=== PATIENT | female | born 1940 | race Caucasian/White ===

== ENCOUNTER → 2016-05-23 | Outpatient (CLI) | payer MEDICARE ==
[~2016-05-23] MED LIST: ACLI400A IH; ADV1DS INH; ALBU8.5H2 IH; ASCO100076 PO; ASP81CT PO; ASP81TEC PO; ASPI-892 PO; ASPI-983 PO; ATOR40TA PO; ATOR40TA70 PO; ATOR80TA; ATOR80TA PO; AZIT250T5 PO; BTH25T1 PO; BUDE10.2 IH; BUDE6HFA IH; CALCIUM +D PO; CATHETER FLUSH 10 ML SYR IV PRN; CEFD300C3 PO; CEPH250C PO; CEPH500T PO; CHOL10003 PO; CLON0.5T3; CLOP75TA PO; DIAZ-345 PO; DIAZ5TAB3 PO; DIPH25TA82 PO; DULO60CA6 PO; EZET10TA23 PO; FAMO20TA5 PO; FAMO40TA72 PO; FENO160T PO; FENO160T12 PO; FLUC100T6 PO; FLUT1DIS26 IH; FURO20TA PO; FURO20TA4 PO; GBPN300C PO; HYDR-3857 PO; HYDR1TAB PO; IBUP-30 PO; Ibuprofen; LEVA1.2511 IH; LEVA1.2527 IH; LEVA1.2527 NEB; LEVO150T PO; LEVO200T6 PO; LEVO500T69 PO; LEVO75TA57 PO; LOVA20TA2 PO; LOVA40TA2 PO; LSNP20T; LSRT50T; LSRT50T PO; LVT.1T PO; MAGN250T7 PO; MAGN400C PO; MCLZ25TRX; MELO15TA14 PO; METH4TAB PO; METO25TA2 PO; METO50TA7; METO50TA7 PO; MULT-856 PO; NITR100C3 PO; OMEG1CAP40; OMEG1CAP51 PO; OMEP40CA36 PO; OMG1KC PO; OXYC-12 PO; PARO20TA57 PO; PILO5TAB PO; PNT40TEC PO; POTA10TA6 PO; POTA20TA15 PO; PRD20T PO; PRD50T PO; PRX20T PO; REGADENOSON 0.4 MG/5 ML SYR (LEXISCAN) IV ONE; ROSU10TA PO; SCR1T1 PO; TIOT18CA INH; TIOT18CA2 IH; tramadol
[2016-05-23 12:55] VITALS: BP 141/93
--- NOTE | 2016-05-31 08:45 | STRESS TEST ---
PROCEDURE PHYSICIAN: BRYCE LYLE DATE OF PROCEDURE: 05/23/2016 LEXISCAN MYOVIEW STRESS TEST REPORT REFERRING PHYSICIAN: Dr. Foley BASELINE HEART RATE: 101 BASELINE BLOOD PRESSURE: 140/90 BASELINE EKG: Sinus rhythm with no ischemic changes. SUMMARY: The patient was injected with 10.38 mCi of technetium 99 Myoview and the resting images were obtained. Then the patient received 0.4 mg of Lexiscan followed by 29.3 mCi of technetium 99 Myoview. Throughout the test, there were no EKG changes. The resting and stress images were reviewed and compared in the short axis, horizontal long axis, and vertical long axis views Review of the images showed mild decreased uptake at the inferior septum, with subtle reversibility. No significant ischemia was noted. SSS 5, SDS 1, TID value 1.04. On the gated images, the left ventricle appeared to be normal in size with normal contractility. Calculated ejection fraction 69%. CONCLUSION: 1. The patient tolerated Lexiscan well. 2. Mild decreased uptake at the inferior septum, with mild reversibility. No significant ischemia or infarction on SPECT images. 3. Normal left ventricular size with normal contractility. Calculated ejection fraction 69%. Job ID: [id number] Dictated Date: 05/31/2016 08:05:56 Wave Solder Offbearer Date: 05/31/2016 08:42:40 / emelina
== END ==
LOC: CARD 11:24
PROVIDERS: ATTEND Physician Assistant
DX: I25.10 Atherosclerotic heart disease of native coronary artery without angina pectoris (principal); I65.23 Occlusion and stenosis of bilateral carotid arteries; I10 Essential (primary) hypertension; E78.2 Mixed hyperlipidemia
CPT/HCPCS: 78452; 93017

== ENCOUNTER 2017-01-24 14:39 | Inpatient (IN) | payer MEDICARE ==
[~2017-01-24] VITALS: Ht 157.5 cm; Wt 44.6 kg
[~2017-01-24 14:39] MED LIST changes: +AMLO5TAB2 PO; +BETH25TA PO; +CALC-140 PO; -CATHETER FLUSH 10 ML SYR IV PRN; +DULO60CA58 PO; +METO-333 PO; +MULT1TAB69 PO; +NITR-65 PO; -REGADENOSON 0.4 MG/5 ML SYR (LEXISCAN) IV ONE; +ROPI0.5T2 PO; +VITAMIN D PO
[2017-01-24 15:00] VITALS: BP 87/53
[2017-01-24] MEDS ORDERED: PATIENT MAY USE OWN MEDS, ALL PO SCH (15:15)
[2017-01-24] MEDS ORDERED: BETH25TA PO (15:37)
[2017-01-24] MEDS ORDERED: METO-333 PO (15:37)
[2017-01-24] MEDS ORDERED: AMLO5TAB2 PO (15:37)
[2017-01-24] MEDS ORDERED: DULO60CA58 PO (15:37)
[2017-01-24] MEDS ORDERED: CHOL10003 PO (15:45)
--- NOTE | 2017-01-24 15:51 | Physical Therapy Progress Note ---
Therapy Progress Note Patient just admitted to hospital 30 minutes ago. PT will assess in HARLEEN Shea PT Jan 24, 2017 15:51
[2017-01-24] MEDS ORDERED: ROSU10TA PO (15:55)
[2017-01-24] MEDS ORDERED: LEVO112T55 PO (15:55)
[2017-01-24] MEDS ORDERED: FENO160T12 PO (15:55)
[2017-01-24] MEDS ORDERED: RT-ALBUTEROL/IPRATROPIUM 3 ML (DUONEB) VIAL INH PRN (17:15)
[2017-01-24] MEDS: NS IV 1000 ML 1,000 ML IV SCH (17:38)
[2017-01-24 18:25] LABS: BASOPHILS % (AUTO) 0 % (0-10); EOSINOPHILS % (AUTO) 0 % (0-10); LYMPHOCYTES # (AUTO) 0.8 X 10^3 (1.0-4.0); LYMPHOCYTES % (AUTO) 5 % (12-44); MEAN CORPUSCULAR HEMOGLOBIN 30 PG (25-34); MEAN CORPUSCULAR HGB CONC 34 G/DL (32-36); MEAN CORPUSCULAR VOLUME 87 FL (80-99); MEAN PLATELET VOLUME 9.7 FL (7.4-10.4); MONOCYTES # (AUTO) 0.6 X 10^3 (0.0-1.0); MONOCYTES % (AUTO) 4 % (0-12); NEUTROPHILS # (AUTO) 14.8 X 10^3 (1.8-7.8); NEUTROPHILS % (AUTO) 91 % (42-75); PLATELET COUNT 239 10^3/uL (130-400); RED BLOOD COUNT 4.24 10^6/uL (4.35-5.85); RED CELL DISTRIBUTION WIDTH 13.6 % (10.0-14.5); WHITE BLOOD COUNT 16.3 10^3/uL (4.3-11.0)
--- NOTE | 2017-01-24 18:25 | Diagnostic Imaging Report ---
INDICATION: Cough and shortness of breath. EXAMINATION: Two-view chest, 01/24/2017. COMPARISON: 01/16/13. FINDINGS: The heart is stable. The pulmonary vasculature is mildly congested. The lungs are hyperinflated. There is bibasilar atelectasis versus scar which is stable. No pneumothorax or new infiltrates. Small bilateral pleural effusions are noted. Density in the right suprahilar region is noted. It has been present on several recent examinations but is new or increased in size since 2016. CT imaging may be warranted. IMPRESSION: 1. Chronic change as described with a possible developing nodule in the right suprahilar region. CT imaging recommended. 2. Small bilateral pleural effusions. Dictated by: Dictated on workstation # [id number]
[2017-01-24 18:42] LABS: BAND NEUTROPHILS 0 %; BASOPHILS % (MANUAL) 0 %; EOSINOPHILS % (MANUAL) 0 %; LYMPHOCYTES % (MANUAL) 7 %; NEUTROPHILS % (MANUAL) 91 %
[2017-01-24 18:43] LABS: ALANINE AMINOTRANSFERASE 16 U/L (0-55); ALBUMIN 3.5 GM/DL (3.2-4.5); ANION GAP 17 MMOL/L (5-14); ASPARTATE AMINO TRANSFERASE 28 U/L (5-34); BILIRUBIN,TOTAL 0.7 MG/DL (0.1-1.0); BLOOD UREA NITROGEN 19 MG/DL (7-18); BUN/CREATININE RATIO 32; CALCIUM 8.3 MG/DL (8.5-10.1); CARBON DIOXIDE 21 MMOL/L (21-32); CHLORIDE 89 MMOL/L (98-107); GFR ESTIMATED > 60; GLUCOSE 67 MG/DL (70-105); MAGNESIUM 1.7 MG/DL (1.8-2.4); POTASSIUM 3.5 MMOL/L (3.6-5.0); SODIUM 127 MMOL/L (135-145); TOTAL PROTEIN 6.1 GM/DL (6.4-8.2)
[2017-01-24 18:45] LABS: ERYTHROCYTE SEDIMENTATION RATE 12 MM/HR (0-30)
[2017-01-24 19:03] LABS: THYROID STIMULATING HORMONE 19.32 UIU/ML (0.35-4.94)
[2017-01-24] MEDS ORDERED: cefTRIAXone INJECTION 1,000 MG in NS (IVPB) 50 ML IV NR (19:45)
[2017-01-24] MEDS: RT-ALBUTEROL/IPRATROPIUM 3 ML (DUONEB) VIAL INH SCH (20:47)
[2017-01-24 21:42] VITALS: BP 105/56
[2017-01-24] MEDS ORDERED: THIAMINE 100 MG/ML 2 ML (VITAMIN B-1) VIAL IV ONE (22:15)
[2017-01-24] MEDS ORDERED: KCL 8 MEQ (MICRO K) TABLET PO ONE (22:15)
[2017-01-24] MEDS ORDERED: ALPRAZolam 0.25 MG (XANAX) TAB PO PRN (22:15)
[2017-01-24] MEDS ORDERED: ACETAMINOPHEN 500 MG TAB (TYLENOL) PO PRN (22:15)
[2017-01-24] MEDS ORDERED: MAGNESIUM 1 GM/100 ML IVPB 100 ML IV ONE (22:15)
--- NOTE | 2017-01-24 22:19 | History & Physicial ---
History of Present Illness History of Present Illness Reason for visit/HPI This is a 76 year old female who was just released from the hospital last week with COPD exacerbation and UTI. The patient had been up ambulating with PT prior to discharge and was feeling well prior to discharge. However, she states that since she has been home she has been becoming weaker. In fact, she had a syncopal episode in my office and was found to be hypotensive with a blood pressure of 80/40. It was decided to directly admit her for IVF and further evaluation. She has a history of alcohol abuse and admitted to drinking one beer in the morning but according to her daughter, she is a heavy drinker and her sister found evidence of numerous empty alcohol bottles in the patient's home. Date of Admission Jan 24, 2017 at 14:50 Date Seen by Provider: Jan 24, 2017 Time Seen by Provider: 13:30 I consulted on this patient on 01/24/17 22:13 Attending Physician Neli Foley DO Admitting Physician Neli Foley DO Consult Allergies and Home Medications Allergies Coded Allergies: benazepril (Verified Allergy, Unknown, 01/21/07) codeine (Verified Adverse Reaction, Unknown, NAUSEA/VOMITING, 01/20/07) Home Medications Amlodipine Besylate 5 Mg Tablet, 5 MG PO DAILY, (Reported) Aspirin 81 Mg Tablet.dr, 81 MG PO DAILY, (Reported) Bethanechol Chloride 25 Mg Tablet, 25 MG PO ACHS, (Reported) Budesonide/Formoterol Fumarate 10.2 Gm Hfa.aer.ad, 2 PUFF IH BID, (Reported) LAST FILLED #1 INHALER 12-13-16 Calcium Carbonate/Vitamin D3 1 Each Tablet, 1 TAB PO DAILY, (Reported) Cholecalciferol (Vitamin D3) 1,000 Unit Tablet, 1,000 UNIT PO DAILY, (Reported) Duloxetine HCl 60 Mg Capsule.dr, 60 MG PO HS, (Reported) Fenofibrate 160 Mg Tablet, 160 MG PO DAILY, (Reported) LAST FILLED #90 07-27-16 Levothyroxine Sodium 112 Mcg Tablet, 112 MCG PO DAILY, (Reported) LAST FILLED #60 08-30-16 Metoprolol Tartrate 25 Mg Tablet, 25 MG PO BID, (Reported) Multivitamin 1 Each Tablet, 1 TAB PO DAILY, (Reported) Pilocarpine HCl 5 Mg Tablet, 7.5 MG PO TID, (Reported) TAKES 1 & 1/2 (5MG) TABLET / LAST FILLED 10/26/16 #135 Ropinirole HCl 0.5 Mg Tablet, 0.5 MG PO BID, (Reported) LAST FILLED 12/07/16 #60 Rosuvastatin Calcium 10 Mg Tablet, 10 MG PO HS, (Reported) LAST FILLED #30 08-30-16 Past Yrortoh-Ubldho-Jiapan Hx Patient Social History Alcohol Use: Occasionally Uses Alcohol Beverage of Choice: Beer Recreational Drug Use: No Smoking Status: Former Smoker Former Smoker, Quit: Jan 25, 1984 Type Used: Cigarettes 2nd Hand Smoke Exposure: No Physical Abuse Screen: No Sexual Abuse: No Recent Foreign Travel: No Contact w/other who traveled: No Recent Hopitalizations: Yes Recent Infectious Disease Expo: No Immunizations Up To Date Tetanus Booster (TDap): Unknown Pediatric: No Date of Pneumonia Vaccine: Dec 01, 2015 Date of Influenza Vaccine: Jan 17, 2017 Seasonal Allergies Seasonal Allergies: No Surgeries Yes Breast Respiratory Yes Currently Using CPAP: No Currently Using BIPAP: No Cardiovascular Yes Coronary Artery Disease, High Cholesterol, Hypertension Neurological No Reproductive System Hx Reproductive Disorders: No Genitourinary No Gastrointestinal Yes Gastrointestinal Bleed Musculoskeletal Yes Arthritis Endocrine History of Endocrine Disorders: No Endocrine Disorders: Hypothyroidsim HEENT History of HEENT Disorders: Yes HEENT Disorders: Cataract Loss of Vision: Denies Hearing Impairment: Denies Cancer No Breast, Thyroid Psychosocial History of Psychiatric Problem: No Behavioral Health Disorders: Anxiety Integumentary History of Skin or Integumenta: No Skin/Integumentary Disorders: Recent Skin Changes Blood Transfusions History of Blood Disorders: No Adverse Reaction to a Blood Tr: No Family Medical History Significant Family History: No Pertinent Family Hx Family Hx: Cancer 03 FATHER, Onset:60 years & older (CANCER OF THE BLADDER) 09 SISTER, Onset:30's - 40 (CANCER OF THE BREAST) Cataract 03 FATHER, Onset:60 years & older 03 MOTHER, Onset:60 years & older Chest pain 03 MOTHER, Onset:60 years & older Dementia 03 FATHER, Onset:60 years & older Family history: Arthritis 03 MOTHER, Onset:60 years & older Family history: Breast disease 09 SISTER, Onset:30's - 40 Family history: Cardiovascular disease 03 MOTHER, Onset:60 years & older Family history: Glaucoma 03 MOTHER, Onset:60 years & older Family history: Hypertension 03 FATHER, Onset:50's - 60 03 MOTHER, Onset:60 years & older Family history: Osteoporosis 03 MOTHER, Onset:60 years & older Hearing loss 03 FATHER, Onset:60 years & older Heart disease 03 MOTHER, Onset:60 years & older Hypercholesterolemia 03 MOTHER, Onset:60 years & older Infertile CHILDREN, Onset:30's - 40 (PATIENT STATES THAT DAUGHTER WAS INFERTILE) Kidney disease 03 FATHER, Onset:60 years & older Myocardial infarction 03 MOTHER, Onset:60 years & older Parkinson's disease 03 FATHER, Onset:60 years & older 09 BROTHER, Onset:60 years & older Stroke 03 FATHER, Onset:60 years & older No Family History of: Abdominal aortic aneurysm Denis's disease Alcoholism Aphasia Cancer of colon Congenital heart disease Congestive heart failure Cystic fibrosis Dysphagia Family history: Allergy Family history: Alzheimer's disease Family history: Asthma Family history: Coronary thrombosis Family history: Diabetes mellitus Family history: Gastrointestinal disease Family history: Thyroid disorder Headache Hereditary disease History of - anemia History of - disorder History of - respiratory disease History of drug abuse Human immunodeficiency virus (HIV) seropositivity Malignant neoplasm of lung Prostate cancer Psychotic disorder Seizure disorder Tuberculosis Visual impairment Constitutional: dizziness, weakness EENTM: No see HPI, No no symptoms reported, No ear discharge, No hearing loss, No ear pain, No blurred vision, No double vision, No eye pain, No tearing, No vision loss, No dental problems, No hoarseness, No mouth pain, No mouth swelling , No epistaxis, No nose congestion, No nose pain, No throat pain, No throat swelling, No other Respiratory: cough, short of breath Cardiovascular: No no symptoms reported, No see HPI, No chest pain, No edema, No Hx of Intervention, No palpitations, No syncope, No vascular heart diseas, No other Gastrointestinal: No RUQ, No LUQ, No RLQ, No LLQ, No no symptoms reported, No see HPI, No abdominal pain, No constipation, No diarrhea, No dysphagia, No hematemesis, No heartburn, No jaundice, No loss of appetite, No melena, No nausea, No vomiting, No other Genitourinary: frequency, incontinence : No Musculoskeletal: muscle weakness Skin: other (bruising of arms) Psychiatric/Neurological: Anxiety, Tremors, Weakness Physical Exam Vital Signs Vital Sign - Last 12Hours 01/24/17 01/24/17 15:00 17:00 Temp 96.2 Pulse 81 Resp 20 B/P (MAP) 87/53 Pulse Ox 92 O2 Delivery Nasal Cannula O2 Flow Rate 2.00 FiO2 2 Capillary Refill : General Appearance: Moderate Distress (in wheelchair) HEENT: Pharynx Normal, Pale Conjunctivae (L), Pale Conjunctivae (R) Neck: Supple Respiratory: Lungs Clear, Decreased Breath Sounds Cardiovascular: Systolic Murmur, Gallop/S4, Tachycardia Gastrointestinal: Normal Bowel Sounds, Non Tender, Soft Rectal: Deferred Back: No CVA Tenderness Extremity: Non Tender, No Calf Tenderness, No Pedal Edema Neurologic/Psychiatric: Alert, Motor Weakness Skin: Ecchymosis (forearms) Comments Laboratory Tests 01/24/17 18:16: White Blood Count 16.3H, Red Blood Count 4.24L, Hemoglobin 12.6, Hematocrit 37, Mean Corpuscular Volume 87, Mean Corpuscular Hemoglobin 30, Mean Corpuscular Hemoglobin Concent 34, Red Cell Distribution Width 13.6, Platelet Count 239, Mean Platelet Volume 9.7, Neutrophils (%) (Auto) 91H, Lymphocytes (%) (Auto) 5L , Monocytes (%) (Auto) 4, Eosinophils (%) (Auto) 0, Basophils (%) (Auto) 0, Neutrophils # (Auto) 14.8H, Lymphocytes # (Auto) 0.8L, Monocytes # (Auto) 0.6, Eosinophils # (Auto) 0.0, Basophils # (Auto) 0.0, Neutrophils % (Manual) 91, Lymphocytes % (Manual) 7, Monocytes % (Manual) 2, Eosinophils % (Manual) 0, Basophils % (Manual) 0, Band Neutrophils 0, Blood Morphology Comment NORMAL, Erythrocyte Sedimentation Rate 12, Sodium Level 127L, Potassium Level 3.5L, Chloride Level 89L, Carbon Dioxide Level 21, Anion Gap 17H, Blood Urea Nitrogen 19H, Creatinine 0.60, Estimat Glomerular Filtration Rate > 60, BUN/Creatinine Ratio 32, Glucose Level 67L, Lactic Acid Level 1.31, Calcium Level 8.3L, Magnesium Level 1.7L, Total Bilirubin 0.7, Aspartate Amino Transf (AST/SGOT) 28 , Alanine Aminotransferase (ALT/SGPT) 16, Alkaline Phosphatase 64, Troponin I < 0.30, Total Protein 6.1L, Albumin 3.5, Thyroid Stimulating Hormone (TSH) 19.32H Assessment/Plan Assessment and Plan 1. Syncopal Episode--admit for telemetry, cardiac enzymes, electrolytes, consult cardiology 2. Acute Hypotension--admit and hydrate and monitor BP, check H and H 3. Alcohol Abuse--cover with Thiamin and Banana Bag, xanax prn anxiety or withdrawal symptoms 4. Weaknes--start PT/OT and will look at possible rehab 5. Recent UTI--check UA 6. Recent COPD exacerbation--stable, start nebulizers and oxygen 7. Parkinson's--resume requip Problems: Clinical Quality Measures DVT/VTE Risk/Contraindication: Risk Factor Score Per Nursin RFS Level Per Nursing on Admit: 4+=Very High NELI FOLEY DO Jan 24, 2017 22:19
[2017-01-24] MEDS ORDERED: NS IV 1000 ML 0 ML ONE (23:10)
[2017-01-24] MEDS ORDERED: FOLIC ACID 1 MG/0.2 ML SYR (ED) ONE (23:11)
[2017-01-24] MEDS ORDERED: MAGNESIUM SULFATE 1 GM/2 ML VIAL ONE (23:11)
[2017-01-24] MEDS: THIAMINE INJECTION 100 MG, FOLIC ACID INJECTION 1 MG, VITAMIN MULTI INJECTION 10 ML, MA... IV SCH ×5 (23:32)
[2017-01-25 00:09] VITALS: BP 115/58
[2017-01-25] MEDS: RT-ALBUTEROL/IPRATROPIUM 3 ML (DUONEB) VIAL INH SCH ×4 (02:13→21:28)
[2017-01-25 04:00] VITALS: BP 121/64
[2017-01-25] MEDS: NS IV 1000 ML 1,000 ML IV SCH ×4 (05:07→20:27)
[2017-01-25 06:16] LABS: BASOPHILS % (AUTO) 0 % (0-10); EOSINOPHILS # (AUTO) 0.1 10^3/uL (0.0-0.3); EOSINOPHILS % (AUTO) 1 % (0-10); LYMPHOCYTES # (AUTO) 0.9 X 10^3 (1.0-4.0); LYMPHOCYTES % (AUTO) 7 % (12-44); MEAN CORPUSCULAR HEMOGLOBIN 30 PG (25-34); MEAN CORPUSCULAR HGB CONC 35 G/DL (32-36); MEAN CORPUSCULAR VOLUME 88 FL (80-99); MONOCYTES # (AUTO) 1.3 X 10^3 (0.0-1.0); MONOCYTES % (AUTO) 10 % (0-12); NEUTROPHILS # (AUTO) 10.4 X 10^3 (1.8-7.8); NEUTROPHILS % (AUTO) 82 % (42-75); PLATELET COUNT 210 10^3/uL (130-400); RED CELL DISTRIBUTION WIDTH 13.9 % (10.0-14.5); WHITE BLOOD COUNT 12.7 10^3/uL (4.3-11.0)
[2017-01-25] MEDS: THIAMINE 100 MG (VITAMIN B-1) TAB PO SCH (06:16)
[2017-01-25 06:52] LABS: ANION GAP 9 MMOL/L (5-14); BLOOD UREA NITROGEN 13 MG/DL (7-18); BUN/CREATININE RATIO 23; CALCIUM 7.4 MG/DL (8.5-10.1); CARBON DIOXIDE 23 MMOL/L (21-32); CHLORIDE 99 MMOL/L (98-107); CREATININE SERUM 0.57 MG/DL (0.60-1.30); GFR ESTIMATED > 60; GLUCOSE 97 MG/DL (70-105); POTASSIUM 3.5 MMOL/L (3.6-5.0); SODIUM 131 MMOL/L (135-145)
[2017-01-25 08:00] VITALS: BP 133/61
[2017-01-25] MEDS: THIAMINE INJECTION 100 MG, FOLIC ACID INJECTION 1 MG, VITAMIN MULTI INJECTION 10 ML, MA... IV SCH ×5 (09:35)
--- NOTE | 2017-01-25 10:03 | Physical Therapy Evaluation ---
PT Evaluation-General Medical Diagnosis Admission Date Jan 24, 2017 at 14:50 Medical Diagnosis: Hypotension/syncope Onset Date: Jan 24, 2017 Therapy Diagnosis Therapy Diagnosis: weakness/unsteadiness Height/Weight Height (Feet): 5 Height (Inches): 2.00 Weight (Pounds): 96 Weight (Ounces): 4.8 Precautions Precautions/Isolations: Fall Prevention, Standard Precautions Weight Bear Status Right Lower Extremity: Right Full Weight Bearing Left Lower Extremity: Left Full Weight Bearing Referral Reason for Referral: Evaluation/Treatment, Gait Medical History Pertinent Medical History: Alcoholism, Arthritis, CAD, COPD, GERD, HTN, Hypothroidism, Parkinson's, Smoking Reviewed History: Yes Social History Home: Single Level Current Living Status: Alone Entry Into Home: Level Entry Prior/Core FIM Prior Level of Function Functional [place] Measure 0=Not Assessed/NA 4=Minimal Assistance 1=Total Assistance 5=Supervision or Setup 2=Maximal Assistance 6=Modified [place] 3=Moderate Assistance 7=Complete [place] Bed Mobility: 7 Transfers (B,C,W/C) (FIM): 7 Gait: 6 Locomotion: 6 Patient lived in the home by herself with frequent visitors prior to admission. Patient uses FWW at home. PT Evaluation-Current Subjective Patient states she is not doing too well today. She states she passed out at the doctor's office and does not remember how. She states she feels weak and was trying to do her exercises at home and walk around. Pain Numeric Pain Scale: 0-No Pain Location: No Pain Reported Pt/Family Goals Patient wishes to be able to return home independently. Objective Patient Orientation: Normal For Age Problem Solving: Fair Attachments: Oxygen, IV ROM/Strength ROM Upper Extremities WNL ROM Lower Extremities WNL Strength Upper Extremities WNL Strength Lower Extremities R LE: 4/5 hip flexion, knee flexion/extension, plantar/dorsiflexion L LE 3+/5 hip flexion, knee flexion/extension, plantar/dorsiflexion Integumentary/Posture Integumentary refer to nursing notes Bowel Incontinence: No Bladder Incontinence: No Posture WNL Neuromuscular (Tone, Coordination, Reflexes) noted bilateral UE tremors Sensory Vision: Wears Glasses Hearing: Functional Hand Dominance: Right Sensation Right Upper Extremit: Intact Sensation Left Upper Extremity: Intact Sensation Right Lower Extremit: Intact Sensation Left Lower Extremity: Intact Transfers Functional [place] Measure 0=Not Assessed/NA 4=Minimal Assistance 1=Total Assistance 5=Supervision or Setup 2=Maximal Assistance 6=Modified [place] 3=Moderate Assistance 7=Complete [place] Transfers (B, C, W/C) (FIM): 4 Scootin Rollin Supine to/from Sit: 4 Sit to/from Stand: 5 Patient performed all transfers with SBA other than supine to stand requires minimum assistance to help rise from the bed. Gait Mode of Locomotion: Walk Anticipated Mode of Locomotion: Walk Gait (FIM): 4 Distance (FIM): 3=150 ft Distance: 150' Gait Level of Assist: 4 Gait Persons Needed: 1 Gait Assistive Device: FWW Comments/Gait Description Patient walked with CGA from PT. Distance was limited by patient weakness and unsteadiness. Balance Sitting Static: Normal Sitting Dynamic: Fair Standing Static: Normal Standing Dynamic: Fair Assessment/Needs Patient has weakness and is unsteady with movement. She may need future assistance with safe ambulation. PT will progress gait distance as patient becomes stronger. Rehab Potential: Fair PT [facility] Goals Packaging Clerk Goals PT Packaging Clerk Goals Time Frame: Feb 01, 2017 Transfers (B,C,W/C) (FIM): 6 Gait (FIM): 6 Gait distance (FIM): 3=150 ft Distance: >300' Gait Level of Assist: 6 Gait Assistive Device: FWW PT Plan Problem List Problem List: Activity Tolerance, Functional Strength, Safety, Balance, Gait, Bed Mobility Treatment/Plan Treatment Plan: Continue Plan of Care Treatment Plan: Bed Mobility, Education, Functional Activity Stefanie, Functional Strength, Gait, Safety, Therapeutic Exercise Treatment Duration: Feb 01, 2017 Frequency: 6 times per week Estimated Hrs Per Day: .25 hour per day Patient and/or Family Agrees t: Yes Safety Risks/Education Patient Education: Safety Issues Teaching Recipient: Patient Teaching Methods: Discussion Response to Teaching: Verbalize Understanding Discharge Recommendations Therapy D/C Recommendations: Home w/ Family Support, Halfway Placement, [facility] (TCU/NH) Time/GCodes Time In: 906 Time Out: 926 Total Billed Treatment Time: 20 Total Billed Treatment 1 visit EVMod 20 min G Codes Necessary: Yes PT/OT Therapy GCodes Therapy Functional Limitation: Physical Therapy Test(s)/Tool used to determine: Level of Assistance Scale Functional Limitation-Current Charge Code: MOBCUR Modifier: CK Functional Limitation-Goal Charge Code: MOBGOAL Modifier: CI LAWRENCE,HARLEEN PT Jan 25, 2017 10:03
--- NOTE | 2017-01-25 11:10 | Progress Note (SOAP) ---
Subjective Date Seen by Provider: Jan 25, 2017 Time Seen by Provider: 11:03 Subjective/Events-last exam Fwup hypotension with syncope, dehydration, hyponatreamia, hypokalemia, hypomagnesemia, alcohol abuse, weakness/worsening debility, COPD, recent UTI. Feeling much better after IVFs. CT scan shows possible developing nodule in right lung. Objective Exam Vital Signs Date Time Temp Pulse Resp B/P (MAP) Pulse Ox O2 Delivery O2 Flow Rate FiO2 01/25/17 09:00 Nasal Cannula 2.00 01/25/17 08:38 95 Nasal Cannula 2.00 01/25/17 08:08 58 01/25/17 08:00 69 01/25/17 08:00 98.9 85 18 133/61 100 Nasal Cannula 2.00 01/25/17 04:00 97.8 81 18 121/64 97 Nasal Cannula 2.00 01/25/17 02:14 95 Nasal Cannula 2.00 01/25/17 01:00 78 01/25/17 00:09 96.4 83 17 115/58 98 Nasal Cannula 2.00 01/24/17 21:42 105/56 01/24/17 21:00 Nasal Cannula 2.00 01/24/17 20:48 98 Nasal Cannula 2.00 01/24/17 20:20 97.7 84 17 99 Nasal Cannula 2.00 01/24/17 19:09 80 01/24/17 18:40 78 01/24/17 17:00 77 99 2 01/24/17 17:00 99 Nasal Cannula 2.00 01/24/17 15:30 92 Nasal Cannula 2.00 01/24/17 15:00 96.2 81 20 87/53 92 Nasal Cannula 2.00 Capillary Refill : General Appearance: No Apparent Distress Neck: Supple Respiratory: Lungs Clear, Decreased Breath Sounds Cardiovascular: Regular Rate, Rhythm, Systolic Murmur Gastrointestinal: normal bowel sounds, non tender, soft Neurologic/Psychiatric: Alert, Oriented x3 Results Lab Laboratory Tests 01/24/17 18:16: White Blood Count 16.3H, Red Blood Count 4.24L, Hemoglobin 12.6, Hematocrit 37, Mean Corpuscular Volume 87, Mean Corpuscular Hemoglobin 30, Mean Corpuscular Hemoglobin Concent 34, Red Cell Distribution Width 13.6, Platelet Count 239, Mean Platelet Volume 9.7, Neutrophils (%) (Auto) 91H, Lymphocytes (%) (Auto) 5L , Monocytes (%) (Auto) 4, Eosinophils (%) (Auto) 0, Basophils (%) (Auto) 0, Neutrophils # (Auto) 14.8H, Lymphocytes # (Auto) 0.8L, Monocytes # (Auto) 0.6, Eosinophils # (Auto) 0.0, Basophils # (Auto) 0.0, Neutrophils % (Manual) 91, Lymphocytes % (Manual) 7, Monocytes % (Manual) 2, Eosinophils % (Manual) 0, Basophils % (Manual) 0, Band Neutrophils 0, Blood Morphology Comment NORMAL, Erythrocyte Sedimentation Rate 12, Sodium Level 127L, Potassium Level 3.5L, Chloride Level 89L, Carbon Dioxide Level 21, Anion Gap 17H, Blood Urea Nitrogen 19H, Creatinine 0.60, Estimat Glomerular Filtration Rate > 60, BUN/Creatinine Ratio 32, Glucose Level 67L, Lactic Acid Level 1.31, Calcium Level 8.3L, Magnesium Level 1.7L, Total Bilirubin 0.7, Aspartate Amino Transf (AST/SGOT) 28 , Alanine Aminotransferase (ALT/SGPT) 16, Alkaline Phosphatase 64, Troponin I < 0.30, Total Protein 6.1L, Albumin 3.5, Thyroid Stimulating Hormone (TSH) 19.32H 01/24/17 22:40: Troponin I < 0.30 01/25/17 05:55: White Blood Count 12.7H, Red Blood Count 3.70L, Hemoglobin 11.2L, Hematocrit 33L , Mean Corpuscular Volume 88, Mean Corpuscular Hemoglobin 30, Mean Corpuscular Hemoglobin Concent 35, Red Cell Distribution Width 13.9, Platelet Count 210, Mean Platelet Volume 10.0, Neutrophils (%) (Auto) 82H, Lymphocytes (%) (Auto) 7L , Monocytes (%) (Auto) 10, Eosinophils (%) (Auto) 1, Basophils (%) (Auto) 0, Neutrophils # (Auto) 10.4H, Lymphocytes # (Auto) 0.9L, Monocytes # (Auto) 1.3H, Eosinophils # (Auto) 0.1, Basophils # (Auto) 0.0, Sodium Level 131L, Potassium Level 3.5L, Chloride Level 99, Carbon Dioxide Level 23, Anion Gap 9, Blood Urea Nitrogen 13, Creatinine 0.57L, Estimat Glomerular Filtration Rate > 60, BUN/ Creatinine Ratio 23, Glucose Level 97, Calcium Level 7.4L Assessment/Plan Assessment/Plan Assess & Plan/Chief Complaint 1. Acute Hypotension/Dehydration with Syncopal episode--BP improved after hydration so will decrease IVF rate and monitor, BP meds on hold 2. Alcohol Abuse--on thiamin and given banana bag 3. Weakness/Worsening Debility--PT/OT and Rehab evaluation 4 COPD--SVNs, oxygen 5. GERD--start protonix 6. Hyponatremia--improving with hydration 7. Hypokalemia--replace potassium 8. Hypomagnesemia--start mag oxide 9. Right lung nodule--going for CT chest today Clinical Quality Measures DVT/VTE Risk/Contraindication: Risk Factor Score Per Nursin RFS Level Per Nursing on Admit: 4+=Very High LEW LEIVA DO Jan 25, 2017 11:10
[2017-01-25 12:08] VITALS: BP 121/57
[2017-01-25] MEDS ORDERED: KCL 8 MEQ (MICRO K) TABLET PO NR (12:30)
[2017-01-25] MEDS ORDERED: MAGNESIUM OXIDE (MAG-OX)400 MG TAB PO NR (12:30)
[2017-01-25] MEDS: cefTRIAXone INJECTION 1,000 MG in NS (IVPB) 50 ML IV SCH (12:52)
[2017-01-25] MEDS: BETHANECHOL 25 MG (URECHOLINE) TAB PO SCH ×3 (12:53→20:29)
[2017-01-25] MEDS ORDERED: PATIENT MAY USE OWN MED,SINGLE MED PO SCH (13:00)
--- NOTE | 2017-01-25 15:45 | Occupational Therapy Eval ---
OT Evaluation-General/PLF Medical Diagnosis Admission Date Jan 24, 2017 at 14:50 Medical Diagnosis: Hypotension/syncope Onset Date: Jan 24, 2017 Therapy Diagnosis Therapy Diagnosis: decreased self care skills Height/Weight Height (Feet): 5 Height (Inches): 2.00 Weight (Pounds): 96 Weight (Ounces): 4.8 Precautions Precautions/Isolations: Fall Prevention, Standard Precautions Safety Interventions: None Medical History Pertinent Medical History: Alcoholism, Arthritis, CAD, COPD, GERD, HTN, Hypothroidism, Parkinson's, Smoking Additional Medical History high cholesterol, anxiety Reviewed History: Yes Social History Home: Single Level Current Living Status: Alone Entry Into Home: Level Entry ADL-Prior Level of Function ADL PLOF Comments Pt reports being independent with basic self care and mobility. Uses 4WW for mobility. Uses 2L O2Pt states her sister assists with cleaning. Does not drive DME/Equipment: Bath Chair, Grab Bars, Tub/Shower Drive Self: No OT Current Status Subjective Pt in bed, agrees to treatment. Pt has no c/o pain. Mental Status/Objective Patient Orientation: Person, Place Attachments: IV, Oxygen Current Glasses/Contacts: Yes Hearing Aids: No Hand Dominance: Right Upper Extremity ROM WFL Upper Extremity Coordination Fair Upper Extremity Sensation Intact per pt report Upper Extremity Strength Grossly 4/5 ADL-Treatment ADL-Current Pt supine to sit with minimal assistance. Pt participated in UE assessment while seated EOB. Pt doffed socks with SBA, but required minimal assistance for balance while donning sock. Sit to stand with minimal assistance. Pt sidestepped to HOB with supervision using FWW for balance. Sit to supine with SBA. Pt in bed with needs met and visitor present after session. Functional [place] Measure 0=Not Assessed/NA 4=Minimal Assistance 1=Total Assistance 5=Supervision or Setup 2=Maximal Assistance 6=Modified [place] 3=Moderate Assistance 7=Complete IndependenceIRFPAI Quality Coding Scale 6 Independent with activity with or without an assistive device 5 Patient requires set up or clean up by helper. Patient completes activity by themselves 4 Supervision or touching assist (CGA). [place] provide cues , steadying assist 3 The helper provides less than half the effort to complete the activity 2 The helper provides more than half the effort to complete the activity 1 Dependent. The helper does all the effort to complete an activity 7 Patient refused to complete or attempt activity 9 The patient did not perform the activity before the current illness or injury 88 Not attempted due to Medical conditions or safety concerns Lower Body Dressing (FIM): 4 Education OT Patient Education: Rehab process Teaching Recipient: Patient Teaching Methods: Discussion Response to Teaching: Verbalize Understanding OT Short Term Goals Short Term Goals 1=Demonstrate adherence to instructed precautions during ADL tasks. 2=Patient will verbalize/demonstrate understanding of assistive devices/ modifications for ADL. 3=Patient will improve strength/tolerance for activity to enable patient to perform ADL's. OT Bicycle Ii Assembler Goals Bicycle Ii Assembler Goals Time Frame: Feb 08, 2017 Eating (FIM): 6 Grooming(FIM): 6 Upper Body Dressing(FIM): 6 Lower Body Dressing(FIM): 5 Toileting(FIM): 6 Toilet/Commode Transfer(FIM): 6 Additional Goals: 1-Demonstrate ADL Tasks, 2-Verbalize Understanding, 3- ImproveStrength/Stefanie 1=Demonstrate adherence to instructed precautions during ADL tasks. 2=Patient will verbalize/demonstrate understanding of assistive devices/ modifications for ADL. 3=Patient will improve strength/tolerance for activity to enable patient to perform ADL's. OT Education/Plan Problem List/Assessment Assessment: Decreased Activ Tolerance, Decreased UE Strength, Dependent Transfers, Impaired Coordination, Impaired Self-Care Skills Pt to benefit from skilled OT intervention for ADL training, transfers, strengthening, and home safety education to maximize level of function and allow safe discharge. Discharge Recommendations Plan/Recommendations: Continue POC Treatment Plan/Plan of Care Treatment,Training & Education: Yes Patient would benefit from OT for education, treatment and training to promote independence in ADL's, mobility, safety and/or upper extremity function for ADL' s. Plan of Care: ADL Retraining, Functional Mobility, UE Funct Exercise/Act Treatment Duration: Feb 08, 2017 Frequency: 5 times per week Estimated Hrs Per Day: .25 hour per day Rehab Potential: Fair Time/GCodes Start Time: 15:20 Stop Time: 15:35 Total Time Billed (hr/min): 15 Billed Treatment Time 1 visit, EVM(15minutes) PT/OT Therapy GCodes Therapy Functional Limitation: Occupational Therapy Test(s)/Tool used to determine: FIM, Level of Assistance Scale Functional Limitation-Current Charge Code: SELFCUR Modifier: CK Functional Limitation-Goal Charge Code: MOBGOAL Modifier: JORJE SANZ OT Jan 25, 2017 15:45
[2017-01-25] MEDS: PILOCARPINE 5 MG TAB PO SCH ×2 (16:18→20:27)
[2017-01-25] MEDS: MAGNESIUM OXIDE (MAG-OX)400 MG TAB PO SCH (17:12)
[2017-01-25 17:17] VITALS: BP 109/52
--- NOTE | 2017-01-25 17:24 | Diagnostic Imaging Report ---
INDICATION: Cough and shortness of breath. CT of the chest obtained without IV contrast. Comparison made with 05/06/13. FINDINGS: There is atherosclerotic calcification of the aorta without evidence of aneurysm. There are no enlarged mediastinal or hilar nodes. There are coronary artery calcifications. There is some pleural thickening on both sides but no definite pleural fluid collection. There is some pericardial thickening as well. There are no enlarged axillary nodes. There are sclerotic bony changes at the T1-T2 level which may be degenerative in nature. Lung parenchymal windows demonstrated extensive emphysematous changes throughout both lungs. There is some linear scarring in the right upper lobe posteriorly. There is some linear scarring in the left posterior perihilar region. There is some parenchymal scarring and/or atelectasis in the lower lung landers on both sides. There does not appear to be an acute consolidation. IMPRESSION: Marked emphysematous changes throughout both lungs. Parenchymal scarring in the right upper lobe posteriorly as well as the left posterior perihilar region. There is more extensive parenchymal scarring and/or chronic atelectasis in the lower lobes on both sides posteriorly, with adjacent pleural thickening. There is no overt adenopathy. There is extensive atherosclerotic change of the aorta without evidence of aneurysm. There are coronary artery calcifications. Dictated by: Dictated on workstation # [id number]
[2017-01-25 19:28] LABS: BILIRUBIN,URINE NEGATIVE (NEGATIVE); KETONES,URINE 1+ (NEGATIVE); LEUKOCYTE ESTERASE ,URINE 2+ (NEGATIVE); NITRITE,URINE NEGATIVE (NEGATIVE); PH,URINE 6 (5-9); PROTEIN,URINE NEGATIVE (NEGATIVE); UROBILINOGEN,URINE NORMAL (NORMAL)
[2017-01-25 19:38] LABS: YEAST,URINE FEW /HPF
[2017-01-25 20:00] VITALS: BP 137/70
[2017-01-25] MEDS: FENOFIBRATE 134 MG (LOFIBRA) CAPSULE PO SCH (20:28)
[2017-01-25] MEDS: rOPINIRole 1 MG (REQUIP) TABLET PO SCH (20:28)
[2017-01-25] MEDS: DULoxetine 30 MG (CYMBALTA) CAP PO SCH (20:29)
[2017-01-25] MEDS: ROSUVASTATIN 5 MG (CRESTOR) TABLET PO SCH (20:29)
[2017-01-25] MEDS ORDERED: NON-FORMULARY MEDICATION 1 EA EA (Ropinirole HCl 0.5 MG) PO SCH (21:00)
[2017-01-25] MEDS ORDERED: RT-SYMBICORT 160/4.5 MCG INHALER PER PUFF IH SCH (21:00)
[2017-01-25] MEDS ORDERED: ROSUVASTATIN CALCIUM 10 MG PO SCH (21:00)
[2017-01-25] MEDS ORDERED: NON-FORMULARY MEDICATION 1 EA EA (Duloxetine HCl 60 MG) PO SCH (21:00)
[2017-01-25] MEDS: RT-ADVAIR HFA 115/21 MCG PER PUFF IH SCH (21:25)
[2017-01-26 00:22] VITALS: BP 127/61
[2017-01-26] MEDS: RT-ALBUTEROL/IPRATROPIUM 3 ML (DUONEB) VIAL INH SCH ×4 (03:16→19:02)
[2017-01-26 04:40] VITALS: BP 123/70
[2017-01-26] MEDS: BETHANECHOL 25 MG (URECHOLINE) TAB PO SCH ×4 (06:27→20:38)
[2017-01-26] MEDS: KCL 8 MEQ (MICRO K) TABLET PO SCH (06:27)
[2017-01-26] MEDS: LEVOTHYROXINE 112 MCG (LEVOTHROID) TAB PO SCH (06:27)
[2017-01-26] MEDS: THIAMINE 100 MG (VITAMIN B-1) TAB PO SCH (06:27)
[2017-01-26] MEDS: RT-ADVAIR HFA 115/21 MCG PER PUFF IH SCH ×3 (06:47→19:05)
[2017-01-26 06:54] LABS: BASOPHILS % (AUTO) 0 % (0-10); EOSINOPHILS # (AUTO) 0.3 10^3/uL (0.0-0.3); EOSINOPHILS % (AUTO) 3 % (0-10); LYMPHOCYTES % (AUTO) 10 % (12-44); MEAN CORPUSCULAR HEMOGLOBIN 30 PG (25-34); MEAN CORPUSCULAR HGB CONC 33 G/DL (32-36); MEAN CORPUSCULAR VOLUME 90 FL (80-99); MEAN PLATELET VOLUME 10.1 FL (7.4-10.4); MONOCYTES % (AUTO) 10 % (0-12); NEUTROPHILS # (AUTO) 7.7 X 10^3 (1.8-7.8); NEUTROPHILS % (AUTO) 77 % (42-75); PLATELET COUNT 188 10^3/uL (130-400); RED BLOOD COUNT 3.38 10^6/uL (4.35-5.85); RED CELL DISTRIBUTION WIDTH 14.2 % (10.0-14.5); WHITE BLOOD COUNT 10.1 10^3/uL (4.3-11.0)
[2017-01-26 07:10] LABS: ANION GAP 8 MMOL/L (5-14); BLOOD UREA NITROGEN 4 MG/DL (7-18); BUN/CREATININE RATIO 8; CALCIUM 7.5 MG/DL (8.5-10.1); CARBON DIOXIDE 26 MMOL/L (21-32); CHLORIDE 99 MMOL/L (98-107); CREATININE SERUM 0.48 MG/DL (0.60-1.30); GFR ESTIMATED > 60; GLUCOSE 109 MG/DL (70-105); MAGNESIUM 1.5 MG/DL (1.8-2.4); POTASSIUM 3.3 MMOL/L (3.6-5.0); SODIUM 133 MMOL/L (135-145)
[2017-01-26 08:00] VITALS: BP 98/59
[2017-01-26] MEDS: MAGNESIUM OXIDE (MAG-OX)400 MG TAB PO SCH ×2 (08:17→18:51)
[2017-01-26] MEDS: cefTRIAXone INJECTION 1,000 MG in NS (IVPB) 50 ML IV SCH (08:18)
[2017-01-26] MEDS ORDERED: NON-FORMULARY MEDICATION 1 EA EA (Fenofibrate 160 MG) PO SCH (09:00)
[2017-01-26] MEDS: ASPIRIN E.C. 81 MG (ECOTRIN) TAB PO SCH (09:35)
[2017-01-26] MEDS: PILOCARPINE 5 MG TAB PO SCH ×4 (09:35→20:37)
[2017-01-26] MEDS: rOPINIRole 1 MG (REQUIP) TABLET PO SCH ×2 (09:35→20:37)
[2017-01-26] MEDS: THIAMINE INJECTION 100 MG, FOLIC ACID INJECTION 1 MG, VITAMIN MULTI INJECTION 10 ML, MA... IV SCH ×5 (09:38)
--- NOTE | 2017-01-26 10:38 | Physical Therapy Daily Note ---
PT Daily Note-Current Subjective Pt reports dyspnea on arrival, and notes that she is having issues with reflux. Appearance pt is alert and oriented Mental Status Patient Orientation: Person, Place, Situation Transfers Functional [place] Measure 0=Not Assessed/NA 4=Minimal Assistance 1=Total Assistance 5=Supervision or Setup 2=Maximal Assistance 6=Modified [place] 3=Moderate Assistance 7=Complete IndependenceIRFPAI Quality Coding Scale 6 Independent with activity with or without an assistive device 5 Patient requires set up or clean up by helper. Patient completes activity by themselves 4 Supervision or touching assist (CGA). [place] provide cues , steadying assist 3 The helper provides less than half the effort to complete the activity 2 The helper provides more than half the effort to complete the activity 1 Dependent. The helper does all the effort to complete an activity 7 Patient refused to complete or attempt activity 9 The patient did not perform the activity before the current illness or injury 88 Not attempted due to Medical conditions or safety concerns Transfers (B, C, W/C) (FIM): 4 Supine to/from Sit: 4 Sit to/from Stand: 4 Bed to/from Chair: 4 Weight Bearing Right Lower Extremity: Right Full Weight Bearing Left Lower Extremity: Left Full Weight Bearing Gait Training Gait (FIM): 1 Distance (FIM): 1=up to 49 ft Distance: 40ft Gait Level of Assist: 1 Gait Persons Needed: 1 Gait Assistive Device: FWW Gait limited due to isolation initially, but once up, pt rapidly fatigued. Exercises Seated Therapy Exercises: LE Protocol Seated Reps: 15 Assessment Pt fatigues quickly, but was motivated to participate in order to return home. PT Custodial Goals Custodial Goals PT Ear Nose Throat Physician Goals Time Frame: Feb 01, 2017 Transfers (B,C,W/C) (FIM): 6 Gait (FIM): 6 Gait distance (FIM): 3=150 ft Distance: >300' Gait Level of Assist: 6 Gait Assistive Device: FWW PT Plan Treatment/Plan Treatment Plan: Continue Plan of Care Treatment Plan: Bed Mobility, Education, Functional Activity Stefanie, Functional Strength, Gait, Safety, Therapeutic Exercise Treatment Duration: Feb 01, 2017 Frequency: 6 times per week Estimated Hrs Per Day: .25 hour per day Patient and/or Family Agrees t: Yes Time/GCodes Time In: 1015 Time Out: 1025 Total Billed Treatment Time: 10 Total Billed Treatment 1, gt 10 PT/OT Therapy GCodes Therapy Functional Limitation: Occupational Therapy Test(s)/Tool used to determine: FIM, Level of Assistance Scale Functional Limitation-Current Charge Code: SELFCUR Modifier: CK Functional Limitation-Goal Charge Code: JERRY Modifier: EVI JORDAN PT Jan 26, 2017 10:37
[2017-01-26 12:00] VITALS: BP 146/66
--- NOTE | 2017-01-26 13:32 | Progress Note-Hospitalist ---
Standard Progress Note Progress Notes/Assess & Plan Date Seen 01/26/17 Time Seen by Provider: 13:29 Assess & Plan/Chief Complaint The patient is a 76-year-old white female patient of Dr. Hoffman for whom I am covering. She returned to the doctor's office and was admitted with complaints of generalized weakness, syncope, and generalized failure to thrive. In the office her blood pressure was noted to be 80/40 and she was admitted directly. There is apparently a history of heavy alcohol intake. Physical exam: The patient is very thin and exhibits a rattling cough. She appears older than stated age. Lungs show coarse breath sounds which move when the patient coughs. CV is regular. Extremities show no pedal edema. Impression: Syncope/hypotension. 2.COPD with acute bronchitis. 3.history suggesting alcohol abuse. Plan: Continue IV fluids and physical therapy. Labs Laboratory Tests 01/24/17 18:16 01/25/17 05:55 01/26/17 04:20 TYSHAWN CROWELL MD Jan 26, 2017 13:32
[2017-01-26 16:49] VITALS: BP 120/59
[2017-01-26] MEDS: NS IV 1000 ML 1,000 ML IV SCH (17:48)
[2017-01-26 20:27] VITALS: BP 113/61
[2017-01-26] MEDS: FENOFIBRATE 134 MG (LOFIBRA) CAPSULE PO SCH (20:37)
[2017-01-26] MEDS: ROSUVASTATIN 5 MG (CRESTOR) TABLET PO SCH (20:38)
[2017-01-26] MEDS: DULoxetine 30 MG (CYMBALTA) CAP PO SCH (20:42)
[2017-01-27] VITALS (7 sets, daily range): BP systolic 114–177; BP diastolic 63–81
[2017-01-27] MEDS: RT-ALBUTEROL/IPRATROPIUM 3 ML (DUONEB) VIAL INH SCH ×4 (02:50→21:34)
[2017-01-27] MEDS: BETHANECHOL 25 MG (URECHOLINE) TAB PO SCH ×4 (05:34→20:03)
[2017-01-27] MEDS: THIAMINE 100 MG (VITAMIN B-1) TAB PO SCH (05:34)
[2017-01-27] MEDS: KCL 8 MEQ (MICRO K) TABLET PO SCH (05:34)
[2017-01-27] MEDS: LEVOTHYROXINE 112 MCG (LEVOTHROID) TAB PO SCH (05:36)
[2017-01-27] MEDS: RT-ADVAIR HFA 115/21 MCG PER PUFF IH SCH (06:27)
[2017-01-27] MEDS: rOPINIRole 1 MG (REQUIP) TABLET PO SCH ×2 (08:43→20:03)
[2017-01-27] MEDS: ASPIRIN E.C. 81 MG (ECOTRIN) TAB PO SCH (08:43)
[2017-01-27] MEDS: MAGNESIUM OXIDE (MAG-OX)400 MG TAB PO SCH ×2 (08:43→18:04)
[2017-01-27] MEDS: cefTRIAXone INJECTION 1,000 MG in NS (IVPB) 50 ML IV SCH (08:44)
[2017-01-27] MEDS: PILOCARPINE 5 MG TAB PO SCH ×3 (08:45→20:02)
[2017-01-27] MEDS: NS IV 1000 ML 1,000 ML IV SCH ×2 (08:54→22:36)
[2017-01-27] MEDS ORDERED: ONDANSETRON 4 MG/2 ML (SDV) Z0FRAN IVP PRN (13:00)
--- NOTE | 2017-01-27 14:53 | Progress Note-Hospitalist ---
Standard Progress Note Progress Notes/Assess & Plan Date Seen 01/27/17 Time Seen by Provider: 14:50 Assess & Plan/Chief Complaint The patient reports that she is feeling a fair bit better today. She continues to cough and produce thin colored sputum. She states she feels less breathless. Her white count has declined from admission at 16,300-12 700 yesterday and 10,100 today. She was able to eat today. Physical exam: She appears brighter. Lungs show distant breath sounds and scattered rhonchi. CV is regular. Abdomen is soft and scaphoid. Ankles show no edema. Impression: Probable pneumonia. 2.COPD. 3.chronic alcoholism. Plan: Continue antibiotics Labs Laboratory Tests 01/26/17 04:20 TYSHAWN CROWELL MD Jan 27, 2017 14:53
[2017-01-27] MEDS: ROSUVASTATIN 5 MG (CRESTOR) TABLET PO SCH (20:02)
[2017-01-27] MEDS: DULoxetine 30 MG (CYMBALTA) CAP PO SCH (20:03)
[2017-01-27] MEDS: FENOFIBRATE 134 MG (LOFIBRA) CAPSULE PO SCH (20:03)
[2017-01-27] MEDS: ADVAIR HFA 115/21 MCG INHALER 8 GM IH SCH (21:34)
[2017-01-28] VITALS: BP 128/66
[2017-01-28] MEDS: RT-ALBUTEROL/IPRATROPIUM 3 ML (DUONEB) VIAL INH SCH ×4 (03:07→22:36)
[2017-01-28] MEDS: THIAMINE 100 MG (VITAMIN B-1) TAB PO SCH (06:01)
[2017-01-28] MEDS: LEVOTHYROXINE 112 MCG (LEVOTHROID) TAB PO SCH (06:01)
[2017-01-28] MEDS: KCL 8 MEQ (MICRO K) TABLET PO SCH (06:01)
[2017-01-28] MEDS: BETHANECHOL 25 MG (URECHOLINE) TAB PO SCH ×4 (06:02→22:01)
[2017-01-28 08:00] VITALS: BP 138/72
[2017-01-28] MEDS: MAGNESIUM OXIDE (MAG-OX)400 MG TAB PO SCH ×2 (08:29→16:52)
[2017-01-28] MEDS: rOPINIRole 1 MG (REQUIP) TABLET PO SCH ×2 (08:29→22:00)
[2017-01-28] MEDS: ASPIRIN E.C. 81 MG (ECOTRIN) TAB PO SCH (08:29)
[2017-01-28] MEDS: PILOCARPINE 5 MG TAB PO SCH ×3 (08:29→21:59)
[2017-01-28] MEDS: cefTRIAXone INJECTION 1,000 MG in NS (IVPB) 50 ML IV SCH (08:30)
[2017-01-28] MEDS: ADVAIR HFA 115/21 MCG INHALER 8 GM IH SCH ×2 (08:47→22:36)
--- NOTE | 2017-01-28 11:04 | Physical Therapy Daily Note ---
PT Daily Note-Current Subjective Patient is awake in bed upon PT entering. She states she is tired. Pain Numeric Pain Scale: 0-No Pain Location: No Pain Reported Appearance Patient appears healthy. Mental Status Patient Orientation: Normal For Age Attachments: Oxygen, IV 2.0 L of O2 Transfers Functional [place] Measure 0=Not Assessed/NA 4=Minimal Assistance 1=Total Assistance 5=Supervision or Setup 2=Maximal Assistance 6=Modified [place] 3=Moderate Assistance 7=Complete IndependenceIRFPAI Quality Coding Scale 6 Independent with activity with or without an assistive device 5 Patient requires set up or clean up by helper. Patient completes activity by themselves 4 Supervision or touching assist (CGA). [place] provide cues , steadying assist 3 The helper provides less than half the effort to complete the activity 2 The helper provides more than half the effort to complete the activity 1 Dependent. The helper does all the effort to complete an activity 7 Patient refused to complete or attempt activity 9 The patient did not perform the activity before the current illness or injury 88 Not attempted due to Medical conditions or safety concerns Transfers (B, C, W/C) (FIM): 5 Scootin Rollin Supine to/from Sit: 5 Sit to/from Stand: 5 Patient requires SBA for all transfers observed due to safety concerns. Weight Bearing Right Lower Extremity: Right Full Weight Bearing Left Lower Extremity: Left Full Weight Bearing Gait Training Gait (FIM): 5 Distance (FIM): 3=150 ft Distance: 150' Gait Level of Assist: 5 Gait Persons Needed: 1 Gait Assistive Device: FWW PT is SBA to the patient during ambulation. Exercises Supine Ex: Short Arc Quads (bilateral), Straight leg raise (bilateral) Supine Reps: 25 Assessment Current Status: Good Progress Patient has good tolerance for therapeutic interventions and shows continual progress in ambulation and activity tolerance. PT will continue to progress exercise as tolerated. PT Log Yard Derrick Operator Goals Log Yard Derrick Operator Goals PT Half-Way Goals Time Frame: Feb 01, 2017 Transfers (B,C,W/C) (FIM): 6 Gait (FIM): 6 Gait distance (FIM): 3=150 ft Distance: >300' Gait Level of Assist: 6 Gait Assistive Device: FWW PT Plan Problem List Problem List: Activity Tolerance, Functional Strength, Safety, Balance, Gait Treatment/Plan Treatment Plan: Continue Plan of Care Treatment Plan: Bed Mobility, Education, Functional Activity Stefanie, Functional Strength, Gait, Safety, Therapeutic Exercise Treatment Duration: Feb 01, 2017 Frequency: 6 times per week Estimated Hrs Per Day: .25 hour per day Patient and/or Family Agrees t: Yes Time/GCodes Time In: 1035 Time Out: 1050 Total Billed Treatment Time: 15 Total Billed Treatment 1 visit FA 15 min PT/OT Therapy GCodes Therapy Functional Limitation: Occupational Therapy Test(s)/Tool used to determine: FIM, Level of Assistance Scale Functional Limitation-Current Charge Code: SELFCUR Modifier: CK Functional Limitation-Goal Charge Code: MOBGOAL Modifier: HARLEEN MARINELLI PT Jan 28, 2017 11:04
[2017-01-28] MEDS: NS IV 1000 ML 1,000 ML IV SCH (11:09)
--- NOTE | 2017-01-28 11:46 | Occupational Ther Daily Note ---
OT Current Status-Daily Note Subjective Pt stated that she may be going to rehab today or tomorrow. When PATRICIA asked, pt may be going to ARU tomorrow morning. Pt agreed to therapy. No c/o pain. Mental Status/Objective Patient Orientation: Person, Place, Time, Situation Functional [place] Measure 0=Not Assessed/NA 4=Minimal Assistance 1=Total Assistance 5=Supervision or Setup 2=Maximal Assistance 6=Modified [place] 3=Moderate Assistance 7=Complete [place] ADL-Treatment Pt able to don/doff socks by self. Then pt was able to complete sit to stand with SBA. Ambulated from recliner to bed with assist to manipulate tubing only , SBA to ambulate with FWW to bed. Pt then was able to complete own bed mobility. After therapy, pt lying in bed with call light/phone in reach. All needs met in room. OT Short Term Goals Short Term Goals 1=Demonstrate adherence to instructed precautions during ADL tasks. 2=Patient will verbalize/demonstrate understanding of assistive devices/ modifications for ADL. 3=Patient will improve strength/tolerance for activity to enable patient to perform ADL's. OT Embedded Engineer Goals [place] Goals Time Frame: Feb 08, 2017 Eating (FIM): 6 Grooming(FIM): 6 Upper Body Dressing(FIM): 6 Lower Body Dressing(FIM): 5 Toileting(FIM): 6 Toilet/Commode Transfer(FIM): 6 Additional Goals: 1-Demonstrate ADL Tasks, 2-Verbalize Understanding, 3- ImproveStrength/Stefanie 1=Demonstrate adherence to instructed precautions during ADL tasks. 2=Patient will verbalize/demonstrate understanding of assistive devices/ modifications for ADL. 3=Patient will improve strength/tolerance for activity to enable patient to perform ADL's. OT Education/Plan Problem List/Assessment Pt to benefit from skilled OT intervention for ADL training, transfers, strengthening, and home safety education to maximize level of function and allow safe discharge. Discharge Recommendations Plan/Recommendations: Continue POC Treatment Plan/Plan of Care Patient would benefit from OT for education, treatment and training to promote independence in ADL's, mobility, safety and/or upper extremity function for ADL' s. Plan of Care: ADL Retraining, Functional Mobility, UE Funct Exercise/Act Treatment Duration: Feb 08, 2017 Frequency: 5 times per week Estimated Hrs Per Day: .25 hour per day Rehab Potential: Fair Time/GCodes Start Time: 10:15 Stop Time: 10:30 Total Time Billed (hr/min): 15 Billed Treatment Time 1 visit-FA 1 (15 min) PT/OT Therapy GCodes Therapy Functional Limitation: Occupational Therapy Test(s)/Tool used to determine: FIM, Level of Assistance Scale Functional Limitation-Current Charge Code: SELFCUR Modifier: CK Functional Limitation-Goal Charge Code: MOBGOAL Modifier: CORAL SOLORIO Jan 28, 2017 11:46
--- NOTE | 2017-01-28 12:58 | Progress Note (SOAP) ---
Subjective Date Seen by Provider: Jan 28, 2017 Time Seen by Provider: 12:54 Subjective/Events-last exam Fwup Pneumonia, COPD exacerbation, hypotension with syncope, hyponatremia, hypomagnesemia, hypokalemia, weakness, alcohol abuse. Still complains of cough. Plan is for transfer to rehab in AM. Objective Exam Vital Signs Date Time Temp Pulse Resp B/P (MAP) Pulse Ox O2 Delivery O2 Flow Rate FiO2 01/28/17 09:30 Nasal Cannula 2.00 01/28/17 08:47 96 Nasal Cannula 2.00 01/28/17 08:00 97.8 78 18 138/72 100 Nasal Cannula 2.00 01/28/17 03:07 98 Nasal Cannula 2.00 01/28/17 00:00 97.4 94 18 128/66 97 Nasal Cannula 2.00 01/27/17 21:35 98 Nasal Cannula 2.00 01/27/17 20:59 98.6 92 20 121/73 99 Nasal Cannula 2.00 01/27/17 20:10 Nasal Cannula 2.00 01/27/17 17:11 97.8 98 20 138/67 98 Nasal Cannula 2.00 01/27/17 15:10 98 Nasal Cannula 2.00 01/27/17 14:15 Nasal Cannula 2.00 I & O 01/29/17 06:59 Intake Total 950 ml Balance 950 ml Capillary Refill : General Appearance: No Apparent Distress Neck: Supple Respiratory: Lungs Clear, Decreased Breath Sounds Cardiovascular: Regular Rate, Rhythm, Systolic Murmur Gastrointestinal: normal bowel sounds, non tender, soft Extremity: Non Tender, No Calf Tenderness, No Pedal Edema Neurologic/Psychiatric: Alert, Oriented x3 Results Lab Microbiology 01/24/17 Blood Culture - Preliminary, Resulted No growth Assessment/Plan Assessment/Plan Assess & Plan/Chief Complaint 1. Acute Hypotension/Dehydration with Syncopal episode--BP improved after hydration so will heplock IV 2. Alcohol Abuse--Chronic 3. Weakness/Worsening Debility--PT/OT and Rehab admit in AM 4 COPD--SVNs, oxygen 5. GERD--continue protonix 6. Hyponatremia--improving with hydration, repeat Na in AM 7. Hypokalemia--replace potassium and repeat K in AM 8. Hypomagnesemia--start mag oxide and give IV magnesium and repeat Mg in AM 9. Pneumonia--continue rocephin Clinical Quality Measures DVT/VTE Risk/Contraindication: Risk Factor Score Per Nursin RFS Level Per Nursing on Admit: 4+=Very High LEW LEIVA DO Jan 28, 2017 12:57
[2017-01-28] MEDS ORDERED: MAGN400T6 PO (13:04)
[2017-01-28] MEDS ORDERED: ALPR0.254 PO (13:04)
[2017-01-28] MEDS ORDERED: IPRA3AMP INH ×2 (13:04)
[2017-01-28] MEDS ORDERED: THIA100T7 PO (13:04)
[2017-01-28] MEDS ORDERED: CFTR1PB IV (13:04)
[2017-01-28 16:00] VITALS: BP 124/70
[2017-01-28] MEDS: FENOFIBRATE 134 MG (LOFIBRA) CAPSULE PO SCH (22:00)
[2017-01-28] MEDS: ROSUVASTATIN 5 MG (CRESTOR) TABLET PO SCH (22:01)
[2017-01-28] MEDS: DULoxetine 30 MG (CYMBALTA) CAP PO SCH (22:02)
[2017-01-29 00:13] VITALS: BP 129/94
[2017-01-29] MEDS: THIAMINE 100 MG (VITAMIN B-1) TAB PO SCH (06:32)
[2017-01-29] MEDS: KCL 8 MEQ (MICRO K) TABLET PO SCH (06:32)
[2017-01-29] MEDS: BETHANECHOL 25 MG (URECHOLINE) TAB PO SCH ×4 (06:32→21:19)
[2017-01-29] MEDS: LEVOTHYROXINE 112 MCG (LEVOTHROID) TAB PO SCH (06:32)
[2017-01-29 06:43] LABS: BASOPHILS % (AUTO) 0 % (0-10); EOSINOPHILS # (AUTO) 0.5 10^3/uL (0.0-0.3); EOSINOPHILS % (AUTO) 6 % (0-10); LYMPHOCYTES % (AUTO) 12 % (12-44); MEAN CORPUSCULAR HEMOGLOBIN 30 PG (25-34); MEAN CORPUSCULAR HGB CONC 34 G/DL (32-36); MEAN CORPUSCULAR VOLUME 89 FL (80-99); MEAN PLATELET VOLUME 9.7 FL (7.4-10.4); MONOCYTES % (AUTO) 12 % (0-12); NEUTROPHILS # (AUTO) 5.9 X 10^3 (1.8-7.8); NEUTROPHILS % (AUTO) 70 % (42-75); PLATELET COUNT 212 10^3/uL (130-400); RED BLOOD COUNT 3.57 10^6/uL (4.35-5.85); RED CELL DISTRIBUTION WIDTH 13.9 % (10.0-14.5); WHITE BLOOD COUNT 8.4 10^3/uL (4.3-11.0)
[2017-01-29 07:00] LABS: ANION GAP 9 MMOL/L (5-14); BLOOD UREA NITROGEN 6 MG/DL (7-18); BUN/CREATININE RATIO 12; CARBON DIOXIDE 27 MMOL/L (21-32); CHLORIDE 91 MMOL/L (98-107); CREATININE SERUM 0.49 MG/DL (0.60-1.30); GFR ESTIMATED > 60; GLUCOSE 84 MG/DL (70-105); SODIUM 127 MMOL/L (135-145)
[2017-01-29] MEDS: RT-ALBUTEROL/IPRATROPIUM 3 ML (DUONEB) VIAL INH SCH ×3 (07:44→18:32)
[2017-01-29] MEDS: ADVAIR HFA 115/21 MCG INHALER 8 GM IH SCH ×2 (07:45→18:32)
[2017-01-29 08:00] VITALS: BP 138/66
[2017-01-29] MEDS: ASPIRIN E.C. 81 MG (ECOTRIN) TAB PO SCH (08:20)
[2017-01-29] MEDS: rOPINIRole 1 MG (REQUIP) TABLET PO SCH ×2 (08:20→21:19)
[2017-01-29] MEDS: MAGNESIUM OXIDE (MAG-OX)400 MG TAB PO SCH ×2 (08:20→16:25)
[2017-01-29] MEDS: cefTRIAXone INJECTION 1,000 MG in NS (IVPB) 50 ML IV SCH ×2 (08:20→08:54)
[2017-01-29] MEDS: PILOCARPINE 5 MG TAB PO SCH ×3 (08:21→21:16)
--- NOTE | 2017-01-29 10:30 | Physical Therapy Daily Note ---
PT Daily Note-Current Subjective Patient urgently needs to toilet upon PT entering the room. Patient states she is doing well agrees to PT after toileting. Pain Numeric Pain Scale: 0-No Pain Location: No Pain Reported Appearance Patient appears healthy. Mental Status Patient Orientation: Normal For Age Attachments: Oxygen 2.0 L of O2 Transfers Functional [place] Measure 0=Not Assessed/NA 4=Minimal Assistance 1=Total Assistance 5=Supervision or Setup 2=Maximal Assistance 6=Modified [place] 3=Moderate Assistance 7=Complete IndependenceIRFPAI Quality Coding Scale 6 Independent with activity with or without an assistive device 5 Patient requires set up or clean up by helper. Patient completes activity by themselves 4 Supervision or touching assist (CGA). [place] provide cues , steadying assist 3 The helper provides less than half the effort to complete the activity 2 The helper provides more than half the effort to complete the activity 1 Dependent. The helper does all the effort to complete an activity 7 Patient refused to complete or attempt activity 9 The patient did not perform the activity before the current illness or injury 88 Not attempted due to Medical conditions or safety concerns Transfers (B, C, W/C) (FIM): 4 Scootin Rollin Supine to/from Sit: 5 Sit to/from Stand: 4 Patient required min assist from PT with rising to stand as well as scooting. Patient len from supine to sit with SBA from PT for safety. Weight Bearing Right Lower Extremity: Right Full Weight Bearing Left Lower Extremity: Left Full Weight Bearing Gait Training Gait (FIM): 4 Distance: 300' Gait Level of Assist: 4 Gait Persons Needed: 1 Gait Assistive Device: FWW Patient required SBA to CGA from PT as patient experiences tremors when becoming tired. Patient ambulatoin stopped due to patient stating she is SOB. Exercises Supine Ex: Straight leg raise (bilateral) Supine Reps: 15 Seated Therapy Exercises: Long arc quads (bilateral), Hip flexion (bilateral) Seated Reps: 30 Assessment Current Status: Good Progress Patient has good tolerance for PT and is agreeable to PT interventions. PT will progress ambulation as patient shows greater tolerance. PT Psychotherapist Counselor Goals Psychotherapist Counselor Goals PT Correction Goals Time Frame: Feb 01, 2017 Transfers (B,C,W/C) (FIM): 6 Gait (FIM): 6 Gait distance (FIM): 3=150 ft Distance: >300' Gait Level of Assist: 6 Gait Assistive Device: FWW PT Plan Problem List Problem List: Activity Tolerance, Functional Strength, Safety, Balance, Gait Treatment/Plan Treatment Plan: Continue Plan of Care Treatment Plan: Bed Mobility, Education, Functional Activity Stefanie, Functional Strength, Gait, Safety, Therapeutic Exercise Treatment Duration: Feb 01, 2017 Frequency: 6 times per week Estimated Hrs Per Day: .25 hour per day Patient and/or Family Agrees t: Yes Time/GCodes Time In: 937 Time Out: 1001 Total Billed Treatment Time: 24 Total Billed Treatment 1 visit EX 10 min GT 14 min PT/OT Therapy GCodes Therapy Functional Limitation: Occupational Therapy Test(s)/Tool used to determine: FIM, Level of Assistance Scale Functional Limitation-Current Charge Code: SELFCUR Modifier: CK Functional Limitation-Goal Charge Code: MOBGOAL Modifier: HARLEEN MARINELLI PT Jan 29, 2017 10:30
--- NOTE | 2017-01-29 11:53 | Occupational Ther Daily Note ---
OT Current Status-Daily Note Subjective Pt in bed, agrees to treatment. Mental Status/Objective Functional [place] Measure 0=Not Assessed/NA 4=Minimal Assistance 1=Total Assistance 5=Supervision or Setup 2=Maximal Assistance 6=Modified [place] 3=Moderate Assistance 7=Complete [place] Attachments: Oxygen ADL-Treatment Pt states she has already completed bathing this morning with assist from nursing. Supine to sit with supervision. Pt combed hair with set up while seated EOB. Pt demonstrated ability to doff/don socks with SBA. Pt does not have LOB while seated EOB. Sit to stand with CGA. Pt practiced transfers to chair and BSC with CGA using FWW. Cues for safety and assist to manage O2 tubing. Pt returned to bed, sit to supine with supervision. Pt resting in bed with needs met after session. Toilet/Commode Transfer (FIM): 4 OT Short Term Goals Short Term Goals 1=Demonstrate adherence to instructed precautions during ADL tasks. 2=Patient will verbalize/demonstrate understanding of assistive devices/ modifications for ADL. 3=Patient will improve strength/tolerance for activity to enable patient to perform ADL's. OT Steel Die Printer Goals Steel Die Printer Goals Time Frame: Feb 08, 2017 Eating (FIM): 6 Grooming(FIM): 6 Upper Body Dressing(FIM): 6 Lower Body Dressing(FIM): 5 Toileting(FIM): 6 Toilet/Commode Transfer(FIM): 6 Additional Goals: 1-Demonstrate ADL Tasks, 2-Verbalize Understanding, 3- ImproveStrength/Stefanie 1=Demonstrate adherence to instructed precautions during ADL tasks. 2=Patient will verbalize/demonstrate understanding of assistive devices/ modifications for ADL. 3=Patient will improve strength/tolerance for activity to enable patient to perform ADL's. OT Education/Plan Problem List/Assessment Pt to benefit from skilled OT intervention for ADL training, transfers, strengthening, and home safety education to maximize level of function and allow safe discharge. Discharge Recommendations Plan/Recommendations: Continue POC Treatment Plan/Plan of Care Patient would benefit from OT for education, treatment and training to promote independence in ADL's, mobility, safety and/or upper extremity function for ADL' s. Plan of Care: ADL Retraining, Functional Mobility, UE Funct Exercise/Act Treatment Duration: Feb 08, 2017 Frequency: 5 times per week Estimated Hrs Per Day: .25 hour per day Rehab Potential: Fair Time/GCodes Start Time: 10:15 Stop Time: 10:30 Total Time Billed (hr/min): 15 Billed Treatment Time 1 visit, ADL(15minutes) PT/OT Therapy GCodes Therapy Functional Limitation: Occupational Therapy Test(s)/Tool used to determine: FIM, Level of Assistance Scale Functional Limitation-Current Charge Code: SELFCUR Modifier: CK Functional Limitation-Goal Charge Code: MOBGOAL Modifier: JORJE SANZ OT Jan 29, 2017 11:53
--- NOTE | 2017-01-29 12:45 | Progress Note (SOAP) ---
Subjective Date Seen by Provider: Jan 29, 2017 Time Seen by Provider: 12:42 Subjective/Events-last exam Fwup Pneumonia, COPD exacerbation, hypotension with syncope, hyponatremia, hypomagnesemia, hypokalemia, weakness, alcohol abuse. Human denied rehab so will have to look at NH placement as patient is too weak and unsafe to go home even with home health. Objective Exam Vital Signs Date Time Temp Pulse Resp B/P (MAP) Pulse Ox O2 Delivery O2 Flow Rate FiO2 01/29/17 09:23 Nasal Cannula 2.00 01/29/17 08:00 96.9 83 18 138/66 99 Nasal Cannula 2.00 01/29/17 07:46 Nasal Cannula 2.00 01/29/17 00:13 97.8 99 18 129/94 98 Nasal Cannula 2.00 01/28/17 22:37 96 Nasal Cannula 2.00 01/28/17 20:30 Nasal Cannula 2.00 01/28/17 16:00 97.8 95 18 124/70 100 Nasal Cannula 2.00 01/28/17 15:09 99 Nasal Cannula 2.00 Capillary Refill : General Appearance: No Apparent Distress Neck: Supple Respiratory: Lungs Clear Cardiovascular: Regular Rate, Rhythm, Systolic Murmur Gastrointestinal: normal bowel sounds, non tender, soft Extremity: Non Tender, No Calf Tenderness, No Pedal Edema Neurologic/Psychiatric: Alert, Oriented x3, Motor Weakness, Other (tremors) Results Lab Laboratory Tests 01/29/17 06:22: Sodium Level 127L, Potassium Level 4.0, Chloride Level 91L, Carbon Dioxide Level 27, Anion Gap 9, Blood Urea Nitrogen 6L, Creatinine 0.49L, Estimat Glomerular Filtration Rate > 60, BUN/Creatinine Ratio 12, Glucose Level 84, Calcium Level 8.0L 01/29/17 06:31: White Blood Count 8.4, Red Blood Count 3.57L, Hemoglobin 10.6L, Hematocrit 32L, Mean Corpuscular Volume 89, Mean Corpuscular Hemoglobin 30, Mean Corpuscular Hemoglobin Concent 34, Red Cell Distribution Width 13.9, Platelet Count 212, Mean Platelet Volume 9.7, Neutrophils (%) (Auto) 70, Lymphocytes (%) (Auto) 12, Monocytes (%) (Auto) 12, Eosinophils (%) (Auto) 6, Basophils (%) (Auto) 0, Neutrophils # (Auto) 5.9, Lymphocytes # (Auto) 1.0, Monocytes # (Auto) 1.0, Eosinophils # (Auto) 0.5H, Basophils # (Auto) 0.0 Microbiology 01/24/17 Blood Culture - Preliminary, Resulted No growth Assessment/Plan Assessment/Plan Assess & Plan/Chief Complaint 1. Acute Hypotension/Dehydration with Syncopal episode--BP improved after hydration 2. Alcohol Abuse--Chronic 3. Weakness/Worsening Debility--PT/OT and will need NH since insurance denied rehab 4 COPD--SVNs, oxygen 5. GERD--continue protonix 6. Hyponatremia--fluid restriction and monitor 7. Hypokalemia--replace potassium and repeat K in AM 8. Hypomagnesemia--start mag oxide and repeat Mg in AM 9. Pneumonia--change to orals since IV has gone bad and WBC count back to normal and afebrile Clinical Quality Measures DVT/VTE Risk/Contraindication: Risk Factor Score Per Nursin RFS Level Per Nursing on Admit: 4+=Very High LEW LEIVA DO Jan 29, 2017 12:45 pm
[2017-01-29 15:42] VITALS: BP 120/67
[2017-01-29] MEDS: DOXYCYCLINE 100 MG (VIBRAMYCIN) TABLET PO SCH (16:25)
[2017-01-29] MEDS: CEFDINIR 300 MG (OMNICEF) CAP PO SCH (21:18)
[2017-01-29] MEDS: FENOFIBRATE 134 MG (LOFIBRA) CAPSULE PO SCH (21:18)
[2017-01-29] MEDS: DULoxetine 30 MG (CYMBALTA) CAP PO SCH (21:18)
[2017-01-29] MEDS: ROSUVASTATIN 5 MG (CRESTOR) TABLET PO SCH (21:19)
[2017-01-30 00:04] VITALS: BP 139/66
[2017-01-30] MEDS: RT-ALBUTEROL/IPRATROPIUM 3 ML (DUONEB) VIAL INH SCH ×4 (02:37→20:42)
[2017-01-30] MEDS: LEVOTHYROXINE 112 MCG (LEVOTHROID) TAB PO SCH (06:14)
[2017-01-30] MEDS: BETHANECHOL 25 MG (URECHOLINE) TAB PO SCH ×4 (06:14→20:55)
[2017-01-30] MEDS: DOXYCYCLINE 100 MG (VIBRAMYCIN) TABLET PO SCH ×2 (06:14→18:27)
[2017-01-30] MEDS: KCL 8 MEQ (MICRO K) TABLET PO SCH (06:14)
[2017-01-30] MEDS: THIAMINE 100 MG (VITAMIN B-1) TAB PO SCH (06:16)
[2017-01-30 08:00] VITALS: BP 173/81
[2017-01-30] MEDS: ADVAIR HFA 115/21 MCG INHALER 8 GM IH SCH ×2 (09:21→20:42)
[2017-01-30] MEDS: CEFDINIR 300 MG (OMNICEF) CAP PO SCH ×2 (09:32→20:55)
[2017-01-30] MEDS: ASPIRIN E.C. 81 MG (ECOTRIN) TAB PO SCH (09:32)
[2017-01-30] MEDS: MAGNESIUM OXIDE (MAG-OX)400 MG TAB PO SCH ×2 (09:32→18:27)
[2017-01-30] MEDS: rOPINIRole 1 MG (REQUIP) TABLET PO SCH ×2 (09:33→20:56)
[2017-01-30] MEDS: PILOCARPINE 5 MG TAB PO SCH ×3 (09:33→20:54)
--- NOTE | 2017-01-30 09:37 | Physical Therapy Daily Note ---
PT Daily Note-Current Subjective Patient states that she is sad this morning because she has to go to a senior living. She states that she has a cough, but she is feeling okay other than that. She agrees to PT. Pain Numeric Pain Scale: 0-No Pain Location: No Pain Reported Appearance Patient appears to be generally healthy. Mental Status Patient Orientation: Normal For Age Attachments: Oxygen 2.0 L Transfers Functional [place] Measure 0=Not Assessed/NA 4=Minimal Assistance 1=Total Assistance 5=Supervision or Setup 2=Maximal Assistance 6=Modified [place] 3=Moderate Assistance 7=Complete IndependenceIRFPAI Quality Coding Scale 6 Independent with activity with or without an assistive device 5 Patient requires set up or clean up by helper. Patient completes activity by themselves 4 Supervision or touching assist (CGA). [place] provide cues , steadying assist 3 The helper provides less than half the effort to complete the activity 2 The helper provides more than half the effort to complete the activity 1 Dependent. The helper does all the effort to complete an activity 7 Patient refused to complete or attempt activity 9 The patient did not perform the activity before the current illness or injury 88 Not attempted due to Medical conditions or safety concerns Transfers (B, C, W/C) (FIM): 5 Scootin Rollin Supine to/from Sit: 5 Sit to/from Stand: 5 Patient performed all observed transfers with SBA from the PT for safety. Weight Bearing Right Lower Extremity: Right Full Weight Bearing Left Lower Extremity: Left Full Weight Bearing Gait Training Gait (FIM): 5 Distance: >300' Gait Level of Assist: 5 Gait Persons Needed: 1 Gait Assistive Device: FWW Patient walks with reciprocal gait occasionally slowing down to "catch her breath". Exercises Supine Ex: Short Arc Quads (bilateral), Straight leg raise (bilateral) Supine Reps: 20 Seated Therapy Exercises: Long arc quads (bilateral), Hip flexion (bilateral) Standing: Heel/toe raises (bilateral) Standing Reps: 20 Assessment Current Status: Good Progress Patient is performing all transfers and gait with SBA from the PT. She actively participates in PT allowing PT to progress per her tolerance. PT Glass Robot Operator Goals Glass Robot Operator Goals PT Long-Term Goals Time Frame: Feb 01, 2017 Transfers (B,C,W/C) (FIM): 6 Gait (FIM): 6 Gait distance (FIM): 3=150 ft Distance: >300' Gait Level of Assist: 6 Gait Assistive Device: FWW PT Plan Problem List Problem List: Activity Tolerance, Functional Strength, Safety, Balance, Gait Treatment/Plan Treatment Plan: Continue Plan of Care Treatment Plan: Bed Mobility, Education, Functional Activity Stefanie, Functional Strength, Gait, Safety, Therapeutic Exercise Treatment Duration: Feb 01, 2017 Frequency: 6 times per week Estimated Hrs Per Day: .25 hour per day Patient and/or Family Agrees t: Yes Time/GCodes Time In: 815 Time Out: 840 Total Billed Treatment Time: 25 Total Billed Treatment 1 visit EX 12 min GT 13 min PT/OT Therapy GCodes Therapy Functional Limitation: Occupational Therapy Test(s)/Tool used to determine: FIM, Level of Assistance Scale Functional Limitation-Current Charge Code: SELFCUR Modifier: CK Functional Limitation-Goal Charge Code: MOBGOAL Modifier: HARLEEN MARINELLI PT Jan 30, 2017 09:37
--- NOTE | 2017-01-30 12:48 | Progress Note (SOAP) ---
Subjective Date Seen by Provider: Jan 30, 2017 Time Seen by Provider: 12:46 Subjective/Events-last exam Fwup Pneumonia, COPD exacerbation, hypotension with syncope, hyponatremia, hypomagnesemia, hypokalemia, weakness, alcohol abuse. Awaiting NH placement. Objective Exam Vital Signs Date Time Temp Pulse Resp B/P (MAP) Pulse Ox O2 Delivery O2 Flow Rate FiO2 01/30/17 09:21 95 Nasal Cannula 2.00 01/30/17 08:00 97.7 80 18 173/81 97 Nasal Cannula 2.00 01/30/17 02:39 98 Nasal Cannula 2.00 01/30/17 00:04 97.9 102 18 139/66 97 Nasal Cannula 2.00 01/29/17 19:55 Nasal Cannula 2.00 01/29/17 18:33 95 Nasal Cannula 2.00 01/29/17 15:42 98.5 103 18 120/67 99 Nasal Cannula 2.00 01/29/17 13:39 98 Nasal Cannula 2.00 Capillary Refill : General Appearance: No Apparent Distress Neck: Supple Respiratory: Lungs Clear Cardiovascular: Regular Rate, Rhythm Gastrointestinal: normal bowel sounds, non tender, soft Extremity: Non Tender, No Calf Tenderness, No Pedal Edema Neurologic/Psychiatric: Alert, Oriented x3, Other (tremor) Results Lab Microbiology 01/24/17 Blood Culture - Preliminary, Resulted No growth Assessment/Plan Assessment/Plan Assess & Plan/Chief Complaint 1. Acute Hypotension/Dehydration with Syncopal episode--BP improved after hydration 2. Alcohol Abuse--Chronic 3. Weakness/Worsening Debility--PT/OT, awaiting NH placement 4 COPD--SVNs, oxygen 5. GERD--continue protonix 6. Hyponatremia--fluid restriction and monitor 7. Hypokalemia--replace potassium and repeat K in AM 8. Hypomagnesemia--start mag oxide and repeat Mg in AM 9. Pneumonia--switched to orals since IV has gone bad and WBC count back to normal and afebrile Clinical Quality Measures DVT/VTE Risk/Contraindication: Risk Factor Score Per Nursin RFS Level Per Nursing on Admit: 4+=Very High LEW LEIVA DO Jan 30, 2017 12:48 pm
--- NOTE | 2017-01-30 13:03 | Occupational Ther Daily Note ---
OT Current Status-Daily Note Subjective Pt sitting in chair, agrees to treatment. Pt has no c/o pain. Pt states she will be going to a NH at discharge and she is not sure about it. Mental Status/Objective Functional [place] Measure 0=Not Assessed/NA 4=Minimal Assistance 1=Total Assistance 5=Supervision or Setup 2=Maximal Assistance 6=Modified [place] 3=Moderate Assistance 7=Complete [place] Attachments: Oxygen Other Treatment Pt declined ADLs this morning, states she will complete later. Pt agrees to exercises, states she knows she needs to get stronger. Pt completed bilateral UE exercises to increase strength needed for ADLs and transfers. Pt performed shoulder flexion, forward press, biceps curls, and wrist flex/ext exercises x15 reps with dowel mamta. Rest breaks taken between all exercises. Occasional cues given for proper exercise technique. Increased time required for exercises. Pt performed bilateral hand manager credit exercises x20 reps with moderate resistance therapy foam to increase manager credit strength needed for ADLs. Pt sitting in chair with needs met after session. OT Short Term Goals Short Term Goals 1=Demonstrate adherence to instructed precautions during ADL tasks. 2=Patient will verbalize/demonstrate understanding of assistive devices/ modifications for ADL. 3=Patient will improve strength/tolerance for activity to enable patient to perform ADL's. OT Fci Goals Block Captain Goals Time Frame: Feb 08, 2017 Eating (FIM): 6 Grooming(FIM): 6 Upper Body Dressing(FIM): 6 Lower Body Dressing(FIM): 5 Toileting(FIM): 6 Toilet/Commode Transfer(FIM): 6 Additional Goals: 1-Demonstrate ADL Tasks, 2-Verbalize Understanding, 3- ImproveStrength/Stefanie 1=Demonstrate adherence to instructed precautions during ADL tasks. 2=Patient will verbalize/demonstrate understanding of assistive devices/ modifications for ADL. 3=Patient will improve strength/tolerance for activity to enable patient to perform ADL's. OT Education/Plan Problem List/Assessment Pt to benefit from skilled OT intervention for ADL training, transfers, strengthening, and home safety education to maximize level of function and allow safe discharge. Discharge Recommendations Plan/Recommendations: Continue POC Treatment Plan/Plan of Care Patient would benefit from OT for education, treatment and training to promote independence in ADL's, mobility, safety and/or upper extremity function for ADL' s. Plan of Care: ADL Retraining, Functional Mobility, UE Funct Exercise/Act Treatment Duration: Feb 08, 2017 Frequency: 5 times per week Estimated Hrs Per Day: .25 hour per day Rehab Potential: Fair Time/GCodes Start Time: 10:35 Stop Time: 10:58 Total Time Billed (hr/min): 23 Billed Treatment Time 1 visit, EXx2(23minutes) PT/OT Therapy GCodes Therapy Functional Limitation: Occupational Therapy Test(s)/Tool used to determine: FIM, Level of Assistance Scale Functional Limitation-Current Charge Code: SELFCUR Modifier: CK Functional Limitation-Goal Charge Code: MOBGOAL Modifier: JORJE SANZ OT Jan 30, 2017 13:03
[2017-01-30 15:10] VITALS: BP 173/81
[2017-01-30 16:12] VITALS: BP 108/69
[2017-01-30] MEDS: FENOFIBRATE 134 MG (LOFIBRA) CAPSULE PO SCH (20:55)
[2017-01-30] MEDS: ROSUVASTATIN 5 MG (CRESTOR) TABLET PO SCH (20:55)
[2017-01-30] MEDS: DULoxetine 30 MG (CYMBALTA) CAP PO SCH (20:55)
[2017-01-31] VITALS: BP 131/64
[2017-01-31] MEDS: RT-ALBUTEROL/IPRATROPIUM 3 ML (DUONEB) VIAL INH SCH ×2 (03:06→08:59)
[2017-01-31] MEDS: LEVOTHYROXINE 112 MCG (LEVOTHROID) TAB PO SCH (06:24)
[2017-01-31] MEDS: KCL 8 MEQ (MICRO K) TABLET PO SCH (06:24)
[2017-01-31] MEDS: DOXYCYCLINE 100 MG (VIBRAMYCIN) TABLET PO SCH (06:25)
[2017-01-31] MEDS: BETHANECHOL 25 MG (URECHOLINE) TAB PO SCH ×2 (06:25→11:31)
[2017-01-31] MEDS: THIAMINE 100 MG (VITAMIN B-1) TAB PO SCH (06:25)
[2017-01-31 06:48] LABS: ANION GAP 8 MMOL/L (5-14); BLOOD UREA NITROGEN 11 MG/DL (7-18); BUN/CREATININE RATIO 18; CALCIUM 8.7 MG/DL (8.5-10.1); CARBON DIOXIDE 28 MMOL/L (21-32); CHLORIDE 96 MMOL/L (98-107); CREATININE SERUM 0.61 MG/DL (0.60-1.30); GFR ESTIMATED > 60; GLUCOSE 88 MG/DL (70-105); MAGNESIUM 1.9 MG/DL (1.8-2.4); POTASSIUM 4.2 MMOL/L (3.6-5.0); SODIUM 132 MMOL/L (135-145)
[2017-01-31 08:00] VITALS: BP 148/73
[2017-01-31] MEDS: CEFDINIR 300 MG (OMNICEF) CAP PO SCH (08:47)
[2017-01-31] MEDS: rOPINIRole 1 MG (REQUIP) TABLET PO SCH (08:48)
[2017-01-31] MEDS: ASPIRIN E.C. 81 MG (ECOTRIN) TAB PO SCH (08:48)
[2017-01-31] MEDS: MAGNESIUM OXIDE (MAG-OX)400 MG TAB PO SCH (08:48)
[2017-01-31] MEDS: PILOCARPINE 5 MG TAB PO SCH ×2 (08:51→13:14)
[2017-01-31] MEDS: ADVAIR HFA 115/21 MCG INHALER 8 GM IH SCH (08:59)
--- NOTE | 2017-01-31 11:28 | Discharge Inst-Skilled Nursing ---
Discharge Inst-Skilled NF Patient Instructions Patient Problems: COPD Alcohol Abuse Weakness Goal: Increase strength Consult/Follow Up/Orders Follow Up Appt.: 2 weeks Skilled NF Admit to: Certification (SNF) I certify that SNF services are required to be given on an inpatient basis because of the above named patient's need for nursing home care on a continuing basis for the conditions(s) for which he/she was receiving inpatient hospital services prior to his/her transfer to the SNF. Assisted Facility Order: Nursing Services, It Security Project Manager-Evaluate & Treat, Physical Therapy-Evaluate & Treat Discharge Diet: No Restrictions Daily Activity as Tolerated: Yes New & Resume Previous Orders Neli Foley Jan 31, 2017 11:27 NELI FOLEY DO Jan 31, 2017 11:28 am
--- NOTE | 2017-01-31 12:25 | Physical Therapy Daily Note ---
PT Daily Note-Current Subjective Pt was sitting up in bed upon arrival. Pt reports discharging today. Pt agrees to quick ambulation in hallway for PT. Pain Location: No Pain Reported Mental Status Patient Orientation: Person, Place, Situation Attachments: Oxygen Transfers Functional [place] Measure 0=Not Assessed/NA 4=Minimal Assistance 1=Total Assistance 5=Supervision or Setup 2=Maximal Assistance 6=Modified [place] 3=Moderate Assistance 7=Complete IndependenceIRFPAI Quality Coding Scale 6 Independent with activity with or without an assistive device 5 Patient requires set up or clean up by helper. Patient completes activity by themselves 4 Supervision or touching assist ([facility]). [place] provide cues , steadying assist 3 The helper provides less than half the effort to complete the activity 2 The helper provides more than half the effort to complete the activity 1 Dependent. The helper does all the effort to complete an activity 7 Patient refused to complete or attempt activity 9 The patient did not perform the activity before the current illness or injury 88 Not attempted due to Medical conditions or safety concerns Scootin Sit to/from Stand: 4 Weight Bearing Right Lower Extremity: Right Full Weight Bearing Left Lower Extremity: Left Full Weight Bearing Gait Training Distance (FIM): 3=150 ft Distance: 100' Gait Level of Assist: 5 Gait Persons Needed: 1 Gait Assistive Device: FWW Pt walks with slow shannan but steady, no LOB. Treatments Pt transfers from bed to standing at [facility]. Pt ambulates in hallway using FWW at close SBA. Pt returns to room to rest in recliner at end of tx with all needs met. Assessment Current Status: Good Progress Pt is excited to discharge today. PT Fdc Goals Ambulatory Nurse Goals PT Ambulatory Nurse Goals Time Frame: Feb 01, 2017 Transfers (B,C,W/C) (FIM): 6 Gait (FIM): 6 Gait distance (FIM): 3=150 ft Distance: >300' Gait Level of Assist: 6 Gait Assistive Device: FWW PT Plan Problem List Problem List: Activity Tolerance, Functional Strength Treatment/Plan Treatment Plan: Continue Plan of Care Treatment Plan: Bed Mobility, Education, Functional Activity Stefanie, Functional Strength, Gait, Safety, Therapeutic Exercise Treatment Duration: Feb 01, 2017 Frequency: 6 times per week Estimated Hrs Per Day: .25 hour per day Patient and/or Family Agrees t: Yes Safety Risks/Education Patient Education: Gait Training, Transfer Techniques, Correct Positioning, Safety Issues Teaching Recipient: Patient Teaching Methods: Discussion Response to Teaching: Verbalize Understanding Time/GCodes Time In: 1108 Time Out: 1123 Total Billed Treatment Time: 15 Total Billed Treatment visit, GT (15m) PT/OT Therapy GCodes Therapy Functional Limitation: Occupational Therapy Test(s)/Tool used to determine: FIM, Level of Assistance Scale Functional Limitation-Current Charge Code: SELFCUR Modifier: CK Functional Limitation-Goal Charge Code: MOBGOAL Modifier: JOSSELYN FITCH C IRON WORKER Jan 31, 2017 12:25
--- NOTE | 2017-01-31 14:14 | Occupational Ther Daily Note ---
OT Current Status-Daily Note Subjective Pt in recliner at beginning of tx. No mention of pain. Agreed to therapy. Family present during tx. Appearance Alert, cooperative. Mental Status/Objective Functional [place] Measure 0=Not Assessed/NA 4=Minimal Assistance 1=Total Assistance 5=Supervision or Setup 2=Maximal Assistance 6=Modified [place] 3=Moderate Assistance 7=Complete [place] Attachments: Oxygen ADL-Treatment Grooming (FIM): 5 (Pt combed hair with setup. Stated other grooming had already been done. ) Other Treatment Nursing reported pt took shower with assistance. Pt able to return demonstration of 10 upper body exercises for strengthening and activity tolerance to improve ADLs and transfers. Completed 10 reps of exercises for shoulder, elbow, forearm, and hand as well as lateral trunk exercises done while sitting edge of recliner with no observed LOB. Pt required recovery time between exercises for fatigue. Pt happy about being discharged today. Pt in recliner with all needs met at end of tx. Education OT Patient Education: Home exercise program, Purpose of tx/functional activities Teaching Recipient: Patient, Family Teaching Methods: Demonstration, Discussion Response to Teaching: Verbalize Understanding, Return Demonstration OT Short Term Goals Short Term Goals 1=Demonstrate adherence to instructed precautions during ADL tasks. 2=Patient will verbalize/demonstrate understanding of assistive devices/ modifications for ADL. 3=Patient will improve strength/tolerance for activity to enable patient to perform ADL's. OT Nursing Home Goals Nursing Home Goals Time Frame: Feb 08, 2017 Eating (FIM): 6 Grooming(FIM): 6 Upper Body Dressing(FIM): 6 Lower Body Dressing(FIM): 5 Toileting(FIM): 6 Toilet/Commode Transfer(FIM): 6 Additional Goals: 1-Demonstrate ADL Tasks, 2-Verbalize Understanding, 3- ImproveStrength/Stefanie 1=Demonstrate adherence to instructed precautions during ADL tasks. 2=Patient will verbalize/demonstrate understanding of assistive devices/ modifications for ADL. 3=Patient will improve strength/tolerance for activity to enable patient to perform ADL's. OT Education/Plan Problem List/Assessment Pt to benefit from skilled OT intervention for ADL training, transfers, strengthening, and home safety education to maximize level of function and allow safe discharge. Discharge Recommendations Plan/Recommendations: Continue POC Treatment Plan/Plan of Care Patient would benefit from OT for education, treatment and training to promote independence in ADL's, mobility, safety and/or upper extremity function for ADL' s. Plan of Care: ADL Retraining, Functional Mobility, UE Funct Exercise/Act Treatment Duration: Feb 08, 2017 Frequency: 5 times per week Estimated Hrs Per Day: .25 hour per day Rehab Potential: Fair Time/GCodes Start Time: 13:50 Stop Time: 14:08 Total Time Billed (hr/min): 18 Billed Treatment Time visit, functional activities 18 minutes. PT/OT Therapy GCodes Therapy Functional Limitation: Occupational Therapy Test(s)/Tool used to determine: FIM, Level of Assistance Scale Functional Limitation-Current Charge Code: SELFCUR Modifier: CK Functional Limitation-Goal Charge Code: MOBGOAL Modifier: CORAL SOLORIO Jan 31, 2017 14:14
== END 2017-01-31 16:24 | DRG 314 ==
LOC: 4TH 14:50 → UNDOADMOB 14:50 → 4TH 15:00 → INTOOBSV 01-25 15:00 → OBSVTOIN 01-25 15:00
PROVIDERS: ADMIT Family Medicine; ATTEND Family Medicine
DX: I95.9 Hypotension, unspecified (principal); E86.0 Dehydration; J44.0 Chronic obstructive pulmonary disease with (acute) lower respiratory infection; J18.9 Pneumonia, unspecified organism; E87.1 Hypo-osmolality and hyponatremia; G20 Parkinson's disease; F10.20 Alcohol dependence, uncomplicated; R53.1 Weakness; I25.10 Atherosclerotic heart disease of native coronary artery without angina pectoris; I10 Essential (primary) hypertension; E78.00 Pure hypercholesterolemia, unspecified; R62.7 Adult failure to thrive; E89.0 Postprocedural hypothyroidism; F41.9 Anxiety disorder, unspecified; M19.91 Primary osteoarthritis, unspecified site; K21.9 Gastro-esophageal reflux disease without esophagitis; E87.6 Hypokalemia; E83.42 Hypomagnesemia; R91.1 Solitary pulmonary nodule; Z87.440 Personal history of urinary (tract) infections; Z85.3 Personal history of malignant neoplasm of breast; Z85.850 Personal history of malignant neoplasm of thyroid; Z87.891 Personal history of nicotine dependence
CPT/HCPCS: 36415; 71020; 71250; 80048; 80053; 81000; 83605; 83735; 84443; 84484; 85007; 85025; 85027; 85652; 87040; 93005; 94640; 94760; G0378

== ENCOUNTER 2017-04-22 14:26 | Day surgery (SDC) | payer MEDICARE ==
[2017-04-22] VITALS (10 sets, daily range): BP systolic 78–171; BP diastolic 50–72
[~2017-04-22] VITALS: Ht 157.5 cm; Wt 46.5 kg
[~2017-04-22 14:26] MED LIST changes: +ALPR0.254 PO; +AZIT250T12 PO; -AZIT250T5 PO; +CFTR1PB IV; +IPRA3AMP INH; +LEVO112T55 PO; +MAGN400T6 PO; +THIA100T7 PO
[2017-04-22] MEDS ORDERED: ASPIRIN 81 MG CHEW (CHILDREN'S ASA) PO ONE (14:30)
[2017-04-22 14:52] LABS: BASOPHILS % (AUTO) 0 % (0-10); EOSINOPHILS # (AUTO) 0.1 10^3/uL (0.0-0.3); EOSINOPHILS % (AUTO) 1 % (0-10); HEMATOCRIT 31 % (35-52); HEMOGLOBIN 10.4 G/DL (11.5-16.0); LYMPHOCYTES # (AUTO) 0.9 X 10^3 (1.0-4.0); LYMPHOCYTES % (AUTO) 9 % (12-44); MEAN CORPUSCULAR HEMOGLOBIN 30 PG (25-34); MEAN CORPUSCULAR HGB CONC 33 G/DL (32-36); MEAN CORPUSCULAR VOLUME 90 FL (80-99); MEAN PLATELET VOLUME 10.6 FL (7.4-10.4); MONOCYTES # (AUTO) 1.2 X 10^3 (0.0-1.0); MONOCYTES % (AUTO) 10 % (0-12); NEUTROPHILS # (AUTO) 8.8 X 10^3 (1.8-7.8); NEUTROPHILS % (AUTO) 80 % (42-75); PLATELET COUNT 260 10^3/uL (130-400); RED BLOOD COUNT 3.49 10^6/uL (4.35-5.85); RED CELL DISTRIBUTION WIDTH 13.2 % (10.0-14.5); WHITE BLOOD COUNT 11.1 10^3/uL (4.3-11.0)
[2017-04-22 15:07] LABS: PROTHROMBIN TIME PATIENT 13.3 SEC (12.2-14.7)
[2017-04-22 15:14] LABS: ALANINE AMINOTRANSFERASE 11 U/L (0-55); ALBUMIN 3.7 GM/DL (3.2-4.5); ALKALINE PHOSPHATASE 65 U/L (40-136); BILIRUBIN,TOTAL 0.4 MG/DL (0.1-1.0); BUN/CREATININE RATIO 25; CALCIUM 8.9 MG/DL (8.5-10.1); CARBON DIOXIDE 26 MMOL/L (21-32); CHLORIDE 100 MMOL/L (98-107); CREATININE SERUM 0.56 MG/DL (0.60-1.30); GFR ESTIMATED > 60; GLUCOSE 92 MG/DL (70-105); MAGNESIUM 1.7 MG/DL (1.8-2.4); POTASSIUM 4.2 MMOL/L (3.6-5.0); SODIUM 138 MMOL/L (135-145); TOTAL PROTEIN 6.8 GM/DL (6.4-8.2)
--- NOTE | 2017-04-22 15:16 | ED Chest Pain ---
General Chief Complaint: Chest Pain Stated Complaint: CP Nursing Triage Note: ARRIVED VIA WC TO ROOM 09 AFTER ASSISTING OUT OF CAR. STATES SHE WAS AT [facility] OFFICE WHEN SHE STARTED HAVING CHEST PAIN AND LEFT ARM PAIN. A CALL WAS MADE TO [facility] OFFICE WHO TOLD HER TO COME TO THE ER. PT DENIES PAIN UPON ARRIVAL BUT STATES THE PAIN STARTED YESTERDAY. Nursing Sepsis Screen: No Definite Risk Source: patient, family (son) Exam Limitations: no limitations History of Present Illness Date Seen by Provider: Apr 22, 2017 Time Seen by Provider: 14:26 Allergies and Home Medications Allergies Coded Allergies: benazepril (Verified Allergy, Unknown, 01/21/07) codeine (Verified Adverse Reaction, Unknown, NAUSEA/VOMITING, 01/20/07) Home Medications Aspirin 81 Mg Tablet.dr, 81 MG PO DAILY, (Reported) Bethanechol Chloride 25 Mg Tablet, 25 MG PO ACHS, (Reported) Budesonide/Formoterol Fumarate 10.2 Gm Hfa.aer.ad, 2 PUFF IH BID, (Reported) LAST FILLED #1 INHALER 12-13-16 Calcium Carbonate/Vitamin D3 1 Each Tablet, 1 TAB PO DAILY, (Reported) Duloxetine HCl 60 Mg Capsule.dr, 60 MG PO HS, (Reported) Fenofibrate 160 Mg Tablet, 160 MG PO DAILY, (Reported) LAST FILLED #90 17 Ipratropium/Albuterol Sulfate 3 Ml Ampul.neb, 3 ML INH RTQ6HR, #30 Prescribed by: LEW LEIVA on 01/28/17 1304 Ipratropium/Albuterol Sulfate 3 Ml Ampul.neb, 3 ML INH RTQ2H PRN for SHORTNESS OF BREATH, #30 Prescribed by: LEW LEIVA on 01/28/17 1304 Levothyroxine Sodium 112 Mcg Tablet, 112 MCG PO DAILY, (Reported) LAST FILLED #60 08-30-16 Magnesium Oxide 400 Mg Tablet, 400 MG PO BIDPC, #60 Prescribed by: LEW LIEVA on 01/28/17 1304 Metoprolol Tartrate 25 Mg Tablet, 25 MG PO BID, (Reported) Multivitamin 1 Each Tablet, 1 TAB PO DAILY, (Reported) Pilocarpine HCl 5 Mg Tablet, 7.5 MG PO TID, (Reported) TAKES 1 & 1/2 (5MG) TABLET / LAST FILLED 10/26/16 #135 Ropinirole HCl 0.5 Mg Tablet, 0.5 MG PO BID, (Reported) LAST FILLED 12/07/16 #60 Rosuvastatin Calcium 10 Mg Tablet, 10 MG PO HS, (Reported) LAST FILLED #30 08-30-16 Past Wfutlgw-Davrqw-Vlyptu Hx Patient Social History Alcohol Use: Denies Use Alcohol Beverage of Choice: Beer Recreational Drug Use: No Smoking Status: Former Smoker Type Used: Cigarettes Former Smoker, Quit: Jan 25, 1984 2nd Hand Smoke Exposure: No Recent Foreign Travel: No Contact w/Someone Who Travel: No Recent Infectious Disease Expo: No Recent Hopitalizations: Yes Immunizations Up To Date Tetanus Booster (TDap): Unknown PED Vaccines UTD: No Date of Pneumonia Vaccine: Dec 01, 2015 Date of Influenza Vaccine: Jan 17, 2017 Seasonal Allergies Seasonal Allergies: No Surgeries History of Surgeries: Yes Surgeries: Breast Respiratory History of Respiratory Disorde: Yes Respiratory Disorders: COPD, Emphysema Currently Using CPAP: No Currently Using BIPAP: No Cardiovascular History of Cardiac Disorders: Yes Cardiac Disorders: Coronary Artery Disease, High Cholesterol, Hypertension Neurological History of Neurological Disord: No Reproductive System Hx Reproductive Disorders: No Genitourinary History of Genitourinary Disor: No Gastrointestinal History of Gastrointestinal Di: Yes Gastrointestinal Disorders: Gastrointestinal Bleed Musculoskeletal History of Musculoskeletal Dis: Yes Musculoskeletal Disorders: Arthritis Endocrine History of Endocrine Disorders: No Endocrine Disorders: Hypothyroidsim HEENT History of HEENT Disorders: Yes HEENT Disorders: Cataract Loss of Vision: Denies Hearing Impairment: Denies Cancer History of Cancer: No Cancer: Breast, Thyroid Psychosocial History of Psychiatric Problem: No Behavioral Health Disorders: Anxiety Integumentary History of Skin or Integumenta: No Skin/Integumentary Disorders: Recent Skin Changes Blood Transfusions History of Blood Disorders: No Adverse Reaction to a Blood Tr: No Family Medical History Significant Family History: No Pertinent Family Hx Family Medial History: Cancer 03 FATHER, Onset:60 years & older (CANCER OF THE BLADDER) 09 SISTER, Onset:30's - 40 (CANCER OF THE BREAST) Cataract 03 FATHER, Onset:60 years & older 03 MOTHER, Onset:60 years & older Chest pain 03 MOTHER, Onset:60 years & older Dementia 03 FATHER, Onset:60 years & older Family history: Arthritis 03 MOTHER, Onset:60 years & older Family history: Breast disease 09 SISTER, Onset:30's - 40 Family history: Cardiovascular disease 03 MOTHER, Onset:60 years & older Family history: Glaucoma 03 MOTHER, Onset:60 years & older Family history: Hypertension 03 FATHER, Onset:50's - 60 03 MOTHER, Onset:60 years & older Family history: Osteoporosis 03 MOTHER, Onset:60 years & older Hearing loss 03 FATHER, Onset:60 years & older Heart disease 03 MOTHER, Onset:60 years & older Hypercholesterolemia 03 MOTHER, Onset:60 years & older Infertile CHILDREN, Onset:30's - 40 (PATIENT STATES THAT DAUGHTER WAS INFERTILE) Kidney disease 03 FATHER, Onset:60 years & older Myocardial infarction 03 MOTHER, Onset:60 years & older Parkinson's disease 03 FATHER, Onset:60 years & older 09 BROTHER, Onset:60 years & older Stroke 03 FATHER, Onset:60 years & older No Family History of: Abdominal aortic aneurysm Denis's disease Alcoholism Aphasia Cancer of colon Congenital heart disease Congestive heart failure Cystic fibrosis Dysphagia Family history: Allergy Family history: Alzheimer's disease Family history: Asthma Family history: Coronary thrombosis Family history: Diabetes mellitus Family history: Gastrointestinal disease Family history: Thyroid disorder Headache Hereditary disease History of - anemia History of - disorder History of - respiratory disease History of drug abuse Human immunodeficiency virus (HIV) seropositivity Malignant neoplasm of lung Prostate cancer Psychotic disorder Seizure disorder Tuberculosis Visual impairment Physical Exam Vital Signs Vital Sign - Last 12Hours 04/22/17 14:26 Temp 98.0 Pulse 91 Resp 18 B/P (MAP) 106/67 (80) Pulse Ox 100 O2 Delivery Nasal Cannula O2 Flow Rate 2.00 Capillary Refill : Less Than 3 Seconds Progress/Results/Core Measures Results/Orders Lab Results Laboratory Tests Test 04/22/17 14:35 Range/Units White Blood Count 11.1 H 4.3-11.0 10^3/uL Red Blood Count 3.49 L 4.35-5.85 10^6/uL Hemoglobin 10.4 L 11.5-16.0 G/DL Hematocrit 31 L 35-52 % Mean Corpuscular Volume 90 80-99 FL Mean Corpuscular Hemoglobin 30 25-34 PG Mean Corpuscular Hemoglobin Concent 33 32-36 G/DL Red Cell Distribution Width 13.2 10.0-14.5 % Platelet Count 260 130-400 10^3/uL Mean Platelet Volume 10.6 H 7.4-10.4 FL Neutrophils (%) (Auto) 80 H 42-75 % Lymphocytes (%) (Auto) 9 L 12-44 % Monocytes (%) (Auto) 10 0-12 % Eosinophils (%) (Auto) 1 0-10 % Basophils (%) (Auto) 0 0-10 % Neutrophils # (Auto) 8.8 H 1.8-7.8 X 10^3 Lymphocytes # (Auto) 0.9 L 1.0-4.0 X 10^3 Monocytes # (Auto) 1.2 H 0.0-1.0 X 10^3 Eosinophils # (Auto) 0.1 0.0-0.3 10^3/uL Basophils # (Auto) 0.0 0.0-0.1 10^3/uL Prothrombin Time 13.3 12.2-14.7 SEC INR Comment 1.0 0.8-1.4 Activated Partial Thromboplast Time 27 24-35 SEC D-Dimer 1.29 H 0.00-0.49 UG/ML Sodium Level 138 135-145 MMOL/L Potassium Level 4.2 3.6-5.0 MMOL/L Chloride Level 100 98-107 MMOL/L Carbon Dioxide Level 26 21-32 MMOL/L Anion Gap 12 5-14 MMOL/L Blood Urea Nitrogen 14 7-18 MG/DL Creatinine 0.56 L 0.60-1.30 MG/DL Estimat Glomerular Filtration Rate > 60 BUN/Creatinine Ratio 25 Glucose Level 92 70-105 MG/DL Calcium Level 8.9 8.5-10.1 MG/DL Magnesium Level 1.7 L 1.8-2.4 MG/DL Total Bilirubin 0.4 0.1-1.0 MG/DL Aspartate Amino Transf (AST/SGOT) 17 5-34 U/L Alanine Aminotransferase (ALT/SGPT) 11 0-55 U/L Alkaline Phosphatase 65 40-136 U/L Total Protein 6.8 6.4-8.2 GM/DL Albumin 3.7 3.2-4.5 GM/DL My Orders Orders - MILO MULLIGAN PA Cbc With Automated Diff (04/22/17 14:28) Magnesium (04/22/17 14:28) Chest 1 View, Ap/Pa Only (04/22/17 14:28) Cardiac Profile 1 (04/22/17 14:28) Comprehensive Metabolic Panel (04/22/17 14:28) Myoglobin Serum (04/22/17 14:28) Protime With Inr (04/22/17 14:28) Partial Thromboplastin Time (04/22/17 14:28) O2 (04/22/17 14:28) Monitor-Rhythm Ecg Trace Only (04/22/17 14:28) Lipid Panel (04/23/17 06:00) Aspirin Chewable Tablet (Baby Aspirin Ch (04/22/17 14:30) Saline Lock/Iv-Start (04/22/17 14:28) BNP (04/22/17 14:28) Fibrin Degradation Products (04/22/17 14:28) Medications Given in ED Current Medications Medications Dose Ordered Sig/Janelle Route Start Time Stop Time Status Last Admin Dose Admin Aspirin 324 mg ONCE ONCE PO 04/22/17 14:30 04/22/17 14:31 DC 04/22/17 15:10 324 MG Vital Signs/I&O Vital Sign - Last 12Hours 04/22/17 04/22/17 14:26 14:26 Temp 98.0 Pulse 91 Resp 18 B/P (MAP) 106/67 (80) Pulse Ox 100 O2 Delivery Nasal Cannula Nasal Cannula O2 Flow Rate 2.00 2.00 Blood Pressure Mean: 80 Departure Departure-Patient Inst. Referrals: LEW LEIVA DO (PCP/Family) Primary Care Physician MILO MULLIGAN Apr 22, 2017 15:16
[2017-04-22 15:22] LABS: MYOGLOBIN SERUM 38.3 NG/ML (10.0-92.0)
--- NOTE | 2017-04-22 15:22 | Diagnostic Imaging Report ---
CLINICAL INDICATION: Patient has chest pain and left arm pain. EXAM: Portable chest x-ray, upright view. COMPARISON: Chest x-ray dated 01/24/2017. FINDINGS: Stable appearance of both lungs with architectural distortion, tenting of the right hemidiaphragm, and curvilinear opacity present which may be related to scarring. There is also stable blunting of the left costophrenic angle which may be related to scarring but a superimposed pleural effusion cannot be completely excluded. Stable minimal scarring in the right upper lobe. The remainder of the lungs is clear. The cardiac silhouette and pulmonary vasculature are within normal limits. Surgical clips are seen overlying the right upper quadrant which could be related to cholecystectomy changes. There are small degenerative spurs involving the thoracic spine. Posterior cervical fusion hardware is seen overlying the lower cervical spine. IMPRESSION: 1. Overall stable chest x-ray exam with no interval radiographic evidence of an acute cardiopulmonary process. 2. Stable suspected scarring involving both lung bases but superimposed pleural effusion involving the left costophrenic angle region cannot be completely excluded. Dictated by: Dictated on workstation # [id number]
[2017-04-22] MEDS ORDERED: NS 100 ML (IVPB) BAG IV ONE (15:45)
[2017-04-22] MEDS ORDERED: IOHEXOL 350 MG/ML 150 ML (OMNIPAQUE 350) VIAL IV ONE (15:45)
--- NOTE | 2017-04-22 16:38 | Diagnostic Imaging Report ---
INDICATION: Chest congestion and pain. TECHNIQUE: The CTA chest was obtained with IV contrast bolus in axial slices and sagittal, coronal, and MIP reconstructions. FINDINGS: The pulmonary parenchymal vessels are well opacified with no CT evidence for pulmonary emboli. The thoracic aorta shows no evidence of aneurysm or dissection. There is atherosclerotic change of the thoracic aorta. The great vessel origins are patent and without significant stenosis. The mediastinum and mildred show no adenopathy. There are no enlarged axillary nodes. There is no pleural or pericardial effusion. The visualized portions of the upper abdomen demonstrate a benign-appearing cyst in the left kidney. There is centrilobular emphysema. There is some parenchymal scarring in the right upper lobe posteriorly which appears similar to the previous study of 01/25/2017. There is some parenchymal scarring in the peripheral portion of both lung bases which also appears similar to the prior study. There is no definite new pulmonary parenchymal lesion. IMPRESSION: No CT evidence of pulmonary emboli or aortic dissection. No overt mass lesion in the chest. There is parenchymal scarring in the peripheral portion of both lung bases as well as in the right upper lobe which appears similar to the prior study of 01/25/2017. There are diffuse emphysematous changes. Dictated by: Dictated on workstation # [id number]
--- NOTE | 2017-04-22 17:26 | Consultation-Cardiology ---
HPI-Cardiology Cardiology Consultation Date of Consultation 04/22/17 Date of Admission Time Seen by Provider: 17:21 Indication: chest pain HPI 76 years old lady with history of coronary artery disease, hypertension hyperlipidemia. Was in her usual state of health until yesterday afternoon when she was trying to get out of bed had some sharp chest pain in the retrosternal area since then she continued to have recurrent episode of chest tightness and discomfort. Seen in Dr. Foley's office and she was sent to the emergency room. Upon arrival to the emergency room she reported improvement, no medication were given but her chest pain was better. She has chronic dyspnea. No palpitation or syncope. She was hospitalized earlier this year for syncope and hypotension. Home Medications & Allergies Allergies: Coded Allergies: benazepril (Verified Allergy, Unknown, 01/21/07) codeine (Verified Adverse Reaction, Unknown, NAUSEA/VOMITING, 01/20/07) Home Medication List Reviewed: Yes FUR-Dchchb-Mnrmos Hx Patient Social History Alcohol Use: Denies Use Recreational Drug Use: No Smoking Status: Former Smoker Former smoker/When Quit: July 30, 1994 Type Used: Cigarettes 2nd Hand Smoke Exposure: No Recent Foreign Travel: No Recent Infectious Disease Expo: No Recent Hopitalizations: Yes Immunizations Up To Date Tetanus Booster (TDap): Unknown Date of Pneumonia Vaccine: Dec 01, 2015 Date of Influenza Vaccine: Jan 17, 2017 Past Medical History Past medical history as discussed below Family Medical History Significant Family History: No Pertinent Family Hx Family History: 03 FATHER Cancer, Onset:60 years & older (CANCER OF THE BLADDER) Cataract, Onset:60 years & older Dementia, Onset:60 years & older Family history: Hypertension, Onset:50's - 60 Hearing loss, Onset:60 years & older Kidney disease, Onset:60 years & older Parkinson's disease, Onset:60 years & older Stroke, Onset:60 years & older 03 MOTHER Cataract, Onset:60 years & older Chest pain, Onset:60 years & older Family history: Arthritis, Onset:60 years & older Family history: Cardiovascular disease, Onset:60 years & older Family history: Glaucoma, Onset:60 years & older Family history: Hypertension, Onset:60 years & older Family history: Osteoporosis, Onset:60 years & older Heart disease, Onset:60 years & older Hypercholesterolemia, Onset:60 years & older Myocardial infarction, Onset:60 years & older 09 BROTHER Parkinson's disease, Onset:60 years & older 09 SISTER Cancer, Onset: (CANCER OF THE BREAST) Family history: Breast disease, Onset: CHILDREN Infertile, Onset: (PATIENT STATES THAT DAUGHTER WAS INFERTILE) Constitutional: see HPI, malaise EENTM: see HPI, no symptoms reported Respiratory: see HPI, cough, dyspnea on exertion, short of breath Cardiovascular: see HPI, chest pain Gastrointestinal: no symptoms reported, see HPI Genitourinary: no symptoms reported, see HPI Musculoskeletal: see HPI, back pain, joint pain Skin: no symptoms reported, see HPI Psychiatric/Neurological: No Symptoms Reported, See HPI Reviewed Test Results Reviewed Test Results Lab Laboratory Tests Test 04/22/17 14:35 Range/Units White Blood Count 11.1 H 4.3-11.0 10^3/uL Red Blood Count 3.49 L 4.35-5.85 10^6/uL Hemoglobin 10.4 L 11.5-16.0 G/DL Hematocrit 31 L 35-52 % Mean Corpuscular Volume 90 80-99 FL Mean Corpuscular Hemoglobin 30 25-34 PG Mean Corpuscular Hemoglobin Concent 33 32-36 G/DL Red Cell Distribution Width 13.2 10.0-14.5 % Platelet Count 260 130-400 10^3/uL Mean Platelet Volume 10.6 H 7.4-10.4 FL Neutrophils (%) (Auto) 80 H 42-75 % Lymphocytes (%) (Auto) 9 L 12-44 % Monocytes (%) (Auto) 10 0-12 % Eosinophils (%) (Auto) 1 0-10 % Basophils (%) (Auto) 0 0-10 % Neutrophils # (Auto) 8.8 H 1.8-7.8 X 10^3 Lymphocytes # (Auto) 0.9 L 1.0-4.0 X 10^3 Monocytes # (Auto) 1.2 H 0.0-1.0 X 10^3 Eosinophils # (Auto) 0.1 0.0-0.3 10^3/uL Basophils # (Auto) 0.0 0.0-0.1 10^3/uL Prothrombin Time 13.3 12.2-14.7 SEC INR Comment 1.0 0.8-1.4 Activated Partial Thromboplast Time 27 24-35 SEC D-Dimer 1.29 H 0.00-0.49 UG/ML Sodium Level 138 135-145 MMOL/L Potassium Level 4.2 3.6-5.0 MMOL/L Chloride Level 100 98-107 MMOL/L Carbon Dioxide Level 26 21-32 MMOL/L Anion Gap 12 5-14 MMOL/L Blood Urea Nitrogen 14 7-18 MG/DL Creatinine 0.56 L 0.60-1.30 MG/DL Estimat Glomerular Filtration Rate > 60 BUN/Creatinine Ratio 25 Glucose Level 92 70-105 MG/DL Calcium Level 8.9 8.5-10.1 MG/DL Magnesium Level 1.7 L 1.8-2.4 MG/DL Total Bilirubin 0.4 0.1-1.0 MG/DL Aspartate Amino Transf (AST/SGOT) 17 5-34 U/L Alanine Aminotransferase (ALT/SGPT) 11 0-55 U/L Alkaline Phosphatase 65 40-136 U/L Myoglobin 38.3 10.0-92.0 NG/ML Troponin I < 0.30 <0.30 NG/ML B-Type Natriuretic Peptide 39.0 <100.0 PG/ML Total Protein 6.8 6.4-8.2 GM/DL Albumin 3.7 3.2-4.5 GM/DL Physical Exam Vital Signs Vital Sign - Last 12Hours 04/22/17 14:26 Temp 98.0 Pulse 91 Resp 18 B/P (MAP) 106/67 (80) Pulse Ox 100 O2 Delivery Nasal Cannula O2 Flow Rate 2.00 Capillary Refill : Less Than 3 Seconds General Appearance: No Apparent Distress, WD/WN Eyes: Bilateral Eye Normal Inspection, Bilateral Eye PERRL, Bilateral Eye EOMI HEENT: PERRL/EOMI, TMs Normal, Normal ENT Inspection, Pharynx Normal Neck: Full Range of Motion, Normal Inspection, Non Tender, Supple, Carotid Bruit Respiratory: Chest Non Tender, Lungs Clear, Normal Breath Sounds, No Accessory Muscle Use, No Respiratory Distress Cardiovascular: Regular Rate, Rhythm, No Edema, No Gallop, No JVD, No Murmur, Normal Peripheral Pulses Gastrointestinal: Normal Bowel Sounds, No Organomegaly, No Pulsatile Mass, Non Tender, Soft Back: Normal Inspection, No CVA Tenderness, No Vertebral Tenderness Extremity: Normal Capillary Refill, Normal Inspection, Normal Range of Motion, Non Tender, No Calf Tenderness, No Pedal Edema Neurologic/Psychiatric: Alert, Oriented x3, No Motor/Sensory Deficits, Normal Mood/Affect Skin: Normal Color, Warm/Dry Lymphatic: No Adenopathy A/P-Cardiology Admission Diagnosis Chest pain nonspecific etiology Coronary artery disease Hypertension Hyperlipidemia Assessment/Plan Chest pain nonspecific etiology, atypical in presentation, reporting improvement , stress test was done in May 2016 showing no significant ischemia or infarction. I will continue to monitor overnight and monitor cardiac enzymes. Coronary disease, history of PTCA and stent placement x2 in 2007 the mid LAD using 2.25 x 13 pixel and 2.0 x 18 mm pixel stent to the LAD, cardiac catheterization was done again in 2011 showing 80 percent in-stent restenosis, apex balloon 2.2520 mm was done for in-stent restenosis with good results, the ostial and proximal LAD had 50-60 percent stenosis, mid LAD has 40-50 percent stenosis, left circumflex artery has diffuse mild disease and right coronary artery has 50 percent stenosis diffusely. Cardiac enzymes are negative. Last stress test was done in May 2016. Continue to monitor EKG and cardiac enzymes. Dyspnea on exertion, using oxygen at home, history of pulmonary hypertension, had CT angiogram of the chest done in the emergency room and it was negative. Raynaud's phenomenon-reporting bluish discoloration and cold feet, SALMA was done in May 2015 which was 0.87 on the left which is mildly abnormal, normal on the right, monitor SALMA Hypertension, status post recent hospitalization for hypotension and syncope. Better at this time. Hyperlipidemia, restart home medication and monitor lipids Thyroid cancer-status post total thyroidectomy, followed and managed by primary care physician Mild bilateral nonobstructive carotid stenosis, continue to monitor. Last carotid duplex done in April 2016. Continue to monitor. COPD, using oxygen at home, managed by primary care physician Left ventricle hypertrophy with estimated EF of 60 percent, echocardiogram was done in January 2016. Continue to monitor Diastolic dysfunction, last echocardiogram showed ejection fraction 60 percent, PA pressure 35 mmHg, normal left atrial size, no signs of diastolic dysfunction. BRYCE LYLE MD Apr 22, 2017 17:26
[2017-04-22] MEDS ORDERED: ONDANSETRON 4 MG/2 ML (SDV) Z0FRAN IV PRN (18:15)
[2017-04-22] MEDS ORDERED: CATHETER FLUSH 10 ML SYR IV PRN (18:15)
[2017-04-22] MEDS ORDERED: ACETAMINOPHEN 500 MG TAB (TYLENOL) PO PRN (18:15)
[2017-04-22] MEDS ORDERED: morphine INJ 4 MG/ML 1 ML (VIAL/SYRINGE) IV PRN (18:30)
[2017-04-22] MEDS ORDERED: NITROGLYCERIN 0.4 MG SL TABS BTL 25'S SL PRN (18:30)
[2017-04-22] MEDS: NS IV 1000 ML 1,000 ML IV SCH (19:21)
[2017-04-22] MEDS: ROSUVASTATIN 10 MG (CRESTOR) TABLET PO SCH (21:51)
[2017-04-22] MEDS: meTOprolol TARTRATE 25 MG (LOPRESSOR) TABLET PO SCH (21:51)
[2017-04-23] VITALS (12 sets, daily range): BP systolic 102–171; BP diastolic 63–101
[2017-04-23] MEDS: NS IV 1000 ML 1,000 ML IV SCH ×2 (03:38→23:29)
[2017-04-23 07:42] LABS: BASOPHILS % (AUTO) 1 % (0-10); EOSINOPHILS # (AUTO) 0.3 10^3/uL (0.0-0.3); EOSINOPHILS % (AUTO) 5 % (0-10); HEMATOCRIT 29 % (35-52); HEMOGLOBIN 9.4 G/DL (11.5-16.0); LYMPHOCYTES # (AUTO) 1.3 X 10^3 (1.0-4.0); LYMPHOCYTES % (AUTO) 22 % (12-44); MEAN CORPUSCULAR HEMOGLOBIN 30 PG (25-34); MEAN CORPUSCULAR HGB CONC 33 G/DL (32-36); MEAN CORPUSCULAR VOLUME 91 FL (80-99); MONOCYTES # (AUTO) 0.8 X 10^3 (0.0-1.0); MONOCYTES % (AUTO) 12 % (0-12); NEUTROPHILS # (AUTO) 3.8 X 10^3 (1.8-7.8); NEUTROPHILS % (AUTO) 61 % (42-75); PLATELET COUNT 228 10^3/uL (130-400); RED BLOOD COUNT 3.14 10^6/uL (4.35-5.85); RED CELL DISTRIBUTION WIDTH 13.3 % (10.0-14.5); WHITE BLOOD COUNT 6.2 10^3/uL (4.3-11.0)
--- NOTE | 2017-04-23 07:55 | Cardiology Progress Note ---
Subjective Date Seen by Provider: Apr 23, 2017 Time Seen by Provider: 07:54 Subjective/Events-last exam patient is laying down in bed, feeling better, reporting improvement in her chest pain, no EKG changes. Review of Systems General: No Chills, No Night Sweats, No Fatigue, No Malaise, No Appetite, No Other HEENT: No Head Aches, No Visual Changes, No Eye Pain, No Ear Pain, No Dysphasia , No Sinus Congestion, No Post Nasal Drip, No Sore Throat, No Other Pulmonary: No Dyspnea, No Cough, No Pleuritic Chest Pain, No Other Cardiovascular: No: Chest Pain, Palpitations, Orthopnea, Paroxysmal Noc. Dyspnea, Edema, Lt Headedness, Other Objective-Cardiology Exam Last Set of Vital Signs Vital Signs 04/23/17 04:00 Temp 98.2 Pulse 79 Resp 18 B/P (MAP) 124/78 (93) Pulse Ox 99 O2 Delivery Nasal Cannula O2 Flow Rate 2.00 Capillary Refill : Less Than 3 Seconds I&O Intake and Output 04/23/17 00:00 Intake Total 200 ml Output Total 300 ml Balance -100 ml Intake Oral 200 ml Output Urine Total 300 ml Daily Weight Change Yes, 2-13 lbs General: Alert, Oriented X3, Cooperative HEENT: Atraumatic, PERRLA Neck: Supple, No JVD, No Thyromegaly Lungs: Clear to Auscultation, Normal Air Movement Heart: Regular Rate, Normal S1, Normal S2, No Murmurs Abdomen: Normal Bowel Sounds, Soft, No Tenderness, No Hepatosplenomegaly, No Masses Extremities: No Clubbing, No Cyanosis, No Edema, Normal Pulses, No Tenderness/ Swelling Skin: No Rashes, No Breakdown, No Significant Lesion Neuro: Normal Gait, Normal Speech, Strength at 5/5 X4 Ext, Normal Tone, Sensation Intact Psych/Mental Status: Mental Status NL, Mood NL Results Lab Laboratory Tests 04/22/17 14:35 04/23/17 06:36 A/P-Cardiology Admission Diagnosis Chest pain nonspecific etiology Coronary artery disease Hypertension Hyperlipidemia Assessment/Plan Chest pain nonspecific etiology, atypical in presentation, reporting improvement , planning to repeat stress test today. Coronary disease, history of PTCA and stent placement x2 in 2007 the mid LAD using 2.25 x 13 pixel and 2.0 x 18 mm pixel stent to the LAD, cardiac catheterization was done again in 2011 showing 80 percent in-stent restenosis, apex balloon 2.2520 mm was done for in-stent restenosis with good results, the ostial and proximal LAD had 50-60 percent stenosis, mid LAD has 40-50 percent stenosis, left circumflex artery has diffuse mild disease and right coronary artery has 50 percent stenosis diffusely. Cardiac enzymes are negative. Last stress test was done in May 2016. Dyspnea on exertion, using oxygen at home, history of pulmonary hypertension, had CT angiogram of the chest done in the emergency room and it was negative. Raynaud's phenomenon-reporting bluish discoloration and cold feet, SALMA was done in May 2015 which was 0.87 on the left which is mildly abnormal, normal on the right, monitor SALMA Hypertension, status post recent hospitalization for hypotension and syncope. Better at this time. Hyperlipidemia, restart home medication and monitor lipids Thyroid cancer-status post total thyroidectomy, followed and managed by primary care physician Mild bilateral nonobstructive carotid stenosis, continue to monitor. Last carotid duplex done in April 2016. Continue to monitor. COPD, using oxygen at home, managed by primary care physician Left ventricle hypertrophy with estimated EF of 60 percent, echocardiogram was done in January 2016. Continue to monitor Diastolic dysfunction, last echocardiogram showed ejection fraction 60 percent, PA pressure 35 mmHg, normal left atrial size, no signs of diastolic dysfunction. Dr Ahn is covering for ca Clinical Quality Measures DVT/VTE Risk/Contraindication: Risk Factor Score Per Nursin RFS Level Per Nursing on Admit: 4+=Very High BRYCE LYLE MD Apr 23, 2017 07:55
[2017-04-23 07:59] LABS: ALANINE AMINOTRANSFERASE 10 U/L (0-55); ALKALINE PHOSPHATASE 56 U/L (40-136); BILIRUBIN,TOTAL 0.3 MG/DL (0.1-1.0); BUN/CREATININE RATIO 18; CALCIUM 8.3 MG/DL (8.5-10.1); CARBON DIOXIDE 25 MMOL/L (21-32); CHLORIDE 110 MMOL/L (98-107); CHOLESTEROL 102 MG/DL (< 200); CREATININE SERUM 0.49 MG/DL (0.60-1.30); GFR ESTIMATED > 60; GLUCOSE 82 MG/DL (70-105); HDL CHOLESTEROL 34 MG/DL (40-60); POTASSIUM 3.8 MMOL/L (3.6-5.0); SODIUM 144 MMOL/L (135-145); TOTAL PROTEIN 5.4 GM/DL (6.4-8.2); TRIGLYCERIDES 69 MG/DL (<150); VLDL CHOLESTEROL 14 MG/DL (5-40)
--- NOTE | 2017-04-23 08:31 | Diagnostic Imaging Report ---
INDICATION: Chest pain. TIME OF EXAM: 7:41 AM Correlation is made with prior study from one day earlier. FINDINGS: The heart size is stable. Lungs are hyperinflated consistent with COPD. There are small bilateral effusions. Scarring or atelectasis in the right base is unchanged. Mid and upper lung landers are clear. Postsurgical changes in the lower cervical spine are noted. IMPRESSION: Stable chest since exam one day earlier. Dictated by: Dictated on workstation # [id number]
[2017-04-23] MEDS ORDERED: ASPIRIN E.C. 325 MG (ECOTRIN) TABLET PO SCH (09:00)
[2017-04-23] MEDS ORDERED: MAGN400T39 PO (09:23)
[2017-04-23] MEDS ORDERED: IPRA3AMP NEB (09:33)
[2017-04-23] MEDS ORDERED: FERR325T24 PO (09:33)
[2017-04-23] MEDS ORDERED: REGADENOSON 0.4 MG/5 ML SYR (LEXISCAN) IV ONE ×2 (11:57→12:00)
[2017-04-23] MEDS ORDERED: RT-ALBUTEROL/IPRATROPIUM 3 ML (DUONEB) VIAL IH PRN (12:45)
[2017-04-23] MEDS ORDERED: methylPREDNISolone 40 MG/ML (Solu-MEDROL) VIAL IV NR (12:45)
--- NOTE | 2017-04-23 12:50 | History & Physicial ---
History of Present Illness History of Present Illness Reason for visit/HPI This is a 76 year old female with a known history of COPD and CAD who presented to my office yesterday for a routine followup. However, she reported that she was having substernal chest pain and pressure radiating to her back and to both shoulders and her jaw intermittently since that morning. She also reported cough and worsening shortness of air. I was going to direct admit the patient to rule out cardiac etiology but after discussing her care with cardiology, they requested that she go directly to the emergency room for evaluation. An ambulance was offered to the patient but she declined as her sister was driving her and present at the appointment. The patient went via private vehicle to [facility] and was evaluated--her cardiac enzymes were negative and her EKG showed no acute changes and a CT angiogram of the chest showed no PE and no pneumonia. However, due to her chest pain and history, it was decided to admit her for observation and have cardiology consult. Date of Admission Apr 22, 2017 at 17:20 Date Seen by Provider: Apr 23, 2017 Time Seen by Provider: 18:54 I consulted on this patient on 04/23/17 12:44 Attending Physician Neli Foley DO Admitting Physician Neli Foley DO Consult Allergies and Home Medications Allergies Coded Allergies: benazepril (Verified Allergy, Unknown, 01/21/07) codeine (Verified Adverse Reaction, Unknown, NAUSEA/VOMITING, 01/20/07) Home Medications Aspirin 81 Mg Tablet.dr, 81 MG PO DAILY, (Reported) Bethanechol Chloride 25 Mg Tablet, 25 MG PO ACHS, (Reported) Budesonide/Formoterol Fumarate 10.2 Gm Hfa.aer.ad, 2 PUFF IH BID, (Reported) LAST FILLED #1 INHALER 12-13-16 Calcium Carbonate/Vitamin D3 1 Each Tablet, 1 TAB PO DAILY, (Reported) Duloxetine HCl 60 Mg Capsule.dr, 60 MG PO HS, (Reported) Ferrous Sulfate 325 Mg Tablet, 325 MG PO DAILY, (Reported) Ipratropium/Albuterol Sulfate 3 Ml Ampul.neb, 3 ML NEB Q6H PRN for SHORTNESS OF BREATH, (Reported) Levothyroxine Sodium 112 Mcg Tablet, 112 MCG PO DAILY, (Reported) Metoprolol Tartrate 25 Mg Tablet, 12.5 MG PO BID, (Reported) TAKES 1/2 (25MG) TABLET Multivitamin 1 Each Tablet, 1 TAB PO DAILY, (Reported) Rosuvastatin Calcium 10 Mg Tablet, 10 MG PO HS, (Reported) Past Xnyvpmg-Ilekbl-Jkitxg Hx Patient Social History Alcohol Use: Denies Use Number of Drinks Today: AA Alcohol Beverage of Choice: Beer Recreational Drug Use: No Smoking Status: Former Smoker Former Smoker, Quit: Jan 24, 1990 Type Used: Cigarettes 2nd Hand Smoke Exposure: No Physical Abuse Screen: No Sexual Abuse: No Recent Foreign Travel: No Contact w/other who traveled: No Recent Hopitalizations: Yes (Jan 2017) Recent Infectious Disease Expo: No Immunizations Up To Date Tetanus Booster (TDap): Unknown Pediatric: No Date of Pneumonia Vaccine: Dec 01, 2015 Date of Influenza Vaccine: Jan 17, 2017 Seasonal Allergies Seasonal Allergies: No Surgeries Yes Breast Respiratory Yes Currently Using CPAP: No Currently Using BIPAP: No Cardiovascular Yes Coronary Artery Disease, High Cholesterol, Hypertension Neurological No Reproductive System Hx Reproductive Disorders: No Genitourinary No Gastrointestinal Yes Gastrointestinal Bleed Musculoskeletal Yes Arthritis Endocrine History of Endocrine Disorders: No Endocrine Disorders: Hypothyroidsim HEENT History of HEENT Disorders: Yes HEENT Disorders: Cataract Loss of Vision: Denies Hearing Impairment: Denies Cancer Yes (left breast) Breast, Thyroid Psychosocial History of Psychiatric Problem: No Behavioral Health Disorders: Anxiety Integumentary History of Skin or Integumenta: No Skin/Integumentary Disorders: Recent Skin Changes Blood Transfusions History of Blood Disorders: No Adverse Reaction to a Blood Tr: No Family Medical History Significant Family History: No Pertinent Family Hx Family Hx: Cancer 03 FATHER, Onset:60 years & older (CANCER OF THE BLADDER) 09 SISTER, Onset:30's - 40 (CANCER OF THE BREAST) Cataract 03 FATHER, Onset:60 years & older 03 MOTHER, Onset:60 years & older Chest pain 03 MOTHER, Onset:60 years & older Dementia 03 FATHER, Onset:60 years & older Family history: Arthritis 03 MOTHER, Onset:60 years & older Family history: Breast disease 09 SISTER, Onset:30's - 40 Family history: Cardiovascular disease 03 MOTHER, Onset:60 years & older Family history: Glaucoma 03 MOTHER, Onset:60 years & older Family history: Hypertension 03 FATHER, Onset:50's - 60 03 MOTHER, Onset:60 years & older Family history: Osteoporosis 03 MOTHER, Onset:60 years & older Hearing loss 03 FATHER, Onset:60 years & older Heart disease 03 MOTHER, Onset:60 years & older Hypercholesterolemia 03 MOTHER, Onset:60 years & older Infertile CHILDREN, Onset:30's - 40 (PATIENT STATES THAT DAUGHTER WAS INFERTILE) Kidney disease 03 FATHER, Onset:60 years & older Myocardial infarction 03 MOTHER, Onset:60 years & older Parkinson's disease 03 FATHER, Onset:60 years & older 09 BROTHER, Onset:60 years & older Stroke 03 FATHER, Onset:60 years & older No Family History of: Abdominal aortic aneurysm Denis's disease Alcoholism Aphasia Cancer of colon Congenital heart disease Congestive heart failure Cystic fibrosis Dysphagia Family history: Allergy Family history: Alzheimer's disease Family history: Asthma Family history: Coronary thrombosis Family history: Diabetes mellitus Family history: Gastrointestinal disease Family history: Thyroid disorder Headache Hereditary disease History of - anemia History of - disorder History of - respiratory disease History of drug abuse Human immunodeficiency virus (HIV) seropositivity Malignant neoplasm of lung Prostate cancer Psychotic disorder Seizure disorder Tuberculosis Visual impairment Constitutional: weakness, weight loss EENTM: No see HPI, No no symptoms reported, No ear discharge, No hearing loss, No ear pain, No blurred vision, No double vision, No eye pain, No tearing, No vision loss, No dental problems, No hoarseness, No mouth pain, No mouth swelling , No epistaxis, No nose congestion, No nose pain, No throat pain, No throat swelling, No other Respiratory: cough, dyspnea on exertion, short of breath Cardiovascular: chest pain Gastrointestinal: No RUQ, No LUQ, No RLQ, No LLQ, No no symptoms reported, No see HPI, No abdominal pain, No constipation, No diarrhea, No dysphagia, No hematemesis, No heartburn, No jaundice, No loss of appetite, No melena, No nausea, No vomiting, No other Genitourinary: No no symptoms reported, No see HPI, No decreased output, No discharge, No dysuria, No frequency, No hematuria, No hesitancy, No incontinence , No nocturia, No pain, No other Musculoskeletal: muscle weakness Skin: No no symptoms reported, No see HPI, No change in color, No change in hair/nails, No dryness, No hx of skin cancer, No lesions, No lumps, No pruritus , No rash, No other Psychiatric/Neurological: Anxiety, Tremors, Weakness Physical Exam Vital Signs Vital Sign - Last 12Hours 04/22/17 14:26 Temp 98.0 Pulse 91 Resp 18 B/P (MAP) 106/67 (80) Pulse Ox 100 O2 Delivery Nasal Cannula O2 Flow Rate 2.00 Capillary Refill : Less Than 3 Seconds General Appearance: Mild Distress HEENT: Pharynx Normal Neck: Supple Respiratory: Decreased Breath Sounds Cardiovascular: Regular Rate, Rhythm, Systolic Murmur, Gallop/S4 Gastrointestinal: Normal Bowel Sounds, Non Tender, Soft Back: No CVA Tenderness Extremity: Non Tender, No Pedal Edema Neurologic/Psychiatric: Alert, Oriented x3, Abnormal Gait (using walker), Other (resting tremor) Skin: Warm/Dry Comments Laboratory Tests 04/22/17 14:35: White Blood Count 11.1H, Red Blood Count 3.49L, Hemoglobin 10.4L, Hematocrit 31L , Mean Corpuscular Volume 90, Mean Corpuscular Hemoglobin 30, Mean Corpuscular Hemoglobin Concent 33, Red Cell Distribution Width 13.2, Platelet Count 260, Mean Platelet Volume 10.6H, Neutrophils (%) (Auto) 80H, Lymphocytes (%) (Auto) 9L, Monocytes (%) (Auto) 10, Eosinophils (%) (Auto) 1, Basophils (%) (Auto) 0, Neutrophils # (Auto) 8.8H, Lymphocytes # (Auto) 0.9L, Monocytes # (Auto) 1.2H, Eosinophils # (Auto) 0.1, Basophils # (Auto) 0.0, Prothrombin Time 13.3, INR Comment 1.0, Activated Partial Thromboplast Time 27, D-Dimer 1.29H, Sodium Level 138, Potassium Level 4.2, Chloride Level 100, Carbon Dioxide Level 26, Anion Gap 12, Blood Urea Nitrogen 14, Creatinine 0.56L, Estimat Glomerular Filtration Rate > 60, BUN/Creatinine Ratio 25, Glucose Level 92, Calcium Level 8.9, Magnesium Level 1.7L, Total Bilirubin 0.4, Aspartate Amino Transf (AST/SGOT ) 17, Alanine Aminotransferase (ALT/SGPT) 11, Alkaline Phosphatase 65, Myoglobin 38.3, Troponin I < 0.30, B-Type Natriuretic Peptide 39.0, Total Protein 6.8, Albumin 3.7 04/22/17 21:00: Troponin I < 0.30 04/23/17 06:36: White Blood Count 6.2, Red Blood Count 3.14L, Hemoglobin 9.4L, Hematocrit 29L, Mean Corpuscular Volume 91, Mean Corpuscular Hemoglobin 30, Mean Corpuscular Hemoglobin Concent 33, Red Cell Distribution Width 13.3, Platelet Count 228, Mean Platelet Volume 11.0H, Neutrophils (%) (Auto) 61, Lymphocytes (%) (Auto) 22 , Monocytes (%) (Auto) 12, Eosinophils (%) (Auto) 5, Basophils (%) (Auto) 1, Neutrophils # (Auto) 3.8, Lymphocytes # (Auto) 1.3, Monocytes # (Auto) 0.8, Eosinophils # (Auto) 0.3, Basophils # (Auto) 0.0, Sodium Level 144, Potassium Level 3.8, Chloride Level 110#H, Carbon Dioxide Level 25, Anion Gap 9, Blood Urea Nitrogen 9, Creatinine 0.49L, Estimat Glomerular Filtration Rate > 60, BUN/ Creatinine Ratio 18, Glucose Level 82, Calcium Level 8.3L, Total Bilirubin 0.3, Aspartate Amino Transf (AST/SGOT) 14, Alanine Aminotransferase (ALT/SGPT) 10, Alkaline Phosphatase 56, Total Protein 5.4L, Albumin 3.0L, Triglycerides Level 69, Cholesterol Level 102, LDL Cholesterol Direct 44, VLDL Cholesterol 14, HDL Cholesterol 34L Assessment/Plan Assessment and Plan 1. Chest Pain, uncertain etiology--admit and monitor on telemetry, repeat cardiac enzymes, consult cardiology 2. COPD--resume oxygen, SVNs 3. Hypertension--currently hypotensive, hydrate and monitor BP 4. Generalized Debility--multifactorial but has been improving slowly with patient living with her daughter 5. Hypothyroidism--resume home meds Problems: Clinical Quality Measures DVT/VTE Risk/Contraindication: Risk Factor Score Per Nursin RFS Level Per Nursing on Admit: 4+=Very High NELI FOLEY DO Apr 23, 2017 12:50
[2017-04-23] MEDS: meTOprolol TARTRATE 25 MG (LOPRESSOR) TABLET PO SCH ×2 (13:53→20:33)
[2017-04-23] MEDS ORDERED: MIDAZOLAM 5 MG/5 ML (VERSED) VIAL ONE (14:28)
[2017-04-23] MEDS ORDERED: fentaNYL INJECTION 100 MCG/2 ML AMP ONE (14:28)
[2017-04-23] MEDS ORDERED: diphenhydrAMINE 50 MG/ML INJ (BENADRYL) ONE (14:28)
[2017-04-23] MEDS ORDERED: LIDOCAINE 1% INJ 50 ML (XYLOCAINE) VIAL ONE (14:29)
[2017-04-23] MEDS ORDERED: HEParin (CATH LAB) 2,000 ML IV ONE (14:30)
[2017-04-23] MEDS ORDERED: NITROGLYCERIN DRIP 25 MG/D5W 250 ML IV ONE (14:32)
[2017-04-23] MEDS ORDERED: HEParin 1000 UNIT/ML (10ML VIAL) FOR BOLUS ONE (14:32)
[2017-04-23] MEDS ORDERED: VERAPAMIL 5 MG/2 ML (CALAN) VIAL IV ONE ×2 (14:32→15:36)
[2017-04-23] MEDS ORDERED: CLOPIDOGREL 300 MG (PLAVIX) TABLET PO ONE (14:49)
[2017-04-23] MEDS ORDERED: TICAGRELOR 90 MG TABLET (BRILINTA) PO ONE (14:50)
--- NOTE | 2017-04-23 14:50 | STRESS TEST ---
DATE OF SERVICE: 04/23/2017 PHARMACOLOGICAL NUCLEAR STRESS REPORT ATTENDING PHYSICIAN: Neli Foley DO PERFORMING PHYSICIAN: Dr. Vincent Ahn. DIAGNOSES: Chest pain, history of coronary artery disease. PROCEDURE DETAILS: The patient was brought to the stress lab after informed consent was taken. Stress test was performed according to the Lexiscan protocol. Lexiscan 0.4 mg IV was given. Low-grade exercise was performed. Resting EKG showed sinus rhythm at 83 BPM. Blood pressure 162/80 mmHg. Maximum heart rate was 123 BPM and blood pressure was 163/93 mmHg. A 10.87 mCi of Myoview were given for rest imaging and 30.1 mCi of Myoview were given for stress imaging. TID 1.05, ejection fraction 71%. With normal wall motion. Moderate size, intermediate intensity anterior, septal, apical reversible defect noted. SSS 17, SRS 6, SDS 11. CONCLUSION: 1. Pharmacological stress test was negative for ischemia. 2. Normal ejection fraction with normal wall motion. 3. Evidence of anterior apical ischemia. Coronary angiography is recommended. Job ID: [id number] DocumentID: [id number] Dictated Date: 04/23/2017 14:26:27 Fitness Manager Date: 04/23/2017 14:50:07 Dictated By: DAT AHN MD MTDD
--- NOTE | 2017-04-23 14:52 | Cardiac Procedure Note-CS/ASA ---
Pre-Procedure Note Pre-Op Procedure Note H&P Reviewed The H&P was reviewed, patient examined and no changes noted. Date H&P Reviewed: Apr 23, 2017 Time H&P Reviewed: 14:52 Conscious Sedation Pre-Proced Time Reviewed: 14:52 ASA Class: 3 Airway Mallampati Classification: (modoc appropriate class) I. II. III, IV Lungs Heart ASA score ASA 1: a normal healthy patient ASA 2: a patient with a mild systemic disease (mid diabetes, controlled hypertension, obesity ASA 3: a patient with a severe systemic disease that limits activity (angina , COPD, prior Myocardial infarction) ASA 4: a patient with an incapacitating disease that is a constant threat to life (CHF, renal failure) ASA 5: a moribund patient not expected to survive 24 hrs. (ruptured aneurysm) ASA 6: a declared brain patient whose organs are being harvested. For emergent operations, add the letter E after the classification Grade 1 Sedation Plan: Analgesia, Amnesia, Plan communicated to team members, Discussed options with patient/fam, Discussed risks with patient/fam Note The patient is an appropriate candidate to undergo the planned procedure, sedation, and anesthesia. The patient immediately re-assessed prior to indication. Telly OWENS MD Apr 23, 2017 2:52 pm
[2017-04-23] MEDS ORDERED: NS IV 1000 ML 1,000 ML ONE (15:04)
[2017-04-23] MEDS ORDERED: NS IV 1000 ML 1,000 ML IV SCH (16:00)
--- NOTE | 2017-04-23 17:21 | Cardiology Post Procedure Note ---
Post-Procedure Note Physician (s)/Maths Tutor (s) Physician Telly OWENS MD Pre-Procedure Diagnosis Pre-Procedure Diagnosis: Prolonged chest pain, history of CAD/PCI, abnormal nuclear stress test. Post-Procedure Note Procedure Start Date: Apr 23, 2017 Procedure Start Time: 15:15 Name of Procedure: Coronary angiography, left heart catheterization, PCI to the mid and ostial LAD, IVUS examination of the LAD and left main Findings/Procedure Note severe mid LAD stenosis treated successfully with a drug-eluting stent 2.5X 15 mm Xience Alpine. severe ostial LAD stenosis treated successfully with drug-eluting stent 3.0X 15 mm Xience Alpine (post dilated with 3.5mm NC balloon). IVUS of the LAD, LM showed good stent placement. Mild LCX. Mild to Moderate mid RCA disease. Normal LVEF with no wall motion abnormalities. LVEDP 16 Anesthesia Type: Conscious Sedation Estimated blood loss (mL): 30 Contrast Amount: 263 Post-Procedure Diagnosis Post-operative diagnosis: Severe mid and ostial LAD stenosis treated successfully with YASSINE x 2. Telly OWENS MD Apr 23, 2017 5:21 pm
[2017-04-23] MEDS ORDERED: PATIENT MAY USE OWN MEDS, ALL PO SCH (17:30)
[2017-04-23] MEDS: BETHANECHOL 25 MG (URECHOLINE) TAB PO SCH ×2 (17:57→20:34)
--- NOTE | 2017-04-23 18:53 | CARDIAC CATHETERIZATION ---
DATE OF SERVICE: 04/23/2017 CORONARY ANGIOGRAPHY AND PCI REPORT PRIMARY PHYSICIAN: Dr. Neli Foley. PRIMARY DOT NET ARCHITECT: Dr. Teresa Loaiza. PERFORMING SUPERVISOR OPERATIONS: Dr. Vincent Ahn. INDICATION: Prolonged chest pain, history of previous PCI, abnormal nuclear stress test. PREOPERATIVE DIAGNOSES: 1. Prolonged chest pain. 2. Previous history of percutaneous coronary intervention. 3. Abnormal nuclear stress test. POSTOPERATIVE DIAGNOSES: Severe mid LAD and ostial LAD stenosis treated successfully with 2 drug-eluting stents. HISTORY: The patient is a 76-year-old lady who has history of coronary artery disease. She had 2 stents placed in the LAD in 2007. These stents were placed in the mid LAD. The first stent diameter was 2.25 and the second stent diameter was 2.0. Both the stents were Pixel stents. She presented again in 2011 and was found to have severe in-stent restenosis, which was treated with a 2.25 x 20 mm apex balloon angioplasty with excellent results. She presented again with prolonged episode of chest pain. Acute coronary syndrome was ruled out with negative troponins and EKG. A nuclear stress test was performed this morning which showed evidence of anterior septal and anterior apical reversible ischemia. Coronary angiography was recommended. PROCEDURES PERFORMED: 1. Coronary angiography. 2. Left heart catheterization. 3. PCI to the ostial LAD and mid LAD with 2 drug-eluting stents. 4. IVUS examination of the LAD and left main. 5. ACT x2. SPECIMEN: None. COMPLICATIONS: None. ANTICOAGULATION: IV heparin. ESTIMATED BLOOD LOSS: 30 mL. ANESTHESIA: Conscious sedation. CONTRAST DOSE: 263 mL of Omnipaque. FLUOROSCOPY TIME: 20.5 minutes. FLUOROSCOPY DOSE: 464 mGy. PROCEDURE IN DETAIL: The patient was brought to the medical lab technologist after informed consent was taken. All the risks and complications were explained in detail. She was draped and prepped in the usual sterile fashion. Access was gained in the right radial artery with a 6-Moldovan sheath. Left heart catheterization and coronary angiography was performed with a Olney catheter. FINDINGS: 1. Left main: Patent. 2. LAD: Severe ostial LAD stenosis. Stenosis severity is 95%. Severe mid LAD stenosis. Stenosis severity is 90%. First diagonal artery also has 50% ostial disease. Moderate in-stent restenosis and 2 stents. In-stent restenosis around 50%. Mild disease distally. The LAD is a transapical vessel. 3. Left circumflex artery: Has mild diffuse disease. 4. RCA: Mild diffuse disease. There is a moderate focal disease in the mid RCA, which is around 50%. Dominant RCA. 5. Left heart catheterization. LV pressure 130/6 mmHg. LVEDP 16 mmHg. Aortic pressure 140/82 mmHg. Normal LV function with no wall motion abnormalities. There was no gradient across the aortic valve. RECOMMENDATIONS: 1. PCI to the mid and ostial LAD is recommended. 2. IVUS examination of the LAD and left main is recommended. PCI DETAILS: We took an EBU 3.5 guiding catheter, IV heparin for anticoagulation and BMW and Whisper wire as guidewires. The ACT was done twice. First ACT was 245 seconds and second ACT was 266 seconds. The lesion in the mid LAD was crossed with a Whisper extra support wire and the tip of the wire was placed in the distal LAD. The diagonal was crossed with a BMW wire. We then took a 2.5 x 12 Emerge balloon and performed balloon angioplasty of the previous stents in the mid LAD. Four inflations were performed in the mid LAD stents. The first inflation was for 12 atmospheres for 31 seconds, second, third and fourth were all for 14 atmosphere for 30 seconds. We then ballooned the mid LAD lesion for 14 atmospheres for 41 seconds. We then ballooned the ostium of the LAD at 12 atmospheres for 33 seconds. We then took a 2.5 x 15 Xience Alpine stent, which was placed in the mid LAD with overlap with the previous mid LAD stent. The stent was placed at 14 atmospheres for 62 seconds. The overlap area was postdilated with the same stent balloon for 18 atmospheres for 70 seconds. MELIA 3 flow was still noted in the diagonal with no significant pinching of the ostium of the diagonal artery. The BMW wire was taken out of the diagonal vessel and placed into the left circumflex artery. We then took Xience Alpine 3 x 15 stent and placed it very carefully across the ostium of the LAD at 14 atmospheres for 60 seconds. An IVUS examination was performed which showed a good stent apposition of the mid LAD stent as well as the ostium LAD stent. We measured the amount of stent strut in the left main, which was 1.1 mm. The stent was well opposed; however, it could be a post-dilated a little bit better. We therefore took an NC Quantum 3.5 x 15 balloon and did a post-dilatation of the LAD ostium at 14 atmospheres for 34 seconds. The balloon was taken out and post-angiogram showed excellent results with MELIA 3 flow and no residual disease. Distal to the ostial stent, there was mild disease, which was left alone. A 200 mcg of nitroglycerin IC was given. Excellent angiographic result in the end of the procedure. Please also note that Brilinta 180 mg was given before the procedure. CONCLUSION: 1. Severe mid LAD and ostial LAD stenosis treated with 2 drug-eluting stents. 2. IVUS examination showed excellent stent apposition. 3. Aspirin and Brilinta for at least 1 year. The patient will continue beta maria a, ELISA inhibitor and statin lifelong. 4. The patient will be admitted in the ICU and electrolytes and CBC will be done in the morning. Job ID: [id number] DocumentID: [id number] Dictated Date: 04/23/2017 17:34:27 It Security Manager Date: 04/23/2017 18:52:57 Dictated By: DAT AHN MD MTDD
[2017-04-23] MEDS ORDERED: RT-ADVAIR HFA 115/21 MCG PER PUFF IH SCH (20:00)
[2017-04-23] MEDS: ROSUVASTATIN 10 MG (CRESTOR) TABLET PO SCH (20:34)
[2017-04-23] MEDS: TICAGRELOR 90 MG TABLET (BRILINTA) PO SCH (20:41)
[2017-04-23] MEDS ORDERED: DULoxetine 30 MG (CYMBALTA) CAP PO SCH (21:00)
[2017-04-23] MEDS ORDERED: NON-FORMULARY MEDICATION 1 EA EA (Duloxetine HCl 60 MG) PO SCH (21:00)
[2017-04-23] MEDS ORDERED: meTOprolol TARTRATE 25 MG (LOPRESSOR) TABLET PO SCH (21:00)
[2017-04-23] MEDS ORDERED: ROSUVASTATIN 10 MG (CRESTOR) TABLET PO SCH (21:00)
[2017-04-23] MEDS ORDERED: RT-SYMBICORT 160/4.5 MCG INHALER PER PUFF IH SCH (21:00)
[2017-04-24] VITALS: BP 115/70
[2017-04-24 04:00] VITALS: BP 158/71
[2017-04-24] MEDS: NS IV 1000 ML 1,000 ML IV SCH ×2 (04:22→11:46)
[2017-04-24] MEDS: BETHANECHOL 25 MG (URECHOLINE) TAB PO SCH ×2 (06:07→11:46)
[2017-04-24 06:09] LABS: HEMOGLOBIN 8.3 G/DL (11.5-16.0); MEAN PLATELET VOLUME 10.6 FL (7.4-10.4); RED BLOOD COUNT 2.79 10^6/uL (4.35-5.85); RED CELL DISTRIBUTION WIDTH 12.7 % (10.0-14.5); WHITE BLOOD COUNT 7.5 10^3/uL (4.3-11.0)
[2017-04-24] MEDS ORDERED: LEVOTHYROXINE 112 MCG (LEVOTHROID) TAB PO SCH (06:30)
[2017-04-24 06:32] LABS: BUN/CREATININE RATIO 28; CARBON DIOXIDE 22 MMOL/L (21-32); CHLORIDE 107 MMOL/L (98-107); CREATININE SERUM 0.54 MG/DL (0.60-1.30); GFR ESTIMATED > 60; GLUCOSE 96 MG/DL (70-105); POTASSIUM 4.1 MMOL/L (3.6-5.0); SODIUM 140 MMOL/L (135-145)
[2017-04-24] MEDS ORDERED: MULTIVIT W/MINERALS TAB (THERAGRAN M) PO SCH (07:00)
[2017-04-24] MEDS ORDERED: FERROUS SULF 325 MG (IRON) TAB PO SCH (08:00)
[2017-04-24] MEDS ORDERED: CALCIUM CARB + VIT D 600 MG (CALCARB + D) TAB PO SCH (08:00)
[2017-04-24] MEDS ORDERED: ADVAIR HFA 115/21 MCG INHALER 8 GM IH SCH (08:00)
[2017-04-24] MEDS: meTOprolol TARTRATE 25 MG (LOPRESSOR) TABLET PO SCH (08:04)
[2017-04-24] MEDS: TICAGRELOR 90 MG TABLET (BRILINTA) PO SCH (08:04)
[2017-04-24 08:42] VITALS: BP 152/71
[2017-04-24] MEDS ORDERED: NON-FORMULARY MEDICATION 1 EA EA (Calcium Carbonate/Vitamin D3 (Calcium + Vitamin D Tablet PO SCH (09:00)
[2017-04-24] MEDS ORDERED: ASPIRIN E.C. 81 MG (ECOTRIN) TAB PO SCH (09:00)
--- NOTE | 2017-04-24 09:55 | Cardiology Progress Note ---
Cardiology SOAP Progress Note Subjective: No chest pain. Complains of cough. Objective: I&O/Vital Signs Vital Sign - Last 12Hours 04/24/17 04/24/17 04/24/17 04/24/17 00:00 01:00 04:00 07:00 Temp 98.7 97.3 Pulse 71 75 77 84 Resp 16 18 B/P (MAP) 115/70 (85) 158/71 (100) Pulse Ox 98 100 O2 Delivery Nasal Cannula Nasal Cannula O2 Flow Rate 2.00 2.00 04/24/17 04/24/17 08:16 08:42 Temp 98.5 Pulse 95 Resp 20 B/P (MAP) 152/71 (98) Pulse Ox 98 98 O2 Delivery Nasal Cannula Nasal Cannula O2 Flow Rate 2.00 2.00 Intake and Output 04/24/17 00:00 Intake Total 1410 ml Output Total 1100 ml Balance 310 ml Weight (Pounds): 102 Weight (Ounces): 8.2 Weight (Calculated Kilograms): [id number] Side: right Groin site without hematoma: Yes Device Insertion Site: without hematoma Constitutional: No appears stated age, No AAO x 3, No apparent distress, No PERRL, No well-developed, No well-nourished, No other Respiratory: No accessory muscle use, No respiratory distress, No chest tender , No chest expansion is symmetric, No chest is bilaterally symmetric, No lungs clear to percussion, No lungs clear to auscultation, No crackles, No rhonchi, No rales, No stridor, No wheezing, No pleural rub, No other Cardiovascular: regular rate-rhythm, No irregularly irregular, No extra beats, No parasternal heave is noted, No JVD, No edema, No bradycardia, No tachycardia , No point of maximal impulse, No cardiac thrills are palpable, S1 and S2, No gallop/S3, No gallop/S4, No diastolic murmur, No systolic murmur, No friction rub, No click, No other Gastrointestional: No tender, No soft, No round, No distended, No pulsatile mass, No organomegaly, No guarding, No rebound, No tenderness, No hernia, No mass, No audible bowel sounds, No abnormal bowel sounds, No abdominal bruits, No spleenomegaly, No other Extremities: No normal range of motion, No non-tender, No normal inspection, No pedal edema, No calf tenderness, No normal capillary refill, No pelvis stable , No calf tenderness, No inflammation, No pedal edema, No slow capillary refill , No swelling, No other, No abrasion, No clubbing, No cyanosis, No ecchymosis, No laceration, No no lower extremity edema bilateral, No significant edema, No tenderness, No wound Neurologic/Psychiatric: No geological engineering teacher II-XII nml as tested, No no motor/sensory deficits, No alert, No normal mood/affect, No oriented x 3, No abnormal cerebellar tests, No abnormal geological engineering teacher II-XII, No abnormal gait, No aphasia, No EOM palsy, No facial droop, No motor weakness, No sensory deficit, No depressed affect, No disoriented x 3, No other, No grossly intact, No power is 5/5 both on sides Skin: No normal color, No warm/dry, No cyanosis, No cool, No diaphoresis, No damp, No ecchymosis, No jaundice, No mottled, No pallor, No rash, No tattoos/ piercings, No ulcerations, No rash on exposed areas, No ulcerations on exposed areas, No other Results/Procedures: Labs Laboratory Tests 04/24/17 05:52: White Blood Count 7.5, Red Blood Count 2.79L, Hemoglobin 8.3L, Hematocrit 25L, Mean Corpuscular Volume 89, Mean Corpuscular Hemoglobin 30, Mean Corpuscular Hemoglobin Concent 34, Red Cell Distribution Width 12.7, Platelet Count 241, Mean Platelet Volume 10.6H, Sodium Level 140, Potassium Level 4.1, Chloride Level 107, Carbon Dioxide Level 22, Anion Gap 11, Blood Urea Nitrogen 15, Creatinine 0.54L, Estimat Glomerular Filtration Rate > 60, BUN/Creatinine Ratio 28, Glucose Level 96, Calcium Level 8.0L A/P: Assessment/Dx: Unstable angina Coronary artery disease Hypertension Hyperlipidemia Plan: Unstable angina, nuclear stress test showed significant ischemia in the anterior wall. Status post coronary angiography yesterday from right radial approach which showed severe ostial LAD and mid LAD stenosis. Moderate in- stent restenosis treated with PTCA. Both lesions in the ostium of the LAD and mid LAD treated with drug-eluting stents. 2.5 mm diameter stent in the mid LAD and 3.0 mm stent in the ostium of the LAD postdilated with a 3.5mm NC balloon. On aspirin and Brilinta. Coronary disease, history of PTCA and stent placement x2 in 2007 the mid LAD using 2.25 x 13 pixel and 2.0 x 18 mm pixel stent to the LAD, cardiac catheterization was done again in 2011 showing 80 percent in-stent restenosis, apex balloon 2.2520 mm was done for in-stent restenosis with good results, the ostial and proximal LAD had 50-60 percent stenosis, mid LAD has 40-50 percent stenosis, left circumflex artery has diffuse mild disease and right coronary artery has 50 percent stenosis diffusely. Cardiac enzymes are negative. Last stress test was done in May 2016. Dyspnea on exertion, using oxygen at home, history of pulmonary hypertension, had CT angiogram of the chest done in the emergency room and it was negative. Raynaud's phenomenon-reporting bluish discoloration and cold feet, SALMA was done in May 2015 which was 0.87 on the left which is mildly abnormal, normal on the right, monitor SALMA Hypertension, status post recent hospitalization for hypotension and syncope. Better at this time. Hyperlipidemia, restart home medication and monitor lipids Thyroid cancer-status post total thyroidectomy, followed and managed by primary care physician Mild bilateral nonobstructive carotid stenosis, continue to monitor. Last carotid duplex done in April 2016. Continue to monitor. COPD, using oxygen at home, managed by primary care physician Left ventricle hypertrophy with estimated EF of 60 percent, echocardiogram was done in January 2016. Continue to monitor Diastolic dysfunction, last echocardiogram showed ejection fraction 60 percent, PA pressure 35 mmHg, normal left atrial size, no signs of diastolic dysfunction. Thank you for your consultation. Please call me if you have any questions. Vincent Ahn MD, FACP, FACC, FSCAI, FHRS, CCDS Interventional Cardiology Cardiac Electrophysiology Vascular Medicine and Endovascular Interventions Telly AHN MD Apr 24, 2017 09:55
[2017-04-24 12:00] VITALS: BP 142/63
[2017-04-24] MEDS ORDERED: TICA90TA PO (12:53)
--- NOTE | 2017-04-24 12:55 | Discharge Inst-Post CATH ---
Discharge Inst-CATH Post Cardiac Cath D/C Inst Follow Up/Plan Fwup with Cardiology in 1 week, Fwup with me in 2 weeks CARDIAC CATH DISCHARGE INSTRUCTIONS *Hold Metformin for 48 hours post heart cath. ACTIVITY * Go Home directly and rest. * Limit activity of the leg (or wrist if it was used) for 7 days including aerobics, swimming, jogging, bicycling, etc. * Restrict stair-climbing for 7 days if possible, if not, climb up with your non -cath leg, then bring together on the same step. * Avoid lifting, pushing, pulling or excessive movement of the affected extremity for 7 days. * Customary sexual activity may be resumed after 2 days-use caution not to use a position that strains or causes pain to the affected extremity. * No driving for 24 hours. * NO SMOKING. * Avoid straining for bowel movements for 7 days. * Gentle walking on level ground is allowed. * Returning to work will depend on the type of procedure and the results. Your doctor will discuss this with you. CALL YOUR DOCTOR FOR ANY OF THE FOLLOWING: *If bleeding from the puncture site occurs- Apply gentle pressure to site with clean cloth and call your doctor or EMS. * If a knot or lump forms under the skin, increases in size, or causes pain. * If bruising appears to be worsening or moving further down your leg instead of disappearing. * Temperature above 101 F. CARE OF YOUR GROIN INCISION; * Bruising or purple discoloration of the skin near the puncture site is common. * You may shower only, no bathtub bathing for 5 days. Be careful to avoid slipping as your leg may feel stiff. * If a closure device was used on your femoral artery, please see the attached guide regarding care of the device and your leg. * REMOVE the dressing from your groin the next day after your procedure in the shower. CARE OF YOUR WRIST INCISION; * Bruising or purple discoloration of the skin near the puncture site is common. * You may shower. * DO NOT submerge wrist. * Remove dressing in 24 hours. LEW LEIVA DO Apr 24, 2017 12:55
== END 2017-04-24 15:25 | disposition home or self-care (01) ==
LOC: EDUNIT# 14:26 → ER 14:27 → UNDOADMOB 17:20 → 4TH 17:20 → CATH 18:05 → UNDOADMOB 18:05 → CATH 04-24 15:25 → UNDODISOB 04-24 15:25
PROVIDERS: ATTEND Family Medicine
DX: I25.110 Atherosclerotic heart disease of native coronary artery with unstable angina pectoris (principal); I11.0 Hypertensive heart disease with heart failure; E78.5 Hyperlipidemia, unspecified; Z88.5 Allergy status to narcotic agent; Z87.891 Personal history of nicotine dependence; R06.00 Dyspnea, unspecified; I73.00 Raynaud's syndrome without gangrene; Z85.850 Personal history of malignant neoplasm of thyroid; I65.23 Occlusion and stenosis of bilateral carotid arteries; J44.9 Chronic obstructive pulmonary disease, unspecified; I51.7 Cardiomegaly; E89.0 Postprocedural hypothyroidism; R53.81 Other malaise
CPT/HCPCS: 36415; 71045; 71046; 71275; 78452; 80048; 80053; 80061; 83735; 83874; 83880; 84484; 85025; 85027; 85347; 85379; 85610; 85730; 92978; 93005; 93017; 93041; 93458; 94640; 94760; G0378

== ENCOUNTER → 2017-05-30 | Outpatient (CLI) | payer MEDICARE ==
[~2017-05-30] MED LIST changes: +FERR325T24 PO; +IPRA3AMP NEB; +MAGN400T39 PO; +TICA90TA PO
--- NOTE | 2017-05-30 16:14 | Diagnostic Imaging Report ---
INDICATION: Shortness of breath. EXAMINATION: PA and lateral views of the chest were obtained at 4:00 p.m. COMPARISON: 04/23/2017. FINDINGS: The heart is normal in size. There is hyperinflation compatible with COPD. There is an area of parenchymal scarring in the right upper lobe which appears similar to the prior study. There is an area of parenchymal scarring in the right lateral base which appears similar to the prior study. There is no pleural fluid, pneumothorax or new infiltrate. IMPRESSION: COPD changes and areas of parenchymal scarring in the right lung are present which appear similar to the prior study. There is no new infiltrate. There are chronic appearing increased basilar markings. There is no significant sized effusion. Report was called and faxed to the office of Laurence Kincaid APRN at 4:05 p.m., by suresh. Dictated by: Dictated on workstation # [id number]
== END ==
LOC: RAD 15:28
PROVIDERS: ATTEND Nurse Practitioner Family
DX: J44.9 Chronic obstructive pulmonary disease, unspecified (principal); R91.8 Other nonspecific abnormal finding of lung field
CPT/HCPCS: 71046

== ENCOUNTER 2017-11-04 16:15 | Observation (INO) | payer MEDICARE ==
[~2017-11-04] VITALS: Ht 157.5 cm; Wt 47.9 kg
[~2017-11-04 16:15] MED LIST changes: -IPRA3AMP INH; -IPRA3AMP NEB; +IPRA3AMP31 INH; +IPRA3AMP31 NEB; -THIA100T7 PO; +THIA100T80 PO
[2017-11-04] MEDS ORDERED: NS IV 1000 ML 1,000 ML IV ONE (16:59)
[2017-11-04] MEDS ORDERED: RT-ALBUTEROL SULF 2.5 MG/3 ML PRE-MIX VIAL INH STA (16:59)
[2017-11-04] MEDS ORDERED: RT-ALBUTEROL/IPRATROPIUM 3 ML (DUONEB) VIAL INH ONE (17:00)
[2017-11-04 17:08] LABS: BASOPHILS # (AUTO) 0.1 10^3/uL (0.0-0.1); BASOPHILS % (AUTO) 1 % (0-10); EOSINOPHILS # (AUTO) 0.6 10^3/uL (0.0-0.3); EOSINOPHILS % (AUTO) 7 % (0-10); HEMATOCRIT 37 % (35-52); HEMOGLOBIN 11.9 G/DL (11.5-16.0); LYMPHOCYTES # (AUTO) 1.2 X 10^3 (1.0-4.0); LYMPHOCYTES % (AUTO) 14 % (12-44); MEAN CORPUSCULAR HEMOGLOBIN 30 PG (25-34); MEAN CORPUSCULAR HGB CONC 32 G/DL (32-36); MEAN CORPUSCULAR VOLUME 92 FL (80-99); MONOCYTES # (AUTO) 0.7 X 10^3 (0.0-1.0); MONOCYTES % (AUTO) 8 % (0-12); NEUTROPHILS % (AUTO) 69 % (42-75); PLATELET COUNT 280 10^3/uL (130-400); RED BLOOD COUNT 4.03 10^6/uL (4.35-5.85); RED CELL DISTRIBUTION WIDTH 14.5 % (10.0-14.5); WHITE BLOOD COUNT 8.7 10^3/uL (4.3-11.0)
--- NOTE | 2017-11-04 17:09 | ED Respiratory ---
General Chief Complaint: Respiratory Problems Stated Complaint: COPD/SOB Nursing Triage Note: PT PRESENTS TO ED WITH COMPLAINTS OF SOA, CONGESTION. REPORTS STARTED 9 DAYS AGO. PT DENIES CP. PT STATES SHE HAS TAKEN HER HOME BREATHING TX BUT HAS NOT FELT IMPROVEMENT. Source: patient, family (son and daughter) Exam Limitations: no limitations History of Present Illness Date Seen by Provider: Nov 04, 2017 Time Seen by Provider: 16:54 Initial Comments The patient presents to ER by private conveyance with her son and daughter and a chief complaint that for the past 3 days she's had progressively worsening dyspnea, wheezing, productive cough. No fevers chills nausea vomiting or skin rash. She has a history of COPD and she uses chronic breathing treatments as well as a DuoNeb. Her last DuoNeb was at about 12:30. She says she is not getting any better. She has not been on steroids or antibiotics in the last couple months. Allergies and Home Medications Allergies Coded Allergies: benazepril (Verified Allergy, Unknown, 01/21/07) codeine (Verified Adverse Reaction, Unknown, NAUSEA/VOMITING, 01/20/07) Home Medications Aspirin 81 Mg Tablet.dr, 81 MG PO DAILY, (Reported) Bethanechol Chloride 25 Mg Tablet, 25 MG PO ACHS, (Reported) Budesonide/Formoterol Fumarate 10.2 Gm Hfa.aer.ad, 2 PUFF IH BID, (Reported) LAST FILLED #1 INHALER 12-13-16 Calcium Carbonate/Vitamin D3 1 Each Tablet, 1 TAB PO DAILY, (Reported) Duloxetine HCl 60 Mg Capsule.dr, 60 MG PO HS, (Reported) Ferrous Sulfate 325 Mg Tablet, 325 MG PO DAILY, (Reported) Ipratropium/Albuterol Sulfate 3 Ml Ampul.neb, 3 ML NEB Q6H PRN for SHORTNESS OF BREATH, (Reported) Levothyroxine Sodium 112 Mcg Tablet, 112 MCG PO DAILY, (Reported) Metoprolol Tartrate 25 Mg Tablet, 12.5 MG PO BID, (Reported) TAKES 1/2 (25MG) TABLET Multivitamin 1 Each Tablet, 1 TAB PO DAILY, (Reported) Rosuvastatin Calcium 10 Mg Tablet, 10 MG PO HS, (Reported) Ticagrelor 90 Mg Tablet, 90 MG PO BID Prescribed by: LEW FOLEY on 04/24/17 5924 Patient Home Medication List Home Medication List Reviewed: Yes Review of Systems Constitutional: No chills, No diaphoresis, No fever; malaise EENTM: No ear discharge, No ear pain Respiratory: cough; No hemoptysis, No orthopnea; phlegm, short of breath; No stridor; wheezing Cardiovascular: No chest pain, No palpitations Gastrointestinal: No abdominal pain, No constipation, No diarrhea, No nausea Genitourinary: No discharge, No dysuria : No Musculoskeletal: No back pain, No joint pain Skin: No pruritus, No rash Psychiatric/Neurological: Denies Headache, Denies Numbness, Denies Paresthesia Past [id number] Hx Patient Social History Alcohol Use: Denies Use Number of Drinks Today: AA Alcohol Beverage of Choice: Beer Recreational Drug Use: No Smoking Status: Former Smoker Type Used: Cigarettes Former Smoker, Quit: Jan 24, 1990 2nd Hand Smoke Exposure: No Recent Foreign Travel: No Contact w/Someone Who Travel: No Recent Infectious Disease Expo: No Recent Hopitalizations: Yes (Jan 2017) Physical Abuse: No Sexual Abuse: No Mistreated: No Fear: No Immunizations Up To Date Tetanus Booster (TDap): Unknown PED Vaccines UTD: No Date of Pneumonia Vaccine: Dec 01, 2015 Date of Influenza Vaccine: Jan 17, 2017 Seasonal Allergies Seasonal Allergies: No Past Medical History Surgeries: Yes (BACK, NECK, MASTECTOMY, THYROID) Breast, Gallbladder, Orthopedic Respiratory: Yes COPD, Emphysema Currently Using CPAP: No Currently Using BIPAP: No Cardiac: Yes Coronary Artery Disease, High Cholesterol, Hypertension Neurological: No Reproductive Disorders: No Genitourinary: No Gastrointestinal: Yes Gastrointestinal Bleed Musculoskeletal: Yes Arthritis Endocrine: No Hypothyroidsim HEENT: Yes Cataract Loss of Vision: Denies Hearing Impairment: Denies Cancer: Yes (left breast) Breast, Thyroid Psychosocial: No Anxiety Nursing Suicide Risk Score: 0 Integumentary: No Recent Skin Changes Blood Disorders: No Adverse Reaction/Blood Tranf: No Family Medical History Cancer 03 FATHER, Onset:60 years & older (CANCER OF THE BLADDER) 09 SISTER, Onset:30's - 40 (CANCER OF THE BREAST) Cataract 03 FATHER, Onset:60 years & older 03 MOTHER, Onset:60 years & older Chest pain 03 MOTHER, Onset:60 years & older Dementia 03 FATHER, Onset:60 years & older Family history: Arthritis 03 MOTHER, Onset:60 years & older Family history: Breast disease 09 SISTER, Onset:30's - 40 Family history: Cardiovascular disease 03 MOTHER, Onset:60 years & older Family history: Glaucoma 03 MOTHER, Onset:60 years & older Family history: Hypertension 03 FATHER, Onset:50's - 60 03 MOTHER, Onset:60 years & older Family history: Osteoporosis 03 MOTHER, Onset:60 years & older Hearing loss 03 FATHER, Onset:60 years & older Heart disease 03 MOTHER, Onset:60 years & older Hypercholesterolemia 03 MOTHER, Onset:60 years & older Infertile CHILDREN, Onset:30's - 40 (PATIENT STATES THAT DAUGHTER WAS INFERTILE) Kidney disease 03 FATHER, Onset:60 years & older Myocardial infarction 03 MOTHER, Onset:60 years & older Parkinson's disease 03 FATHER, Onset:60 years & older 09 BROTHER, Onset:60 years & older Stroke 03 FATHER, Onset:60 years & older No Family History of: Abdominal aortic aneurysm Denis's disease Alcoholism Aphasia Cancer of colon Congenital heart disease Congestive heart failure Cystic fibrosis Dysphagia Family history: Allergy Family history: Alzheimer's disease Family history: Asthma Family history: Coronary thrombosis Family history: Diabetes mellitus Family history: Gastrointestinal disease Family history: Thyroid disorder Headache Hereditary disease History of - anemia History of - disorder History of - respiratory disease History of drug abuse Human immunodeficiency virus (HIV) seropositivity Malignant neoplasm of lung Prostate cancer Psychotic disorder Seizure disorder Tuberculosis Visual impairment No Pertinent Family Hx Physical Exam Vital Signs - First Documented 11/04/17 11/04/17 16:48 17:19 Temp 98.5 Pulse 101 Resp 16 B/P (MAP) 148/94 (112) Pulse Ox 99 O2 Delivery Nasal Cannula O2 Flow Rate 2.00 Capillary Refill : Less Than 3 Seconds Height: 5'2.00" Weight: 104lbs. 8.2oz. [id number]; 18.8 BMI Method:Stated General Appearance: mild distress, thin Eyes: Bilateral Eye Normal Inspection, Bilateral Eye PERRL, Bilateral Eye EOMI HEENT: PERRL/EOMI, normal ENT inspection, TMs normal, pharynx normal ( oropharynx is dry) Neck: non-tender, full range of motion, supple, normal inspection Respiratory: chest non-tender, no accessory muscle use, respiratory distress ( mild to moderate), decreased breath sounds; No crackles, No rales, No rhonchi, No stridor; wheezing, expiration (increased time) Cardiovascular: normal peripheral pulses, regular rate, rhythm Gastrointestinal: normal bowel sounds, non tender, soft Neurologic/Psychiatric: alert, normal mood/affect, oriented x 3 Focused Exam Lactate Level 11/04/17 17:30: Lactic Acid Level 0.82 Lactic Acid Level Laboratory Tests Test 11/04/17 17:30 Lactic Acid Level 0.82 MMOL/L (0.50-2.00) Progress/Results/Core Measures Suspected Sepsis Recent Fever Within 48 Hours: No Infection Criteria Present: None New/Unexplained Altered Menta: No Sepsis Screen: No Definite Risk SIRS Temperature:98.5 Pulse: 101 Respiratory Rate: 16 Laboratory Tests 11/04/17 16:40: White Blood Count 8.7 Blood Pressure 148 /94 Mean: 112 11/04/17 17:30: Lactic Acid Level 0.82 Laboratory Tests 11/04/17 16:40: Creatinine 0.67, Platelet Count 280, Total Bilirubin 0.3 Results/Orders Lab Results Laboratory Tests Test 11/04/17 16:40 11/04/17 17:30 Range/Units White Blood Count 8.7 4.3-11.0 10^3/uL Red Blood Count 4.03 L 4.35-5.85 10^6/uL Hemoglobin 11.9 11.5-16.0 G/DL Hematocrit 37 35-52 % Mean Corpuscular Volume 92 80-99 FL Mean Corpuscular Hemoglobin 30 25-34 PG Mean Corpuscular Hemoglobin Concent 32 32-36 G/DL Red Cell Distribution Width 14.5 10.0-14.5 % Platelet Count 280 130-400 10^3/uL Mean Platelet Volume 11.0 H 7.4-10.4 FL Neutrophils (%) (Auto) 69 42-75 % Lymphocytes (%) (Auto) 14 12-44 % Monocytes (%) (Auto) 8 0-12 % Eosinophils (%) (Auto) 7 0-10 % Basophils (%) (Auto) 1 0-10 % Neutrophils # (Auto) 6.0 1.8-7.8 X 10^3 Lymphocytes # (Auto) 1.2 1.0-4.0 X 10^3 Monocytes # (Auto) 0.7 0.0-1.0 X 10^3 Eosinophils # (Auto) 0.6 H 0.0-0.3 10^3/uL Basophils # (Auto) 0.1 0.0-0.1 10^3/uL Sodium Level 140 135-145 MMOL/L Potassium Level 5.0 3.6-5.0 MMOL/L Chloride Level 101 98-107 MMOL/L Carbon Dioxide Level 30 21-32 MMOL/L Anion Gap 9 5-14 MMOL/L Blood Urea Nitrogen 17 7-18 MG/DL Creatinine 0.67 0.60-1.30 MG/DL Estimat Glomerular Filtration Rate > 60 BUN/Creatinine Ratio 25 Glucose Level 108 H 70-105 MG/DL Calcium Level 9.4 8.5-10.1 MG/DL Total Bilirubin 0.3 0.1-1.0 MG/DL Aspartate Amino Transf (AST/SGOT) 30 5-34 U/L Alanine Aminotransferase (ALT/SGPT) 17 0-55 U/L Alkaline Phosphatase 72 40-136 U/L C-Reactive Protein High Sensitivity 0.17 0.00-0.50 MG/DL B-Type Natriuretic Peptide 26.7 <100.0 PG/ML Total Protein 6.9 6.4-8.2 GM/DL Albumin 4.2 3.2-4.5 GM/DL Lactic Acid Level 0.82 0.50-2.00 MMOL/L My Orders Orders - MICAELA EATON BNP (11/04/17 16:59) Cbc With Automated Diff (11/04/17 16:59) Comprehensive Metabolic Panel (11/04/17 16:59) Hs C Reactive Protein (11/04/17 16:59) Lactic Acid Analyzer (11/04/17 16:59) Blood Culture (11/04/17 16:59) Sputum Culture (11/04/17 16:59) Chest Pa/Lat (2 View) (11/04/17 16:59) Albuterol Pre-Mix Nebs (Rt) (Proventil (11/04/17 16:59) Albuterol/Ipra Inhalation Soln (Duoneb I (11/04/17 17:00) Saline Lock/Iv-Start (11/04/17 16:59) Ns Iv 1000 Ml (Sodium Chloride 0.9%) (11/04/17 16:59) Svn Small Volume Nebulizer (11/04/17 16:59) Medications Given in ED Current Medications Medications Dose Ordered Sig/Janelle Route Start Time Stop Time Status Last Admin Dose Admin Albuterol/ Ipratropium 3 ml ONCE ONCE INH 11/04/17 17:00 11/04/17 17:04 DC 11/04/17 17:16 3 ML Sodium Chloride 1,000 ml @ 0 mls/hr Q0M ONCE IV 11/04/17 16:59 11/04/17 17:04 DC 11/04/17 17:43 0 MLS/HR Vital Signs/I&O 11/04/17 11/04/17 16:48 17:19 Temp 98.5 Pulse 101 Resp 16 B/P (MAP) 148/94 (112) Pulse Ox 99 100 O2 Delivery Nasal Cannula O2 Flow Rate 2.00 Capillary Refill : Less Than 3 Seconds Blood Pressure Mean: 112 Progress Note #1: Time: 17:08 Progress Note We'll start with a DuoNeb and 5 mg of albuterol. Patient states she is too weak to walk very far. She says she can stand up for a chest x-ray however. We'll get a 2 view some basic labs, sputum and blood cultures and give her a bolus of fluids on the off chance we find pneumonia. If she improves remarkably she could go home however if she has pneumonia or is still very weak and would be mon for her early stay overnight. We'll start steroids if there is no evidence of a pneumonia. Progress Note #2: Time: 18:32 Progress Note On repeat examination the patient's breathing has improved subjectively however she still having some mild wheezes bilaterally. No crackles and her lungs are still diminished sounding. She'll likely improve better with some steroids. We have offered her observation stay versus trial of outpatient therapy and she has wisely chosen to stay. No evidence of pneumonia so we'll give her Solu- Medrol [address] Foley about observation stay. Diagnostic Imaging Diagonstic Imaging: Xray Plain Films/CT/US/NM/MRI: chest (2 views) Comments Hyperinflation compatible with COPD. Stable unchanged x-ray from May 30, 2017. Similar parenchymal scarring seen in previous x-rays. Absent any acute cardiopulmonary changes. Reviewed: Reviewed by Me Departure Communication (Admissions) Time/Spoke to Admitting Phy: 18:52 Discussed case lab imaging findings with Dr. Harkins and she agrees to see the patient. Impression Primary Impression: COPD with exacerbation Additional Impression: Hypoxia Disposition: ADMITTED INPATIENT Condition: Stable Admissions Decision to Admit Reason: Admit from ER (General) Decision to Admit/Date: Nov 04, 2017 Time/Decision to Admit Time: 18:33 Departure-Patient Inst. Referrals: LEW FOLEY DO (PCP/Family) Primary Care Physician Copy Copies To 1: LEW FOLEY TITUS J Nov 04, 2017 17:09
[2017-11-04 17:20] LABS: ALANINE AMINOTRANSFERASE 17 U/L (0-55); ALBUMIN 4.2 GM/DL (3.2-4.5); ALKALINE PHOSPHATASE 72 U/L (40-136); BILIRUBIN,TOTAL 0.3 MG/DL (0.1-1.0); BUN/CREATININE RATIO 25; CALCIUM 9.4 MG/DL (8.5-10.1); CARBON DIOXIDE 30 MMOL/L (21-32); CHLORIDE 101 MMOL/L (98-107); CREATININE SERUM 0.67 MG/DL (0.60-1.30); GFR ESTIMATED > 60; GLUCOSE 108 MG/DL (70-105); SODIUM 140 MMOL/L (135-145); TOTAL PROTEIN 6.9 GM/DL (6.4-8.2)
--- NOTE | 2017-11-04 18:56 | Diagnostic Imaging Report ---
PA and lateral chest. Compared to prior study from May 30, 2017. INDICATION: COPD. Cough and shortness of breath. FINDINGS: When compared to the prior examination, an apparent spiculated lesion within the right upper lobe appears increased in size. Otherwise, advanced features of background COPD and chronic interstitial changes appear stable with some discoid scarring at the right base and blunting of the costophrenic angles. There is no new alveolar consolidation or evidence of significant effusion. Heart size is stable. There are prior operative changes of cervical surgery. IMPRESSION: 1. An apparent spiculated lesion within the right upper lobe demonstrates an interval increase in size. Consider reassessment with repeat CT. Severe features related to underlying COPD otherwise not significantly changed from the prior exam. Dictated by: Dictated on workstation # [id number]
[2017-11-04] MEDS ORDERED: methylPREDNISolone 40 MG/ML (Solu-MEDROL) VIAL IV ONE (19:00)
[2017-11-04] MEDS ORDERED: ONDANSETRON 4 MG/2 ML (SDV) Z0FRAN IV PRN (20:15)
[2017-11-04] MEDS ORDERED: ACETAMINOPHEN 500 MG TAB (TYLENOL) PO PRN (20:15)
[2017-11-04] MEDS ORDERED: TICAGRELOR 90 MG TABLET (BRILINTA) PO SCH (21:00)
[2017-11-04] MEDS: BETHANECHOL 25 MG (URECHOLINE) TAB PO SCH (21:00)
[2017-11-04] MEDS ORDERED: DULoxetine 30 MG (CYMBALTA) CAP PO SCH (21:00)
[2017-11-04] MEDS ORDERED: ROSUVASTATIN 10 MG (CRESTOR) TABLET PO SCH (21:00)
[2017-11-04 21:25] VITALS: BP 148/94
[2017-11-04] MEDS: RT-ADVAIR HFA 115/21 MCG PER PUFF IH SCH (21:32)
[2017-11-04] MEDS ORDERED: RT-ALBUTEROL/IPRATROPIUM 3 ML (DUONEB) VIAL INH PRN (21:45)
[2017-11-04 23:55] VITALS: BP 131/65
[2017-11-05 03:20] VITALS: BP 129/66
[2017-11-05] MEDS: BETHANECHOL 25 MG (URECHOLINE) TAB PO SCH ×4 (06:03→22:48)
[2017-11-05 06:10] LABS: BASOPHILS % (AUTO) 0 % (0-10); EOSINOPHILS % (AUTO) 0 % (0-10); HEMATOCRIT 35 % (35-52); HEMOGLOBIN 11.1 G/DL (11.5-16.0); LYMPHOCYTES # (AUTO) 0.5 X 10^3 (1.0-4.0); LYMPHOCYTES % (AUTO) 9 % (12-44); MEAN CORPUSCULAR HEMOGLOBIN 29 PG (25-34); MEAN CORPUSCULAR HGB CONC 32 G/DL (32-36); MEAN CORPUSCULAR VOLUME 92 FL (80-99); MEAN PLATELET VOLUME 11.1 FL (7.4-10.4); MONOCYTES # (AUTO) 0.1 X 10^3 (0.0-1.0); MONOCYTES % (AUTO) 2 % (0-12); NEUTROPHILS # (AUTO) 4.7 X 10^3 (1.8-7.8); NEUTROPHILS % (AUTO) 88 % (42-75); PLATELET COUNT 255 10^3/uL (130-400); RED BLOOD COUNT 3.79 10^6/uL (4.35-5.85); RED CELL DISTRIBUTION WIDTH 14.4 % (10.0-14.5); WHITE BLOOD COUNT 5.4 10^3/uL (4.3-11.0)
[2017-11-05 06:26] LABS: BUN/CREATININE RATIO 30; CALCIUM 8.9 MG/DL (8.5-10.1); CARBON DIOXIDE 27 MMOL/L (21-32); CHLORIDE 103 MMOL/L (98-107); CREATININE SERUM 0.69 MG/DL (0.60-1.30); GFR ESTIMATED > 60; GLUCOSE 145 MG/DL (70-105); POTASSIUM 4.8 MMOL/L (3.6-5.0); SODIUM 139 MMOL/L (135-145)
[2017-11-05] MEDS ORDERED: LEVOTHYROXINE 112 MCG (LEVOTHROID) TAB PO SCH (06:30)
[2017-11-05 06:32] LABS: ANISOCYTOSIS SLIGHT; BAND NEUTROPHILS 0 %; BASOPHILS % (MANUAL) 0 %; ELLIPT/OVALOCYTES SLIGHT; EOSINOPHILS % (MANUAL) 0 %; LYMPHOCYTES % (MANUAL) 10 %; MONOCYTES % (MANUAL) 3 %; NEUTROPHILS % (MANUAL) 87 %; POIKILOCYTOSIS SLIGHT; POLYCHROMASIA SLIGHT; TOXIC GRANULATION/VACUOLAZATIO 1+
[2017-11-05 08:03] VITALS: BP 148/77
[2017-11-05] MEDS: methylPREDNISolone 40 MG/ML (Solu-MEDROL) VIAL IV SCH (08:27)
--- NOTE | 2017-11-05 08:36 | History & Physicial ---
History of Present Illness History of Present Illness Date of Admission Nov 04, 2017 at 18:45 I consulted on this patient on 11/05/17 08:35 Attending Physician Bernarda Head MD Admitting Physician Neli Leiva DO Consult Allergies and Home Medications Allergies Coded Allergies: benazepril (Verified Allergy, Unknown, 01/21/07) codeine (Verified Adverse Reaction, Unknown, NAUSEA/VOMITING, 01/20/07) Home Medications Aspirin 81 Mg Tablet.dr, 81 MG PO DAILY, (Reported) Bethanechol Chloride 25 Mg Tablet, 25 MG PO ACHS, (Reported) Budesonide/Formoterol Fumarate 10.2 Gm Hfa.aer.ad, 2 PUFF IH BID, (Reported) LAST FILLED #1 INHALER 12-13-16 Calcium Carbonate/Vitamin D3 1 Each Tablet, 1 TAB PO DAILY, (Reported) Duloxetine HCl 60 Mg Capsule.dr, 60 MG PO HS, (Reported) Ferrous Sulfate 325 Mg Tablet, 325 MG PO DAILY, (Reported) Ipratropium/Albuterol Sulfate 3 Ml Ampul.neb, 3 ML NEB Q6H PRN for SHORTNESS OF BREATH, (Reported) Levothyroxine Sodium 112 Mcg Tablet, 112 MCG PO DAILY, (Reported) Metoprolol Tartrate 25 Mg Tablet, 12.5 MG PO BID, (Reported) TAKES 1/2 (25MG) TABLET Multivitamin 1 Each Tablet, 1 TAB PO DAILY, (Reported) Rosuvastatin Calcium 10 Mg Tablet, 10 MG PO HS, (Reported) Ticagrelor 90 Mg Tablet, 90 MG PO BID Prescribed by: NELI LEVIA on 04/24/17 1253 Past Atbpxno-Dsvhdc-Kqyxsp Hx Patient Social History Alcohol Use: Denies Use Number of Drinks Today: AA Alcohol Beverage of Choice: Beer Recreational Drug Use: No Smoking Status: Former Smoker Former Smoker, Quit: Jan 24, 1990 Type Used: Cigarettes 2nd Hand Smoke Exposure: No Physical Abuse Screen: No Sexual Abuse: No Recent Foreign Travel: No Contact w/other who traveled: No Recent Hopitalizations: No Recent Infectious Disease Expo: No Immunizations Up To Date Tetanus Booster (TDap): Unknown Pediatric: No Date of Pneumonia Vaccine: Dec 01, 2015 Date of Influenza Vaccine: Jan 17, 2017 Seasonal Allergies Seasonal Allergies: No Surgeries Yes (BACK, NECK, MASTECTOMY, THYROID) Breast, Gallbladder, Orthopedic Respiratory Yes Currently Using CPAP: No Currently Using BIPAP: No Cardiovascular Yes Coronary Artery Disease, High Cholesterol, Hypertension Neurological No Reproductive System Hx Reproductive Disorders: No Genitourinary No Gastrointestinal Yes Gastrointestinal Bleed Musculoskeletal Yes Arthritis Endocrine History of Endocrine Disorders: Yes Endocrine Disorders: Hypothyroidsim HEENT History of HEENT Disorders: Yes HEENT Disorders: Cataract Loss of Vision: Denies Hearing Impairment: Denies Cancer Yes (left breast) Breast, Thyroid Psychosocial History of Psychiatric Problem: No Behavioral Health Disorders: Anxiety Integumentary History of Skin or Integumenta: No Skin/Integumentary Disorders: Recent Skin Changes Blood Transfusions History of Blood Disorders: No Adverse Reaction to a Blood Tr: No Family Medical History Significant Family History: No Pertinent Family Hx Family Hx: Cancer 03 FATHER, Onset:60 years & older (CANCER OF THE BLADDER) 09 SISTER, Onset:30's - 40 (CANCER OF THE BREAST) Cataract 03 FATHER, Onset:60 years & older 03 MOTHER, Onset:60 years & older Chest pain 03 MOTHER, Onset:60 years & older Dementia 03 FATHER, Onset:60 years & older Family history: Arthritis 03 MOTHER, Onset:60 years & older Family history: Breast disease 09 SISTER, Onset:30's - 40 Family history: Cardiovascular disease 03 MOTHER, Onset:60 years & older Family history: Glaucoma 03 MOTHER, Onset:60 years & older Family history: Hypertension 03 FATHER, Onset:50's - 60 03 MOTHER, Onset:60 years & older Family history: Osteoporosis 03 MOTHER, Onset:60 years & older Hearing loss 03 FATHER, Onset:60 years & older Heart disease 03 MOTHER, Onset:60 years & older Hypercholesterolemia 03 MOTHER, Onset:60 years & older Infertile CHILDREN, Onset:30's - 40 (PATIENT STATES THAT DAUGHTER WAS INFERTILE) Kidney disease 03 FATHER, Onset:60 years & older Myocardial infarction 03 MOTHER, Onset:60 years & older Parkinson's disease 03 FATHER, Onset:60 years & older 09 BROTHER, Onset:60 years & older Stroke 03 FATHER, Onset:60 years & older No Family History of: Abdominal aortic aneurysm [place]'s disease Alcoholism Aphasia Cancer of colon Congenital heart disease Congestive heart failure Cystic fibrosis Dysphagia Family history: Allergy Family history: Alzheimer's disease Family history: Asthma Family history: Coronary thrombosis Family history: Diabetes mellitus Family history: Gastrointestinal disease Family history: Thyroid disorder Headache Hereditary disease History of - anemia History of - disorder History of - respiratory disease History of drug abuse Human immunodeficiency virus (HIV) seropositivity Malignant neoplasm of lung Prostate cancer Psychotic disorder Seizure disorder Tuberculosis Visual impairment Physical Exam Vital Signs Vital Signs - First Documented 11/04/17 11/04/17 16:48 17:19 Temp 98.5 Pulse 101 Resp 16 B/P (MAP) 148/94 (112) Pulse Ox 99 O2 Delivery Nasal Cannula O2 Flow Rate 2.00 Capillary Refill : Less Than 3 Seconds Height, Weight, BMI Height: 5'2.00" Weight: 102lbs. 9.0oz. 46.780319ud; 18.9 BMI Method:Stated Clinical Quality Measures DVT/VTE Risk/Contraindication: Risk Factor Score Per Nursin RFS Level Per Nursing on Admit: 2=Moderate BERNARDA HEAD MD Nov 05, 2017 08:36
[2017-11-05] MEDS ORDERED: LEVO50TA6 PO (08:48)
[2017-11-05] MEDS ORDERED: CLOP75TA28 PO (08:48)
[2017-11-05] MEDS ORDERED: ROSU10TA27 PO (08:48)
[2017-11-05] MEDS ORDERED: ASPIRIN E.C. 81 MG (ECOTRIN) TAB PO SCH (09:00)
[2017-11-05] MEDS ORDERED: CLOPIDOGREL 75 MG (PLAVIX) TABLET PO ONE (09:15)
[2017-11-05] MEDS: RT-ALBUTEROL/IPRATROPIUM 3 ML (DUONEB) VIAL INH SCH ×3 (09:16→19:58)
[2017-11-05] MEDS: RT-ADVAIR HFA 115/21 MCG PER PUFF IH SCH ×2 (09:16→19:58)
[2017-11-05] MEDS ORDERED: PATIENT MAY USE OWN MEDS, ALL MC SCH (09:45)
[2017-11-05 10:05] LABS: BILIRUBIN,URINE NEGATIVE (NEGATIVE); CLARITY,URINE CLEAR; COLOR,URINE YELLOW; GLUCOSE, URINE (UA) NEGATIVE (NEGATIVE); KETONES,URINE NEGATIVE (NEGATIVE); LEUKOCYTE ESTERASE ,URINE 1+ (NEGATIVE); NITRITE,URINE NEGATIVE (NEGATIVE); PH,URINE 6.5 (5-9); PROTEIN,URINE NEGATIVE (NEGATIVE); UROBILINOGEN,URINE NORMAL (NORMAL)
[2017-11-05 10:11] LABS: BACTERIA,URINE NEGATIVE /HPF; WBC,URINE 0-2 /HPF
[2017-11-05] MEDS: ENOXAPARIN 40 MG/0.4 ML (LOVENOX) SYR SC SCH (10:40)
[2017-11-05] MEDS: meTOprolol TARTRATE 25 MG (LOPRESSOR) TABLET PO SCH ×2 (10:59→22:46)
[2017-11-05] MEDS: CLOPIDOGREL 75 MG (PLAVIX) TABLET PO SCH (11:00)
[2017-11-05 11:30] VITALS: BP 138/78
--- NOTE | 2017-11-05 13:01 | Diagnostic Imaging Report ---
PROCEDURE: CT chest without contrast. TECHNIQUE: Multiple contiguous axial images were obtained through the chest without the use of intravenous contrast. INDICATION: Right upper lobe spiculated mass. Comparison is made with prior chest radiograph from one day earlier. No axillary lymphadenopathy is seen. Hilar and mediastinal evaluation is limited without intravenous contrast. No gross abnormalities seen. There are coronary arterial calcifications as well as aortic calcifications present. No pericardial or pleural fluid is identified. Parenchymal dilation does show centrilobular emphysematous changes. There is a slightly irregular density in the posterior aspect of the right upper lobe, likely accounting for the chest x-ray abnormality. This is approximately 18 mm in size. No associated calcifications are seen. Lung bases do demonstrate some areas of linear parenchymal density suggestive of scarring or atelectasis. Upper abdomen is unremarkable. IMPRESSION: Changes of COPD. There is a slightly irregular density in the posterior right upper lobe appearing slightly more prominent when compared to CT dating back to 04/22/2017. This remains indeterminate and could represent some scarring or atelectasis. Neoplasm cannot be entirely excluded. PET CT would be recommended for further evaluation. Dictated by: Dictated on workstation # [id number]
[2017-11-05 16:00] VITALS: BP 171/77
[2017-11-05 20:00] VITALS: BP 138/83
[2017-11-05] MEDS ORDERED: ROSUVASTATIN 10 MG (CRESTOR) TABLET PO SCH (21:00)
[2017-11-05] MEDS ORDERED: DULOXETINE 60MG CAPSULE PO SCH (21:00)
[2017-11-06 00:19] VITALS: BP 142/64
[2017-11-06] MEDS: RT-ALBUTEROL/IPRATROPIUM 3 ML (DUONEB) VIAL INH SCH ×2 (03:45→10:18)
[2017-11-06 04:20] VITALS: BP 157/71
[2017-11-06] MEDS: BETHANECHOL 25 MG (URECHOLINE) TAB PO SCH (05:54)
[2017-11-06] MEDS ORDERED: LEVOTHYROXINE 50 MCG (LEVOTHROID) TAB PO SCH (06:30)
[2017-11-06 07:54] LABS: HEMOGLOBIN 11.3 G/DL (11.5-16.0); MEAN PLATELET VOLUME 10.7 FL (7.4-10.4); RED BLOOD COUNT 3.78 10^6/uL (4.35-5.85); RED CELL DISTRIBUTION WIDTH 14.4 % (10.0-14.5); WHITE BLOOD COUNT 8.6 10^3/uL (4.3-11.0)
[2017-11-06 08:00] VITALS: BP 150/76
[2017-11-06 08:14] LABS: ALANINE AMINOTRANSFERASE 17 U/L (0-55); ALKALINE PHOSPHATASE 68 U/L (40-136); BILIRUBIN,TOTAL 0.2 MG/DL (0.1-1.0); BUN/CREATININE RATIO 22; CALCIUM 9.1 MG/DL (8.5-10.1); CARBON DIOXIDE 31 MMOL/L (21-32); CHLORIDE 102 MMOL/L (98-107); CREATININE SERUM 0.63 MG/DL (0.60-1.30); GFR ESTIMATED > 60; GLUCOSE 86 MG/DL (70-105); MAGNESIUM 1.9 MG/DL (1.8-2.4); POTASSIUM 4.3 MMOL/L (3.6-5.0); SODIUM 141 MMOL/L (135-145); TOTAL PROTEIN 6.4 GM/DL (6.4-8.2)
[2017-11-06] MEDS: ENOXAPARIN 40 MG/0.4 ML (LOVENOX) SYR SC SCH ×3 (08:22→10:22)
[2017-11-06] MEDS: methylPREDNISolone 40 MG/ML (Solu-MEDROL) VIAL IV SCH (08:22)
[2017-11-06] MEDS: meTOprolol TARTRATE 25 MG (LOPRESSOR) TABLET PO SCH (08:24)
[2017-11-06] MEDS: CLOPIDOGREL 75 MG (PLAVIX) TABLET PO SCH (08:25)
--- NOTE | 2017-11-06 08:25 | Progress Note ---
Subjective Date Seen by Provider: Nov 06, 2017 Time Seen by Provider: 09:33 Subjective/Events-last exam SEE DC SUMMARY Focused Exam Lactate Level 11/04/17 17:30: Lactic Acid Level 0.82 Objective Exam Last Set of Vital Signs Vital Signs Date Time Temp Pulse Resp B/P (MAP) Pulse Ox O2 Delivery O2 Flow Rate FiO2 11/06/17 04:20 97.7 67 17 157/71 (99) 97 Nasal Cannula 3.00 Capillary Refill : Less Than 3 Seconds I&O Intake and Output 11/06/17 00:00 Intake Total 850 ml Output Total 550 ml Balance 300 ml Intake Oral 850 ml Output Urine Total 550 ml # Voids 4 Results Lab Laboratory Tests 11/05/17 09:49: Urine Color YELLOW, Urine Clarity CLEAR, Urine pH 6.5, Urine Specific [place] 1.015L, Urine Protein NEGATIVE, Urine Glucose (UA) NEGATIVE, Urine Ketones NEGATIVE, Urine Nitrite NEGATIVE, Urine Bilirubin NEGATIVE, Urine Urobilinogen NORMAL, Urine Leukocyte Esterase 1+H, Urine RBC (Auto) NEGATIVE, Urine RBC NONE , Urine WBC 0-2, Urine Squamous Epithelial Cells 2-5, Urine Crystals NONE, Urine Bacteria NEGATIVE, Urine Casts NONE, Urine Mucus SMALLH, Urine Culture Indicated NO 11/06/17 07:40: White Blood Count 8.6, Red Blood Count 3.78L, Hemoglobin 11.3L, Hematocrit 35, Mean Corpuscular Volume 92, Mean Corpuscular Hemoglobin 30, Mean Corpuscular Hemoglobin Concent 33, Red Cell Distribution Width 14.4, Platelet Count 245, Mean Platelet Volume 10.7H, Sodium Level 141, Potassium Level 4.3, Chloride Level 102, Carbon Dioxide Level 31, Anion Gap 8, Blood Urea Nitrogen 14, Creatinine 0.63, Estimat Glomerular Filtration Rate > 60, BUN/Creatinine Ratio 22, Glucose Level 86, Calcium Level 9.1, Corrected Calcium 9.1, Magnesium Level 1.9, Total Bilirubin 0.2, Aspartate Amino Transf (AST/SGOT) 26, Alanine Aminotransferase (ALT/SGPT) 17, Alkaline Phosphatase 68, Total Protein 6.4, Albumin 4.0 Microbiology 11/04/17 Blood Culture - Preliminary, Resulted No growth Assessment/Plan Assessment/Plan Assess & Plan/Chief Complaint CT OF CHEST IMPRESSION: Changes of COPD. There is a slightly irregular density in the posterior right upper lobe appearing slightly more prominent when compared to CT dating back to 04/22/2017. This remains indeterminate and could represent some scarring or atelectasis. Neoplasm cannot be entirely excluded. PET CT would be recommended for further evaluation. Clinical Quality Measures DVT/VTE Risk/Contraindication: Risk Factor Score Per Nursin RFS Level Per Nursing on Admit: 2=Moderate DARIAN HEAD MD Nov 06, 2017 08:25
[2017-11-06] MEDS ORDERED: MULTIVIT W/MINERALS TAB (THERAGRAN M) PO SCH (09:00)
[2017-11-06] MEDS ORDERED: ASPIRIN E.C. 81 MG (ECOTRIN) TAB PO SCH (09:00)
[2017-11-06] MEDS ORDERED: FERROUS SULF 325 MG (IRON) TAB PO SCH (09:00)
--- NOTE | 2017-11-06 09:34 | Discharge Summary ---
Diagnosis/Chief Complaint Date of Admission Nov 04, 2017 at 18:45 Date of Discharge Discharge Summary Discharge Physical Examination Allergies: Coded Allergies: benazepril (Verified Allergy, Unknown, 01/21/07) codeine (Verified Adverse Reaction, Unknown, NAUSEA/VOMITING, 01/20/07) Vitals & I&Os Vital Signs Date Time Temp Pulse Resp B/P (MAP) Pulse Ox O2 Delivery O2 Flow Rate FiO2 11/06/17 04:20 97.7 67 17 157/71 (99) 97 Nasal Cannula 3.[address] OF CHEST IMPRESSION: Changes of COPD. There is a slightly irregular density in the posterior right upper lobe appearing slightly more prominent when compared to CT dating back to 04/22/2017. This remains indeterminate and could represent some scarring or atelectasis. Neoplasm cannot be entirely excluded. PET CT would be recommended for further evaluation. Pending Labs Laboratory Tests 11/06/17 07:40: White Blood Count 8.6, Red Blood Count 3.78, Hemoglobin 11.3, Hematocrit 35, Mean Corpuscular Volume 92, Mean Corpuscular Hemoglobin 30, Mean Corpuscular Hemoglobin Concent 33, Red Cell Distribution Width 14.4, Platelet Count 245, Mean Platelet Volume 10.7, Sodium Level 141, Potassium Level 4.3, Chloride Level 102, Carbon Dioxide Level 31, Anion Gap 8, Blood Urea Nitrogen 14, Creatinine 0.63, Estimat Glomerular Filtration Rate > 60, BUN/Creatinine Ratio 22, Glucose Level 86, Calcium Level 9.1, Corrected Calcium 9.1, Magnesium Level 1.9, Total Bilirubin 0.2, Aspartate Amino Transf (AST/SGOT) 26, Alanine Aminotransferase (ALT/SGPT) 17, Alkaline Phosphatase 68, Total Protein 6.4, Albumin 4.0 Discharge Instructions to patient/family Please see electronic discharge instructions given to patient. Discharge Medications Reviewed and agree with Discharge Medication list on patient's Discharge Instruction sheet Clinical Quality Measures DVT/VTE Risk/Contraindication: Risk Factor Score Per Nursin RFS Level Per Nursing on Admit: 2=Moderate DARIAN HEAD MD Nov 06, 2017 09:34
[2017-11-06] MEDS ORDERED: PRD20T PO (09:36)
--- NOTE | 2017-11-06 09:37 | Discharge Inst-Complex ---
PDI Med Rec & Follow Up Appt. New Medications: Prednisone (Prednisone) 20 Mg Tab 20 MG PO DAILY, #11 TAB Take 3 tabs(60mg)daily, decrease by 1/2 tab(10mg)daily. Continued Medications: Aspirin (Aspirin EC) 81 Mg Tablet.dr 81 MG PO DAILY, TAB Bethanechol Chloride (Bethanechol Chloride) 25 Mg Tablet 25 MG PO ACHS, TAB Budesonide/Formoterol Fumarate (Symbicort 160-4.5 Mcg Inhaler) 10.2 Gm Hfa.aer.ad 2 PUFF IH BID, INHALER Clopidogrel Bisulfate (Clopidogrel) 75 Mg Tablet 75 MG PO DAILY, TAB Duloxetine HCl (Duloxetine HCl) 60 Mg Capsule.dr 60 MG PO HS, CAP Ferrous Sulfate (Ferosul) 325 Mg Tablet 325 MG PO DAILY, TAB Ipratropium/Albuterol Sulfate (Iprat-Albut 0.5-3(2.5) mg/3 ml) 3 Ml Ampul.neb 3 ML NEB Q6H PRN for SHORTNESS OF BREATH, EACH Levothyroxine Sodium (Levothyroxine Sodium) 50 Mcg Tablet 50 MCG PO DAILY, TAB Metoprolol Tartrate (Metoprolol Tartrate) 25 Mg Tablet 12.5 MG PO BID, TAB TAKES 1/2 (25MG) TABLET Multivitamin (Multivitamins) 1 Each Tablet 1 TAB PO DAILY, TAB Rosuvastatin Calcium (Rosuvastatin Calcium) 10 Mg Tablet 10 MG PO HS, TAB Prescription: Transmitted to Pharmacy Patient Instructions: MAKE APPT WITH DR. LEIVA FOR FOLLOW UP IN ONE WEEK Activity, Diet and PDI Resume Normal Activity: Yes Discharge Diet: Regular Diet Driving Instructions: No Driving/Refer to Return to The Hospital For: ANY CONCERN FOR LIFETHREATENING ILLNESS OR INJURY - OR ACUTE WORSENING OF SHORTNESS OF BREATH Symptoms to Reoprt to : Fever Over 101 Degrees F, Pain/Pressure in Chest, Cough Up/Vomit Blood, Shortness of Breath For Problems or Questions: Contact Your Physician, Go to Emergency Room DARIAN HEAD MD Nov 06, 2017 09:37
[2017-11-06] MEDS: RT-ADVAIR HFA 115/21 MCG PER PUFF IH SCH (10:18)
[2017-11-06 11:24] VITALS: BP 150/76
== END 2017-11-06 09:35 | disposition home or self-care (01) ==
LOC: EDUNIT# 16:15 → ER 16:16 → 4TH 18:45 → UNDOADMOB 18:45 → 4TH 19:55 → UNDODISOB 11-06 10:35
PROVIDERS: ADMIT Family Medicine; ATTEND Family Medicine
DX: J43.9 Emphysema, unspecified (principal); R09.02 Hypoxemia; I25.10 Atherosclerotic heart disease of native coronary artery without angina pectoris; E78.00 Pure hypercholesterolemia, unspecified; I10 Essential (primary) hypertension; E03.9 Hypothyroidism, unspecified; F41.9 Anxiety disorder, unspecified; Z79.82 Long term (current) use of aspirin; Z87.891 Personal history of nicotine dependence
CPT/HCPCS: 36415; 71046; 71250; 80048; 80053; 81000; 83605; 83735; 83880; 85007; 85025; 85027; 86141; 87040; 94640; 94664; 94760; 96374; G0378

== ENCOUNTER → 2017-12-25 | Outpatient (CLI) | payer MEDICARE, OTHER ==
[~2017-12-25] MED LIST changes: -AMLO5TAB2 PO; +AMLO5TAB7 PO; +CLOP75TA28 PO; +LEVO50TA6 PO; +ROSU10TA27 PO
[2017-12-25 15:57] LABS: BASOPHILS # (AUTO) 0.1 10^3/uL (0.0-0.1); BASOPHILS % (AUTO) 1 % (0-10); EOSINOPHILS # (AUTO) 0.2 10^3/uL (0.0-0.3); EOSINOPHILS % (AUTO) 2 % (0-10); HEMATOCRIT 34 % (35-52); HEMOGLOBIN 11.3 G/DL (11.5-16.0); LYMPHOCYTES # (AUTO) 1.3 X 10^3 (1.0-4.0); LYMPHOCYTES % (AUTO) 12 % (12-44); MEAN CORPUSCULAR HEMOGLOBIN 31 PG (25-34); MEAN CORPUSCULAR HGB CONC 33 G/DL (32-36); MEAN CORPUSCULAR VOLUME 93 FL (80-99); MEAN PLATELET VOLUME 10.3 FL (7.4-10.4); MONOCYTES # (AUTO) 0.7 X 10^3 (0.0-1.0); MONOCYTES % (AUTO) 7 % (0-12); NEUTROPHILS # (AUTO) 8.5 X 10^3 (1.8-7.8); NEUTROPHILS % (AUTO) 79 % (42-75); PLATELET COUNT 248 10^3/uL (130-400); RED CELL DISTRIBUTION WIDTH 14.8 % (10.0-14.5); WHITE BLOOD COUNT 10.7 10^3/uL (4.3-11.0)
[2017-12-25 16:12] LABS: BUN/CREATININE RATIO 24; CALCIUM 9.5 MG/DL (8.5-10.1); CARBON DIOXIDE 26 MMOL/L (21-32); CHLORIDE 102 MMOL/L (98-107); CREATININE SERUM 0.66 MG/DL (0.60-1.30); GFR ESTIMATED > 60; GLUCOSE 76 MG/DL (70-105); POTASSIUM 4.3 MMOL/L (3.6-5.0); SODIUM 140 MMOL/L (135-145)
[2017-12-25 16:36] LABS: FREE T4 (FREE THYROXINE) 1.06 NG/DL (0.70-1.48)
== END ==
LOC: LAB 15:36
PROVIDERS: ATTEND Family Medicine
DX: E03.9 Hypothyroidism, unspecified (principal); D64.9 Anemia, unspecified
CPT/HCPCS: 36415; 80048; 84439; 84443; 85025

== ENCOUNTER 2018-02-05 18:25 | Emergency (ER) | payer MEDICARE ==
[~2018-02-05] VITALS: Ht 157.5 cm; Wt 49.0 kg
[2018-02-05 19:51] LABS: BASOPHILS # (AUTO) 0.1 10^3/uL (0.0-0.1); BASOPHILS % (AUTO) 1 % (0-10); EOSINOPHILS # (AUTO) 0.3 10^3/uL (0.0-0.3); EOSINOPHILS % (AUTO) 3 % (0-10); HEMATOCRIT 33 % (35-52); HEMOGLOBIN 10.2 G/DL (11.5-16.0); LYMPHOCYTES # (AUTO) 1.3 X 10^3 (1.0-4.0); LYMPHOCYTES % (AUTO) 14 % (12-44); MEAN CORPUSCULAR HEMOGLOBIN 29 PG (25-34); MEAN CORPUSCULAR HGB CONC 31 G/DL (32-36); MEAN CORPUSCULAR VOLUME 94 FL (80-99); MEAN PLATELET VOLUME 10.8 FL (7.4-10.4); MONOCYTES # (AUTO) 1.1 X 10^3 (0.0-1.0); MONOCYTES % (AUTO) 11 % (0-12); NEUTROPHILS # (AUTO) 6.7 X 10^3 (1.8-7.8); NEUTROPHILS % (AUTO) 71 % (42-75); PLATELET COUNT 251 10^3/uL (130-400); RED BLOOD COUNT 3.51 10^6/uL (4.35-5.85); RED CELL DISTRIBUTION WIDTH 14.6 % (10.0-14.5); WHITE BLOOD COUNT 9.4 10^3/uL (4.3-11.0)
[2018-02-05 20:07] LABS: PROTHROMBIN TIME PATIENT 13.3 SEC (12.2-14.7)
--- NOTE | 2018-02-05 20:13 | ED EENT ---
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 NO ACTIVE BLEEDING AT THIS TIME. Source: patient Exam Limitations: no limitations History of Present Illness Date Seen by Provider: Feb 05, 2018 Time Seen by Provider: 18:34 Initial Comments Patient is a 77-year-old female who presents to the emergency room with complaints of a nosebleed that started 1 hour prior to arrival. She reports that she's held pressure for about the hour prior to arrival. There is no active bleeding on arrival to the emergency room. She is on blood thinners. She wears oxygen continuously at home. Timing/Duration: this evening Location: nose Prearrival Treatment: squeezing nostrils Associated Symptoms: denies symptoms Allergies and Home Medications Allergies Coded Allergies: benazepril (Verified Allergy, Unknown, 01/21/07) codeine (Verified Adverse Reaction, Unknown, NAUSEA/VOMITING, 01/20/07) Home Medications Aspirin 81 Mg Tablet.dr, 81 MG PO DAILY, (Reported) Bethanechol Chloride 25 Mg Tablet, 25 MG PO ACHS, (Reported) Budesonide/Formoterol Fumarate 10.2 Gm Hfa.aer.ad, 2 PUFF IH BID, (Reported) Clopidogrel Bisulfate 75 Mg Tablet, 75 MG PO DAILY, (Reported) Duloxetine HCl 60 Mg Capsule.dr, 60 MG PO HS, (Reported) Ferrous Sulfate 325 Mg Tablet, 325 MG PO DAILY, (Reported) Ipratropium/Albuterol Sulfate 3 Ml Ampul.neb, 3 ML NEB Q6H PRN for SHORTNESS OF BREATH, (Reported) Levothyroxine Sodium 50 Mcg Tablet, 50 MCG PO DAILY, (Reported) Metoprolol Tartrate 25 Mg Tablet, 12.5 MG PO BID, (Reported) TAKES 1/2 (25MG) TABLET Multivitamin 1 Each Tablet, 1 TAB PO DAILY, (Reported) Prednisone 20 Mg Tab, 20 MG PO DAILY Take 3 tabs(60mg)daily, decrease by 1/2 tab(10mg)daily. Prescribed by: DARIAN HEAD on 11/06/17 0936 Rosuvastatin Calcium 10 Mg Tablet, 10 MG PO HS, (Reported) Past Rxucxzv-Xzedwi-Mvltdk Hx Patient Social History Alcohol Use: Denies Use Number of Drinks Today: AA Alcohol Beverage of Choice: Beer Recreational Drug Use: No Smoking Status: Former Smoker Type Used: Cigarettes Former Smoker, Quit: Jan 24, 1990 2nd Hand Smoke Exposure: No Recent Foreign Travel: No Contact w/Someone Who Travel: No Recent Infectious Disease Expo: No Recent Hopitalizations: No Immunizations Up To Date Tetanus Booster (TDap): Unknown PED Vaccines UTD: No Date of Pneumonia Vaccine: Dec 01, 2015 Date of Influenza Vaccine: Jan 17, 2017 Seasonal Allergies Seasonal Allergies: No Past Medical History Surgeries: Yes (BACK, NECK, MASTECTOMY, THYROID) Breast, Gallbladder, Orthopedic Respiratory: Yes COPD, Emphysema Currently Using CPAP: No Currently Using BIPAP: No Cardiac: Yes Coronary Artery Disease, High Cholesterol, Hypertension Neurological: No Reproductive Disorders: No Genitourinary: No Gastrointestinal: Yes Gastrointestinal Bleed Musculoskeletal: Yes Arthritis Endocrine: Yes Hypothyroidsim HEENT: Yes Cataract Loss of Vision: Denies Hearing Impairment: Denies Cancer: Yes (left breast) Breast, Thyroid Psychosocial: No Anxiety Integumentary: No Recent Skin Changes Blood Disorders: No Adverse Reaction/Blood Tranf: No Family Medical History Cancer 03 FATHER, Onset:60 years & older (CANCER OF THE BLADDER) 09 SISTER, Onset:30's - 40 (CANCER OF THE BREAST) Cataract 03 FATHER, Onset:60 years & older 03 MOTHER, Onset:60 years & older Chest pain 03 MOTHER, Onset:60 years & older Dementia 03 FATHER, Onset:60 years & older Family history: Arthritis 03 MOTHER, Onset:60 years & older Family history: Breast disease 09 SISTER, Onset:30's - 40 Family history: Cardiovascular disease 03 MOTHER, Onset:60 years & older Family history: Glaucoma 03 MOTHER, Onset:60 years & older Family history: Hypertension 03 FATHER, Onset:50's - 60 03 MOTHER, Onset:60 years & older Family history: Osteoporosis 03 MOTHER, Onset:60 years & older Hearing loss 03 FATHER, Onset:60 years & older Heart disease 03 MOTHER, Onset:60 years & older Hypercholesterolemia 03 MOTHER, Onset:60 years & older Infertile CHILDREN, Onset:30's - 40 (PATIENT STATES THAT DAUGHTER WAS INFERTILE) Kidney disease 03 FATHER, Onset:60 years & older Myocardial infarction 03 MOTHER, Onset:60 years & older Parkinson's disease 03 FATHER, Onset:60 years & older 09 BROTHER, Onset:60 years & older Stroke 03 FATHER, Onset:60 years & older No Family History of: Abdominal aortic aneurysm [place]'s disease Alcoholism Aphasia Cancer of colon Congenital heart disease Congestive heart failure Cystic fibrosis Dysphagia Family history: Allergy Family history: Alzheimer's disease Family history: Asthma Family history: Coronary thrombosis Family history: Diabetes mellitus Family history: Gastrointestinal disease Family history: Thyroid disorder Headache Hereditary disease History of - anemia History of - disorder History of - respiratory disease History of drug abuse Human immunodeficiency virus (HIV) seropositivity Malignant neoplasm of lung Prostate cancer Psychotic disorder Seizure disorder Tuberculosis Visual impairment Heart Disease, Cancer, Hypertension Physical Exam Vital Signs Vital Signs - First Documented 02/05/18 02/05/18 18:34 20:38 Temp 98.5 Pulse 75 Resp 22 B/P (MAP) 157/78 (104) Pulse Ox 99 O2 Delivery Nasal Cannula O2 Flow Rate 3.00 Height, Weight, BMI Height: 5'2.00" Weight: 108lbs. 8.0oz. 48.001576xf; 18.9 BMI Method:Stated Progress/Results/Core Measures Results/Orders Lab Results My Orders Vital Signs/I&O Blood Pressure Mean: 104 Progress Progress Note : Time: 20:11 Progress Note The patient remained free of nosebleeds throughout her stay. She was placed on humidified oxygen will be sent home with sterile water for humidified oxygen Until she can get it set up through DME. She agrees with plan of care, plans were discharged, return precautions were given. Departure Impression Primary Impression: Epistaxis Disposition: 01 HOME, SELF-CARE Condition: Stable/Unchanged Departure-Patient Inst. Decision time for Depature: 20:12 Referrals: LEW LEIVA DO (PCP/Family) Primary Care Physician Patient Instructions: Nosebleeds (DC) Add. Discharge Instructions: Continue to use the humidified oxygen at home until you follow up with Dr. Leiva to see about getting humidified oxygen all the time at home. Return back to the emergency room for any return of nosebleeds. Should you know start to bleed you can try to hold pressure like he did this evening to get it to stop prior to coming. Take your home medications as directed. Call Dr. Leiva' s office to set up an appointment first thing tomorrow morning. All discharge instructions reviewed with patient and/or family. Voiced understanding. EDIS MURPHY Feb 05, 2018 20:13
[2018-02-05 20:38] VITALS: BP 157/78
== END 2018-02-05 20:42 | disposition home or self-care (01) ==
LOC: EDUNIT# 18:25 → ER 18:26
DX: R04.0 Epistaxis (principal); J43.9 Emphysema, unspecified; I10 Essential (primary) hypertension; E78.00 Pure hypercholesterolemia, unspecified; I25.10 Atherosclerotic heart disease of native coronary artery without angina pectoris; E03.9 Hypothyroidism, unspecified; F41.9 Anxiety disorder, unspecified; Z85.3 Personal history of malignant neoplasm of breast; Z88.5 Allergy status to narcotic agent; Z88.8 Allergy status to other drugs, medicaments and biological substances; Z79.82 Long term (current) use of aspirin; Z87.891 Personal history of nicotine dependence; Z85.850 Personal history of malignant neoplasm of thyroid; Z80.3 Family history of malignant neoplasm of breast; Z80.52 Family history of malignant neoplasm of bladder
CPT/HCPCS: 36415; 85025; 85610; 85730; 99282

== ENCOUNTER 2018-02-18 16:41 | Inpatient (IN) | payer MEDICARE ==
[~2018-02-18] VITALS: Ht 157.5 cm; Wt 48.5 kg
[~2018-02-18 16:41] MED LIST changes: +LIDOCAINE 1% INJ 20 ML 20 ML VIAL INJ ONE; +LIDOCAINE JELLY 2% (XYLOCAINE) 30 ML TUBE TOP ONE; +LIDOCAINE PF 2% 5 ML (XYLOCAINE) VIAL INJ ONE
[2018-02-18] MEDS ORDERED: cefTRIAXone FOR IV USE 1,000 MG in NS (IVPB) 50 ML IV SCH (16:45)
[2018-02-18] MEDS ORDERED: PATIENT MAY USE OWN MEDS, ALL PO SCH (16:45)
[2018-02-18 17:00] VITALS: BP 150/72
--- NOTE | 2018-02-18 17:32 | Diagnostic Imaging Report ---
INDICATION: Shortness of air since earlier today. EXAMINATION: Two-view chest dated 02/18/2018. COMPARISONS: 11/04/2017. FINDINGS: Lungs are hyperinflated. Linear markings at the lung bases are noted, right worse than left. These are likely due to atelectasis. Small left effusion noted. There is no pneumothorax. Pulmonary vasculature is prominent. Airspace opacity in the right suprahilar region noted and suspicious for mass. This was seen on a previous CT dated 11/05/2017. Neoplasm cannot be entirely excluded. PET scan or perhaps short-term interval followup or biopsy may be warranted if clinically indicated. The right lung base demonstrates scattered airspace opacity, similar to previous. IMPRESSION: 1. No significant interval change in appearance of the chest with a somewhat spiculated appearing density in the right suprahilar region, stable to minimally increased in size; please see above discussion and recommendations. 2. COPD. Dictated by: Dictated on workstation # [id number]
[2018-02-18] MEDS ORDERED: AZITHROMYCIN INJECTION 500 MG in NS (IVPB) 250 ML IV NR (18:00)
--- NOTE | 2018-02-18 18:22 | History & Physicial ---
History of Present Illness History of Present Illness Reason for visit/HPI This is a 77 year old frail female who has a known history of COPD who presented to my office with cough, congestion and worsening shortness of air since last evening. She also complained of right sided chest pain. She was on 3 liters of oxygen and her oxygen saturation was at 90%. She had audible gurgling and her right lung had crackles and rhonchi. It was decided to direct admit her to the hospital for pneumonia with respiratory distress. Date of Admission Feb 18, 2018 at 5:08 pm Date Seen by a Provider: Feb 18, 2018 Time Seen by a Provider: 04:38 I consulted on this patient on 02/18/18 18:15 Attending Physician Neli Leiva DO Admitting Physician Neli Leiva DO Consult Allergies and Home Medications Allergies Coded Allergies: benazepril (Verified Allergy, Unknown, 01/21/07) codeine (Verified Adverse Reaction, Unknown, NAUSEA/VOMITING, 01/20/07) Home Medications Aspirin 81 Mg Tablet.dr, 81 MG PO DAILY, (Reported) Bethanechol Chloride 25 Mg Tablet, 25 MG PO ACHS, (Reported) Budesonide/Formoterol Fumarate 10.2 Gm Hfa.aer.ad, 2 PUFF IH BID, (Reported) Clopidogrel Bisulfate 75 Mg Tablet, 75 MG PO DAILY, (Reported) Duloxetine HCl 60 Mg Capsule.dr, 60 MG PO HS, (Reported) Ferrous Sulfate 325 Mg Tablet, 325 MG PO DAILY, (Reported) Ipratropium/Albuterol Sulfate 3 Ml Ampul.neb, 3 ML NEB Q6H PRN for SHORTNESS OF BREATH, (Reported) Levothyroxine Sodium 50 Mcg Tablet, 50 MCG PO DAILY, (Reported) Metoprolol Tartrate 25 Mg Tablet, 12.5 MG PO BID, (Reported) TAKES 1/2 (25MG) TABLET Multivitamin 1 Each Tablet, 1 TAB PO DAILY, (Reported) Prednisone 20 Mg Tab, 20 MG PO DAILY Take 3 tabs(60mg)daily, decrease by 1/2 tab(10mg)daily. Prescribed by: DARIAN HEAD on 11/06/17 0936 Rosuvastatin Calcium 10 Mg Tablet, 10 MG PO HS, (Reported) Patient Home Medication List Home Medication List Reviewed: Yes Past Szjdpnh-Reyttn-Lmdhwc Hx Patient Social History Marrital Status: Alcohol Use: Denies Use Number of Drinks Today: AA Alcohol Beverage of Choice: Beer Recreational Drug Use: No Smoking Status: Former Smoker Former Smoker, Quit: Jan 24, 1990 Type Used: Cigarettes 2nd Hand Smoke Exposure: No Physical Abuse Screen: No Sexual Abuse: No Recent Foreign Travel: No Contact w/other who traveled: No Recent Hopitalizations: No Recent Infectious Disease Expo: No Immunizations Up To Date Tetanus Booster (TDap): Unknown Pediatric: No Date of Pneumonia Vaccine: Dec 01, 2015 Date of Influenza Vaccine: Dec 30, 2017 Seasonal Allergies Seasonal Allergies: No Surgeries Yes (BACK, NECK, MASTECTOMY, THYROID) Breast, Gallbladder, Orthopedic Respiratory Yes Currently Using CPAP: No Currently Using BIPAP: No Cardiovascular Yes Coronary Artery Disease, High Cholesterol, Hypertension Neurological No Reproductive System : No Hx Reproductive Disorders: No Genitourinary No Gastrointestinal Yes Gastrointestinal Bleed Musculoskeletal Yes Arthritis Endocrine History of Endocrine Disorders: Yes Endocrine Disorders: Hypothyroidsim HEENT History of HEENT Disorders: Yes HEENT Disorders: Cataract Loss of Vision: Denies Hearing Impairment: Denies Cancer Yes (left breast) Breast, Thyroid Psychosocial History of Psychiatric Problem: No Behavioral Health Disorders: Anxiety Integumentary History of Skin or Integumenta: No Skin/Integumentary Disorders: Recent Skin Changes Blood Transfusions History of Blood Disorders: No Adverse Reaction to a Blood Tr: No Family Medical History Significant Family History: Heart Disease, Cancer, Hypertension Family Hx: Cancer 03 FATHER, Onset:60 years & older (CANCER OF THE BLADDER) 09 SISTER, Onset:30's - 40 (CANCER OF THE BREAST) Cataract 03 FATHER, Onset:60 years & older 03 MOTHER, Onset:60 years & older Chest pain 03 MOTHER, Onset:60 years & older Dementia 03 FATHER, Onset:60 years & older Family history: Arthritis 03 MOTHER, Onset:60 years & older Family history: Breast disease 09 SISTER, Onset:30's - 40 Family history: Cardiovascular disease 03 MOTHER, Onset:60 years & older Family history: Glaucoma 03 MOTHER, Onset:60 years & older Family history: Hypertension 03 FATHER, Onset:50's - 60 03 MOTHER, Onset:60 years & older Family history: Osteoporosis 03 MOTHER, Onset:60 years & older Hearing loss 03 FATHER, Onset:60 years & older Heart disease 03 MOTHER, Onset:60 years & older Hypercholesterolemia 03 MOTHER, Onset:60 years & older Infertile CHILDREN, Onset:30's - 40 (PATIENT STATES THAT DAUGHTER WAS INFERTILE) Kidney disease 03 FATHER, Onset:60 years & older Myocardial infarction 03 MOTHER, Onset:60 years & older Parkinson's disease 03 FATHER, Onset:60 years & older 09 BROTHER, Onset:60 years & older Stroke 03 FATHER, Onset:60 years & older No Family History of: Abdominal aortic aneurysm [place]'s disease Alcoholism Aphasia Cancer of colon Congenital heart disease Congestive heart failure Cystic fibrosis Dysphagia Family history: Allergy Family history: Alzheimer's disease Family history: Asthma Family history: Coronary thrombosis Family history: Diabetes mellitus Family history: Gastrointestinal disease Family history: Thyroid disorder Headache Hereditary disease History of - anemia History of - disorder History of - respiratory disease History of drug abuse Human immunodeficiency virus (HIV) seropositivity Malignant neoplasm of lung Prostate cancer Psychotic disorder Seizure disorder Tuberculosis Visual impairment Review of Systems Constitutional: weakness EENTM: No see HPI, No no symptoms reported, No ear discharge, No hearing loss, No ear pain, No blurred vision, No double vision, No eye pain, No tearing, No vision loss, No dental problems, No hoarseness, No mouth pain, No mouth swelling , No epistaxis, No nose congestion, No nose pain, No throat pain, No throat swelling, No other Respiratory: cough, dyspnea on exertion, short of breath Cardiovascular: chest pain (right) Gastrointestinal: No RUQ, No LUQ, No RLQ, No LLQ, No no symptoms reported, No see HPI, No abdominal pain, No constipation, No diarrhea, No dysphagia, No hematemesis, No heartburn, No jaundice, No loss of appetite, No melena, No nausea, No vomiting, No other Genitourinary: No no symptoms reported, No see HPI, No decreased output, No discharge, No dysuria, No frequency, No hematuria, No hesitancy, No incontinence , No nocturia, No pain, No other Musculoskeletal: muscle weakness Skin: other (bruising) Psychiatric/Neurological: Anxiety, Tremors, Weakness Physical Exam Vital Signs Vital Signs - First Documented 02/18/18 17:00 O2 Delivery Nasal Cannula O2 Flow Rate 3.00 Capillary Refill : Height, Weight, BMI Height: 5'2.00" Weight: 108lbs. 8.0oz. [id number]; 19.8 BMI Method:Stated General Appearance: Moderate Distress HEENT: Normal ENT Inspection Neck: Supple Respiratory: Crackles (right), Decreased Breath Sounds, Respiratory Distress, Rhonci (right) Cardiovascular: Bradycardia, Systolic Murmur, Gallop/S4 Gastrointestinal: Normal Bowel Sounds, Non Tender, Soft Rectal: Deferred Back: No CVA Tenderness Extremity: Non Tender, No Calf Tenderness, No Pedal Edema Neurologic/Psychiatric: Alert, Oriented x3 Skin: Warm/Dry, Ecchymosis, Pallor Assessment/Plan Assessment and Plan 1. Acute Community Acquired Pneumonia--admit and check CXR and start rocephin/ zithromax 2. Acute Respiratory Distress/Hypoxia--oxygen via nasal cannula to keep O2 sat greater than 92% 3. COPD with acute exacerbation--SVNs with duoneb as well as oxygen 4. Hypertension--resume home meds and monitor BP 5. Bradycardia--monitor on telemetry, Check EKG 6. Right Lung Mass--patient has refused further workup Admission Diagnosis Admission Status: Inpatient Order (span 2 midnights) Reason for Inpatient Admission: Will need IV antibiotics for at least 48hrs Clinical Quality Measures DVT/VTE Risk/Contraindication: Risk Factor Score Per Nursin RFS Level Per Nursing on Admit: 4+=Very High NELI LEIVA DO Feb 18, 2018 6:21 pm
[2018-02-18 18:34] LABS: BASOPHILS % (AUTO) 0 % (0-10); EOSINOPHILS % (AUTO) 0 % (0-10); HEMATOCRIT 36 % (35-52); HEMOGLOBIN 11.3 G/DL (11.5-16.0); LYMPHOCYTES # (AUTO) 0.7 X 10^3 (1.0-4.0); LYMPHOCYTES % (AUTO) 3 % (12-44); MEAN CORPUSCULAR HEMOGLOBIN 30 PG (25-34); MEAN CORPUSCULAR HGB CONC 32 G/DL (32-36); MEAN CORPUSCULAR VOLUME 94 FL (80-99); MEAN PLATELET VOLUME 10.4 FL (7.4-10.4); MONOCYTES # (AUTO) 2.1 X 10^3 (0.0-1.0); MONOCYTES % (AUTO) 10 % (0-12); NEUTROPHILS # (AUTO) 18.6 X 10^3 (1.8-7.8); NEUTROPHILS % (AUTO) 87 % (42-75); PLATELET COUNT 240 10^3/uL (130-400); RED CELL DISTRIBUTION WIDTH 14.6 % (10.0-14.5); WHITE BLOOD COUNT 21.5 10^3/uL (4.3-11.0)
[2018-02-18] MEDS ORDERED: RT-ALBUTEROL/IPRATROPIUM 3 ML (DUONEB) VIAL ONE (18:49)
[2018-02-18 18:51] LABS: BUN/CREATININE RATIO 28; CALCIUM 9.3 MG/DL (8.5-10.1); CARBON DIOXIDE 27 MMOL/L (21-32); CHLORIDE 100 MMOL/L (98-107); CREATININE SERUM 0.61 MG/DL (0.60-1.30); GFR ESTIMATED > 60; GLUCOSE 89 MG/DL (70-105); POTASSIUM 4.2 MMOL/L (3.6-5.0); SODIUM 139 MMOL/L (135-145)
[2018-02-18] MEDS: CATHETER FLUSH 10 ML SYR IV PRN (18:51)
[2018-02-18 19:02] LABS: BAND NEUTROPHILS 6 %; BASOPHILS % (MANUAL) 0 %; EOSINOPHILS % (MANUAL) 1 %; LYMPHOCYTES % (MANUAL) 5 %; MONOCYTES % (MANUAL) 3 %; NEUTROPHILS % (MANUAL) 85 %; RBC MORPH NORMAL
[2018-02-18] MEDS: BETHANECHOL 10 MG (URECHOLINE) TAB PO SCH (19:49)
[2018-02-18] MEDS: CATHETER FLUSH 10 ML SYR IV SCH (19:49)
[2018-02-18 20:20] VITALS: BP 121/57
[2018-02-18] MEDS: RT-ALBUTEROL/IPRATROPIUM 3 ML (DUONEB) VIAL INH SCH (22:29)
[2018-02-18] MEDS: ACETAMINOPHEN 325 MG TABLET PO PRN (22:34)
[2018-02-19 00:15] VITALS: BP 129/60
[2018-02-19] MEDS: RT-ALBUTEROL/IPRATROPIUM 3 ML (DUONEB) VIAL INH SCH ×6 (02:34→21:17)
[2018-02-19 04:12] VITALS: BP 111/57
[2018-02-19] MEDS: BETHANECHOL 10 MG (URECHOLINE) TAB PO SCH ×4 (05:32→19:56)
[2018-02-19] MEDS: CATHETER FLUSH 10 ML SYR IV SCH ×3 (05:32→19:56)
--- NOTE | 2018-02-19 06:41 | Pulmonary Consultation ---
History of Present Illness History of Present Illness Date of Consultation 02/19/18 06:36 Time Seen by Provider: 06:36 Date of Admission History of Present Illness 77 yo with hx of severe oxygen dependent COPD presented as direct admit secondary to worsening SOB, cough and chest congestion. Sp02 was 90% on 3 liters NC. Pt was in respiratory distress at Dr. Foley's office with coarse BS bilaterally. Allergies and Home Medications Allergies Coded Allergies: benazepril (Verified Allergy, Unknown, 01/21/07) codeine (Verified Adverse Reaction, Unknown, NAUSEA/VOMITING, 01/20/07) Home Medications Aspirin 81 Mg Tablet.dr, 81 MG PO DAILY, (Reported) Bethanechol Chloride 25 Mg Tablet, 25 MG PO ACHS, (Reported) Budesonide/Formoterol Fumarate 10.2 Gm Hfa.aer.ad, 2 PUFF IH BID, (Reported) Clopidogrel Bisulfate 75 Mg Tablet, 75 MG PO DAILY, (Reported) Duloxetine HCl 60 Mg Capsule.dr, 60 MG PO HS, (Reported) Ferrous Sulfate 325 Mg Tablet, 325 MG PO DAILY, (Reported) Ipratropium/Albuterol Sulfate 3 Ml Ampul.neb, 3 ML NEB Q6H PRN for SHORTNESS OF BREATH, (Reported) Levothyroxine Sodium 50 Mcg Tablet, 50 MCG PO DAILY, (Reported) Metoprolol Tartrate 25 Mg Tablet, 12.5 MG PO BID, (Reported) TAKES 1/2 (25MG) TABLET Multivitamin 1 Each Tablet, 1 TAB PO DAILY, (Reported) Prednisone 20 Mg Tab, 20 MG PO DAILY Take 3 tabs(60mg)daily, decrease by 1/2 tab(10mg)daily. Prescribed by: DARIAN HEAD on 11/06/17 0936 Rosuvastatin Calcium 10 Mg Tablet, 10 MG PO HS, (Reported) Past Vlvhhue-Ribpep-Pkznrt Hx Patient Social History Alcohol Use: Denies Use Number of Drinks Today: AA Alcohol Beverage of Choice: Beer Recreational Drug Use: No Smoking Status: Former Smoker Type Used: Cigarettes Former Smoker, Quit: Jan 24, 1990 2nd Hand Smoke Exposure: No Recent Foreign Travel: No Contact w/Someone Who Travel: No Recent Infectious Disease Expo: No Recent Hopitalizations: No Immunizations Up To Date Tetanus Booster (TDap): Unknown PED Vaccines UTD: No Date of Pneumonia Vaccine: Dec 01, 2015 Date of Influenza Vaccine: Dec 30, 2017 Seasonal Allergies Seasonal Allergies: No Past Medical History Surgeries: Yes (BACK, NECK, MASTECTOMY, THYROID) Breast, Gallbladder, Orthopedic Respiratory: Yes COPD, Emphysema Currently Using CPAP: No Currently Using BIPAP: No Cardiac: Yes Coronary Artery Disease, High Cholesterol, Hypertension Neurological: No : No Reproductive Disorders: No Genitourinary: No Gastrointestinal: Yes Gastrointestinal Bleed Musculoskeletal: Yes Arthritis Endocrine: Yes Hypothyroidsim HEENT: Yes Cataract Loss of Vision: Denies Hearing Impairment: Denies Cancer: Yes (left breast) Breast, Thyroid Psychosocial: No Anxiety Integumentary: No Recent Skin Changes Blood Disorders: No Adverse Reaction/Blood Tranf: No Family Medical History Cancer 03 FATHER, Onset:60 years & older (CANCER OF THE BLADDER) 09 SISTER, Onset:30's - 40 (CANCER OF THE BREAST) Cataract 03 FATHER, Onset:60 years & older 03 MOTHER, Onset:60 years & older Chest pain 03 MOTHER, Onset:60 years & older Dementia 03 FATHER, Onset:60 years & older Family history: Arthritis 03 MOTHER, Onset:60 years & older Family history: Breast disease 09 SISTER, Onset:30's - 40 Family history: Cardiovascular disease 03 MOTHER, Onset:60 years & older Family history: Glaucoma 03 MOTHER, Onset:60 years & older Family history: Hypertension 03 FATHER, Onset:50's - 60 03 MOTHER, Onset:60 years & older Family history: Osteoporosis 03 MOTHER, Onset:60 years & older Hearing loss 03 FATHER, Onset:60 years & older Heart disease 03 MOTHER, Onset:60 years & older Hypercholesterolemia 03 MOTHER, Onset:60 years & older Infertile CHILDREN, Onset:30's - 40 (PATIENT STATES THAT DAUGHTER WAS INFERTILE) Kidney disease 03 FATHER, Onset:60 years & older Myocardial infarction 03 MOTHER, Onset:60 years & older Parkinson's disease 03 FATHER, Onset:60 years & older 09 BROTHER, Onset:60 years & older Stroke 03 FATHER, Onset:60 years & older No Family History of: Abdominal aortic aneurysm [place]'s disease Alcoholism Aphasia Cancer of colon Congenital heart disease Congestive heart failure Cystic fibrosis Dysphagia Family history: Allergy Family history: Alzheimer's disease Family history: Asthma Family history: Coronary thrombosis Family history: Diabetes mellitus Family history: Gastrointestinal disease Family history: Thyroid disorder Headache Hereditary disease History of - anemia History of - disorder History of - respiratory disease History of drug abuse Human immunodeficiency virus (HIV) seropositivity Malignant neoplasm of lung Prostate cancer Psychotic disorder Seizure disorder Tuberculosis Visual impairment Heart Disease, Cancer, Hypertension Sepsis Event Evaluation Height, Weight, BMI Height: 5'2.00" Weight: 108lbs. 8.0oz. 49.967149ip; 19.8 BMI Method:Stated Exam Exam Vital Signs Date Time Temp Pulse Resp B/P (MAP) Pulse Ox O2 Delivery O2 Flow Rate FiO2 02/19/18 02:34 97 Nasal Cannula 3.00 02/19/18 00:15 98.5 102 20 129/60 (83) 97 Nasal Cannula 3.00 02/18/18 22:29 97 Nasal Cannula 3.00 02/18/18 20:20 99.1 106 22 121/57 (78) 98 Nasal Cannula 3.00 02/18/18 19:48 Nasal Cannula 3.00 02/18/18 18:50 98 97 32 02/18/18 18:50 97 Nasal Cannula 3.00 02/18/18 17:00 Nasal Cannula 3.00 02/18/18 17:00 99.5 108 30 150/72 (98) 95 Nasal Cannula 3.00 I & O 02/19/18 07:00 Intake Total 1010 ml Output Total 300 ml Balance 710 ml Height & Weight Height: 5'2.00" Weight: 108lbs. 8.0oz. 49.067958wn; 19.8 BMI Method:Stated General Appearance: Moderate Distress HEENT: Normal ENT Inspection Neck: Supple Respiratory: Crackles (right), Decreased Breath Sounds, Respiratory Distress, Rhonci (right) Cardiovascular: Bradycardia, Systolic Murmur, Gallop/S4 Extremity: Non Tender, No Calf Tenderness, No Pedal Edema Neurologic/Psychiatric: Alert, Oriented x3 Skin: Warm/Dry, Ecchymosis, Pallor Results Lab Laboratory Tests 02/18/18 18:20 Assessment/Plan Assessment/Plan Pneumonia with hx of ESBL -Woody cultures pending -Will do bronchoscopy this AM -Start vanco and Merrem. D/c Rocephin Lung nodule -Will do Percepta with bronchoscopy -Will need out patient f/u -Pt has refused work up in the past COPDAE -Oxygen -RICHARD Martini DO Feb 19, 2018 06:41
[2018-02-19] MEDS ORDERED: MIDAZOLAM 2 MG/2 ML (VERSED) VIAL ONE ×2 (09:11)
[2018-02-19] MEDS ORDERED: fentaNYL INJECTION 100 MCG/2 ML AMP ONE (09:11)
[2018-02-19] MEDS ORDERED: NS IV 500 ML 500 ML ONE (09:16)
[2018-02-19] MEDS ORDERED: PHARMACY TO DOSE IV SCH (10:00)
[2018-02-19] MEDS ORDERED: NS IV 500 ML 500 ML IV PRN (10:04)
[2018-02-19] MEDS ORDERED: MIDAZOLAM 2 MG/2 ML (VERSED) VIAL IVP ONE (10:15)
[2018-02-19] MEDS ORDERED: fentaNYL INJECTION 100 MCG/2 ML AMP IVP ONE (10:15)
[2018-02-19] MEDS ORDERED: VANCOMYCIN 1 GM/NS 250 ML IVPB IV NR ×2 (10:27)
--- NOTE | 2018-02-19 10:37 | Pulmonary Procedures ---
Pulmonary Procedures Date of Procedure Date of Service: Feb 19, 2018 Bronch Bronchoscopy with fluoroscopy RLL bronchoalveolar lavage (BAL), Bilateral washes and, RLL transbronchial brushes. Percepta brush was done X2 at marin. Preop DX lung mass, PNA Postop DX: No endobronchial lesion noted. Complications: none After informed consent obtained and formal time out pt was sedated using Fentanyl and Versed. Bronchoscope was advanced through the nare and vocal cords. 1% lidocaine was used to anesthetize vocal cords, epiglottis, marin, and left/right main stem bronchus. An anatomical tour was undertaken down to the segmental bronchi bilaterally. No endobronchial lesions noted. Percepta brush was done X2 at mar[facility]. With fluoroscopy RLL bronchoalveolar lavage (BAL), Bilateral washes and, RLL transbronchial brushes were obtained. Pt tolerated procedure well. No complications noted. Stat CXR is pending. RICHARD SANDY DO Feb 19, 2018 10:37
[2018-02-19 10:40] VITALS: BP 118/64
--- NOTE | 2018-02-19 10:42 | Diagnostic Imaging Report ---
Portable supine AP chest at 10:14. Indication: Post bronchoscopy. Reported the patient underwent bronchoscopy earlier today. There is no sign of pneumothorax although a small pneumothorax could be present yet undetected on a supine film such as this. The overall appearance of the chest itself has not changed significantly since the prior exam of 02/18/2018. The abnormal parenchymal density in the right suprahilar region seen previous is again evident. There are coarse perihilar markings on the right side and there is tenting/scar formation of the right hemidiaphragm. There is also blunting of the left costophrenic angle. The heart is stable in size. The mediastinum is not widened. The osseous structures are intact. Impression: The appearance of the chest is stable following bronchoscopy. Specifically, there is no evidence for an obvious pneumothorax. A followup study would be recommended for continued evaluation. Dictated by: Dictated on workstation # [id number]
[2018-02-19] MEDS: AZITHROMYCIN 250 MG TAB (ZITHROMAX) PO SCH (11:31)
[2018-02-19] MEDS: MEROPENEM 500 MG in NS (IVPB) 50 ML IV SCH ×3 (11:31→22:25)
[2018-02-19] MEDS: ALPRAZolam 0.25 MG (XANAX) TAB PO PRN ×3 (11:38→22:23)
[2018-02-19 12:00] VITALS: BP 168/76
[2018-02-19] MEDS: RT-ALBUTEROL/IPRATROPIUM 3 ML (DUONEB) VIAL INH PRN ×2 (12:03→18:55)
--- NOTE | 2018-02-19 12:56 | Progress Note (SOAP) ---
Subjective Date Seen by a Provider: Feb 19, 2018 Time Seen by a Provider: 12:53 Subjective/Events-last exam Fwup right sided pneumonia, right pulmonary mass, COPD with acute exacerbation, weakness. Patient had bronch this morning and had thick yellow secretions but no endobronchial lesions noted. Objective Exam Vital Signs Date Time Temp Pulse Resp B/P (MAP) Pulse Ox O2 Delivery O2 Flow Rate FiO2 02/19/18 12:03 91 Nasal Cannula 3.00 02/19/18 10:40 98.4 98 18 118/64 (82) 95 Nasal Cannula 3.00 02/19/18 09:29 18 02/19/18 06:56 98 Nasal Cannula 3.00 02/19/18 04:12 97.7 101 18 111/57 (75) 97 Nasal Cannula 3.00 02/19/18 02:34 97 Nasal Cannula 3.00 02/19/18 00:15 98.5 102 20 129/60 (83) 97 Nasal Cannula 3.00 02/18/18 22:29 97 Nasal Cannula 3.00 02/18/18 20:20 99.1 106 22 121/57 (78) 98 Nasal Cannula 3.00 02/18/18 19:48 Nasal Cannula 3.00 02/18/18 18:50 98 97 32 02/18/18 18:50 97 Nasal Cannula 3.00 02/18/18 17:00 Nasal Cannula 3.00 02/18/18 17:00 99.5 108 30 150/72 (98) 95 Nasal Cannula 3.00 I & O 02/19/18 07:00 Intake Total 1010 ml Output Total 300 ml Balance 710 ml Capillary Refill : General Appearance: No Apparent Distress Neck: Supple Respiratory: Crackles, Decreased Breath Sounds Cardiovascular: Regular Rate, Rhythm Gastrointestinal: normal bowel sounds, non tender, soft Extremity: Non Tender, No Calf Tenderness, No Pedal Edema Neurologic/Psychiatric: Alert, Oriented x3 Results Lab Laboratory Tests 02/18/18 18:20: White Blood Count 21.5H, Red Blood Count 3.80L, Hemoglobin 11.3L, Hematocrit 36 , Mean Corpuscular Volume 94, Mean Corpuscular Hemoglobin 30, Mean Corpuscular Hemoglobin Concent 32, Red Cell Distribution Width 14.6H, Platelet Count 240, Mean Platelet Volume 10.4, Neutrophils (%) (Auto) 87H, Lymphocytes (%) (Auto) 3L , Monocytes (%) (Auto) 10, Eosinophils (%) (Auto) 0, Basophils (%) (Auto) 0, Neutrophils # (Auto) 18.6H, Lymphocytes # (Auto) 0.7L, Monocytes # (Auto) 2.1H, Eosinophils # (Auto) 0.0, Basophils # (Auto) 0.0, Neutrophils % (Manual) 85, Lymphocytes % (Manual) 5, Monocytes % (Manual) 3, Eosinophils % (Manual) 1, Basophils % (Manual) 0, Band Neutrophils 6, Blood Morphology Comment NORMAL, Sodium Level 139, Potassium Level 4.2, Chloride Level 100, Carbon Dioxide Level 27, Anion Gap 12, Blood Urea Nitrogen 17, Creatinine 0.61, Estimat Glomerular Filtration Rate > 60, BUN/Creatinine Ratio 28, Glucose Level 89, Calcium Level 9.3, B-Type Natriuretic Peptide 47.6 02/19/18 09:45: Assessment/Plan Assessment/Plan Assess & Plan/Chief Complaint 1. Right Sided Pneumonia--cultures taken with bronch but antibiotics changed to meropenem/vanc 2. Right Pulmonary Mass--will reassess with CT scan after treatment of pneumonia, patient has not wanted further workup or treatment 3. COPD with acute exacerbation--continue oxygen, SVNS 4. Weakness--start PT/OT Clinical Quality Measures Admission Status Admission Dx 1. Acute Community Acquired Pneumonia--admit and check CXR and start rocephin/ zithromax 2. Acute Respiratory Distress/Hypoxia--oxygen via nasal cannula to keep O2 sat greater than 92% 3. COPD with acute exacerbation--SVNs with duoneb as well as oxygen 4. Hypertension--resume home meds and monitor BP 5. Bradycardia--monitor on telemetry, Check EKG 6. Right Lung Mass--patient has refused further workup DVT/VTE Risk/Contraindication: Risk Factor Score Per Nursin RFS Level Per Nursing on Admit: 4+=Very High LEW LEIVA DO Feb 19, 2018 12:56
--- NOTE | 2018-02-19 12:58 | Diagnostic Imaging Report ---
Fluoroscopy. Indication: Bronchoscopy Fluoroscopic assistance was provided for Dr. Mihai Mcgarry during his bronchoscopy procedure. 30 seconds of fluoroscopy time was visualized. Single spot film of the thorax was obtained. There is a bronchoscopic device in place. Impression: Fluoroscopic assistance was provided for Dr. Mcgarry. Dictated by: Dictated on workstation # [id number]
[2018-02-19] MEDS ORDERED: PANTOPRAZOLE 40 MG (PROTONIX) TAB PO NR (13:00)
[2018-02-19 13:17] LABS: BF OTHER CELLS 1 %; LYMPHOCYTES,BODY FLUID 7 %
[2018-02-19 13:19] LABS: BODY FLUID SOURCE OTHER
[2018-02-19 13:21] LABS: BODY FLUID COLOR PALE YELLOW
[2018-02-19] MEDS ORDERED: IBUP-1780 PO (13:21)
[2018-02-19] MEDS ORDERED: CHOL10007 PO (13:21)
[2018-02-19] MEDS ORDERED: ACET-2267 PO (13:21)
[2018-02-19 13:22] LABS: BODY FLUID APPEARENCE CLOUDY
--- NOTE | 2018-02-19 14:54 | Physical Therapy Evaluation ---
PT Evaluation-General Medical Diagnosis Admission Date Feb 18, 2018 at 17:08 Medical Diagnosis: weakness, unsteady gait Onset Date: Feb 18, 2018 Therapy Diagnosis Therapy Diagnosis: impaired mobility, strength, endurance Height/Weight Height (Feet): 5 Height (Inches): 2.00 Weight (Pounds): 108 Weight (Ounces): 8.0 Precautions Precautions/Isolations: Fall Prevention, Standard Precautions Referral Physician: Neli Foley DO Reason for Referral: Evaluation/Treatment Medical History Pertinent Medical History: Alcoholism, Arthritis, CAD, COPD, GERD, HTN, Hypothroidism, Parkinson's, Smoking Additional Medical History high cholesterol, GI bleed, cataract, anxiety Current History Patient at doctor's office with cough, congestion, and SOA -> direct admit with pneumonia, resp. distress Reviewed History: Yes Social History Home: Single Level Current Living Status: Alone Entry Into Home: Level Entry Patient stated her sister checks on her daily. Prior/Core FIM Prior Level of Function Functional [place] Measure 0=Not Assessed/NA 4=Minimal Assistance 1=Total Assistance 5=Supervision or Setup 2=Maximal Assistance 6=Modified [place] 3=Moderate Assistance 7=Complete IndependenceIRFPAI Quality Coding Scale 6 Independent with activity with or without an assistive device 5 Patient requires set up or clean up by helper. Patient completes activity by themselves 4 Supervision or touching assist (CGA). [place] provide cues , steadying assist 3 The helper provides less than half the effort to complete the activity 2 The helper provides more than half the effort to complete the activity 1 Dependent. The helper does all the effort to complete an activity 7 Patient refused to complete or attempt activity 9 The patient did not perform the activity before the current illness or injury 88 Not attempted due to Medical conditions or safety concerns Bed Mobility: 7 Transfers (B,C,W/C) (FIM): 7 Gait: 6 Patient uses a rolling walker outside of the home. PT Evaluation-Current Subjective Patient in bed pre tx, agrees to PT, no complaints of pain except with deep breathing. Patient is already SOB just laying in bed. Pt/Family Goals "to breathe better" Objective Patient Orientation: Person, Place, Situation Attachments: Oxygen 4L of O2 nasal canula ROM/Strength ROM Lower Extremities WNL Strength Lower Extremities right lower extremity (hip flexion 4/5, knee flexion 4/5, knee extension 4/5, dorsiflexion 5/5), left lower extremity (hip flexion 4-/5, knee flexion 4/5, knee extension 4/5, dorsiflexion 5/5) Neuromuscular (Tone, Coordination, Reflexes) NT Sensory Hearing: Functional Sensation Right Lower Extremit: Intact Sensation Left Lower Extremity: Intact Transfers Functional [place] Measure 0=Not Assessed/NA 4=Minimal Assistance 1=Total Assistance 5=Supervision or Setup 2=Maximal Assistance 6=Modified [place] 3=Moderate Assistance 7=Complete [place] Transfers (B, C, W/C) (FIM): 5 Scootin Rollin Supine to/from Sit: 5 Sit to/from Stand: 5 Patient moves quickly during transfers and is impulsive but steady and no LOB. Gait Mode of Locomotion: Walk Anticipated Mode of Locomotion: Walk Gait (FIM): 1 Distance: 20' Gait Level of Assist: 5 Gait Persons Needed: 1 Gait Assistive Device: FWW Comments/Gait Description Patient ambulates quickly and impulsively, very SOB after ambulation, immediately lays down and is extremely SOB, O2 is 89% after ambulation and quickly comes back up to 93% but patient remains severely SOB and RT is here to give her a breathing treatment. Assessment/Needs Patient has impaired mobility, strength, endurance. She gets very SOB with activity. Rehab Potential: Guarded PT Short Term Goals Short Term Goals Time Frame: Feb 26, 2018 Transfers (B,C,W/C) (FIM): 6 Gait (FIM): 2 Gait Distance Comment: 50' Gait Level of Assist: 5 Gait Assistive Device: FWW PT Plan Problem List Problem List: Activity Tolerance, Functional Strength, Safety, Balance, Gait, Transfer, Bed Mobility Treatment/Plan Treatment Plan: Continue Plan of Care Treatment Plan: Bed Mobility, Education, Functional Activity Stefanie, Functional Strength, Gait, Safety, Therapeutic Exercise, Transfers Treatment Duration: Feb 26, 2018 Frequency: 6 times per week Estimated Hrs Per Day: .25 hour per day (15-30') Patient and/or Family Agrees t: Yes Safety Risks/Education Patient Education: Gait Training, Transfer Techniques, Correct Positioning, Safety Issues Teaching Recipient: Patient Teaching Methods: Demonstration, Discussion Response to Teaching: Reinforcement Needed Discharge Recommendations Plan Patient will perform bed mobility and transfer training, balance and endurance training, functional strengthening, stair training, gait training, and education , to improve functional mobility and independence at home. Therapy D/C Recommendations: Home w/ Family Support Time/GCodes Time In: 1435 Time Out: 1445 Total Billed Treatment Time: 10 Total Billed Treatment 1 visit JOE MCGHEE PT Feb 19, 2018 14:54
--- NOTE | 2018-02-19 15:09 | Occupational Therapy Eval ---
OT Evaluation-General/PLF Medical Diagnosis Admission Date Feb 18, 2018 at 17:08 Medical Diagnosis: pneumonia, respiratory distress Onset Date: Feb 18, 2018 Therapy Diagnosis Therapy Diagnosis: decreased self care skills Height/Weight Height (Feet): 5 Height (Inches): 2.00 Weight (Pounds): 108 Weight (Ounces): 8.0 Precautions Precautions/Isolations: Fall Prevention, Standard Precautions Safety Interventions: Bed Exit Alarm Referral Physician: Neli Foley DO Medical History Pertinent Medical History: Alcoholism, Arthritis, CAD, COPD, GERD, HTN, Hypothroidism, Parkinson's, Smoking Additional Medical History high cholesterol, GI bleed, anxiety, mastectomy, right lung mass Social History Home: Single Level Current Living Status: Alone Entry Into Home: Level Entry ADL-Prior Level of Function Functional [place] Measure 0=Not Assessed/NA 4=Minimal Assistance 1=Total Assistance 5=Supervision or Setup 2=Maximal Assistance 6=Modified [place] 3=Moderate Assistance 7=Complete [place] ADL PLOF Comments Pt reports being independent with self care and mobility. Does not use an AD in the home, but uses 4WW when outside. Pt states she does the cooking, but her sister assists with cleaning. Self Care Self Care: (Code the patient's need for assistance with bathing, dressing, using the toilet, or eating prior to the current illness, exacerbation, or injury.) Functional Cognition Functional Cognition: (Code the patient's need for assistance with planning regular tasks, such as shopping or remembering to take medicaiton prior to the current illness, exacerbation, or injury.) DME/Equipment: Bath Chair, Grab Bars, Tub/Shower, Toilet/Riser OT Current Status Subjective Pt in bed, agrees to treatment. Mental Status/Objective Patient Orientation: Person, Place Attachments: Oxygen Current Glasses/Contacts: Yes Upper Extremity ROM Grossly WFL Upper Extremity Coordination Decreased secondary to tremors Upper Extremity Strength Fair ADL-Treatment ADL-Current Pt supine to sit with supervision. Pt sat EOB with good balance during UE assessment. Pt demonstrates ability to doff/don socks with SBA while seated EOB. Sit to stand with supervision and sidesteps to HOB without LOB. Sit to supine with SBA. Pt is short of breath with activity and requires extended recovery time. Difficult to obtain reading on pulse ox, but O2 sats were 98% after pt returned to bed. Pt resting in bed with needs met and son present after session. Functional [place] Measure 0=Not Assessed/NA 4=Minimal Assistance 1=Total Assistance 5=Supervision or Setup 2=Maximal Assistance 6=Modified [place] 3=Moderate Assistance 7=Complete IndependenceIRFPAI Quality Coding Scale 6 Independent with activity with or without an assistive device 5 Patient requires set up or clean up by helper. Patient completes activity by themselves 4 Supervision or touching assist (CGA). [place] provide cues , steadying assist 3 The helper provides less than half the effort to complete the activity 2 The helper provides more than half the effort to complete the activity 1 Dependent. The helper does all the effort to complete an activity 7 Patient refused to complete or attempt activity 9 The patient did not perform the activity before the current illness or injury 88 Not attempted due to Medical conditions or safety concerns Lower Body Dressing (FIM): 5 Education OT Patient Education: Rehab process Teaching Recipient: Patient Teaching Methods: Discussion Response to Teaching: Verbalize Understanding OT Short Term Goals Short Term Goals Transfers (B,C,W/C) (FIM): 6 1=Demonstrate adherence to instructed precautions during ADL tasks. 2=Patient will verbalize/demonstrate understanding of assistive devices/ modifications for ADL. 3=Patient will improve strength/tolerance for activity to enable patient to perform ADL's. OT Retirement Goals Sign Maintenance Goals Time Frame: Feb 28, 2018 Eating (FIM): 6 Grooming(FIM): 6 Upper Body Dressing(FIM): 6 Lower Body Dressing(FIM): 5 Toileting(FIM): 6 Toilet/Commode Transfer(FIM): 6 Additional Goals: 1-Demonstrate ADL Tasks, 2-Verbalize Understanding, 3- ImproveStrength/Stefanie 1=Demonstrate adherence to instructed precautions during ADL tasks. 2=Patient will verbalize/demonstrate understanding of assistive devices/ modifications for ADL. 3=Patient will improve strength/tolerance for activity to enable patient to perform ADL's. OT Education/Plan Problem List/Assessment Assessment: Decreased Activ Tolerance, Decreased UE Strength, Dependent Transfers, Impaired Self-Care Skills Pt to benefit from skilled OT intervention for ADL training, transfers, strengthening, and energy conservation education to increase functional independence and allow safe discharge. Discharge Recommendations Plan/Recommendations: Continue POC Treatment Plan/Plan of Care Treatment,Training & Education: Yes Patient would benefit from OT for education, treatment and training to promote independence in ADL's, mobility, safety and/or upper extremity function for ADL' s. Plan of Care: ADL Retraining, Functional Mobility, UE Funct Exercise/Act Treatment Duration: Feb 28, 2018 Frequency: 5 times per week Estimated Hrs Per Day: .25 hour per day Rehab Potential: Guarded Time/GCodes Start Time: 14:15 Stop Time: 14:35 Total Time Billed (hr/min): 20 Billed Treatment Time 1 visit, SILKE(20minutes) JORJE TORRES OT Feb 19, 2018 15:09
[2018-02-19 16:00] VITALS: BP 137/58
[2018-02-19 16:32] LABS: ABG OXYGEN SATURATION 92 % (94-100); ABG PCO2 47 MMHG (35-45); ABG PH 7.38 (7.37-7.43); ABG PO2 64 MMHG (79-93); ABG TCO2 28.1 MMOL/L (21.0-31.0)
[2018-02-19 16:33] LABS: ALLENS TEST POSITIVE; INSPIRED O2 4L; VENTILATOR NO
--- NOTE | 2018-02-19 16:54 | Diagnostic Imaging Report ---
INDICATION: Shortness of breath. EXAMINATION: Portable chest at 3:53 p.m. COMPARISON: 02/19/2018. FINDINGS: Post biopsy radiograph shows some perihilar and basilar interstitial fibrosis. There is no appreciable pneumothorax. There is some pleural scarring at both lung bases. IMPRESSION: No change in the chest since earlier in the day. There is no evidence for pneumothorax. Dictated by: Dictated on workstation # [id number]
[2018-02-19] MEDS ORDERED: methylPREDNISolone 125 MG (Solu-MEDROL) VIAL IVP NR (19:30)
[2018-02-19] MEDS ORDERED: FUROSEMIDE 40 MG/4 ML INJ (LASIX) IVP NR (19:30)
[2018-02-19] MEDS ORDERED: ENOXAPARIN 30 MG/0.3 ML (LOVENOX) SYR SC NR (19:30)
[2018-02-19 19:55] VITALS: BP 127/64
[2018-02-19] MEDS: ACETAMINOPHEN 325 MG TABLET PO PRN (22:23)
[2018-02-20] VITALS: BP 115/63
[2018-02-20] MEDS: methylPREDNISolone 40 MG/ML (Solu-MEDROL) VIAL IV SCH ×4 (00:36→19:26)
[2018-02-20] MEDS: RT-ALBUTEROL/IPRATROPIUM 3 ML (DUONEB) VIAL INH SCH ×6 (01:05→22:37)
[2018-02-20 04:00] VITALS: BP 109/55
[2018-02-20 04:50] LABS: BASOPHILS % (AUTO) 0 % (0-10); EOSINOPHILS % (AUTO) 0 % (0-10); HEMATOCRIT 32 % (35-52); HEMOGLOBIN 10.4 G/DL (11.5-16.0); LYMPHOCYTES # (AUTO) 0.4 X 10^3 (1.0-4.0); LYMPHOCYTES % (AUTO) 2 % (12-44); MEAN CORPUSCULAR HEMOGLOBIN 30 PG (25-34); MEAN CORPUSCULAR HGB CONC 32 G/DL (32-36); MEAN CORPUSCULAR VOLUME 92 FL (80-99); MEAN PLATELET VOLUME 10.7 FL (7.4-10.4); MONOCYTES # (AUTO) 0.3 X 10^3 (0.0-1.0); MONOCYTES % (AUTO) 2 % (0-12); NEUTROPHILS # (AUTO) 15.2 X 10^3 (1.8-7.8); NEUTROPHILS % (AUTO) 96 % (42-75); PLATELET COUNT 237 10^3/uL (130-400); RED BLOOD COUNT 3.49 10^6/uL (4.35-5.85); RED CELL DISTRIBUTION WIDTH 14.6 % (10.0-14.5)
[2018-02-20 05:16] LABS: ALANINE AMINOTRANSFERASE 19 U/L (0-55); ALBUMIN 3.8 GM/DL (3.2-4.5); ALKALINE PHOSPHATASE 69 U/L (40-136); BILIRUBIN,TOTAL 0.5 MG/DL (0.1-1.0); BUN/CREATININE RATIO 19; CALCIUM 9.2 MG/DL (8.5-10.1); CARBON DIOXIDE 26 MMOL/L (21-32); CHLORIDE 101 MMOL/L (98-107); CREATININE SERUM 0.75 MG/DL (0.60-1.30); GFR ESTIMATED > 60; GLUCOSE 177 MG/DL (70-105); SODIUM 141 MMOL/L (135-145); TOTAL PROTEIN 6.7 GM/DL (6.4-8.2)
[2018-02-20] MEDS: LEVOTHYROXINE 50 MCG (LEVOTHROID) TAB PO SCH (05:27)
[2018-02-20] MEDS: CATHETER FLUSH 10 ML SYR IV SCH ×3 (05:27→20:50)
[2018-02-20] MEDS: MEROPENEM 500 MG in NS (IVPB) 50 ML IV SCH ×3 (05:27→16:27)
[2018-02-20] MEDS: BETHANECHOL 10 MG (URECHOLINE) TAB PO SCH ×2 (05:28→11:24)
[2018-02-20] MEDS: PANTOPRAZOLE 40 MG (PROTONIX) TAB PO SCH (05:28)
[2018-02-20] MEDS: ACETAMINOPHEN 325 MG TABLET PO PRN ×2 (05:30→11:27)
--- NOTE | 2018-02-20 06:11 | Pulmonary Progress Note ---
Subjective Time Seen by a Provider: 06:11 Subjective/Events-last exam pt had worsening SOB last night and is now on Vapotherm Sepsis Event Evaluation Height, Weight, BMI Height: 5'2.00" Weight: 108lbs. 8.0oz. 49.520350im; 19.8 BMI Method:Stated Exam Exam Vital Signs Date Time Temp Pulse Resp B/P (MAP) Pulse Ox O2 Delivery O2 Flow Rate FiO2 02/20/18 04:00 97.3 89 20 109/55 (73) Vapotherm 32.00 25.00 02/20/18 01:05 98 Nasal Cannula 25.00 35 02/20/18 00:00 98.0 91 18 115/63 (80) Vapotherm 35.00 25.00 02/19/18 21:17 97 Nasal Cannula 25.00 40 02/19/18 20:00 Vapotherm 02/19/18 19:55 98.6 120 24 127/64 (85) 99 Vapotherm 40.00 25.00 02/19/18 19:05 97 Nasal Cannula 25.00 40 02/19/18 18:55 97 Nasal Cannula 4.00 02/19/18 16:00 98.0 118 24 137/58 (84) 95 Nasal Cannula 4.00 02/19/18 14:47 93 Nasal Cannula 4.00 02/19/18 12:03 91 Nasal Cannula 3.00 02/19/18 12:00 97.4 100 22 168/76 (106) 98 Nasal Cannula 3.00 02/19/18 10:40 98.4 98 18 118/64 (82) 95 Nasal Cannula 3.00 02/19/18 09:29 18 02/19/18 08:10 Nasal Cannula 4.00 02/19/18 06:56 98 Nasal Cannula 3.00 I & O 02/20/18 07:00 Intake Total 1350 ml Output Total 2800 ml Balance -1450 ml Height & Weight Height: 5'2.00" Weight: 108lbs. 8.0oz. 49.069045un; 19.8 BMI Method:Stated General Appearance: No Apparent Distress HEENT: Normal ENT Inspection Neck: Supple Respiratory: Crackles, Decreased Breath Sounds Cardiovascular: Regular Rate, Rhythm Gastrointestinal: normal bowel sounds, non tender, soft Extremity: Non Tender, No Calf Tenderness, No Pedal Edema Neurologic/Psychiatric: Alert, Oriented x3 Skin: Warm/Dry, Ecchymosis, Pallor Results Lab Laboratory Tests 02/18/18 18:20 02/20/18 04:25 Assessment/Plan Assessment/Plan Pneumonia with hx of ESBL -Woody cultures pending -s/p bronchoscopy - vanco and Merrem. D/c Rocephin Lung nodule -Will need out patient f/u -Pt has refused work up in the past COPDAE -Oxygen -RICHARD Martini DO Feb 20, 2018 06:11
[2018-02-20 08:00] VITALS: BP 98/64
[2018-02-20] MEDS: AZITHROMYCIN 250 MG TAB (ZITHROMAX) PO SCH (08:23)
[2018-02-20] MEDS: CLOPIDOGREL 75 MG (PLAVIX) TABLET PO SCH (08:23)
--- NOTE | 2018-02-20 09:01 | Physical Therapy Daily Note ---
PT Daily Note-Current Subjective Patient is currently on Vapotherm and agrees to bed exercises only. Pain Numeric Pain Scale: 0-No Pain Location: No Pain Reported Mental Status Patient Orientation: Normal For Age Attachments: Oxygen (vapotherm), [place] Catheter Transfers Functional [place] Measure 0=Not Assessed/NA 4=Minimal Assistance 1=Total Assistance 5=Supervision or Setup 2=Maximal Assistance 6=Modified [place] 3=Moderate Assistance 7=Complete IndependenceIRFPAI Quality Coding Scale 6 Independent with activity with or without an assistive device 5 Patient requires set up or clean up by helper. Patient completes activity by themselves 4 Supervision or touching assist (CGA). [place] provide cues , steadying assist 3 The helper provides less than half the effort to complete the activity 2 The helper provides more than half the effort to complete the activity 1 Dependent. The helper does all the effort to complete an activity 7 Patient refused to complete or attempt activity 9 The patient did not perform the activity before the current illness or injury 88 Not attempted due to Medical conditions or safety concerns Exercises Supine Ex: Ankle pumps, Quad Set, Heel Slides, Straight leg raise, Hip abd/add Supine Reps: 10 Assessment Patient requires recovery periods due to SOA with minimal activity. PT to increase activity as tolerated by patient. PT Short Term Goals Short Term Goals Time Frame: Feb 26, 2018 Transfers (B,C,W/C) (FIM): 6 Gait (FIM): 2 Gait Distance Comment: 50' Gait Level of Assist: 5 Gait Assistive Device: FWW PT Plan Treatment/Plan Treatment Plan: Continue Plan of Care Treatment Plan: Bed Mobility, Education, Functional Activity Stefanie, Functional Strength, Gait, Safety, Therapeutic Exercise, Transfers Treatment Duration: Feb 26, 2018 Frequency: 6 times per week Estimated Hrs Per Day: .25 hour per day (15-30') Patient and/or Family Agrees t: Yes Time/GCodes Time In: 841 Time Out: 852 Total Billed Treatment Time: 11 Total Billed Treatment 1 visit EX 11 min HARLEEN BRAVO PT Feb 20, 2018 09:01
[2018-02-20] MEDS ORDERED: VANCOMYCIN 750 MG/NS 250 ML IVPB IV SCH ×2 (10:00)
--- NOTE | 2018-02-20 11:24 | Progress Note-Hospitalist ---
Subjective HPI/CC On Admission Date Seen by Provider: Feb 20, 2018 Time Seen by Provider: 11:00 Subjective/Events-last exam Patient had respiratory distress last night and no on Vapotherm Xanax available No pain is reported Overall very poor prognosis DNR reasonable Conferred with [place] Reviewed Dr Mcgarry note Review of Systems General: Fatigue Pulmonary: Dyspnea, Cough Objective Exam Vital Signs Vital Signs Date Time Temp Pulse Resp B/P (MAP) Pulse Ox O2 Delivery O2 Flow Rate FiO2 02/20/18 10:51 95 Vapotherm 25.00 32 02/20/18 08:00 97.8 83 22 98/64 (75) Capillary Refill : General Appearance: WD/WN, Chronically ill, Moderate Distress (due to dyspnea on vapotherm), Thin Respiratory: Chest Non Tender, No Accessory Muscle Use, No Respiratory Distress , Crackles, Decreased Breath Sounds Cardiovascular: Regular Rate, Rhythm, No Edema, No Gallop, No JVD, No Murmur, Normal Peripheral Pulses Neurologic/Psychiatric: Alert, Oriented x3, No Motor/Sensory Deficits, Normal Mood/Affect Skin: Normal Color, Warm/Dry Results/Procedures Lab Laboratory Tests 02/20/18 04:25 Patient resulted labs reviewed. Assessment/Plan Assessment and Plan Assess & Plan/Chief Complaint Assessment: Pneumonia on meropenem, thank, Zithromax Acute exacerbation of COPD Lung nodule Anxiety when short of breath Plan: Home meds Xanax IV steroids IV antibiotics When necessary meds Diagnosis/Problems Diagnosis/Problems (1) Respiratory distress Status: Acute (2) Pneumonia Status: Acute Qualifiers: Pneumonia type: due to unspecified organism Laterality: unspecified laterality Lung location: unspecified part of lung Qualified Codes: J18.9 - Pneumonia, unspecified organism (3) Lung nodule Status: Acute (4) Anxiety Status: Acute (5) Hypoxia Status: Acute (6) COPD with acute exacerbation Status: Acute Clinical Quality Measures DVT/VTE Risk/Contraindication: Risk Factor Score Per Nursin RFS Level Per Nursing on Admit: 4+=Very High ALAN MEEK DO Feb 20, 2018 11:23
[2018-02-20] MEDS ORDERED: CALCIUM CARBONATE 500 MG (TUMS) TAB.CHEW PO PRN (11:30)
[2018-02-20] MEDS ORDERED: RT-ALBUTEROL/IPRATROPIUM 3 ML (DUONEB) VIAL IH PRN (11:30)
[2018-02-20] MEDS ORDERED: ONDANSETRON 4 MG/2 ML (SDV) Z0FRAN IVP PRN (11:30)
[2018-02-20] MEDS ORDERED: ACETAMINOPHEN 500 MG TAB (TYLENOL) PO PRN (11:30)
[2018-02-20 12:00] VITALS: BP 116/56
--- NOTE | 2018-02-20 12:14 | Occupational Ther Daily Note ---
OT Current Status-Daily Note Subjective Pt. reports pain "all over." Does not report pain level. Nursing notified. Appearance Pt. in bed. Pt. on vapotherm. Agrees to bilateral UE exercises for strengthening. Mental Status/Objective Patient Orientation: Person, Place Functional [place] Measure 0=Not Assessed/NA 4=Minimal Assistance 1=Total Assistance 5=Supervision or Setup 2=Maximal Assistance 6=Modified [place] 3=Moderate Assistance 7=Complete [place] Other Treatment Pt. completes 4 bilateral UE exercises x 15 reps in all planes for UE ROM and strengthening. Pt. requires frequent rest breaks. OT offers to assist pt. to sit on side of bed. Pt. states, "I don't feel like that right now." All needs are met in room. Education OT Patient Education: Correct positioning, Exercise program, Progress toward Goal/Update tx plan, Purpose of tx/functional activities, Reviewed precautions, Rehab process Teaching Recipient: Patient Teaching Methods: Demonstration, Discussion Response to Teaching: Verbalize Understanding, Return Demonstration OT Short Term Goals Short Term Goals Transfers (B,C,W/C) (FIM): 6 1=Demonstrate adherence to instructed precautions during ADL tasks. 2=Patient will verbalize/demonstrate understanding of assistive devices/ modifications for ADL. 3=Patient will improve strength/tolerance for activity to enable patient to perform ADL's. OT Phlebotomy Director Goals Phlebotomy Director Goals Time Frame: Feb 28, 2018 Eating (FIM): 6 Grooming(FIM): 6 Upper Body Dressing(FIM): 6 Lower Body Dressing(FIM): 5 Toileting(FIM): 6 Toilet/Commode Transfer(FIM): 6 Additional Goals: 1-Demonstrate ADL Tasks, 2-Verbalize Understanding, 3- ImproveStrength/Stefanie 1=Demonstrate adherence to instructed precautions during ADL tasks. 2=Patient will verbalize/demonstrate understanding of assistive devices/ modifications for ADL. 3=Patient will improve strength/tolerance for activity to enable patient to perform ADL's. OT Education/Plan Problem List/Assessment Assessment: Decreased Activ Tolerance, Decreased UE Strength, Dependent Transfers, Impaired Bed Mobility, Impaired I ADL's, Impaired Self-Care Skills Pt to benefit from skilled OT intervention for ADL training, transfers, strengthening, and energy conservation education to increase functional independence and allow safe discharge. Discharge Recommendations Plan/Recommendations: Continue POC Therapy D/C Recommendations: 24 hr Supervision Treatment Plan/Plan of Care Treatment,Training & Education: Yes Patient would benefit from OT for education, treatment and training to promote independence in ADL's, mobility, safety and/or upper extremity function for ADL' s. Plan of Care: ADL Retraining, Functional Mobility, UE Funct Exercise/Act Treatment Duration: Feb 28, 2018 Frequency: 5 times per week Estimated Hrs Per Day: .25 hour per day Rehab Potential: Guarded Time/GCodes Start Time: 11:30 Stop Time: 11:45 Total Time Billed (hr/min): 15 Billed Treatment Time 1, Ex PIERO SALGADO OT Feb 20, 2018 12:14
--- NOTE | 2018-02-20 13:34 | Diagnostic Imaging Report ---
INDICATION: Hypoxia. TECHNIQUE: Single view chest at 7:16 AM. CORRELATION STUDY: 02/19/2018 FINDINGS: Heart size and mediastinum are stable with calcification of the aortic arch. The vasculature is improved and appears overall less congested. Interstitial prominence also appears slightly diminished. Small effusions. Parenchymal density in the right lung inseparable from the diaphragm, stable. Small nodular density right lung apex, stable. No appreciable pneumothorax. IMPRESSION: 1. Overall, there appears to be less congestion in the chest as compared to the prior study. Some congestive changes do remain. Small effusions. 2. Small nodular density in the right lung apex as well as a parenchymal density in the right lung base, stable. Dictated by: Dictated on workstation # [id number]
[2018-02-20] MEDS: HYDROcodone/APAP 5 MG/325 MG (LORTAB) TAB PO PRN ×2 (14:05→20:55)
[2018-02-20 16:10] VITALS: BP 136/60
[2018-02-20] MEDS: BETHANECHOL 25 MG (URECHOLINE) TAB PO SCH ×2 (16:27→20:50)
[2018-02-20] MEDS: RT-ADVAIR HFA 115/21 MCG PER PUFF IH SCH (18:53)
[2018-02-20 20:05] VITALS: BP 101/58
[2018-02-20] MEDS: DULoxetine 30 MG (CYMBALTA) CAP PO SCH (20:50)
[2018-02-20] MEDS: meTOprolol TARTRATE 25 MG (LOPRESSOR) TABLET PO SCH (20:50)
[2018-02-21 00:16] VITALS: BP 124/58
[2018-02-21] MEDS: methylPREDNISolone 40 MG/ML (Solu-MEDROL) VIAL IV SCH ×5 (00:46→23:34)
[2018-02-21] MEDS: MEROPENEM 500 MG in NS (IVPB) 50 ML IV SCH ×3 (00:46→17:53)
[2018-02-21] MEDS: RT-ALBUTEROL/IPRATROPIUM 3 ML (DUONEB) VIAL INH SCH ×6 (02:44→22:01)
[2018-02-21 04:05] VITALS: BP 110/54
[2018-02-21 05:59] LABS: BASOPHILS % (AUTO) 0 % (0-10); EOSINOPHILS % (AUTO) 0 % (0-10); HEMATOCRIT 31 % (35-52); HEMOGLOBIN 10.2 G/DL (11.5-16.0); LYMPHOCYTES # (AUTO) 0.4 X 10^3 (1.0-4.0); LYMPHOCYTES % (AUTO) 3 % (12-44); MEAN CORPUSCULAR HEMOGLOBIN 30 PG (25-34); MEAN CORPUSCULAR HGB CONC 33 G/DL (32-36); MEAN CORPUSCULAR VOLUME 92 FL (80-99); MEAN PLATELET VOLUME 10.9 FL (7.4-10.4); MONOCYTES # (AUTO) 0.6 X 10^3 (0.0-1.0); MONOCYTES % (AUTO) 4 % (0-12); NEUTROPHILS # (AUTO) 12.7 X 10^3 (1.8-7.8); NEUTROPHILS % (AUTO) 93 % (42-75); PLATELET COUNT 235 10^3/uL (130-400); RED BLOOD COUNT 3.42 10^6/uL (4.35-5.85); RED CELL DISTRIBUTION WIDTH 14.6 % (10.0-14.5); WHITE BLOOD COUNT 13.8 10^3/uL (4.3-11.0)
[2018-02-21 06:28] LABS: ALANINE AMINOTRANSFERASE 15 U/L (0-55); ALBUMIN 3.4 GM/DL (3.2-4.5); ALKALINE PHOSPHATASE 57 U/L (40-136); BILIRUBIN,TOTAL 0.2 MG/DL (0.1-1.0); BUN/CREATININE RATIO 25; CALCIUM 8.6 MG/DL (8.5-10.1); CARBON DIOXIDE 21 MMOL/L (21-32); CHLORIDE 104 MMOL/L (98-107); CREATININE SERUM 0.67 MG/DL (0.60-1.30); GFR ESTIMATED > 60; GLUCOSE 126 MG/DL (70-105); POTASSIUM 4.5 MMOL/L (3.6-5.0); SODIUM 140 MMOL/L (135-145); TOTAL PROTEIN 6.5 GM/DL (6.4-8.2)
[2018-02-21] MEDS: CATHETER FLUSH 10 ML SYR IV SCH ×3 (06:33→21:38)
[2018-02-21] MEDS: PANTOPRAZOLE 40 MG (PROTONIX) TAB PO SCH (06:33)
[2018-02-21] MEDS: BETHANECHOL 25 MG (URECHOLINE) TAB PO SCH ×4 (06:33→21:38)
[2018-02-21] MEDS: LEVOTHYROXINE 50 MCG (LEVOTHROID) TAB PO SCH (06:33)
[2018-02-21] MEDS: RT-ADVAIR HFA 115/21 MCG PER PUFF IH SCH ×2 (07:09→19:19)
[2018-02-21 08:29] VITALS: BP 135/78
[2018-02-21] MEDS ORDERED: LEVOTHYROXINE 50 MCG (LEVOTHROID) TAB PO SCH (09:00)
[2018-02-21] MEDS ORDERED: CLOPIDOGREL 75 MG (PLAVIX) TABLET PO SCH (09:00)
[2018-02-21] MEDS ORDERED: TROUGH ORDER-PHARMACY XX NR (09:00)
[2018-02-21] MEDS: AZITHROMYCIN 250 MG TAB (ZITHROMAX) PO SCH (10:30)
[2018-02-21] MEDS: CLOPIDOGREL 75 MG (PLAVIX) TABLET PO SCH (10:30)
[2018-02-21] MEDS: FERROUS SULF 325 MG (IRON) TAB PO SCH (10:30)
[2018-02-21] MEDS: meTOprolol TARTRATE 25 MG (LOPRESSOR) TABLET PO SCH ×2 (10:31→21:38)
[2018-02-21] MEDS: ASPIRIN E.C. 81 MG (ECOTRIN) TAB PO SCH (10:31)
[2018-02-21] MEDS: VANCOMYCIN 750 MG/NS 250 ML IVPB IV SCH ×4 (10:32→21:39)
--- NOTE | 2018-02-21 11:03 | Physical Therapy Daily Note ---
PT Daily Note-Current Subjective Pt states she would like to get up out of bed for a little bit but doesn't feel that she can handle staying up so agreeable to walk to the window and get back to bed Pain Numeric Pain Scale: 0-No Pain Comment: only when she coughs and states she has informed nsg Appearance Pt supine in bed resting and praying upon arrival At end of session, pt supine in bed with all needs met, call button phone and bedside table within reach Mental Status Attachments: SCD's, Oxygen, Drains, Moreau Catheter, Other-See Comments, IV vapotherm Transfers Functional [place] Measure 0=Not Assessed/NA 4=Minimal Assistance 1=Total Assistance 5=Supervision or Setup 2=Maximal Assistance 6=Modified [place] 3=Moderate Assistance 7=Complete IndependenceIRFPAI Quality Coding Scale 6 Independent with activity with or without an assistive device 5 Patient requires set up or clean up by helper. Patient completes activity by themselves 4 Supervision or touching assist (CGA). [place] provide cues , steadying assist 3 The helper provides less than half the effort to complete the activity 2 The helper provides more than half the effort to complete the activity 1 Dependent. The helper does all the effort to complete an activity 7 Patient refused to complete or attempt activity 9 The patient did not perform the activity before the current illness or injury 88 Not attempted due to Medical conditions or safety concerns Transfers (B, C, W/C) (FIM): 4 Scootin Rollin Supine to/from Sit: 4 Sit to/from Stand: 6 requiring min assist sidelying to sit Weight Bearing Right Lower Extremity: Right Weight Bearing/Tolerated Left Lower Extremity: Left Weight Bearing/Tolerated Gait Training Distance (FIM): 1=up to 49 ft Distance: 20 Gait Level of Assist: 5 Gait Persons Needed: 1 Gait Assistive Device: FWW slow with c/o slight dizziness, increased SOA and fatigue Exercises Reviewed and pt briefly demonstrated LE exercises Treatments gait, transfer training, review of HEP Assessment Current Status: Fair Progress Pt willing to participate with PT but is extremely limitted due to SOA and quick fatigue PT Short Term Goals Short Term Goals Time Frame: Feb 26, 2018 Transfers (B,C,W/C) (FIM): 6 Gait (FIM): 2 Gait Distance Comment: 50' Gait Level of Assist: 5 Gait Assistive Device: FWW PT Plan Problem List Problem List: Activity Tolerance, Functional Strength, Gait, Transfer Treatment/Plan Treatment Plan: Continue Plan of Care Treatment Plan: Bed Mobility, Education, Functional Activity Stefanie, Functional Strength, Gait, Safety, Therapeutic Exercise, Transfers Treatment Duration: Feb 26, 2018 Frequency: 6 times per week Estimated Hrs Per Day: .25 hour per day (15-30') Patient and/or Family Agrees t: Yes Safety Risks/Education Patient Education: Transfer Techniques, Safety Issues Teaching Recipient: Patient Teaching Methods: Discussion Response to Teaching: Verbalize Understanding, Return Demonstration Time/GCodes Time In: 1038 Time Out: 1105 Total Billed Treatment Time: 25 Total Billed Treatment 1 Visit FA x1 GT x1 MERVAT RAMIREZ SUPPLIER DEVELOPMENT MANAGER Feb 21, 2018 11:03
[2018-02-21 11:38] VITALS: BP 128/62
--- NOTE | 2018-02-21 11:58 | Progress Note-Hospitalist ---
Subjective HPI/CC On Admission Date Seen by Provider: Feb 21, 2018 Time Seen by Provider: 11:00 Subjective/Events-last exam Patient doing about the same Cough is nonproductive Anxiety is improved No bowel movement for a few days and I did order a Colace Checked meds and labs Review of Systems Pulmonary: Dyspnea Objective Exam Vital Signs Vital Signs Date Time Temp Pulse Resp B/P (MAP) Pulse Ox O2 Delivery O2 Flow Rate FiO2 02/21/18 11:38 97.9 79 20 128/62 (84) 96 Vapotherm 32.00 18.00 02/21/18 11:28 30 Capillary Refill : General Appearance: No Apparent Distress, WD/WN, Chronically ill, Thin Respiratory: Chest Non Tender, Lungs Clear, Normal Breath Sounds, No Accessory Muscle Use, No Respiratory Distress, Decreased Breath Sounds Cardiovascular: Regular Rate, Rhythm, No Edema, No Gallop, No JVD, No Murmur, Normal Peripheral Pulses Neurologic/Psychiatric: Alert, Oriented x3, No Motor/Sensory Deficits, Normal Mood/Affect Skin: Normal Color, Warm/Dry Results/Procedures Lab Laboratory Tests 02/21/18 05:36 Patient resulted labs reviewed. Assessment/Plan Assessment and Plan Assess & Plan/Chief Complaint Assessment: Pneumonia on meropenem, Vanc, Zithromax Acute exacerbation of COPD Lung nodule Anxiety when short of breath Plan: Home meds Xanax IV steroids IV antibiotics When necessary meds Colace Diagnosis/Problems Diagnosis/Problems (1) Respiratory distress Status: Acute (2) Pneumonia Status: Acute Qualifiers: Pneumonia type: due to unspecified organism Laterality: unspecified laterality Lung location: unspecified part of lung Qualified Codes: J18.9 - Pneumonia, unspecified organism (3) Lung nodule Status: Acute (4) Anxiety Status: Acute (5) Hypoxia Status: Acute (6) COPD with acute exacerbation Status: Acute Clinical Quality Measures DVT/VTE Risk/Contraindication: Risk Factor Score Per Nursin RFS Level Per Nursing on Admit: 4+=Very High ALAN MEEK DO Feb 21, 2018 11:58
--- NOTE | 2018-02-21 13:21 | Occupational Ther Daily Note ---
OT Current Status-Daily Note Subjective Pt seen in room, up in bed, agreeable to OT. No pain mentioned. Appearance Alert, cooperative Mental Status/Objective Functional [place] Measure 0=Not Assessed/NA 4=Minimal Assistance 1=Total Assistance 5=Supervision or Setup 2=Maximal Assistance 6=Modified [place] 3=Moderate Assistance 7=Complete [place] Other Treatment Pt completed 15 reps 4 different bilat UE exercises with red theraband (medium resistance). She recalled them from exercises that she said that she does at home. To strengthen arms to help with transfers and ADLs. Pt "homework" to do them over the weekend, with her agreement. Pt left up in bed, O2 in place, all needs met. Education OT Patient Education: Home exercise program, Purpose of tx/functional activities Teaching Recipient: Patient Teaching Methods: Discussion Response to Teaching: Verbalize Understanding, Return Demonstration OT Short Term Goals Short Term Goals Transfers (B,C,W/C) (FIM): 6 1=Demonstrate adherence to instructed precautions during ADL tasks. 2=Patient will verbalize/demonstrate understanding of assistive devices/ modifications for ADL. 3=Patient will improve strength/tolerance for activity to enable patient to perform ADL's. OT Custodial Goals Custodial Goals Time Frame: Feb 28, 2018 Eating (FIM): 6 Grooming(FIM): 6 Upper Body Dressing(FIM): 6 Lower Body Dressing(FIM): 5 Toileting(FIM): 6 Toilet/Commode Transfer(FIM): 6 Additional Goals: 1-Demonstrate ADL Tasks, 2-Verbalize Understanding, 3- ImproveStrength/Stefanie 1=Demonstrate adherence to instructed precautions during ADL tasks. 2=Patient will verbalize/demonstrate understanding of assistive devices/ modifications for ADL. 3=Patient will improve strength/tolerance for activity to enable patient to perform ADL's. OT Education/Plan Problem List/Assessment Pt to benefit from skilled OT intervention for ADL training, transfers, strengthening, and energy conservation education to increase functional independence and allow safe discharge. Discharge Recommendations Plan/Recommendations: Continue POC Treatment Plan/Plan of Care Patient would benefit from OT for education, treatment and training to promote independence in ADL's, mobility, safety and/or upper extremity function for ADL' s. Plan of Care: ADL Retraining, Functional Mobility, UE Funct Exercise/Act Treatment Duration: Feb 28, 2018 Frequency: 5 times per week Estimated Hrs Per Day: .25 hour per day Rehab Potential: Guarded Time/GCodes Start Time: 12:40 Stop Time: 12:57 Total Time Billed (hr/min): 17 Billed Treatment Time visit, 17 minutes exercise SORAYA BRAMBILA OT Feb 21, 2018 13:21
[2018-02-21] MEDS: HYDROcodone/APAP 5 MG/325 MG (LORTAB) TAB PO PRN ×2 (15:12→21:38)
[2018-02-21 16:47] VITALS: BP 98/57
[2018-02-21] MEDS: FLUCONAZOLE 200 MG/100 ML 50 ML, EMPTY IV BAG (PVC) 1 EA IV SCH ×2 (17:50)
[2018-02-21 20:00] VITALS: BP 127/58
[2018-02-21] MEDS: DULoxetine 30 MG (CYMBALTA) CAP PO SCH (21:36)
[2018-02-21] MEDS: DOCUSATE SODIUM 100 MG (COLACE) CAP PO PRN (21:37)
[2018-02-21] MEDS: ALPRAZolam 0.25 MG (XANAX) TAB PO PRN (23:33)
[2018-02-22 00:13] VITALS: BP 139/58
[2018-02-22] MEDS: MEROPENEM 500 MG in NS (IVPB) 50 ML IV SCH ×3 (01:05→16:58)
[2018-02-22] MEDS: RT-ALBUTEROL/IPRATROPIUM 3 ML (DUONEB) VIAL INH SCH ×6 (02:07→22:37)
[2018-02-22 04:27] VITALS: BP 144/73
[2018-02-22] MEDS: CATHETER FLUSH 10 ML SYR IV SCH ×3 (06:21→22:09)
[2018-02-22] MEDS: BETHANECHOL 25 MG (URECHOLINE) TAB PO SCH ×4 (06:22→22:07)
[2018-02-22] MEDS: LEVOTHYROXINE 50 MCG (LEVOTHROID) TAB PO SCH (06:22)
[2018-02-22] MEDS: methylPREDNISolone 40 MG/ML (Solu-MEDROL) VIAL IV SCH ×3 (06:22→17:00)
[2018-02-22] MEDS: PANTOPRAZOLE 40 MG (PROTONIX) TAB PO SCH (06:22)
[2018-02-22] MEDS: RT-ADVAIR HFA 115/21 MCG PER PUFF IH SCH ×2 (07:15→18:48)
[2018-02-22 08:00] VITALS: BP 181/85
[2018-02-22] MEDS: FLUCONAZOLE 200 MG/100 ML 50 ML, EMPTY IV BAG (PVC) 1 EA IV SCH ×2 (08:50)
[2018-02-22] MEDS: AZITHROMYCIN 250 MG TAB (ZITHROMAX) PO SCH (08:51)
[2018-02-22] MEDS: DOCUSATE SODIUM 100 MG (COLACE) CAP PO PRN (08:51)
[2018-02-22] MEDS: FERROUS SULF 325 MG (IRON) TAB PO SCH (08:51)
[2018-02-22] MEDS: ASPIRIN E.C. 81 MG (ECOTRIN) TAB PO SCH (08:51)
[2018-02-22] MEDS: CLOPIDOGREL 75 MG (PLAVIX) TABLET PO SCH (08:51)
[2018-02-22] MEDS: meTOprolol TARTRATE 25 MG (LOPRESSOR) TABLET PO SCH ×2 (08:52→22:08)
[2018-02-22] MEDS: VANCOMYCIN 750 MG/NS 250 ML IVPB IV SCH ×4 (09:54→22:09)
--- NOTE | 2018-02-22 10:36 | Physical Therapy Progress Note ---
Therapy Progress Note Pt in bed, declined PT this date. States "I am having a hard time breathing and don't think I could do it today." Pt does report she has been doing UE theraband exercises in bed as tolerated. Will resume PT on 02/24/18 JOSE HERNANDEZ DPT Feb 22, 2018 10:36
[2018-02-22 12:00] VITALS: BP 124/73
--- NOTE | 2018-02-22 12:12 | Pulmonary Progress Note ---
Sepsis Event Evaluation Height, Weight, BMI Height: 5'2.00" Weight: 112lbs. 3.0oz. 50.399730hp; 19.8 BMI Method:Stated Exam Exam Vital Signs Date Time Temp Pulse Resp B/P (MAP) Pulse Ox O2 Delivery O2 Flow Rate FiO2 02/22/18 10:29 92 Vapotherm 12.00 32 02/22/18 08:00 98.0 116 20 181/85 (117) 96 Vapotherm 32.00 25.00 02/22/18 07:15 93 Vapotherm 12.00 32 02/22/18 04:27 97.4 93 20 144/73 (96) 94 Vapotherm 32.00 12.00 02/22/18 02:07 94 Vapotherm 12.00 32 02/22/18 00:13 98.0 84 20 139/58 (85) 94 Vapotherm 32.00 12.00 02/21/18 22:01 95 Vapotherm 12.00 32 02/21/18 20:00 Vapotherm 12.00 30 02/21/18 20:00 97.8 91 18 127/58 (81) 94 Vapotherm 32.00 25.00 02/21/18 19:27 100 Vapotherm 12.00 30 02/21/18 19:19 94 Vapotherm 15.00 30 02/21/18 16:47 98.6 76 18 98/57 (71) 94 Vapotherm 32.00 18.00 02/21/18 15:10 95 Vapotherm 15.00 30 I & O 02/22/18 07:00 Intake Total 1570 ml Output Total 975 ml Balance 595 ml Height & Weight Height: 5'2.00" Weight: 112lbs. 3.0oz. 50.237305pq; 19.8 BMI Method:Stated General Appearance: No Apparent Distress, WD/WN, Chronically ill, Thin HEENT: Normal ENT Inspection Neck: Supple Respiratory: Chest Non Tender, Lungs Clear, Normal Breath Sounds, No Accessory Muscle Use, No Respiratory Distress, Decreased Breath Sounds Cardiovascular: Regular Rate, Rhythm, No Edema, No Gallop, No JVD, No Murmur, Normal Peripheral Pulses Gastrointestinal: normal bowel sounds, non tender, soft Extremity: Non Tender, No Calf Tenderness, No Pedal Edema Neurologic/Psychiatric: Alert, Oriented x3, No Motor/Sensory Deficits, Normal Mood/Affect Skin: Normal Color, Warm/Dry Results Lab Laboratory Tests 02/21/18 05:36 Assessment/Plan Assessment/Plan Pneumonia with hx of ESBL -Woody cultures pending -s/p bronchoscopy - Continue vanco and Merrem. Lung nodule -Will need out patient f/u -Pt has refused work up in the past COPDAE -Oxygen -RICHARD Martini DO Feb 22, 2018 12:12
[2018-02-22] MEDS: ALPRAZolam 0.25 MG (XANAX) TAB PO PRN (12:13)
--- NOTE | 2018-02-22 12:50 | Diagnostic Imaging Report ---
Indication: Shortness of breath. Comparison: Made with the prior study from the 02/20/2018. Findings: Chronic interstitial changes within the lungs demonstrate no interval change. Some irregular parenchymal distortion above of the right diaphragm is stable. Irregular spiculated density within the right upper lobe also demonstrates no appreciable interval change. Stable blunting of the costophrenic angles. No large effusion. There is no pneumothorax. The heart size is stable. Prior operative changes involving the cervical spine. Impression: 1. Severe background features of interstitial lung disease with chronic blunting of the costophrenic angles and scarring and distortion above the right diaphragm. Spiculated nonspecific density within the right upper lobe is unchanged. This does not appear significantly changed compared to prior CT from October of 2017. Neoplasm remains a consideration at this time and ongoing followup will be required. No new acute cardiopulmonary process demonstrated. Dictated by: Dictated on workstation # [id number]
--- NOTE | 2018-02-22 12:58 | Progress Note-Hospitalist ---
Subjective HPI/CC On Admission Date Seen by Provider: Feb 22, 2018 Time Seen by Provider: 11:30 Subjective/Events-last exam Patient about the same Wishes the Vaoptherm could be turned up so I talked to Dr Mcgarry and he will see her Diflucan will be maintained IV Poor prognosis Checked meds and labs No BM yet Review of Systems Pulmonary: Dyspnea Gastrointestinal: Constipation Objective Exam Vital Signs Vital Signs Date Time Temp Pulse Resp B/P (MAP) Pulse Ox O2 Delivery O2 Flow Rate FiO2 02/22/18 10:29 92 Vapotherm 12.00 32 02/22/18 08:00 98.0 116 20 181/85 (117) Capillary Refill : Less Than 3 Seconds General Appearance: No Apparent Distress, WD/WN, Chronically ill, Thin Respiratory: Chest Non Tender, Lungs Clear, Normal Breath Sounds, No Accessory Muscle Use, No Respiratory Distress Cardiovascular: Regular Rate, Rhythm, No Edema, No Gallop, No JVD, No Murmur, Normal Peripheral Pulses Neurologic/Psychiatric: Alert, Oriented x3, No Motor/Sensory Deficits, Normal Mood/Affect Results/Procedures Lab Patient resulted labs reviewed. Assessment/Plan Assessment and Plan Assess & Plan/Chief Complaint Assessment: Pneumonia on Meropenem, Vanc, Zithromax Acute exacerbation of COPD Lung nodule Anxiety when short of breath Constipation Yeast bronchitis Plan: Home meds Xanax IV steroids IV antibiotics When necessary meds Colace with Senna and Miralax Poor prognosis Diagnosis/Problems Diagnosis/Problems (1) Respiratory distress Status: Acute (2) Pneumonia Status: Acute Qualifiers: Pneumonia type: due to unspecified organism Laterality: unspecified laterality Lung location: unspecified part of lung Qualified Codes: J18.9 - Pneumonia, unspecified organism (3) Lung nodule Status: Acute (4) Anxiety Status: Acute (5) Hypoxia Status: Acute (6) COPD with acute exacerbation Status: Acute (7) Constipation Status: Acute Qualifiers: Constipation type: slow transit constipation Qualified Codes: K59.01 - Slow transit constipation (8) Fungal infection of lung Status: Acute Clinical Quality Measures DVT/VTE Risk/Contraindication: Risk Factor Score Per Nursin RFS Level Per Nursing on Admit: 4+=Very High ALAN MEEK DO Feb 22, 2018 12:58
[2018-02-22] MEDS: POLYETHYLENE GLYCOL 17 GM (MIRALAX) PACK PO SCH ×2 (14:39→22:08)
[2018-02-22] MEDS: SENNA W/DOCUSATE (SENOKOT S) TABLET PO SCH ×2 (14:40→22:07)
[2018-02-22 16:00] VITALS: BP 126/77
[2018-02-22] MEDS: DULoxetine 30 MG (CYMBALTA) CAP PO SCH (22:07)
[2018-02-22 23:48] VITALS: BP 126/66
[2018-02-23] MEDS: methylPREDNISolone 40 MG/ML (Solu-MEDROL) VIAL IV SCH ×4 (00:59→18:19)
[2018-02-23] MEDS: MEROPENEM 500 MG in NS (IVPB) 50 ML IV SCH ×3 (00:59→18:19)
[2018-02-23] MEDS: RT-ALBUTEROL/IPRATROPIUM 3 ML (DUONEB) VIAL INH SCH ×6 (02:39→22:38)
[2018-02-23 05:35] LABS: BASOPHILS % (AUTO) 0 % (0-10); EOSINOPHILS % (AUTO) 0 % (0-10); HEMATOCRIT 30 % (35-52); HEMOGLOBIN 9.7 G/DL (11.5-16.0); LYMPHOCYTES # (AUTO) 0.4 X 10^3 (1.0-4.0); LYMPHOCYTES % (AUTO) 5 % (12-44); MEAN CORPUSCULAR HEMOGLOBIN 30 PG (25-34); MEAN CORPUSCULAR HGB CONC 32 G/DL (32-36); MEAN CORPUSCULAR VOLUME 93 FL (80-99); MEAN PLATELET VOLUME 9.9 FL (7.4-10.4); MONOCYTES # (AUTO) 0.8 X 10^3 (0.0-1.0); MONOCYTES % (AUTO) 9 % (0-12); NEUTROPHILS # (AUTO) 7.7 X 10^3 (1.8-7.8); NEUTROPHILS % (AUTO) 86 % (42-75); PLATELET COUNT 277 10^3/uL (130-400); RED BLOOD COUNT 3.25 10^6/uL (4.35-5.85); RED CELL DISTRIBUTION WIDTH 14.5 % (10.0-14.5); WHITE BLOOD COUNT 8.9 10^3/uL (4.3-11.0)
[2018-02-23] MEDS: CATHETER FLUSH 10 ML SYR IV SCH ×3 (05:37→22:57)
[2018-02-23 05:56] LABS: ALANINE AMINOTRANSFERASE 41 U/L (0-55); ALBUMIN 3.4 GM/DL (3.2-4.5); ALKALINE PHOSPHATASE 50 U/L (40-136); BILIRUBIN,TOTAL 0.3 MG/DL (0.1-1.0); BUN/CREATININE RATIO 27; CALCIUM 8.1 MG/DL (8.5-10.1); CARBON DIOXIDE 27 MMOL/L (21-32); CHLORIDE 102 MMOL/L (98-107); CREATININE SERUM 0.56 MG/DL (0.60-1.30); GFR ESTIMATED > 60; GLUCOSE 114 MG/DL (70-105); POTASSIUM 3.5 MMOL/L (3.6-5.0); SODIUM 141 MMOL/L (135-145); TOTAL PROTEIN 5.8 GM/DL (6.4-8.2)
[2018-02-23] MEDS: LEVOTHYROXINE 50 MCG (LEVOTHROID) TAB PO SCH (06:09)
[2018-02-23] MEDS: PANTOPRAZOLE 40 MG (PROTONIX) TAB PO SCH (06:09)
[2018-02-23] MEDS: BETHANECHOL 25 MG (URECHOLINE) TAB PO SCH ×4 (06:09→21:41)
[2018-02-23] MEDS: RT-ADVAIR HFA 115/21 MCG PER PUFF IH SCH ×2 (06:19→19:13)
[2018-02-23] MEDS ORDERED: KCL 10 MEQ TAB (MICRO K) PO NR (07:36)
[2018-02-23 08:00] VITALS: BP 184/94
[2018-02-23] MEDS ORDERED: TROUGH ORDER-PHARMACY XX ONE (08:00)
[2018-02-23] MEDS: FLUCONAZOLE 200 MG/100 ML 50 ML, EMPTY IV BAG (PVC) 1 EA IV SCH ×2 (08:49)
[2018-02-23] MEDS: FERROUS SULF 325 MG (IRON) TAB PO SCH (08:50)
[2018-02-23] MEDS: SENNA W/DOCUSATE (SENOKOT S) TABLET PO SCH ×2 (08:50→14:09)
[2018-02-23] MEDS: CLOPIDOGREL 75 MG (PLAVIX) TABLET PO SCH (08:51)
[2018-02-23] MEDS: meTOprolol TARTRATE 25 MG (LOPRESSOR) TABLET PO SCH ×2 (08:51→21:41)
[2018-02-23] MEDS: POLYETHYLENE GLYCOL 17 GM (MIRALAX) PACK PO SCH ×2 (08:52→14:09)
[2018-02-23] MEDS: ASPIRIN E.C. 81 MG (ECOTRIN) TAB PO SCH (08:52)
--- NOTE | 2018-02-23 12:02 | Progress Note-Hospitalist ---
Subjective HPI/CC On Admission Date Seen by Provider: Feb 23, 2018 Time Seen by Provider: 11:30 Subjective/Events-last exam Patient about the same Denies pain Dyspnea at the least bit of activity Bowel meds are given but + flatus but no production yet Review of Systems General: Fatigue Pulmonary: Dyspnea Gastrointestinal: Constipation Objective Exam Vital Signs Vital Signs Date Time Temp Pulse Resp B/P (MAP) Pulse Ox O2 Delivery O2 Flow Rate FiO2 02/23/18 14:08 95 Vapotherm 8.00 32 02/23/18 08:00 97.5 94 20 184/94 (124) Capillary Refill : Less Than 3 Seconds General Appearance: No Apparent Distress, WD/WN, Anxious, Chronically ill Respiratory: Chest Non Tender, No Accessory Muscle Use, No Respiratory Distress , Decreased Breath Sounds, Wheezing Cardiovascular: Regular Rate, Rhythm, No Edema, No Gallop, No JVD, No Murmur, Normal Peripheral Pulses Gastrointestinal: Normal Bowel Sounds, No Organomegaly, No Pulsatile Mass, Non Tender, Soft Neurologic/Psychiatric: Alert, Oriented x3, No Motor/Sensory Deficits, Normal Mood/Affect Results/Procedures Lab Laboratory Tests 02/23/18 05:25 Patient resulted labs reviewed. Assessment/Plan Assessment and Plan Assess & Plan/Chief Complaint Assessment: Pneumonia on Meropenem, Vanc, Zithromax Acute exacerbation of COPD Lung nodule Anxiety when short of breath Constipation Yeast bronchitis Plan: Home meds Xanax IV steroids IV antibiotics When necessary meds Colace with Senna and Miralax Poor prognosis Diagnosis/Problems Diagnosis/Problems (1) Respiratory distress Status: Acute (2) Pneumonia Status: Acute Qualifiers: Pneumonia type: due to unspecified organism Laterality: unspecified laterality Lung location: unspecified part of lung Qualified Codes: J18.9 - Pneumonia, unspecified organism (3) Lung nodule Status: Acute (4) Anxiety Status: Acute (5) Hypoxia Status: Acute (6) COPD with acute exacerbation Status: Acute (7) Constipation Status: Acute Qualifiers: Constipation type: slow transit constipation Qualified Codes: K59.01 - Slow transit constipation (8) Fungal infection of lung Status: Acute Clinical Quality Measures DVT/VTE Risk/Contraindication: Risk Factor Score Per Nursin RFS Level Per Nursing on Admit: 4+=Very High ALAN MEEK DO Feb 23, 2018 12:02
[2018-02-23] MEDS: VANCOMYCIN 750 MG/NS 250 ML IVPB IV SCH ×4 (12:12→22:58)
[2018-02-23 16:00] VITALS: BP 189/94
[2018-02-23] MEDS: ALPRAZolam 0.25 MG (XANAX) TAB PO PRN (21:40)
[2018-02-23] MEDS: DULoxetine 30 MG (CYMBALTA) CAP PO SCH (21:41)
[2018-02-24 00:07] VITALS: BP_SYST 135; BP_SYST 184; BP_DIAS 81; BP_DIAS 94
[2018-02-24] MEDS: methylPREDNISolone 40 MG/ML (Solu-MEDROL) VIAL IV SCH ×4 (00:26→17:38)
[2018-02-24] MEDS: MEROPENEM 500 MG in NS (IVPB) 50 ML IV SCH ×2 (01:34→08:46)
[2018-02-24] MEDS: RT-ALBUTEROL/IPRATROPIUM 3 ML (DUONEB) VIAL INH SCH ×5 (02:14→22:14)
[2018-02-24] MEDS: PANTOPRAZOLE 40 MG (PROTONIX) TAB PO SCH (06:44)
[2018-02-24] MEDS: BETHANECHOL 25 MG (URECHOLINE) TAB PO SCH ×4 (06:44→20:55)
[2018-02-24] MEDS: LEVOTHYROXINE 50 MCG (LEVOTHROID) TAB PO SCH (06:45)
[2018-02-24] MEDS: CATHETER FLUSH 10 ML SYR IV SCH ×3 (06:45→20:55)
[2018-02-24] MEDS: RT-ADVAIR HFA 115/21 MCG PER PUFF IH SCH ×3 (07:34→22:23)
[2018-02-24 08:04] VITALS: BP 124/72
[2018-02-24] MEDS: SENNA W/DOCUSATE (SENOKOT S) TABLET PO SCH (08:36)
[2018-02-24] MEDS: POLYETHYLENE GLYCOL 17 GM (MIRALAX) PACK PO SCH (08:36)
[2018-02-24] MEDS: FLUCONAZOLE 200 MG/100 ML 50 ML, EMPTY IV BAG (PVC) 1 EA IV SCH ×2 (08:42)
[2018-02-24] MEDS: FERROUS SULF 325 MG (IRON) TAB PO SCH (08:46)
[2018-02-24] MEDS: meTOprolol TARTRATE 25 MG (LOPRESSOR) TABLET PO SCH ×2 (08:47→20:55)
[2018-02-24] MEDS: CLOPIDOGREL 75 MG (PLAVIX) TABLET PO SCH (08:47)
[2018-02-24] MEDS: ASPIRIN E.C. 81 MG (ECOTRIN) TAB PO SCH (08:47)
--- NOTE | 2018-02-24 10:02 | Physical Therapy Daily Note ---
PT Daily Note-Current Subjective Pt awake in bed watching tv when PT arrived. Pt agreed to perform exercises for PT. Pain Numeric Pain Scale: 0-No Pain Location: No Pain Reported Mental Status Attachments: SCD's, IV Vapotherm Transfers Functional [place] Measure 0=Not Assessed/NA 4=Minimal Assistance 1=Total Assistance 5=Supervision or Setup 2=Maximal Assistance 6=Modified [place] 3=Moderate Assistance 7=Complete IndependenceIRFPAI Quality Coding Scale 6 Independent with activity with or without an assistive device 5 Patient requires set up or clean up by helper. Patient completes activity by themselves 4 Supervision or touching assist (CGA). [place] provide cues , steadying assist 3 The helper provides less than half the effort to complete the activity 2 The helper provides more than half the effort to complete the activity 1 Dependent. The helper does all the effort to complete an activity 7 Patient refused to complete or attempt activity 9 The patient did not perform the activity before the current illness or injury 88 Not attempted due to Medical conditions or safety concerns Weight Bearing Right Lower Extremity: Right Weight Bearing/Tolerated Left Lower Extremity: Left Weight Bearing/Tolerated Exercises Supine Ex: Ankle pumps, Quad Set, Heel Slides, Straight leg raise, Hip abd/add Supine Reps: 20 Assessment Pt stated she wanted to wait to transfer to bedside chair after she had taken her shower. Pt performed LE exercises in bed and was told to continue exercises on her own in the afternoon. Pt stated she does her exercises every morning when waking and every night before bed. PT Short Term Goals Short Term Goals Time Frame: Feb 26, 2018 Transfers (B,C,W/C) (FIM): 6 Gait (FIM): 2 Gait Distance Comment: 50' Gait Level of Assist: 5 Gait Assistive Device: FWW PT Plan Problem List Problem List: Activity Tolerance, Functional Strength, Balance, Gait, Transfer , Bed Mobility, ROM Treatment/Plan Treatment Plan: Continue Plan of Care Treatment Plan: Bed Mobility, Education, Functional Activity Stefanie, Functional Strength, Gait, Safety, Therapeutic Exercise, Transfers Treatment Duration: Feb 26, 2018 Frequency: 6 times per week Estimated Hrs Per Day: .25 hour per day (15-30') Patient and/or Family Agrees t: Yes Time/GCodes Time In: 920 Time Out: 930 Total Billed Treatment Time: 10 Total Billed Treatment 1 Visit EX - 10' HARLEEN BRAVO PT Feb 24, 2018 10:02
--- NOTE | 2018-02-24 10:05 | Occupational Ther Daily Note ---
OT Current Status-Daily Note Subjective Pt alert, lying in bed. Pt stated she felt a lot better today. Nrsg stated that pt is bed rest. Pt agrees to therapy. No c/o pain. Increased SOA with movement or verbalizing. Mental Status/Objective Patient Orientation: Person, Place, Time, Situation Functional [place] Measure 0=Not Assessed/NA 4=Minimal Assistance 1=Total Assistance 5=Supervision or Setup 2=Maximal Assistance 6=Modified [place] 3=Moderate Assistance 7=Complete [place] Attachments: Moreau Catheter, IV, Other-See Comments (vapotherm) ADL-Treatment Pt stated that she completed oral care with dentures prior to PATRICIA coming into room. Pt required to use bed gloria for BM. Assist with hygiene. Nrsg in room after therapy. Call light/phone in reach. All needs met in room. Bathing (FIM): 4 (Pt able to reach all areas. Assist needed due to decreased activity tolerance to complete efficient hygiene. Pt able to reach feet while in supine.) Bathing Location: L Arm, R Arm, L Upper Leg, R Upper Leg, Chest, Abdomen, Buttocks, Perineal Area Toileting (FIM): 3 (Pt able to reach areas though inefficient with cleansing due to decreased activity tolerance and increased SOA.) OT Short Term Goals Short Term Goals Transfers (B,C,W/C) (FIM): 6 1=Demonstrate adherence to instructed precautions during ADL tasks. 2=Patient will verbalize/demonstrate understanding of assistive devices/ modifications for ADL. 3=Patient will improve strength/tolerance for activity to enable patient to perform ADL's. OT Chargemaster Analyst Goals Prison Goals Time Frame: Feb 28, 2018 Eating (FIM): 6 Grooming(FIM): 6 Upper Body Dressing(FIM): 6 Lower Body Dressing(FIM): 5 Toileting(FIM): 6 Toilet/Commode Transfer(FIM): 6 Additional Goals: 1-Demonstrate ADL Tasks, 2-Verbalize Understanding, 3- ImproveStrength/Stefanie 1=Demonstrate adherence to instructed precautions during ADL tasks. 2=Patient will verbalize/demonstrate understanding of assistive devices/ modifications for ADL. 3=Patient will improve strength/tolerance for activity to enable patient to perform ADL's. OT Education/Plan Problem List/Assessment Pt to benefit from skilled OT intervention for ADL training, transfers, strengthening, and energy conservation education to increase functional independence and allow safe discharge. Discharge Recommendations Plan/Recommendations: Continue POC Treatment Plan/Plan of Care Patient would benefit from OT for education, treatment and training to promote independence in ADL's, mobility, safety and/or upper extremity function for ADL' s. Plan of Care: ADL Retraining, Functional Mobility, UE Funct Exercise/Act Treatment Duration: Feb 28, 2018 Frequency: 5 times per week Estimated Hrs Per Day: .25 hour per day Rehab Potential: Guarded Time/GCodes Start Time: 09:25 Stop Time: 09:55 Total Time Billed (hr/min): 30 Billed Treatment Time 1 visit-ADL 2 (30 min) CORAL PACKER Feb 24, 2018 10:05
--- NOTE | 2018-02-24 12:42 | Progress Note (SOAP) ---
Subjective Date Seen by a Provider: Feb 24, 2018 Time Seen by a Provider: 12:39 Subjective/Events-last exam Fwup acute respiratory failure, pneumonia, COPD with acute exacerbation, right pulmonary nodule, weakness. Still short of air with minimal exertion. Objective Exam Vital Signs Date Time Temp Pulse Resp B/P (MAP) Pulse Ox O2 Delivery O2 Flow Rate FiO2 02/24/18 08:04 99.3 91 20 124/72 (89) 96 Vapotherm 32.00 8.00 02/24/18 07:33 92 Vapotherm 8.00 32 02/24/18 07:32 93 Vapotherm 8.00 32 02/24/18 02:15 95 Vapotherm 8.00 32 02/24/18 00:07 97.5 77 18 135/81 (99) 94 Vapotherm 32.00 12.00 02/23/18 22:38 94 Vapotherm 8.00 32 02/23/18 20:00 93 Vapotherm 8.00 32 02/23/18 19:13 95 Vapotherm 8.00 32 02/23/18 16:00 98.6 94 21 189/94 (125) 95 Vapotherm 32.00 12.00 02/23/18 14:08 95 Vapotherm 8.00 32 I & O 02/24/18 07:00 Intake Total 2170 ml Output Total 2000 ml Balance 170 ml Capillary Refill : Less Than 3 Seconds General Appearance: Mild Distress (respiratory) Respiratory: Lungs Clear, Decreased Breath Sounds Cardiovascular: Regular Rate, Rhythm, Systolic Murmur, Gallop/S4 Gastrointestinal: normal bowel sounds, non tender, soft Extremity: Non Tender, No Calf Tenderness, No Pedal Edema Neurologic/Psychiatric: Alert, Oriented x3 Skin: Warm/Dry Results Lab Microbiology 02/18/18 Blood Culture - Preliminary, Resulted No growth 02/19/18 Gram Stain - Final, Resulted 02/19/18 Bronchial Culture - Final, Resulted Yeast species Staphylococcus aureus Usual upper respiratory kandis 02/19/18 Fungal Culture 1 - Preliminary, Resulted Pau glabrata Assessment/Plan Assessment/Plan Assess & Plan/Chief Complaint 1. Right Sided Pneumonia--on meropenem, Vanc, diflucan and zithromax 2. Right Pulmonary Mass--will reassess with CT scan after treatment of pneumonia, patient has not wanted further workup or treatment 3. COPD with acute exacerbation--continue oxygen, SVNS, solumedrol 4. Weakness--start PT/OT 5. Acute Respiratory Failure--on vapotherm, add lovenox and monitor H/H Clinical Quality Measures Admission Status Admission Dx 1. Acute Community Acquired Pneumonia--admit and check CXR and start rocephin/ zithromax 2. Acute Respiratory Distress/Hypoxia--oxygen via nasal cannula to keep O2 sat greater than 92% 3. COPD with acute exacerbation--SVNs with duoneb as well as oxygen 4. Hypertension--resume home meds and monitor BP 5. Bradycardia--monitor on telemetry, Check EKG 6. Right Lung Mass--patient has refused further workup DVT/VTE Risk/Contraindication: Risk Factor Score Per Nursin RFS Level Per Nursing on Admit: 4+=Very High LEW LEIVA DO Feb 24, 2018 12:42
[2018-02-24] MEDS: ENOXAPARIN 40 MG/0.4 ML (LOVENOX) SYR SC SCH (15:11)
[2018-02-24 15:20] VITALS: BP 124/72
[2018-02-24 15:40] VITALS: BP 183/84
[2018-02-24 20:30] VITALS: BP 186/87
[2018-02-24] MEDS: DULoxetine 30 MG (CYMBALTA) CAP PO SCH (20:54)
[2018-02-24 23:57] VITALS: BP 129/86
[2018-02-25] MEDS: methylPREDNISolone 40 MG/ML (Solu-MEDROL) VIAL IV SCH ×4 (00:10→18:21)
[2018-02-25] MEDS: RT-ALBUTEROL/IPRATROPIUM 3 ML (DUONEB) VIAL INH SCH ×4 (02:39→20:40)
[2018-02-25] MEDS: LEVOTHYROXINE 50 MCG (LEVOTHROID) TAB PO SCH (06:04)
[2018-02-25] MEDS: BETHANECHOL 25 MG (URECHOLINE) TAB PO SCH ×4 (06:04→20:45)
[2018-02-25] MEDS: CATHETER FLUSH 10 ML SYR IV SCH ×3 (06:04→20:46)
[2018-02-25] MEDS: PANTOPRAZOLE 40 MG (PROTONIX) TAB PO SCH (06:04)
[2018-02-25 06:15] LABS: BASOPHILS % (AUTO) 0 % (0-10); EOSINOPHILS % (AUTO) 0 % (0-10); HEMATOCRIT 32 % (35-52); HEMOGLOBIN 9.9 G/DL (11.5-16.0); LYMPHOCYTES # (AUTO) 0.7 X 10^3 (1.0-4.0); LYMPHOCYTES % (AUTO) 6 % (12-44); MEAN CORPUSCULAR HEMOGLOBIN 29 PG (25-34); MEAN CORPUSCULAR HGB CONC 31 G/DL (32-36); MEAN CORPUSCULAR VOLUME 93 FL (80-99); MONOCYTES # (AUTO) 0.8 X 10^3 (0.0-1.0); MONOCYTES % (AUTO) 7 % (0-12); NEUTROPHILS # (AUTO) 9.7 X 10^3 (1.8-7.8); NEUTROPHILS % (AUTO) 87 % (42-75); PLATELET COUNT 302 10^3/uL (130-400); RED BLOOD COUNT 3.39 10^6/uL (4.35-5.85); RED CELL DISTRIBUTION WIDTH 14.6 % (10.0-14.5); WHITE BLOOD COUNT 11.2 10^3/uL (4.3-11.0)
[2018-02-25 06:49] LABS: BUN/CREATININE RATIO 29; CALCIUM 7.8 MG/DL (8.5-10.1); CARBON DIOXIDE 29 MMOL/L (21-32); CHLORIDE 101 MMOL/L (98-107); CREATININE SERUM 0.62 MG/DL (0.60-1.30); GFR ESTIMATED > 60; GLUCOSE 121 MG/DL (70-105); SODIUM 141 MMOL/L (135-145)
[2018-02-25] MEDS: RT-ADVAIR HFA 115/21 MCG PER PUFF IH SCH (07:32)
[2018-02-25 07:34] LABS: BAND NEUTROPHILS 4 %; BASOPHILS % (MANUAL) 0 %; EOSINOPHILS % (MANUAL) 0 %; LYMPHOCYTES % (MANUAL) 10 %; MONOCYTES % (MANUAL) 7 %; NEUTROPHILS % (MANUAL) 79 %
[2018-02-25 07:35] LABS: ANISOCYTOSIS SLIGHT; ELLIPT/OVALOCYTES SLIGHT
[2018-02-25] MEDS: ADVAIR HFA 115/21 MCG INHALER 8 GM IH SCH ×2 (07:47→20:40)
[2018-02-25 08:00] VITALS: BP 171/76
[2018-02-25] MEDS ORDERED: ADVAIR HFA 115/21 MCG INHALER 8 GM IH SCH (08:00)
--- NOTE | 2018-02-25 09:03 | Pulmonary Progress Note ---
Sepsis Event Evaluation Height, Weight, BMI Height: 5'2.00" Weight: 110lbs. 8.0oz. 50.138005ex; 19.8 BMI Method:Stated Exam Exam Vital Signs Date Time Temp Pulse Resp B/P (MAP) Pulse Ox O2 Delivery O2 Flow Rate FiO2 02/25/18 07:51 97 2.00 02/25/18 07:39 99 Nasal Cannula 4.00 02/25/18 02:40 98 Nasal Cannula 6.00 02/24/18 23:57 97.4 76 18 129/86 (100) 98 Nasal Cannula 8.00 02/24/18 22:14 100 Nasal Cannula 8.00 02/24/18 20:55 High Flow N/C 6.00 02/24/18 20:30 97.0 87 16 186/87 (120) 100 Nasal Cannula 8.00 02/24/18 15:40 97.0 82 16 183/84 (117) 97 Nasal Cannula 8.00 02/24/18 15:20 98 Nasal Cannula 8.00 02/24/18 15:20 86 98 I & O 02/25/18 07:00 Intake Total 1750 ml Output Total 1875 ml Balance -125 ml Height & Weight Height: 5'2.00" Weight: 110lbs. 8.0oz. 50.738514iw; 19.8 BMI Method:Stated General Appearance: Mild Distress (respiratory) HEENT: Normal ENT Inspection Neck: Supple Respiratory: Lungs Clear, Decreased Breath Sounds Cardiovascular: Regular Rate, Rhythm, Systolic Murmur, Gallop/S4 Gastrointestinal: normal bowel sounds, non tender, soft Extremity: Non Tender, No Calf Tenderness, No Pedal Edema Neurologic/Psychiatric: Alert, Oriented x3 Skin: Warm/Dry Results Lab Laboratory Tests 02/25/18 06:06 Assessment/Plan Assessment/Plan Pneumonia with MSSA from bronchoscopy -Woody cultures pending -s/p bronchoscopy -Rocephin, and diflucan -Repeat CXR -Pt probably needs lasix will await CXR. BNP is 366 Lung nodule -Will need out patient f/u -Pt has refused work up in the past COPDAE -Oxygen -RICHARD Martini DO Feb 25, 2018 09:03
--- NOTE | 2018-02-25 10:05 | Physical Therapy Daily Note ---
PT Daily Note-Current Subjective Pt awake in bed watching TV when PT entered room. Pt agreed to get up and exercise with PT. Pain Numeric Pain Scale: 0-No Pain Location: No Pain Reported Mental Status Patient Orientation: Normal For Age Attachments: Oxygen, IV Transfers Functional [place] Measure 0=Not Assessed/NA 4=Minimal Assistance 1=Total Assistance 5=Supervision or Setup 2=Maximal Assistance 6=Modified [place] 3=Moderate Assistance 7=Complete IndependenceIRFPAI Quality Coding Scale 6 Independent with activity with or without an assistive device 5 Patient requires set up or clean up by helper. Patient completes activity by themselves 4 Supervision or touching assist (CGA). [place] provide cues , steadying assist 3 The helper provides less than half the effort to complete the activity 2 The helper provides more than half the effort to complete the activity 1 Dependent. The helper does all the effort to complete an activity 7 Patient refused to complete or attempt activity 9 The patient did not perform the activity before the current illness or injury 88 Not attempted due to Medical conditions or safety concerns Transfers (B, C, W/C) (FIM): 4 Scootin Rollin Supine to/from Sit: 4 Sit to/from Stand: 4 Weight Bearing Right Lower Extremity: Right Weight Bearing/Tolerated Left Lower Extremity: Left Weight Bearing/Tolerated Gait Training Gait (FIM): 1 Distance (FIM): 1=up to 49 ft Distance: 15' Gait Level of Assist: 4 Gait Persons Needed: 1 Gait Assistive Device: FWW Exercises Supine Ex: Quad Set, Hip abd/add Seated Therapy Exercises: Kicking activity Assessment Pt required mod A in transferring from supine to sitting. Patient was able to ambulate in room for 15' over to chair with a FWW. Patient required CGA and needed cueing to slow down her pace when walking to chair. Patient performed LE exercises for the remainder of therapy. PT Short Term Goals Short Term Goals Time Frame: Feb 26, 2018 Transfers (B,C,W/C) (FIM): 6 Gait (FIM): 2 Gait Distance Comment: 50' Gait Level of Assist: 5 Gait Assistive Device: FWW PT Plan Problem List Problem List: Activity Tolerance, Functional Strength, Safety, Balance, Gait, Transfer, Bed Mobility, ROM Treatment/Plan Treatment Plan: Continue Plan of Care Treatment Plan: Bed Mobility, Education, Functional Activity Stefanie, Functional Strength, Gait, Safety, Therapeutic Exercise, Transfers Treatment Duration: Feb 26, 2018 Frequency: 6 times per week Estimated Hrs Per Day: .25 hour per day (15-30') Patient and/or Family Agrees t: Yes Time/GCodes Time In: 845 Time Out: 857 Total Billed Treatment Time: 12 Total Billed Treatment 1 Visit FA - 12' HARLEEN BRAVO PT Feb 25, 2018 10:05
--- NOTE | 2018-02-25 10:17 | Diagnostic Imaging Report ---
INDICATION: Shortness of breath. TECHNIQUE: Single view chest 9:34 AM. CORRELATION STUDY: 02/22/2018 FINDINGS: Heart size and mediastinum stable. Severity of vascular congestion and perihilar edema has diminished and improved. Coronary artery stent over left heart border. Chronic change of lung parenchyma present. The interstitial changes appear less severe. Likely scarlike formation about the right lung base with tenting of the right diaphragm stable. Blunting of the costophrenic angles likely chronic pleural thickening versus small effusions. A previously demonstrated spiculated density of the right upper lobe somewhat less well visualized likely owing to position but does persist. Partial visualization of cervical spinal fusion hardware. IMPRESSION: 1. Overall improved appearance about the chest. The severity of vascular congestion has diminished and is near normal in followup. 2. Chronic change of lung parenchyma. Spiculated density of the right upper lobe persisting but less well visualized largely owing to patient positioning but does persist. Continued ongoing followup recommended. Dictated by: Dictated on workstation # [id number]
[2018-02-25] MEDS: FLUCONAZOLE 200 MG/100 ML 50 ML, EMPTY IV BAG (PVC) 1 EA IV SCH ×2 (10:29)
[2018-02-25] MEDS: FERROUS SULF 325 MG (IRON) TAB PO SCH (10:30)
[2018-02-25] MEDS: CLOPIDOGREL 75 MG (PLAVIX) TABLET PO SCH (10:30)
[2018-02-25] MEDS: meTOprolol TARTRATE 25 MG (LOPRESSOR) TABLET PO SCH ×2 (10:30→20:45)
[2018-02-25] MEDS: ASPIRIN E.C. 81 MG (ECOTRIN) TAB PO SCH (10:31)
[2018-02-25] MEDS: ENOXAPARIN 40 MG/0.4 ML (LOVENOX) SYR SC SCH (11:55)
--- NOTE | 2018-02-25 13:10 | Occupational Ther Daily Note ---
OT Current Status-Daily Note Subjective Pt sitting in chair, states she is feeling better and breathing better today. Would like to participate in therapy. Mental Status/Objective Functional [place] Measure 0=Not Assessed/NA 4=Minimal Assistance 1=Total Assistance 5=Supervision or Setup 2=Maximal Assistance 6=Modified [place] 3=Moderate Assistance 7=Complete [place] Attachments: IV, Oxygen Other Treatment Pt completed bilateral UE exercises to increase strength and activity tolerance needed for ADLs and transfers. Pt performed 4 exercises x10 reps with moderate resistance (red) theraband. Rest breaks taken between exercises. Pt able to recall exercises from previous therapy sessions. Occasional cues for proper exercise technique. Pt sitting in chair with need met after session. OT Short Term Goals Short Term Goals Transfers (B,C,W/C) (FIM): 6 1=Demonstrate adherence to instructed precautions during ADL tasks. 2=Patient will verbalize/demonstrate understanding of assistive devices/ modifications for ADL. 3=Patient will improve strength/tolerance for activity to enable patient to perform ADL's. OT Physical Therapy Instructor Goals Physical Therapy Instructor Goals Time Frame: Feb 28, 2018 Eating (FIM): 6 Grooming(FIM): 6 Upper Body Dressing(FIM): 6 Lower Body Dressing(FIM): 5 Toileting(FIM): 6 Toilet/Commode Transfer(FIM): 6 Additional Goals: 1-Demonstrate ADL Tasks, 2-Verbalize Understanding, 3- ImproveStrength/Stefanie 1=Demonstrate adherence to instructed precautions during ADL tasks. 2=Patient will verbalize/demonstrate understanding of assistive devices/ modifications for ADL. 3=Patient will improve strength/tolerance for activity to enable patient to perform ADL's. OT Education/Plan Discharge Recommendations Plan/Recommendations: Continue POC Treatment Plan/Plan of Care Patient would benefit from OT for education, treatment and training to promote independence in ADL's, mobility, safety and/or upper extremity function for ADL' s. Plan of Care: ADL Retraining, Functional Mobility, UE Funct Exercise/Act Treatment Duration: Feb 28, 2018 Frequency: 5 times per week Estimated Hrs Per Day: .25 hour per day Rehab Potential: Guarded Time/GCodes Start Time: 11:06 Stop Time: 11:22 Total Time Billed (hr/min): 16 Billed Treatment Time 1 visit, EX(16minutes) JORJE TORRES OT Feb 25, 2018 13:10
[2018-02-25 16:00] VITALS: BP 142/71
[2018-02-25] MEDS: CATHETER FLUSH 10 ML SYR IV PRN (18:21)
--- NOTE | 2018-02-25 19:17 | Progress Note (SOAP) ---
Subjective Date Seen by a Provider: Feb 25, 2018 Time Seen by a Provider: 12:35 Subjective/Events-last exam Fwup acute respiratory failure, pneumonia, COPD with acute exacerbation, right pulmonary nodule, weakness. Feels a little better today. Objective Exam Vital Signs Date Time Temp Pulse Resp B/P (MAP) Pulse Ox O2 Delivery O2 Flow Rate FiO2 02/25/18 16:00 98.5 78 20 142/71 (94) 97 Nasal Cannula 2.00 02/25/18 14:59 97 Nasal Cannula 2.00 02/25/18 08:00 99.3 79 16 171/76 (107) 99 Nasal Cannula 4.00 02/25/18 08:00 99 High Flow N/C 4.00 02/25/18 08:00 99 High Flow N/C 4.00 02/25/18 07:51 97 2.00 02/25/18 07:39 99 Nasal Cannula 4.00 02/25/18 02:40 98 Nasal Cannula 6.00 02/24/18 23:57 97.4 76 18 129/86 (100) 98 Nasal Cannula 8.00 02/24/18 22:14 100 Nasal Cannula 8.00 02/24/18 20:55 High Flow N/C 6.00 02/24/18 20:30 97.0 87 16 186/87 (120) 100 Nasal Cannula 8.00 I & O 02/25/18 07:00 Intake Total 1750 ml Output Total 1875 ml Balance -125 ml Capillary Refill : Less Than 3 Seconds General Appearance: Mild Distress Neck: Supple Respiratory: Lungs Clear, Decreased Breath Sounds Cardiovascular: Regular Rate, Rhythm, Systolic Murmur Gastrointestinal: normal bowel sounds, non tender, soft Extremity: Non Tender, No Calf Tenderness, No Pedal Edema Neurologic/Psychiatric: Alert, Oriented x3 Skin: Ecchymosis Results Lab Laboratory Tests 02/25/18 06:06: White Blood Count 11.2H, Red Blood Count 3.39L, Hemoglobin 9.9L, Hematocrit 32L , Mean Corpuscular Volume 93, Mean Corpuscular Hemoglobin 29, Mean Corpuscular Hemoglobin Concent 31L, Red Cell Distribution Width 14.6H, Platelet Count 302, Mean Platelet Volume 10.0, Neutrophils (%) (Auto) 87H, Lymphocytes (%) (Auto) 6L , Monocytes (%) (Auto) 7, Eosinophils (%) (Auto) 0, Basophils (%) (Auto) 0, Neutrophils # (Auto) 9.7H, Lymphocytes # (Auto) 0.7L, Monocytes # (Auto) 0.8, Eosinophils # (Auto) 0.0, Basophils # (Auto) 0.0, Neutrophils % (Manual) 79, Lymphocytes % (Manual) 10, Monocytes % (Manual) 7, Eosinophils % (Manual) 0, Basophils % (Manual) 0, Band Neutrophils 4, Anisocytosis SLIGHT, Elliptocytes SLIGHT, Sodium Level 141, Potassium Level 5.0, Chloride Level 101, Carbon Dioxide Level 29, Anion Gap 11, Blood Urea Nitrogen 18, Creatinine 0.62, Estimat Glomerular Filtration Rate > 60, BUN/Creatinine Ratio 29, Glucose Level 121H, Calcium Level 7.8L Microbiology 02/18/18 Blood Culture - Final, Complete No growth 02/19/18 Gram Stain - Final, Resulted 02/19/18 Bronchial Culture - Final, Resulted Yeast species Staphylococcus aureus Usual upper respiratory kandis 02/19/18 Fungal Culture 1 - Preliminary, Resulted Pau glabrata Assessment/Plan Assessment/Plan Assess & Plan/Chief Complaint 1. Right Sided Pneumonia--on meropenem, Vanc, diflucan and zithromax 2. Right Pulmonary Mass--will reassess with CT scan after treatment of pneumonia, patient has not wanted further workup or treatment 3. COPD with acute exacerbation--continue oxygen, SVNS, solumedrol 4. Weakness--started PT/OT, SWING bed eval 5. Acute Respiratory Failure--off vapotherm and to MI, added lovenox and continue to monitor H/H Clinical Quality Measures Admission Status Admission Dx 1. Acute Community Acquired Pneumonia--admit and check CXR and start rocephin/ zithromax 2. Acute Respiratory Distress/Hypoxia--oxygen via nasal cannula to keep O2 sat greater than 92% 3. COPD with acute exacerbation--SVNs with duoneb as well as oxygen 4. Hypertension--resume home meds and monitor BP 5. Bradycardia--monitor on telemetry, Check EKG 6. Right Lung Mass--patient has refused further workup DVT/VTE Risk/Contraindication: Risk Factor Score Per Nursin RFS Level Per Nursing on Admit: 4+=Very High LEW LEIVA DO Feb 25, 2018 7:17 pm
[2018-02-25] MEDS: DULoxetine 30 MG (CYMBALTA) CAP PO SCH (20:45)
[2018-02-26 00:01] VITALS: BP 163/81
[2018-02-26] MEDS: methylPREDNISolone 40 MG/ML (Solu-MEDROL) VIAL IV SCH ×2 (00:19→05:52)
[2018-02-26] MEDS: RT-ALBUTEROL/IPRATROPIUM 3 ML (DUONEB) VIAL INH SCH ×2 (01:54→09:11)
[2018-02-26] MEDS: CATHETER FLUSH 10 ML SYR IV SCH (05:52)
[2018-02-26] MEDS: PANTOPRAZOLE 40 MG (PROTONIX) TAB PO SCH (05:53)
[2018-02-26] MEDS: LEVOTHYROXINE 50 MCG (LEVOTHROID) TAB PO SCH (05:53)
[2018-02-26] MEDS: ALPRAZolam 0.25 MG (XANAX) TAB PO PRN (05:59)
[2018-02-26] MEDS: BETHANECHOL 25 MG (URECHOLINE) TAB PO SCH ×2 (06:00→11:02)
--- NOTE | 2018-02-26 07:38 | Pulmonary Progress Note ---
Sepsis Event Evaluation Height, Weight, BMI Height: 5'2.00" Weight: 107lbs. 0.0oz. 48.489894mb; 19.8 BMI Method:Stated Exam Exam Vital Signs Date Time Temp Pulse Resp B/P (MAP) Pulse Ox O2 Delivery O2 Flow Rate FiO2 02/26/18 01:54 98 Nasal Cannula 2.00 02/26/18 00:01 98.1 93 16 163/81 (108) 94 Nasal Cannula 2.00 02/25/18 20:45 Nasal Cannula 2.00 02/25/18 20:40 High Flow N/C 4.00 02/25/18 20:40 97 Nasal Cannula 2.00 02/25/18 16:00 98.5 78 20 142/71 (94) 97 Nasal Cannula 2.00 02/25/18 14:59 97 Nasal Cannula 2.00 02/25/18 08:00 99.3 79 16 171/76 (107) 99 Nasal Cannula 4.00 02/25/18 08:00 99 High Flow N/C 4.00 02/25/18 08:00 99 High Flow N/C 4.00 02/25/18 07:51 97 2.00 02/25/18 07:39 99 Nasal Cannula 4.00 I & O 02/26/18 07:00 Intake Total 1830 ml Output Total 1450 ml Balance 380 ml Height & Weight Height: 5'2.00" Weight: 107lbs. 0.0oz. 48.227096hk; 19.8 BMI Method:Stated General Appearance: Mild Distress HEENT: Normal ENT Inspection Neck: Supple Respiratory: Lungs Clear, Decreased Breath Sounds Cardiovascular: Regular Rate, Rhythm, Systolic Murmur Gastrointestinal: normal bowel sounds, non tender, soft Extremity: Non Tender, No Calf Tenderness, No Pedal Edema Neurologic/Psychiatric: Alert, Oriented x3 Skin: Ecchymosis Results Lab Laboratory Tests 02/25/18 06:06 Assessment/Plan Assessment/Plan Pneumonia with MSSA from bronchoscopy -Woody cultures pending -s/p bronchoscopy -Rocephin, and diflucan -Repeat CXR looks improved Lung nodule -Will need out patient f/u -Pt has refused work up in the past COPDAE -Oxygen -SVNs Pt is doing better. Will change Solumedrol to prednisone taper. RICHARD SANDY DO Feb 26, 2018 07:38
[2018-02-26 08:00] VITALS: BP 124/74
[2018-02-26] MEDS: ADVAIR HFA 115/21 MCG INHALER 8 GM IH SCH (09:11)
[2018-02-26] MEDS ORDERED: RT-ADVAIR HFA 115/21 MCG PER PUFF IH ONE (09:11)
[2018-02-26] MEDS: CLOPIDOGREL 75 MG (PLAVIX) TABLET PO SCH (09:23)
[2018-02-26] MEDS: ASPIRIN E.C. 81 MG (ECOTRIN) TAB PO SCH (09:23)
[2018-02-26] MEDS: FERROUS SULF 325 MG (IRON) TAB PO SCH (09:23)
[2018-02-26] MEDS: meTOprolol TARTRATE 25 MG (LOPRESSOR) TABLET PO SCH (09:24)
[2018-02-26] MEDS: FLUCONAZOLE 200 MG/100 ML 50 ML, EMPTY IV BAG (PVC) 1 EA IV SCH ×2 (09:25)
[2018-02-26] MEDS: ENOXAPARIN 40 MG/0.4 ML (LOVENOX) SYR SC SCH (11:04)
[2018-02-26] MEDS ORDERED: predniSONE 10 MG TAB PO SCH (12:00)
--- NOTE | 2018-02-26 18:42 | Discharge Summary ---
Diagnosis/Chief Complaint Date of Admission Feb 18, 2018 at 17:08 Date of Discharge Feb 26, 2018 at 12:59 Discharge Date: Feb 26, 2018 Discharge Diagnosis 1. Right Sided Pneumonia--on meropenem, Vanc, diflucan and zithromax 2. Right Pulmonary Mass--will reassess with CT scan after treatment of pneumonia, patient has not wanted further workup or treatment 3. COPD with acute exacerbation--continue oxygen, SVNS, solumedrol 4. Weakness--started PT/OT 5. Acute Respiratory Failure--off vapotherm and to NC 6. Hypothyroidism--back on home dose 7. Parkinsons--stable 8. Acute on Chronic Anemia--monitor H/H Reason Hospital Visit This is a 77 year old frail female who has a known history of COPD who presented to my office with cough, congestion and worsening shortness of air since last evening. She also complained of right sided chest pain. She was on 3 liters of oxygen and her oxygen saturation was at 90%. She had audible gurgling and her right lung had crackles and rhonchi. It was decided to direct admit her to the hospital for pneumonia with respiratory distress. Discharge Summary Hospital Course Hospital Course This is a 77 year old frail female who has a known history of COPD who presented to my office with cough, congestion and worsening shortness of air. She also complained of right sided chest pain. She was on 3 liters of oxygen and her oxygen saturation was at 90%. She had audible gurgling and her right lung had crackles and rhonchi. It was decided to direct admit her to the hospital for pneumonia with respiratory distress. She was admitted to the medical floor and initially started on rocephin and zithromax. Her CXR did reveal bilateral infiltrates as well as a right lung mass which the patient had refused any further workup on when it was discovered in October of this year. Pulmonology was consulted and she underwent a bronchoscopy the following day with suction of thick secretions and well as bronchial washings taken. Following the bronchoscopy, the patient had worsening shortness of air requiring vapotherm. Solumedrol was added to her regimen. She then had to be placed on BIPAP. Her antibiotics were changed to meropenem and vancomycin and diflucan was added. She was weaned from the BIPAP to vapotherm. However, she continued to have ongoing shortness of air with minimal exertion. Lovenox was added for DVT prophylaxis and the following day she was feeling better and had been weaned to a nasal cannula. The pathology from her bronchoscope showed macrophages and inflammatory cells but no malignant cells. PT and OT had been started and a SWING bed evaluation was obtained. The patient did qualify for SWING bed and was transferred to SWING bed with her current antibiotics, a prednisone taper and ongoing PT and OT. I will continue to follow her on SWING bed. Labs Laboratory Tests 02/25/18 06:06: White Blood Count 11.2H, Red Blood Count 3.39L, Hemoglobin 9.9L, Hematocrit 32L , Mean Corpuscular Hemoglobin Concent 31L, Red Cell Distribution Width 14.6H, Neutrophils (%) (Auto) 87H, Lymphocytes (%) (Auto) 6L, Neutrophils # (Auto) 9.7H , Lymphocytes # (Auto) 0.7L, Glucose Level 121H, Calcium Level 7.8L Procedures None. Discharge Physical Examination Allergies: Coded Allergies: benazepril (Verified Allergy, Unknown, 01/21/07) codeine (Verified Adverse Reaction, Unknown, NAUSEA/VOMITING, 01/20/07) Vitals & I&Os Vital Signs Date Time Temp Pulse Resp B/P (MAP) Pulse Ox O2 Delivery O2 Flow Rate FiO2 02/26/18 09:20 95 2.00 02/26/18 09:11 Nasal Cannula 02/26/18 08:00 96.0 86 18 124/74 (91) 02/24/18 07:33 32 General Appearance: Alert, Oriented X3, Cooperative, Moderate Distress ( respiratory) Respiratory: Other (decreased aeration with wheezes) Cardiovascular: Regular Rate Abdominal: Normal Bowel Sounds, Soft, No Tenderness Extremities: No Clubbing, No Cyanosis, No Edema Skin: Other (ecchymosis) Neuro: Other (tremors) Psych/Mental Status: Mental Status NL, Mood NL Discharge Home Medications Reviewed and agree with Discharge Medication list on patient's Discharge Instruction sheet Instructions to Patient/Family Please see electronic discharge instructions given to patient. Clinical Quality Measures DVT/VTE Risk/Contraindication: Risk Factor Score Per Nursin RFS Level Per Nursing on Admit: 4+=Very High LEW LEIVA DO Feb 26, 2018 18:42
== END 2018-02-26 12:59 | disposition swing bed (61) | DRG 177 ==
LOC: 4TH 17:08
PROVIDERS: ADMIT Family Medicine; ATTEND Family Medicine
PROC: 0BD28ZX Extraction of Carina, Via Natural or Artificial Opening Endoscopic, Diagnostic (ICD-10-PCS; 2018-02-19)
PROC: 0BDF8ZX Extraction of Right Lower Lung Lobe, Via Natural or Artificial Opening Endoscopic, Diagnostic (ICD-10-PCS; 2018-02-19)
PROC: 0B9F8ZX Drainage of Right Lower Lung Lobe, Via Natural or Artificial Opening Endoscopic, Diagnostic (ICD-10-PCS; principal; 2018-02-19 09:20)
DX: B37.1 Pulmonary candidiasis (principal); J15.211 Pneumonia due to Methicillin susceptible Staphylococcus aureus; J96.01 Acute respiratory failure with hypoxia; J43.9 Emphysema, unspecified; I10 Essential (primary) hypertension; R07.9 Chest pain, unspecified; R00.1 Bradycardia, unspecified; R91.8 Other nonspecific abnormal finding of lung field; Z66 Do not resuscitate; R25.1 Tremor, unspecified; F41.9 Anxiety disorder, unspecified; I25.10 Atherosclerotic heart disease of native coronary artery without angina pectoris; E78.00 Pure hypercholesterolemia, unspecified; E89.0 Postprocedural hypothyroidism; K59.00 Constipation, unspecified; G20 Parkinson's disease; D64.9 Anemia, unspecified; M19.91 Primary osteoarthritis, unspecified site; Z87.891 Personal history of nicotine dependence; Z85.3 Personal history of malignant neoplasm of breast; Z90.12 Acquired absence of left breast and nipple
CPT/HCPCS: 36415; 36600; 71045; 71046; 76937; 80048; 80053; 80202; 82805; 83880; 84484; 85007; 85025; 85027; 87015; 87040; 87070; 87077; 87101; 87106; 87116; 87186; 87205; 87206; 88112; 88305; 88312; 89051; 94640; 94760

== ENCOUNTER 2018-02-26 10:51 | Inpatient (IN) | payer MEDICARE ==
[~2018-02-26] VITALS: Ht 157.5 cm; Wt 48.5 kg
[~2018-02-26 10:51] MED LIST changes: +ACET-2267 PO; +CHOL10007 PO; +IBUP-1780 PO; -LIDOCAINE 1% INJ 20 ML 20 ML VIAL INJ ONE; -LIDOCAINE JELLY 2% (XYLOCAINE) 30 ML TUBE TOP ONE; -LIDOCAINE PF 2% 5 ML (XYLOCAINE) VIAL INJ ONE
[2018-02-26] MEDS ORDERED: cefTRIAXone FOR IV USE 1,000 MG in NS (IVPB) 50 ML IV SCH (13:00)
[2018-02-26] MEDS ORDERED: ALPRAZolam 0.25 MG (XANAX) TAB PO PRN (13:00)
[2018-02-26] MEDS ORDERED: CALCIUM CARBONATE 500 MG (TUMS) TAB.CHEW PO PRN (13:00)
[2018-02-26] MEDS ORDERED: PATIENT MAY USE OWN MEDS, ALL PO SCH (13:00)
[2018-02-26] MEDS ORDERED: NS IV 500 ML 500 ML IV PRN (13:00)
[2018-02-26] MEDS ORDERED: ONDANSETRON 4 MG/2 ML (SDV) Z0FRAN IVP PRN (13:00)
[2018-02-26] MEDS: CATHETER FLUSH 10 ML SYR IV SCH ×2 (14:06→20:54)
[2018-02-26] MEDS ORDERED: RT-ALBUTEROL/IPRATROPIUM 3 ML (DUONEB) VIAL INH PRN (14:15)
[2018-02-26] MEDS ORDERED: CATHETER FLUSH 10 ML SYR IV PRN (14:30)
--- NOTE | 2018-02-26 14:58 | Physical Therapy Evaluation ---
PT Evaluation-General Medical Diagnosis Admission Date Feb 26, 2018 at 13:08 Medical Diagnosis: weakness, unsteady gait Onset Date: Feb 18, 2018 Therapy Diagnosis Therapy Diagnosis: General weakness/ Debility Height/Weight Height (Feet): 5 Height (Inches): 2.00 Weight (Pounds): 107 Weight (Ounces): 0.0 Precautions Precautions/Isolations: Fall Prevention Weight Bear Status Right Lower Extremity: Right Full Weight Bearing Left Lower Extremity: Left Full Weight Bearing Referral Physician: Alaina Reason for Referral: Evaluation/Treatment Medical History Pertinent Medical History: Alcoholism, Arthritis, CAD, COPD, GERD, HTN, Hypothroidism, Parkinson's, Smoking Current History Patient switched to SWB from med/surg on 02/26/18. Reviewed History: Yes Social History Home: Single Level Current Living Status: Alone Entry Into Home: Level Entry PT Steps Into Home: 0 PT Steps Inside Home: 0 Prior/Core FIM Prior Level of Function Functional [place] Measure 0=Not Assessed/NA 4=Minimal Assistance 1=Total Assistance 5=Supervision or Setup 2=Maximal Assistance 6=Modified [place] 3=Moderate Assistance 7=Complete [place] IRFPAI Quality Coding Scale 6 Independent with activity with or without an assistive device 5 Patient requires set up or clean up by helper. Patient completes activity by themselves 4 Supervision or touching assist (CGA). [place] provide cues , steadying assist 3 The helper provides less than half the effort to complete the activity 2 The helper provides more than half the effort to complete the activity 1 Dependent. The helper does all the effort to complete an activity 7 Patient refused to complete or attempt activity 9 The patient did not perform the activity before the current illness or injury 88 Not attempted due to Medical conditions or safety concerns Functional Abilities and Goals 3. Independent: Patient completed the activities by him/herself, with or without an assistive device, with no assistance from a helper. 2. Needed Some Help: Patient needed partial assistance from another person to complete activities. 1. Dependent: A helper completed the activities for the patient. 8. Unknown: 9. Not Applicable: Bed Mobility: 6 Transfers (B,C,W/C) (FIM): 6 Gait: 6 Indoor Mobility (Ambulation): Independent Stairs: Independent Prior Devices Use: Walker PT Evaluation-Current Subjective Pt awake in chair watching tv when PT arrived. Pt agreed to evaluation by PT. Pain Numeric Pain Scale: 0-No Pain Location: No Pain Reported Objective Patient Orientation: [place], Normal For Age Attachments: Oxygen ROM/Strength ROM Upper Extremities WNL ROM Lower Extremities WNL Strength Upper Extremities NT Strenght Lower Extremities 4/5 BLE gross motor assessment Integumentary/Posture Bladder Incontinence: [place] Cath Neuromuscular (Tone, Coordination, Reflexes) NT Sensory Vision: Wears Glasses Hearing: Functional Sensation Right Upper Extremit: Intact Sensation Left Upper Extremity: Intact Sensation Right Lower Extremit: Intact Sensation Left Lower Extremity: Intact Transfers Functional [place] Measure 0=Not Assessed/NA 4=Minimal Assistance 1=Total Assistance 5=Supervision or Setup 2=Maximal Assistance 6=Modified [place] 3=Moderate Assistance 7=Complete [place] IRFPAI Quality Coding Scale 6 Independent with activity with or without an assistive device 5 Patient requires set up or clean up by helper. Patient completes activity by themselves 4 Supervision or touching assist (CGA). [place] provide cues , steadying assist 3 The helper provides less than half the effort to complete the activity 2 The helper provides more than half the effort to complete the activity 1 Dependent. The helper does all the effort to complete an activity 7 Patient refused to complete or attempt activity 9 The patient did not perform the activity before the current illness or injury 88 Not attempted due to Medical conditions or safety concerns Transfers (B, C, W/C) (FIM): 5 Scootin Rollin Roll Left to Right (QC): 4 Supine to/from Sit: 5 Sit to/from Stand: 5 Sit to Lying (QC): 4 Lying to Sitting/Side of Bed(Q: 4 Sit to Stand (QC): 4 Gait Does the Patient Walk?: Yes Mode of Locomotion: Walk Anticipated Mode of Locomotion: Walk Gait (FIM): 1 Distance (FIM): 1=up to 49 ft Walk 10 feet (QC): 88 Walk 50 ft with 2 Turns(QC): 88 Walk 150 ft (QC): 88 Walking 10ft/uneven surface-QC: 88 Distance: 5' Gait Level of Assist: 5 Gait Persons Needed: 1 Gait Assistive Device: FWW Comments/Gait Description Patient limited to ambulation in room due to contact precaution. Balance Sitting Static: Good Sitting Dynamic: Good Standing Static: Good Standing Dynamic: Good Treatment LE exercises: Seated marching, Leg kicks x 20 Supine : abd/add x 20, SLR, Knee to chest x 20 Assessment/Needs Patient is able to ambulate in room with FWW requiring SBA. Patient needs help to manage catheter if ambulating between bed and bathroom. Patient is able to perform LE exercises at EOB and in supine to complete therapy. Pt left in room with call light, belongings and guard rails up before PT exited room. Patient very SOB with any activity. Rehab Potential: Guarded PT Retirement Goals Cargo Worker Goals PT Retirement Goals Time Frame: Mar 07, 2018 Transfers (B,C,W/C) (FIM): 6 Sit to Lying (QC): 6 Lying-Sitting on Side/Bed(QC): 6 Sit to Stand (QC): 6 Rollin Roll Left to Right (QC): 6 Chair/Oid-np-Dflie Xfer(QC): 6 Does the Patient Walk: Yes Gait (FIM): 6 Gait distance (FIM): 3=150 ft Distance: 150' Walk 10 feet (QC): 6 Walk 10ft-Uneven Surface(QC): 6 Walk 50ft with 2 Turns (QC): 6 Walk 150 ft (QC): 6 Gait Level of Assist: 6 Gait Assistive Device: FWW PT Plan Problem List Problem List: Activity Tolerance, Functional Strength, Safety, Balance, Gait, Transfer, Bed Mobility Treatment/Plan Treatment Plan: Continue Plan of Care Treatment Plan: Bed Mobility, Education, Functional Activity Stefanie, Functional Strength, Group Therapy, Gait, Safety, Therapeutic Exercise, Transfers Treatment Duration: Mar 05, 2018 Frequency: 6 times per week Estimated Hrs Per Day: .25 hour per day (15-30') Patient and/or Family Agrees t: Yes Safety Risks/Education Patient Education: Gait Training, Transfer Techniques, Correct Positioning, Safety Issues Teaching Recipient: Patient Teaching Methods: Demonstration, Discussion Response to Teaching: Reinforcement Needed Discharge Recommendations Plan Patient will perform bed mobility and transfer training, balance and endurance training, functional strengthening, stair training, gait training, and education , to improve functional mobility and independence at home. Therapy D/C Recommendations: Home w/ Family Support, Detention (TCU/NH) Time/GCodes Time In: 1425 Time Out: 1455 Total Billed Treatment Time: 30 Total Billed Treatment 1 Visit EVM - 15' EX - 15' JOE EVANS PT Feb 26, 2018 14:58
[2018-02-26] MEDS: RT-ALBUTEROL/IPRATROPIUM 3 ML (DUONEB) VIAL INH SCH ×2 (15:24→20:24)
[2018-02-26] MEDS: BETHANECHOL 25 MG (URECHOLINE) TAB PO SCH ×2 (16:00→20:54)
--- NOTE | 2018-02-26 16:28 | Occupational Therapy Eval ---
OT Evaluation-General/PLF Medical Diagnosis Admission Date Feb 26, 2018 at 13:08 Medical Diagnosis: pneumonia, respsiratory distress Onset Date: Feb 18, 2018 Therapy Diagnosis Therapy Diagnosis: decr self care, weakness, decr act tolerance Height/Weight Height (Feet): 5 Height (Inches): 2.00 Weight (Pounds): 107 Weight (Ounces): 0.0 Precautions Precautions/Isolations: Fall Prevention, Standard Precautions, Contact/Enteric Isolation Referral Physician: Alaina Referral Reason: Evaluation/Treatment Medical History Pertinent Medical History: Alcoholism, Arthritis, CAD, COPD (acute exac), GERD , HTN, Hypothroidism, Parkinson's, Smoking Additional Medical History GI bleed. anxiety. Mastectomy. R lung mass Current History Admitted to acute care with pneumonia. Has Reviewed History: Yes Social History Home: Apartment ([address] [employer] [address]) Current Living Status: Alone Entry Into Home: Level Entry Steps Into Home: 0 Steps Inside Home: 0 ADL-Prior Level of Function Functional [place] Measure 0=Not Assessed/NA 4=Minimal Assistance 1=Total Assistance 5=Supervision or Setup 2=Maximal Assistance 6=Modified [place] 3=Moderate Assistance 7=Complete [place] IRFPAI Quality Coding Scale 6 Independent with activity with or without an assistive device 5 Patient requires set up or clean up by helper. Patient completes activity by themselves 4 Supervision or touching assist (CGA). [place] provide cues , steadying assist 3 The helper provides less than half the effort to complete the activity 2 The helper provides more than half the effort to complete the activity 1 Dependent. The helper does all the effort to complete an activity 7 Patient refused to complete or attempt activity 9 The patient did not perform the activity before the current illness or injury 88 Not attempted due to Medical conditions or safety concerns Functional Abilities and Goals 3. Independent: Patient completed the activities by him/herself, with or without an assistive device, with no assistance from a helper. 2. Needed Some Help: Patient needed partial assistance from another person to complete activities. 1. Dependent: A helper completed the activities for the patient. 8. Unknown: 9. Not Applicable: ADL PLOF Comments Pt reported that she was independent with self care and mobility. She does not use an AD at home but uses 4WW when outside. She does her own cooking but her sister helps with cleaning. She no longer drives. She manages her own medications and bills. Self Care: Needed Some Help Functional Cognition: Independent DME/Equipment: Bath Chair, Grab Bars, Tub/Shower, Toilet/Riser Occupation: retired OT Current Status Subjective Pt seen in room, up in bed, agreeable to OT. Pt reported no pain. Appearance Alert, cooperative Mental Status/Objective Patient Orientation: Person, Place, Time, Situation Attachments: Central Line, Oxygen Current Glasses/Contacts: Yes Dentures/Partials: Yes Hand Dominance: Right Upper Extremity ROM Grossly WFL bilat Upper Extremity Strength Grossly 4/5 bilat Tremors in UEs ADL-Treatment ADL-Current Pt reported that she is getting stronger and is able to do more now that she is off vapotherm and able to move around more. Eating (FIM): 5 (Pt reported that she is able to feed herself but needs help with setup due to tremors in UEs. She said that she has difficulty with soup but drinks the broth and then eats the veggies with a spoon) Eating (QC): 5 Grooming (FIM): 5 (Pt reported she brushes her teeth SBA, FWW at sink. Dentures ) Oral Hygiene (QC): 4 ( Pt reported she brushes her teeth SBA, FWW at sink. Dentures) Bathing (FIM): 4 (Pt reported that she showered this morning and was able to wash her top half except her back, her upper legs, swathi front and back. CGA when standing and help to wash/dry lower legs) Shower/Bathe Self (QC): 3 Upper Body Dressing (FIM): 5 (Has not worn regular clothes in the hospital but she normally would be able to dress her upper body with setup) Upper Body Dressing (QC): 5 (setup) Lower Body Dressing (FIM): 5 (Per pt, SBA, FWW for clothing. She was able to doff/don slipper socks. ) Lower Body Dressing (QC): 4 (SBA) On/Off Footwear (QC): 5 (setup) Toileting (FIM): 5 (Pt reported SBA managing hygiene and clothing, tall toilet , FWW) Toileting Hygiene (QC): 4 (SBA) Toilet/Commode Transfer (FIM): 5 (Per pt. SBA getting on and off tall toilet, FWW) Toilet Transfer (QC): 4 (SBA) Shower Transfer (FIM): 4 (CGA per pt report) Education OT Patient Education: Purpose of tx/functional activities, Rehab process Teaching Recipient: Patient Teaching Methods: Discussion Response to Teaching: Verbalize Understanding OT Skilled Nursing Goals Skilled Nursing Goals Time Frame: Mar 12, 2018 Eating (FIM): 6 Eating (QC): 6 Groomin Oral Hygiene (QC): 6 Bathing(FIM): 5 Shower/Bathe Self (QC): 5 Upper Body Dressing(FIM): 6 Upper Body Dressing (QC): 6 Lower Body Dressing(FIM): 6 Lower Body Dressing (QC): 6 On/Off Footwear (QC): 6 Toileting(FIM): 6 Toileting Hygiene (QC): 6 Toilet/Commode Transfer(FIM): 6 Toilet/Commode Transfer (QC): 6 Shower Transfer(FIM): 5 Additional Goals: 1-Demonstrate ADL Tasks, 2-Verbalize Understanding, 3- ImproveStrength/Stefanie 1=Demonstrate adherence to instructed precautions during ADL tasks. 2=Patient will verbalize/demonstrate understanding of assistive devices/ modifications for ADL. 3=Patient will improve strength/tolerance for activity to enable patient to perform ADL's. OT Education/Plan Problem List/Assessment Assessment: Decreased Activ Tolerance, Decreased UE Strength, Dependent Transfers, Impaired Self-Care Skills Pt would benefit from skilled OT to increase her independence in basic self care to allow her to safely return home Discharge Recommendations Plan/Recommendations: Continue POC Treatment Plan/Plan of Care Treatment,Training & Education: Yes Patient would benefit from OT for education, treatment and training to promote independence in ADL's, mobility, safety and/or upper extremity function for ADL' s. Plan of Care: ADL Retraining, Functional Mobility, UE Funct Exercise/Act, UE Neuromus Re-Ed/Coord Treatment Duration: Mar 12, 2018 Frequency: 5 times per week Estimated Hrs Per Day: .5 hour per day Agreement: Yes Rehab Potential: Fair Time/GCodes Start Time: 15:30 Stop Time: 15:46 Total Time Billed (hr/min): 16 Billed Treatment Time visit, 16 minutes evaluation moderate intensity SORAYA BRAMBILA OT Feb 26, 2018 16:28
[2018-02-26 18:10] VITALS: BP 166/76
[2018-02-26] MEDS: meTOprolol TARTRATE 25 MG (LOPRESSOR) TABLET PO SCH (20:54)
[2018-02-26] MEDS: DULoxetine 30 MG (CYMBALTA) CAP PO SCH (20:54)
[2018-02-27] MEDS: RT-ALBUTEROL/IPRATROPIUM 3 ML (DUONEB) VIAL INH SCH ×4 (02:35→19:05)
[2018-02-27] MEDS: ADVAIR HFA 115/21 MCG INHALER 8 GM IH SCH ×3 (02:36→19:05)
[2018-02-27] MEDS: PANTOPRAZOLE 40 MG (PROTONIX) TAB PO SCH (06:06)
[2018-02-27] MEDS: LEVOTHYROXINE 50 MCG (LEVOTHROID) TAB PO SCH (06:07)
[2018-02-27] MEDS: CATHETER FLUSH 10 ML SYR IV SCH ×3 (06:07→19:56)
[2018-02-27] MEDS: BETHANECHOL 25 MG (URECHOLINE) TAB PO SCH ×4 (06:07→19:55)
[2018-02-27] MEDS: predniSONE 10 MG TAB PO SCH (06:07)
[2018-02-27 06:17] VITALS: BP 137/79
--- NOTE | 2018-02-27 07:29 | Pulmonary Progress Note ---
Sepsis Event Evaluation Height, Weight, BMI Height: 5'2.00" Weight: 107lbs. 0.0oz. 48.933825lc; 19.8 BMI Method:Stated Exam Exam Vital Signs Date Time Temp Pulse Resp B/P (MAP) Pulse Ox O2 Delivery O2 Flow Rate FiO2 02/27/18 06:17 98.6 83 20 137/79 (98) 97 Nasal Cannula 1.00 02/27/18 02:37 98 Nasal Cannula 2.00 02/26/18 20:50 97 Nasal Cannula 4.00 02/26/18 20:24 97 Nasal Cannula 2.00 02/26/18 18:10 98.5 99 16 166/76 (106) 97 Nasal Cannula 1.00 02/26/18 15:25 98 Nasal Cannula 2.00 I & O 02/27/18 07:00 Intake Total 1990 ml Output Total 1450 ml Balance 540 ml Height & Weight Height: 5'2.00" Weight: 107lbs. 0.0oz. 48.011295sq; 19.8 BMI Method:Stated Assessment/Plan Assessment/Plan Pneumonia with MSSA from bronchoscopy -Woody cultures pending -s/p bronchoscopy -Rocephin, and diflucan -prednisone taper Lung nodule -Will need out patient f/u -Pt has refused work up in the past COPDAE -Oxygen -RICHARD Martini DO Feb 27, 2018 07:29
[2018-02-27] MEDS: ASPIRIN E.C. 81 MG (ECOTRIN) TAB PO SCH (08:53)
[2018-02-27] MEDS: FERROUS SULF 325 MG (IRON) TAB PO SCH (08:53)
[2018-02-27] MEDS: meTOprolol TARTRATE 25 MG (LOPRESSOR) TABLET PO SCH ×2 (08:53→19:55)
[2018-02-27] MEDS: CLOPIDOGREL 75 MG (PLAVIX) TABLET PO SCH (08:53)
[2018-02-27] MEDS ORDERED: FLUCONAZOLE 200 MG/100 ML 50 ML, EMPTY IV BAG (PVC) 1 EA IV SCH ×2 (09:00)
[2018-02-27] MEDS: cefTRIAXone FOR IV USE 1,000 MG in NS (IVPB) 50 ML IV SCH (09:30)
--- NOTE | 2018-02-27 10:47 | Physical Therapy Daily Note ---
PT Daily Note-Current Subjective Pt awake in chair eating breakfast. Pt agreed to get up and walk with PT. Pain Numeric Pain Scale: 0-No Pain Location: No Pain Reported Mental Status Patient Orientation: Normal For Age Attachments: Oxygen, [place] Catheter, IV Transfers Functional [place] Measure 0=Not Assessed/NA 4=Minimal Assistance 1=Total Assistance 5=Supervision or Setup 2=Maximal Assistance 6=Modified [place] 3=Moderate Assistance 7=Complete [place] IRFPAI Quality Coding Scale 6 Independent with activity with or without an assistive device 5 Patient requires set up or clean up by helper. Patient completes activity by themselves 4 Supervision or touching assist (CGA). [place] provide cues , steadying assist 3 The helper provides less than half the effort to complete the activity 2 The helper provides more than half the effort to complete the activity 1 Dependent. The helper does all the effort to complete an activity 7 Patient refused to complete or attempt activity 9 The patient did not perform the activity before the current illness or injury 88 Not attempted due to Medical conditions or safety concerns Transfers (B, C, W/C) (FIM): 5 Scootin Sit to/from Stand: 5 Sit to Stand (QC): 5 Weight Bearing Right Lower Extremity: Right Full Weight Bearing Left Lower Extremity: Left Full Weight Bearing Gait Training Does the Patient Walk?: Yes Gait (FIM): 4 Distance (FIM): 3=150 ft Distance: 225' Walk 10 feet (QC): 4 Walk 50 ft with 2 Turns(QC): 4 Walk 150 ft (QC): 4 Gait Level of Assist: 4 Gait Persons Needed: 1 Gait Assistive Device: FWW steady, functional gait sequence Exercises Seated Therapy Exercises: Kicking activity Seated Reps: 20 Assessment Pt is able to ambulate 125' with a FWW requiring CGA. Pt has 2L of oxygen during ambulation and reported her legs felt weak while walking the hallway. Blanquita finished therapy with LE exercises while sitting in the bedside recliner. PT [facility] Goals Senior Mobile Application Developer Goals PT [facility] Goals Time Frame: Mar 07, 2018 Transfers (B,C,W/C) (FIM): 6 Sit to Lying (QC): 6 Lying-Sitting on Side/Bed(QC): 6 Sit to Stand (QC): 6 Rollin Roll Left to Right (QC): 6 Chair/Gpk-um-Keudt Xfer(QC): 6 Does the Patient Walk: Yes Gait (FIM): 6 Gait distance (FIM): 3=150 ft Distance: 150' Walk 10 feet (QC): 6 Walk 10ft-Uneven Surface(QC): 6 Walk 50ft with 2 Turns (QC): 6 Walk 150 ft (QC): 6 Gait Level of Assist: 6 Gait Assistive Device: FWW PT Plan Problem List Problem List: Activity Tolerance, Functional Strength, Balance, Gait Treatment/Plan Treatment Plan: Continue Plan of Care Treatment Plan: Bed Mobility, Education, Functional Activity Stefanie, Functional Strength, Group Therapy, Gait, Safety, Therapeutic Exercise, Transfers Treatment Duration: Mar 05, 2018 Frequency: 6 times per week Estimated Hrs Per Day: .25 hour per day (15-30') Patient and/or Family Agrees t: Yes Time/GCodes Time In: 955 Time Out: 1014 Total Billed Treatment Time: 19 Total Billed Treatment 1 Visit FA - 19' HARLEEN BRAVO PT Feb 27, 2018 10:47
[2018-02-27] MEDS: ENOXAPARIN 40 MG/0.4 ML (LOVENOX) SYR SC SCH (11:11)
[2018-02-27 14:46] VITALS: BP 137/79
[2018-02-27 17:22] VITALS: BP 156/88
--- NOTE | 2018-02-27 18:22 | Progress Note (SOAP) ---
Subjective Date Seen by a Provider: Feb 27, 2018 Time Seen by a Provider: 12:30 Subjective/Events-last exam Fwup acute respiratory failure, pneumonia, COPD with acute exacerbation, right pulmonary nodule, weakness. Cough seems to be breaking up per patient. Objective Exam Vital Signs Date Time Temp Pulse Resp B/P (MAP) Pulse Ox O2 Delivery O2 Flow Rate FiO2 02/27/18 17:22 98.1 97 18 156/88 (110) 97 Nasal Cannula 1.00 02/27/18 14:50 94 Nasal Cannula 2.00 02/27/18 14:46 83 98 28 02/27/18 08:00 98 Nasal Cannula 2.00 02/27/18 07:48 98 Nasal Cannula 2.00 02/27/18 07:46 98 Nasal Cannula 2.00 02/27/18 06:17 98.6 83 20 137/79 (98) 97 Nasal Cannula 1.00 02/27/18 02:37 98 Nasal Cannula 2.00 02/26/18 20:50 97 Nasal Cannula 4.00 02/26/18 20:24 97 Nasal Cannula 2.00 I & O 02/27/18 07:00 Intake Total 1990 ml Output Total 1450 ml Balance 540 ml Capillary Refill : General Appearance: No Apparent Distress Neck: Supple Respiratory: Decreased Breath Sounds Cardiovascular: Regular Rate, Rhythm, Systolic Murmur Gastrointestinal: normal bowel sounds, non tender, soft Extremity: Non Tender, No Calf Tenderness, No Pedal Edema Neurologic/Psychiatric: Alert, Oriented x3 Skin: Warm/Dry Assessment/Plan Assessment/Plan Assess & Plan/Chief Complaint 1. Right Sided Pneumonia--on meropenem, Vanc, diflucan and zithromax 2. Right Pulmonary Mass--will reassess with CT scan after treatment of pneumonia, patient has not wanted further workup or treatment 3. COPD with acute exacerbation--continue oxygen, SVNS, prednisone taper 4. Weakness--started PT/OT 5. Acute Respiratory Failure--off vapotherm and to NC 6. Hypothyroidism--back on home dose 7. Parkinsons--stable 8. Acute on Chronic Anemia--monitor H/H Clinical Quality Measures DVT/VTE Risk/Contraindication: Risk Factor Score Per Nursin LEW LEIVA DO Feb 27, 2018 18:22
[2018-02-27 19:46] VITALS: BP 151/68
[2018-02-27] MEDS: DULoxetine 30 MG (CYMBALTA) CAP PO SCH (19:55)
[2018-02-27] MEDS: ACETAMINOPHEN 500 MG TAB (TYLENOL) PO PRN (19:58)
[2018-02-28] MEDS: RT-ALBUTEROL/IPRATROPIUM 3 ML (DUONEB) VIAL INH SCH ×4 (03:01→20:31)
[2018-02-28 05:44] VITALS: BP 132/83
[2018-02-28] MEDS: PANTOPRAZOLE 40 MG (PROTONIX) TAB PO SCH (06:04)
[2018-02-28] MEDS: BETHANECHOL 25 MG (URECHOLINE) TAB PO SCH ×4 (06:04→20:51)
[2018-02-28] MEDS: CATHETER FLUSH 10 ML SYR IV SCH ×3 (06:04→20:53)
[2018-02-28] MEDS: LEVOTHYROXINE 50 MCG (LEVOTHROID) TAB PO SCH (06:04)
[2018-02-28] MEDS: predniSONE 10 MG TAB PO SCH (06:04)
--- NOTE | 2018-02-28 08:25 | Pulmonary Progress Note ---
Subjective Time Seen by a Provider: 08:25 Subjective/Events-last exam PT feels better. Sepsis Event Evaluation Height, Weight, BMI Height: 5'2.00" Weight: 107lbs. 0.0oz. 48.671912jk; 19.8 BMI Method:Stated Exam Exam Vital Signs Date Time Temp Pulse Resp B/P (MAP) Pulse Ox O2 Delivery O2 Flow Rate FiO2 02/28/18 05:44 98.4 79 16 132/83 (99) 99 Nasal Cannula 1.00 02/28/18 03:03 98 Nasal Cannula 2.00 02/27/18 19:50 97 Nasal Cannula 2.00 02/27/18 19:46 94 151/68 (95) 02/27/18 19:07 98 Nasal Cannula 2.00 02/27/18 17:22 98.1 97 18 156/88 (110) 97 Nasal Cannula 1.00 02/27/18 14:50 94 Nasal Cannula 2.00 02/27/18 14:46 83 98 28 I & O 02/28/18 07:00 Intake Total 1590 ml Output Total 1450 ml Balance 140 ml Height & Weight Height: 5'2.00" Weight: 107lbs. 0.0oz. 48.842353qt; 19.8 BMI Method:Stated General Appearance: No Apparent Distress Neck: Supple Respiratory: Decreased Breath Sounds Cardiovascular: Regular Rate, Rhythm, Systolic Murmur Gastrointestinal: normal bowel sounds, non tender, soft Extremity: Non Tender, No Calf Tenderness, No Pedal Edema Neurologic/Psychiatric: Alert, Oriented x3 Skin: Warm/Dry Assessment/Plan Assessment/Plan Pneumonia with MSSA from bronchoscopy -Rocephin, and diflucan -prednisone taper Lung nodule -Will need out patient f/u -Pt has refused work up in the past COPDAE -Oxygen -RICHARD Martini DO Feb 28, 2018 08:25
--- NOTE | 2018-02-28 08:50 | Occupational Ther Daily Note ---
OT Current Status-Daily Note Subjective LATE ENTRY 02/27/18-Pt alert, lying in bed. Nrsg in room. Pt agrees to therapy. States she woke up depressed. No c/o pain. Mental Status/Objective Patient Orientation: Person, Place, Time, Situation Functional [place] Measure 0=Not Assessed/NA 4=Minimal Assistance 1=Total Assistance 5=Supervision or Setup 2=Maximal Assistance 6=Modified [place] 3=Moderate Assistance 7=Complete [place] Attachments: IV, Oxygen ADL-Treatment Supine to EOB mod I. Close SBA using FWW to ambulated and transfer to recliner. Set up for sponge bath. Pt able to complete bathing, SBA in standing to cleanse buttocks/swathi area. Assist for hospital gown due to tubes. Pt able to don/doff socks. After therapy, pt sitting in recliner with call light/phone in reach. All needs met in room. Functional [place] Measure 0=Not Assessed/NA 4=Minimal Assistance 1=Total Assistance 5=Supervision or Setup 2=Maximal Assistance 6=Modified [place] 3=Moderate Assistance 7=Complete [place] IRFPAI Quality Coding Scale 6 Independent with activity with or without an assistive device 5 Patient requires set up or clean up by helper. Patient completes activity by themselves 4 Supervision or touching assist (CGA). [place] provide cues , steadying assist 3 The helper provides less than half the effort to complete the activity 2 The helper provides more than half the effort to complete the activity 1 Dependent. The helper does all the effort to complete an activity 7 Patient refused to complete or attempt activity 9 The patient did not perform the activity before the current illness or injury 88 Not attempted due to Medical conditions or safety concerns Bathing (FIM): 5 Bathing Location: L Arm, R Arm, L Upper Leg, R Upper Leg, L Lower Leg ( including foot), R Lower Leg (including foot), Chest, Abdomen, Buttocks, Perineal Area On/Off Footwear (QC): 6 OT Short Term Goals Short Term Goals 1=Demonstrate adherence to instructed precautions during ADL tasks. 2=Patient will verbalize/demonstrate understanding of assistive devices/ modifications for ADL. 3=Patient will improve strength/tolerance for activity to enable patient to perform ADL's. OT Fdc Goals Fdc Goals Time Frame: Mar 12, 2018 Eating (FIM): 6 Eating (QC): 6 Groomin Oral Hygiene (QC): 6 Bathing(FIM): 5 Shower/Bathe Self (QC): 5 Upper Body Dressing(FIM): 6 Upper Body Dressing (QC): 6 Lower Body Dressing(FIM): 6 Lower Body Dressing (QC): 6 On/Off Footwear (QC): 6 Toileting(FIM): 6 Toileting Hygiene (QC): 6 Toilet/Commode Transfer(FIM): 6 Toilet/Commode Transfer (QC): 6 Shower Transfer(FIM): 5 Additional Goals: 1-Demonstrate ADL Tasks, 2-Verbalize Understanding, 3- ImproveStrength/Stefanie 1=Demonstrate adherence to instructed precautions during ADL tasks. 2=Patient will verbalize/demonstrate understanding of assistive devices/ modifications for ADL. 3=Patient will improve strength/tolerance for activity to enable patient to perform ADL's. OT Education/Plan Problem List/Assessment Pt would benefit from skilled OT to increase her independence in basic self care to allow her to safely return home Discharge Recommendations Plan/Recommendations: Continue POC Treatment Plan/Plan of Care Patient would benefit from OT for education, treatment and training to promote independence in ADL's, mobility, safety and/or upper extremity function for ADL' s. Plan of Care: ADL Retraining, Functional Mobility, UE Funct Exercise/Act, UE Neuromus Re-Ed/Coord Treatment Duration: Mar 12, 2018 Frequency: 5 times per week Estimated Hrs Per Day: .5 hour per day Agreement: Yes Rehab Potential: Fair Time/GCodes Start Time: 08:50 Stop Time: 09:28 Total Time Billed (hr/min): 38 Billed Treatment Time 1 visit-ADL 3 (38 min) CORAL PACKER Feb 28, 2018 08:50
[2018-02-28] MEDS: FERROUS SULF 325 MG (IRON) TAB PO SCH (09:09)
[2018-02-28] MEDS: meTOprolol TARTRATE 25 MG (LOPRESSOR) TABLET PO SCH ×2 (09:09→20:56)
[2018-02-28] MEDS: CLOPIDOGREL 75 MG (PLAVIX) TABLET PO SCH (09:09)
[2018-02-28] MEDS: fluCOnazole (DIFLUCAN) 100 MG TAB PO SCH (09:09)
[2018-02-28] MEDS: ASPIRIN E.C. 81 MG (ECOTRIN) TAB PO SCH (09:10)
[2018-02-28] MEDS: cefTRIAXone FOR IV USE 1,000 MG in NS (IVPB) 50 ML IV SCH (09:10)
[2018-02-28 09:43] LABS: BASOPHILS # (AUTO) 0.1 10^3/uL (0.0-0.1); BASOPHILS % (AUTO) 0 % (0-10); EOSINOPHILS # (AUTO) 0.1 10^3/uL (0.0-0.3); EOSINOPHILS % (AUTO) 0 % (0-10); HEMATOCRIT 35 % (35-52); HEMOGLOBIN 10.9 G/DL (11.5-16.0); LYMPHOCYTES # (AUTO) 1.2 X 10^3 (1.0-4.0); LYMPHOCYTES % (AUTO) 6 % (12-44); MEAN CORPUSCULAR HEMOGLOBIN 29 PG (25-34); MEAN CORPUSCULAR HGB CONC 31 G/DL (32-36); MEAN CORPUSCULAR VOLUME 94 FL (80-99); MONOCYTES # (AUTO) 0.7 X 10^3 (0.0-1.0); MONOCYTES % (AUTO) 3 % (0-12); NEUTROPHILS # (AUTO) 19.6 X 10^3 (1.8-7.8); NEUTROPHILS % (AUTO) 91 % (42-75); PLATELET COUNT 276 10^3/uL (130-400); RED BLOOD COUNT 3.71 10^6/uL (4.35-5.85); RED CELL DISTRIBUTION WIDTH 14.9 % (10.0-14.5); WHITE BLOOD COUNT 21.6 10^3/uL (4.3-11.0)
--- NOTE | 2018-02-28 09:49 | Occupational Ther Daily Note ---
OT Current Status-Daily Note Subjective Pt alert, lying in bed. Pt agrees to therapy. No c/o pain at this time. Mental Status/Objective Patient Orientation: Person, Place, Time, Situation Therapy Code Descriptions/Definitions Functional [place] Measure: 0=Not Assessed/NA 4=Minimal Assistance 1=Total Assistance 5=Supervision or Setup 2=Maximal Assistance 6=Modified [place] 3=Moderate Assistance 7=Complete [place] Attachments: IV, Oxygen ADL-Treatment Pt declined shower or sponge bath. Therapy Code Descriptions/Definitions Functional [place] Measure: 0=Not Assessed/NA 4=Minimal Assistance 1=Total Assistance 5=Supervision or Setup 2=Maximal Assistance 6=Modified [place] 3=Moderate Assistance 7=Complete [place] Therapy Quality Codes: 6 Independent with activity with or without an assistive device 5 Patient requires set up or clean up by helper. Patient completes activity by themselves 4 Supervision or touching assist (CGA). [place] provide cues , steadying assist 3 The helper provides less than half the effort to complete the activity 2 The helper provides more than half the effort to complete the activity 1 Dependent. The helper does all the effort to complete an activity 7 Patient refused to complete or attempt activity 9 The patient did not perform the activity before the current illness or injury 88 Not attempted due to Medical conditions or safety concerns Other Treatment Pt able to complete bed mobility using L arm to pull on bed rail, mod I. Pt unable to use R arm with scooting up in bed due to pain with resistance. UE exercises against gravity and isometric exercises completed in supine, 1 set 10 reps. SOA after each exercise. After therapy, pt lying in bed with call light/ phone in reach. All needs met in room. Education OT Patient Education: Exercise program Teaching Recipient: Patient Teaching Methods: Demonstration, Discussion Response to Teaching: Return Demonstration OT Short Term Goals Short Term Goals 1=Demonstrate adherence to instructed precautions during ADL tasks. 2=Patient will verbalize/demonstrate understanding of assistive devices/ modifications for ADL. 3=Patient will improve strength/tolerance for activity to enable patient to perform ADL's. OT Tape Stringer Goals Fpc Goals Time Frame: Mar 12, 2018 Eating (FIM): 6 Eating (QC): 6 Groomin Oral Hygiene (QC): 6 Bathing(FIM): 5 Shower/Bathe Self (QC): 5 Upper Body Dressing(FIM): 6 Upper Body Dressing (QC): 6 Lower Body Dressing(FIM): 6 Lower Body Dressing (QC): 6 On/Off Footwear (QC): 6 Toileting(FIM): 6 Toileting Hygiene (QC): 6 Toilet/Commode Transfer(FIM): 6 Toilet/Commode Transfer (QC): 6 Shower Transfer(FIM): 5 Additional Goals: 1-Demonstrate ADL Tasks, 2-Verbalize Understanding, 3- ImproveStrength/Stefanie 1=Demonstrate adherence to instructed precautions during ADL tasks. 2=Patient will verbalize/demonstrate understanding of assistive devices/ modifications for ADL. 3=Patient will improve strength/tolerance for activity to enable patient to perform ADL's. OT Education/Plan Problem List/Assessment Pt would benefit from skilled OT to increase her independence in basic self care to allow her to safely return home Discharge Recommendations Plan/Recommendations: Continue POC Treatment Plan/Plan of Care Patient would benefit from OT for education, treatment and training to promote independence in ADL's, mobility, safety and/or upper extremity function for ADL' s. Plan of Care: ADL Retraining, Functional Mobility, UE Funct Exercise/Act, UE Neuromus Re-Ed/Coord Treatment Duration: Mar 12, 2018 Frequency: 5 times per week Estimated Hrs Per Day: .5 hour per day Agreement: Yes Rehab Potential: Fair Time/GCodes Start Time: 09:15 Stop Time: 09:30 Total Time Billed (hr/min): 15 Billed Treatment Time 1 visit-EX 1 (15 min) CORAL PACKER Feb 28, 2018 09:49
[2018-02-28 10:10] LABS: BAND NEUTROPHILS 0 %; BASOPHILS % (MANUAL) 0 %; EOSINOPHILS % (MANUAL) 1 %; LYMPHOCYTES % (MANUAL) 4 %; MONOCYTES % (MANUAL) 3 %; NEUTROPHILS % (MANUAL) 92 %; RBC MORPH NORMAL
[2018-02-28] MEDS: ADVAIR HFA 115/21 MCG INHALER 8 GM IH SCH ×2 (10:25→20:32)
--- NOTE | 2018-02-28 11:15 | Physical Therapy Daily Note ---
PT Daily Note-Current Subjective Pt awake in bed watching tv when PT entered room. Pt agreed to get up and exercise with PT. Pain Numeric Pain Scale: 0-No Pain Location: No Pain Reported Mental Status Patient Orientation: Normal For Age Attachments: Oxygen, IV Transfers Therapy Code Descriptions/Definitions Functional [place] Measure: 0=Not Assessed/NA 4=Minimal Assistance 1=Total Assistance 5=Supervision or Setup 2=Maximal Assistance 6=Modified [place] 3=Moderate Assistance 7=Complete [place] Therapy Quality Codes: 6 Independent with activity with or without an assistive device 5 Patient requires set up or clean up by helper. Patient completes activity by themselves 4 Supervision or touching assist (CGA). [place] provide cues , steadying assist 3 The helper provides less than half the effort to complete the activity 2 The helper provides more than half the effort to complete the activity 1 Dependent. The helper does all the effort to complete an activity 7 Patient refused to complete or attempt activity 9 The patient did not perform the activity before the current illness or injury 88 Not attempted due to Medical conditions or safety concerns Transfers (B, C, W/C) (FIM): 5 Scootin Rollin Supine to/from Sit: 5 Sit to/from Stand: 5 Weight Bearing Right Lower Extremity: Right Full Weight Bearing Left Lower Extremity: Left Full Weight Bearing Gait Training Does the Patient Walk?: Yes Gait (FIM): 1 Distance (FIM): 1=up to 49 ft Distance: 25' Walk 10 feet (QC): 5 Gait Level of Assist: 5 Gait Persons Needed: 1 Gait Assistive Device: FWW Assessment Pt was able to work on transfers from supine/EOB and sit/stand requiring SBA. Patient requested to use restroom and was able to ambulate with SBA. Patient returned to bed afterwards reporting that she was feeling fatigued today. Pt will continue PT to increase endurance and to maintain current level of function. PT Raw Cheese Worker Goals Raw Cheese Worker Goals PT Raw Cheese Worker Goals Time Frame: Mar 07, 2018 Transfers (B,C,W/C) (FIM): 6 Sit to Lying (QC): 6 Lying-Sitting on Side/Bed(QC): 6 Sit to Stand (QC): 6 Rollin Roll Left to Right (QC): 6 Chair/Brt-nd-Dsynb Xfer(QC): 6 Does the Patient Walk: Yes Gait (FIM): 6 Gait distance (FIM): 3=150 ft Distance: 150' Walk 10 feet (QC): 6 Walk 10ft-Uneven Surface(QC): 6 Walk 50ft with 2 Turns (QC): 6 Walk 150 ft (QC): 6 Gait Level of Assist: 6 Gait Assistive Device: FWW PT Plan Problem List Problem List: Activity Tolerance, Functional Strength, Safety, Balance, Gait, Transfer, Bed Mobility Treatment/Plan Treatment Plan: Continue Plan of Care Treatment Plan: Bed Mobility, Education, Functional Activity Stefanie, Functional Strength, Group Therapy, Gait, Safety, Therapeutic Exercise, Transfers Treatment Duration: Mar 05, 2018 Frequency: 6 times per week Estimated Hrs Per Day: .25 hour per day (15-30') Patient and/or Family Agrees t: Yes Time/GCodes Time In: 1032 Time Out: 1050 Total Billed Treatment Time: 18 Total Billed Treatment 1 Visit FA - 18' HARLEEN BRAVO PT Feb 28, 2018 11:15
--- NOTE | 2018-02-28 12:33 | Progress Note (SOAP) ---
Subjective Date Seen by a Provider: Feb 28, 2018 Time Seen by a Provider: 12:31 Subjective/Events-last exam Fwup acute respiratory failure, pneumonia, COPD with acute exacerbation, right pulmonary nodule, weakness. Coughing but can't get anything up. Objective Exam Vital Signs Date Time Temp Pulse Resp B/P (MAP) Pulse Ox O2 Delivery O2 Flow Rate FiO2 02/28/18 10:25 93 Nasal Cannula 2.00 02/28/18 10:25 93 Nasal Cannula 2.00 02/28/18 05:44 98.4 79 16 132/83 (99) 99 Nasal Cannula 1.00 02/28/18 03:03 98 Nasal Cannula 2.00 02/27/18 19:50 97 Nasal Cannula 2.00 02/27/18 19:46 94 151/68 (95) 02/27/18 19:07 98 Nasal Cannula 2.00 02/27/18 17:22 98.1 97 18 156/88 (110) 97 Nasal Cannula 1.00 02/27/18 14:50 94 Nasal Cannula 2.00 02/27/18 14:46 83 98 28 I & O 02/28/18 07:00 Intake Total 1590 ml Output Total 1450 ml Balance 140 ml Capillary Refill : General Appearance: No Apparent Distress Neck: Supple Respiratory: Lungs Clear, Decreased Breath Sounds Cardiovascular: Regular Rate, Rhythm, Systolic Murmur Gastrointestinal: normal bowel sounds, non tender, soft Extremity: Non Tender, No Calf Tenderness, No Pedal Edema Neurologic/Psychiatric: Alert, Oriented x3 Skin: Warm/Dry, Ecchymosis (to arms) Results Lab Laboratory Tests 02/28/18 09:30: White Blood Count 21.6H, Red Blood Count 3.71L, Hemoglobin 10.9L, Hematocrit 35 , Mean Corpuscular Volume 94, Mean Corpuscular Hemoglobin 29, Mean Corpuscular Hemoglobin Concent 31L, Red Cell Distribution Width 14.9H, Platelet Count 276, Mean Platelet Volume 10.0, Neutrophils (%) (Auto) 91H, Lymphocytes (%) (Auto) 6L , Monocytes (%) (Auto) 3, Eosinophils (%) (Auto) 0, Basophils (%) (Auto) 0, Neutrophils # (Auto) 19.6H, Lymphocytes # (Auto) 1.2, Monocytes # (Auto) 0.7, Eosinophils # (Auto) 0.1, Basophils # (Auto) 0.1, Neutrophils % (Manual) 92, Lymphocytes % (Manual) 4, Monocytes % (Manual) 3, Eosinophils % (Manual) 1, Basophils % (Manual) 0, Band Neutrophils 0, Blood Morphology Comment NORMAL Assessment/Plan Assessment/Plan Assess & Plan/Chief Complaint 1. Right Sided Pneumonia--MSSA so on rocephin 2. Right Pulmonary Mass--will reassess with CT scan after treatment of pneumonia, patient has not wanted further workup or treatment 3. COPD with acute exacerbation--continue oxygen, SVNS, prednisone taper 4. Weakness--started PT/OT 5. Acute Respiratory Failure--off vapotherm and to NC 6. Hypothyroidism--back on home dose 7. Parkinsons--stable 8. Acute on Chronic Anemia--monitor H/H Clinical Quality Measures DVT/VTE Risk/Contraindication: Risk Factor Score Per Nursin LEW LEIVA DO Feb 28, 2018 12:33 pm
[2018-02-28] MEDS: ENOXAPARIN 40 MG/0.4 ML (LOVENOX) SYR SC SCH (12:34)
[2018-02-28] MEDS: HYDROcodone/APAP 5 MG/325 MG (LORTAB) TAB PO PRN (12:38)
[2018-02-28] MEDS ORDERED: guaiFENesin (MUCINEX) 600 MG TAB PO NR (12:45)
[2018-02-28] MEDS ORDERED: guaiFENesin (MUCINEX) 600 MG TAB PO ONE (17:03)
[2018-02-28 18:11] VITALS: BP 97/66
[2018-02-28 20:50] VITALS: BP 111/61
[2018-02-28] MEDS: DULoxetine 30 MG (CYMBALTA) CAP PO SCH (20:51)
[2018-02-28] MEDS: guaiFENesin (MUCINEX) 600 MG TAB PO SCH (20:51)
[2018-03-01] MEDS: RT-ALBUTEROL/IPRATROPIUM 3 ML (DUONEB) VIAL INH SCH ×4 (03:23→20:43)
[2018-03-01 06:00] VITALS: BP 116/76
[2018-03-01] MEDS: BETHANECHOL 25 MG (URECHOLINE) TAB PO SCH ×4 (06:32→20:44)
[2018-03-01] MEDS: LEVOTHYROXINE 50 MCG (LEVOTHROID) TAB PO SCH (06:32)
[2018-03-01] MEDS: predniSONE 10 MG TAB PO SCH (06:33)
[2018-03-01] MEDS: PANTOPRAZOLE 40 MG (PROTONIX) TAB PO SCH (06:33)
[2018-03-01] MEDS: CATHETER FLUSH 10 ML SYR IV SCH ×3 (06:35→20:45)
[2018-03-01] MEDS: guaiFENesin (MUCINEX) 600 MG TAB PO SCH ×2 (08:45→20:44)
[2018-03-01] MEDS: CLOPIDOGREL 75 MG (PLAVIX) TABLET PO SCH (08:46)
[2018-03-01] MEDS: ASPIRIN E.C. 81 MG (ECOTRIN) TAB PO SCH (08:46)
[2018-03-01] MEDS: fluCOnazole (DIFLUCAN) 100 MG TAB PO SCH (08:46)
[2018-03-01] MEDS: FERROUS SULF 325 MG (IRON) TAB PO SCH (08:46)
[2018-03-01] MEDS: meTOprolol TARTRATE 25 MG (LOPRESSOR) TABLET PO SCH ×2 (08:46→20:44)
[2018-03-01] MEDS: HYDROcodone/APAP 5 MG/325 MG (LORTAB) TAB PO PRN ×3 (08:46→21:31)
[2018-03-01] MEDS: ADVAIR HFA 115/21 MCG INHALER 8 GM IH SCH ×2 (09:26→20:44)
[2018-03-01 09:27] VITALS: BP 116/76
--- NOTE | 2018-03-01 10:51 | Physical Therapy Daily Note ---
PT Daily Note-Current Subjective Pt states she feels she is breathing some better and very willing to get up out of bed and work with PT Pain Comment: only sore throat, decreased with cool yogurt Appearance Upon arrival, pt supine in bed with HOB elevated and watching TV At end of session, pt sitting up in recliner with LE's elevated, table in front of her, call light and phone within reach. All needs met Mental Status Attachments: Saline Lock, SCD's, Oxygen, [place] Catheter 2L O2/NC Transfers Therapy Code Descriptions/Definitions Functional [place] Measure: 0=Not Assessed/NA 4=Minimal Assistance 1=Total Assistance 5=Supervision or Setup 2=Maximal Assistance 6=Modified [place] 3=Moderate Assistance 7=Complete [place] Therapy Quality Codes: 6 Independent with activity with or without an assistive device 5 Patient requires set up or clean up by helper. Patient completes activity by themselves 4 Supervision or touching assist (CGA). [place] provide cues , steadying assist 3 The helper provides less than half the effort to complete the activity 2 The helper provides more than half the effort to complete the activity 1 Dependent. The helper does all the effort to complete an activity 7 Patient refused to complete or attempt activity 9 The patient did not perform the activity before the current illness or injury 88 Not attempted due to Medical conditions or safety concerns Transfers (B, C, W/C) (FIM): 5 Scootin Rollin Roll Left to Right (QC): 6 Supine to/from Sit: 6 Sit to/from Stand: 5 Sit to Stand (QC): 5 Pt requiring verb inst for safety and hand placement with 95% sit to from stand transfers. Weight Bearing Right Lower Extremity: Right Full Weight Bearing Left Lower Extremity: Left Full Weight Bearing Gait Training Gait (FIM): 1 Distance (FIM): 1=up to 49 ft Distance: 25 Walk 10 feet (QC): 5 Gait Level of Assist: 5 Gait Persons Needed: 1 Gait Assistive Device: FWW Pt on contact precautions and must stay in room so distance decreased Exercises Standing: Heel/toe raises, 3 way Ex=Flex, Abd, Ext, Marching, Mini squats, Sit to Stand, Unilateral stance, Weight shifts Standing Reps: 10 pt requiring several sitting rest breaks with all standing exercises due to fatiguing quickly Treatments transfer and gait training, standing exercise Assessment Current Status: Fair Progress continues to fatigue quickly PT Hand Painter Goals Senior Living Goals PT Senior Living Goals Time Frame: Mar 07, 2018 Transfers (B,C,W/C) (FIM): 6 Sit to Lying (QC): 6 Lying-Sitting on Side/Bed(QC): 6 Sit to Stand (QC): 6 Rollin Roll Left to Right (QC): 6 Chair/Bxe-gw-Knxjz Xfer(QC): 6 Does the Patient Walk: Yes Gait (FIM): 6 Gait distance (FIM): 3=150 ft Distance: 150' Walk 10 feet (QC): 6 Walk 10ft-Uneven Surface(QC): 6 Walk 50ft with 2 Turns (QC): 6 Walk 150 ft (QC): 6 Gait Level of Assist: 6 Gait Assistive Device: FWW PT Plan Problem List Problem List: Activity Tolerance, Functional Strength, Safety, Gait, Transfer Treatment/Plan Treatment Plan: Continue Plan of Care Treatment Plan: Bed Mobility, Education, Functional Activity Stefanie, Functional Strength, Group Therapy, Gait, Safety, Therapeutic Exercise, Transfers Treatment Duration: Mar 05, 2018 Frequency: 6 times per week Estimated Hrs Per Day: .25 hour per day (15-30') Patient and/or Family Agrees t: Yes Safety Risks/Education Patient Education: Gait Training, Transfer Techniques, Safety Issues Teaching Recipient: Patient Teaching Methods: Discussion Response to Teaching: Verbalize Understanding, Return Demonstration, Reinforcement Needed Time/GCodes Time In: 1019 Time Out: 1044 Total Billed Treatment Time: 25 Total Billed Treatment 1 visit FAx2 MERVAT RAMIREZ PTA Mar 01, 2018 10:51
[2018-03-01] MEDS: cefTRIAXone FOR IV USE 1,000 MG in NS (IVPB) 50 ML IV SCH (11:11)
[2018-03-01] MEDS: ENOXAPARIN 40 MG/0.4 ML (LOVENOX) SYR SC SCH (13:35)
[2018-03-01] MEDS ORDERED: FURO40TA4 PO (17:33)
[2018-03-01] MEDS ORDERED: GABA-490 PO (17:33)
[2018-03-01] MEDS ORDERED: SERT100T8 PO (17:33)
[2018-03-01] MEDS ORDERED: TAMS0.4C2 PO (17:33)
[2018-03-01] MEDS ORDERED: METO100T12 PO (17:33)
[2018-03-01] MEDS ORDERED: CETI10TA17 PO (17:33)
[2018-03-01] MEDS ORDERED: METF-399 PO (17:33)
[2018-03-01] MEDS ORDERED: BUPR-168 PO (17:33)
[2018-03-01] MEDS ORDERED: ETD300C PO (17:33)
[2018-03-01] MEDS ORDERED: ATOR20TA66 PO (17:33)
[2018-03-01 18:00] VITALS: BP 157/78
[2018-03-01] MEDS ORDERED: CLOP75TA69 PO (18:20)
[2018-03-01] MEDS ORDERED: METO-333 PO (18:27)
[2018-03-01] MEDS ORDERED: IBUP-1780 PO (18:27)
[2018-03-01] MEDS ORDERED: DULO60CA58 PO (18:27)
[2018-03-01] MEDS ORDERED: LEVO50TA6 PO (18:27)
[2018-03-01] MEDS: DULoxetine 30 MG (CYMBALTA) CAP PO SCH (20:45)
[2018-03-02] MEDS: RT-ALBUTEROL/IPRATROPIUM 3 ML (DUONEB) VIAL INH SCH ×4 (01:24→19:33)
[2018-03-02 06:00] VITALS: BP 163/75
[2018-03-02] MEDS: predniSONE 10 MG TAB PO SCH (06:09)
[2018-03-02] MEDS: BETHANECHOL 25 MG (URECHOLINE) TAB PO SCH ×4 (06:09→20:33)
[2018-03-02] MEDS: LEVOTHYROXINE 50 MCG (LEVOTHROID) TAB PO SCH (06:09)
[2018-03-02] MEDS: CATHETER FLUSH 10 ML SYR IV SCH ×3 (06:09→20:33)
[2018-03-02] MEDS: PANTOPRAZOLE 40 MG (PROTONIX) TAB PO SCH (06:09)
[2018-03-02] MEDS: ADVAIR HFA 115/21 MCG INHALER 8 GM IH SCH ×2 (07:59→19:33)
[2018-03-02] MEDS: FERROUS SULF 325 MG (IRON) TAB PO SCH (08:24)
[2018-03-02] MEDS: ASPIRIN E.C. 81 MG (ECOTRIN) TAB PO SCH (08:24)
[2018-03-02] MEDS: fluCOnazole (DIFLUCAN) 100 MG TAB PO SCH (08:24)
[2018-03-02] MEDS: guaiFENesin (MUCINEX) 600 MG TAB PO SCH ×2 (08:24→20:33)
[2018-03-02] MEDS: CLOPIDOGREL 75 MG (PLAVIX) TABLET PO SCH (08:24)
[2018-03-02] MEDS: meTOprolol TARTRATE 25 MG (LOPRESSOR) TABLET PO SCH ×2 (08:25→20:33)
[2018-03-02] MEDS: HYDROcodone/APAP 5 MG/325 MG (LORTAB) TAB PO PRN ×2 (08:28→16:45)
[2018-03-02] MEDS: cefTRIAXone FOR IV USE 1,000 MG in NS (IVPB) 50 ML IV SCH (10:04)
[2018-03-02] MEDS: ENOXAPARIN 40 MG/0.4 ML (LOVENOX) SYR SC SCH (12:34)
[2018-03-02] MEDS: NYSTATIN ORAL SUSP 5 ML UDC PO SCH ×2 (16:44→20:33)
[2018-03-02 17:45] VITALS: BP 161/74
[2018-03-02 20:00] VITALS: BP 174/84
[2018-03-02] MEDS: DULoxetine 30 MG (CYMBALTA) CAP PO SCH (20:33)
[2018-03-02] MEDS: ACETAMINOPHEN 500 MG TAB (TYLENOL) PO PRN (20:35)
[2018-03-03 01:53] VITALS: BP 116/76
[2018-03-03] MEDS: RT-ALBUTEROL/IPRATROPIUM 3 ML (DUONEB) VIAL INH SCH ×2 (01:58→09:34)
[2018-03-03 06:10] VITALS: BP 130/89
[2018-03-03] MEDS: predniSONE 10 MG TAB PO SCH (06:20)
[2018-03-03] MEDS: CATHETER FLUSH 10 ML SYR IV SCH ×2 (06:20→14:34)
[2018-03-03] MEDS: PANTOPRAZOLE 40 MG (PROTONIX) TAB PO SCH (06:21)
[2018-03-03] MEDS: LEVOTHYROXINE 50 MCG (LEVOTHROID) TAB PO SCH (06:21)
[2018-03-03] MEDS: BETHANECHOL 25 MG (URECHOLINE) TAB PO SCH ×2 (06:21→10:59)
[2018-03-03] MEDS: HYDROcodone/APAP 5 MG/325 MG (LORTAB) TAB PO PRN (06:25)
--- NOTE | 2018-03-03 07:52 | Pulmonary Progress Note ---
Sepsis Event Evaluation Height, Weight, BMI Height: 5'2.00" Weight: 107lbs. 0.0oz. [id number]; 19.8 BMI Method:Stated Exam Exam Vital Signs Date Time Temp Pulse Resp B/P (MAP) Pulse Ox O2 Delivery O2 Flow Rate FiO2 03/03/18 01:58 98 Nasal Cannula 2.00 03/02/18 20:35 99.3 03/02/18 20:30 High Flow N/C 2.00 03/02/18 20:00 99.3 100 16 174/84 (114) 97 Nasal Cannula 2.00 03/02/18 19:46 98 Nasal Cannula 2.00 03/02/18 19:33 95 Nasal Cannula 2.00 03/02/18 17:45 98.6 97 18 161/74 (103) 98 Nasal Cannula 2.00 03/02/18 15:06 97 Nasal Cannula 2.00 03/02/18 08:05 Nasal Cannula 2.00 03/02/18 08:00 94 Nasal Cannula 2.00 I & O 03/03/18 07:00 Intake Total 1640 ml Output Total 1350 ml Balance 290 ml Height & Weight Height: 5'2.00" Weight: 107lbs. 0.0oz. [id number]; 19.8 BMI Method:Stated General Appearance: No Apparent Distress Neck: Supple Respiratory: Lungs Clear, Decreased Breath Sounds Cardiovascular: Regular Rate, Rhythm, Systolic Murmur Gastrointestinal: normal bowel sounds, non tender, soft Extremity: Non Tender, No Calf Tenderness, No Pedal Edema Neurologic/Psychiatric: Alert, Oriented x3 Skin: Warm/Dry, Ecchymosis (to arms) Assessment/Plan Assessment/Plan Pneumonia with MSSA from bronchoscopy -Rocephin, and Diflucan -prednisone taper Lung nodule -Will need out patient f/u -Pt has refused work up in the past COPDAE -Oxygen -SVNs Pt is ok for discharge from pulmonary standpoint RICHARD SANDY DO Mar 03, 2018 07:52
[2018-03-03] MEDS: CLOPIDOGREL 75 MG (PLAVIX) TABLET PO SCH (08:44)
[2018-03-03] MEDS: NYSTATIN ORAL SUSP 5 ML UDC PO SCH ×2 (08:44→12:41)
[2018-03-03] MEDS: cefTRIAXone FOR IV USE 1,000 MG in NS (IVPB) 50 ML IV SCH (08:44)
[2018-03-03] MEDS: meTOprolol TARTRATE 25 MG (LOPRESSOR) TABLET PO SCH (08:44)
[2018-03-03] MEDS: guaiFENesin (MUCINEX) 600 MG TAB PO SCH (08:44)
[2018-03-03] MEDS: fluCOnazole (DIFLUCAN) 100 MG TAB PO SCH (08:45)
[2018-03-03] MEDS: ASPIRIN E.C. 81 MG (ECOTRIN) TAB PO SCH (08:45)
[2018-03-03] MEDS: FERROUS SULF 325 MG (IRON) TAB PO SCH (08:45)
[2018-03-03] MEDS: ADVAIR HFA 115/21 MCG INHALER 8 GM IH SCH (09:35)
--- NOTE | 2018-03-03 10:45 | Physical Therapy Daily Note ---
PT Daily Note-Current Subjective Pt awake in bed watching tv when PT arrived. Pt agreed to get up and walk with PT. Pain Numeric Pain Scale: 0-No Pain Location: No Pain Reported Mental Status Patient Orientation: Normal For Age Attachments: Oxygen Transfers Therapy Code Descriptions/Definitions Functional [place] Measure: 0=Not Assessed/NA 4=Minimal Assistance 1=Total Assistance 5=Supervision or Setup 2=Maximal Assistance 6=Modified [place] 3=Moderate Assistance 7=Complete [place] Therapy Quality Codes: 6 Independent with activity with or without an assistive device 5 Patient requires set up or clean up by helper. Patient completes activity by themselves 4 Supervision or touching assist (CGA). [place] provide cues , steadying assist 3 The helper provides less than half the effort to complete the activity 2 The helper provides more than half the effort to complete the activity 1 Dependent. The helper does all the effort to complete an activity 7 Patient refused to complete or attempt activity 9 The patient did not perform the activity before the current illness or injury 88 Not attempted due to Medical conditions or safety concerns Transfers (B, C, W/C) (FIM): 5 Scootin Rollin Supine to/from Sit: 5 Sit to/from Stand: 5 Weight Bearing Right Lower Extremity: Right Full Weight Bearing Left Lower Extremity: Left Full Weight Bearing Gait Training Does the Patient Walk?: Yes Gait (FIM): 5 Distance (FIM): 3=150 ft Distance: 150' Gait Level of Assist: 5 Gait Persons Needed: 1 Gait Assistive Device: FWW Assessment Pt is able to ambulate for 150' with a FWW requiring SBA. Patient used 2L of oxygen during ambulation and showed signs of fatigue. Pt reported light headed like symptom when returning to bedside recliner. PT took two BP readings with Pt recovering and stating they were feeling fine. Pt left in bedside recliner with call light and belongings. BP reading 1 : 163/62 BP reading 2 : 151/73 PT Prison Goals Prison Goals PT Prison Goals Time Frame: Mar 07, 2018 Transfers (B,C,W/C) (FIM): 6 Sit to Lying (QC): 6 Lying-Sitting on Side/Bed(QC): 6 Sit to Stand (QC): 6 Rollin Roll Left to Right (QC): 6 Chair/Adz-po-Mdvgp Xfer(QC): 6 Does the Patient Walk: Yes Gait (FIM): 6 Gait distance (FIM): 3=150 ft Distance: 150' Walk 10 feet (QC): 6 Walk 10ft-Uneven Surface(QC): 6 Walk 50ft with 2 Turns (QC): 6 Walk 150 ft (QC): 6 Gait Level of Assist: 6 Gait Assistive Device: FWW PT Plan Problem List Problem List: Activity Tolerance, Functional Strength, Safety, Balance, Gait, Transfer, Bed Mobility Treatment/Plan Treatment Plan: Continue Plan of Care Treatment Plan: Bed Mobility, Education, Functional Activity Stefanie, Functional Strength, Group Therapy, Gait, Safety, Therapeutic Exercise, Transfers Treatment Duration: Mar 05, 2018 Frequency: 6 times per week Estimated Hrs Per Day: .25 hour per day (15-30') Patient and/or Family Agrees t: Yes Time/GCodes Time In: 950 Time Out: 1008 Total Billed Treatment Time: 18 Total Billed Treatment 1 Visit FA - 18' HARLEEN BRAVO PT Mar 03, 2018 10:45
--- NOTE | 2018-03-03 11:29 | Occupational Ther Daily Note ---
OT Current Status-Daily Note Subjective Pt alert, sitting in recliner. Pt agrees to therapy. Discharge today. No c/o pain at this time. Mental Status/Objective Patient Orientation: Person, Place, Time, Situation Therapy Code Descriptions/Definitions Functional [place] Measure: 0=Not Assessed/NA 4=Minimal Assistance 1=Total Assistance 5=Supervision or Setup 2=Maximal Assistance 6=Modified [place] 3=Moderate Assistance 7=Complete [place] Attachments: IV, Oxygen ADL-Treatment Pt declines ADLs, stating that she will do them at home. Therapy Code Descriptions/Definitions Functional [place] Measure: 0=Not Assessed/NA 4=Minimal Assistance 1=Total Assistance 5=Supervision or Setup 2=Maximal Assistance 6=Modified [place] 3=Moderate Assistance 7=Complete [place] Therapy Quality Codes: 6 Independent with activity with or without an assistive device 5 Patient requires set up or clean up by helper. Patient completes activity by themselves 4 Supervision or touching assist (CGA). [place] provide cues , steadying assist 3 The helper provides less than half the effort to complete the activity 2 The helper provides more than half the effort to complete the activity 1 Dependent. The helper does all the effort to complete an activity 7 Patient refused to complete or attempt activity 9 The patient did not perform the activity before the current illness or injury 88 Not attempted due to Medical conditions or safety concerns Other Treatment Pt stated that she has all AE needed at home for safety. Pt demonstrated UE exercises to increase strength and activity tolerance for daily functional task. Pt was able to complete each exercise 10 reps 1 set with proper body mechanics. After therapy, pt sitting in recliner with call light/phone in reach. All needs met in room. OT Short Term Goals Short Term Goals 1=Demonstrate adherence to instructed precautions during ADL tasks. 2=Patient will verbalize/demonstrate understanding of assistive devices/ modifications for ADL. 3=Patient will improve strength/tolerance for activity to enable patient to perform ADL's. OT Structural Metal Fabricator Apprentice Goals Correction Goals Time Frame: Mar 12, 2018 Eating (FIM): 6 Eating (QC): 6 Groomin Oral Hygiene (QC): 6 Bathing(FIM): 5 Shower/Bathe Self (QC): 5 Upper Body Dressing(FIM): 6 Upper Body Dressing (QC): 6 Lower Body Dressing(FIM): 6 Lower Body Dressing (QC): 6 On/Off Footwear (QC): 6 Toileting(FIM): 6 Toileting Hygiene (QC): 6 Toilet/Commode Transfer(FIM): 6 Toilet/Commode Transfer (QC): 6 Shower Transfer(FIM): 5 Additional Goals: 1-Demonstrate ADL Tasks, 2-Verbalize Understanding, 3- ImproveStrength/Stefanie 1=Demonstrate adherence to instructed precautions during ADL tasks. 2=Patient will verbalize/demonstrate understanding of assistive devices/ modifications for ADL. 3=Patient will improve strength/tolerance for activity to enable patient to perform ADL's. OT Education/Plan Problem List/Assessment Pt would benefit from skilled OT to increase her independence in basic self care to allow her to safely return home Discharge Recommendations Plan/Recommendations: Continue POC Therapy D/C Recommendations: Occupational Therapy Home Care Treatment Plan/Plan of Care Patient would benefit from OT for education, treatment and training to promote independence in ADL's, mobility, safety and/or upper extremity function for ADL' s. Plan of Care: ADL Retraining, Functional Mobility, UE Funct Exercise/Act, UE Neuromus Re-Ed/Coord Treatment Duration: Mar 12, 2018 Frequency: 5 times per week Estimated Hrs Per Day: .5 hour per day Agreement: Yes Rehab Potential: Fair Time/GCodes Start Time: 10:15 Stop Time: 10:30 Total Time Billed (hr/min): 15 Billed Treatment Time 1 visit-FA 1 (15 min) CORAL PACKER Mar 03, 2018 11:29
[2018-03-03] MEDS: ENOXAPARIN 40 MG/0.4 ML (LOVENOX) SYR SC SCH (12:41)
[2018-03-03] MEDS ORDERED: FLUC100T6 PO (12:45)
[2018-03-03] MEDS ORDERED: PANT40TA3 PO (12:45)
[2018-03-03] MEDS ORDERED: CEFD300C3 PO (12:45)
[2018-03-03] MEDS ORDERED: PRD10T PO (12:45)
--- NOTE | 2018-03-03 12:47 | Discharge Inst-Simple/Standard ---
Discharge Inst-Standard Discharge Medications New, Converted or Re-Newed RX: Transmitted to Pharmacy Patient Instructions/Follow Up Plan of Care/Instructions/FU: Fwup 1 week Activity as Tolerated: Yes Discharge Diet: No Restrictions LEW LEIVA DO Mar 03, 2018 12:47
--- NOTE | 2018-03-04 09:17 | Therapy Team Discharge Summary ---
Therapy Discharge Summary Discharge Recommendations Date of Discharge Mar 03, 2018 at 14:35 Therapy D/C Recommendations: Occupational Therapy Home Care Physical Therapy Pt is able to ambulate for 150' with a FWW requiring SBA. Patient used 2L of oxygen during ambulation and showed signs of fatigue. Pt reported light headed like symptom when returning to bedside recliner. PT took two BP readings with Pt recovering and stating they were feeling fine. Patient dismissed on this date, unaware if to home or care facility. Goals addressed. BP reading 1 : 163/62 BP reading 2 : 151/73 Occupational Therapy Decreased Activ Tolerance, Decreased UE Strength, Dependent Transfers, Impaired Self-Care Skills PT Photograph Printer Goals Photograph Printer Goals PT Photograph Printer Goals Time Frame: Mar 07, 2018 Transfers (B,C,W/C) (FIM): 6 Sit to Lying (QC): 6 Lying-Sitting on Side/Bed(QC): 6 Sit to Stand (QC): 6 Rollin (met 03/03/18) Chair/Tqx-bu-Udvyx Xfer(QC): 6 Does the Patient Walk: Yes Gait (FIM): 6 Gait distance (FIM): 3=150 ft Distance: 150' Walk 50ft with 2 Turns (QC): 6 Walk 150 ft (QC): 6 Gait Level of Assist: 6 Gait Assistive Device: FWW OT Retirement Goals Retirement Goals Time Frame: Mar 12, 2018 Eating (FIM): 6 Eating (QC): 6 Groomin Oral Hygiene (QC): 6 Bathing(FIM): 5 Upper Body Dressing(FIM): 6 Lower Body Dressing(FIM): 6 Toileting(FIM): 6 Toileting Hygiene (QC): 6 Toilet/Commode Transfer(FIM): 6 Toilet/Commode Transfer (QC): 6 Shower Transfer(FIM): 5 Additional Goals: 1-Demonstrate ADL Tasks, 2-Verbalize Understanding, 3- ImproveStrength/Stefanie 1=Demonstrate adherence to instructed precautions during ADL tasks. 2=Patient will verbalize/demonstrate understanding of assistive devices/ modifications for ADL. 3=Patient will improve strength/tolerance for activity to enable patient to perform ADL's. HARLEEN BRAVO PT Mar 04, 2018 09:16
--- NOTE | 2018-03-04 11:09 | Therapy Team Discharge Summary ---
Therapy Discharge Summary Discharge Recommendations Date of Discharge Mar 03, 2018 at 14:35 Therapy D/C Recommendations: Home w/ Family Support Occupational Therapy Pt was seen for skilled OT to increase her independence in basic self care to allow her to safely return home after hospitalization for pneumonia and respiratory distress. On admission she needed setup for eating and upper body dressing, SBA for grooming, lower body dressing, toileting and CGA toilet transfer and min assist bathing. Discharge status for ADLs was unknown but notes indicate progress to setup for bath and mod I for donning slipper socks. Transfers were SBA. Pt was discharge to home with family support. See tx plans for goals met.DC OT Decreased Activ Tolerance, Decreased UE Strength, Dependent Transfers, Impaired Self-Care Skills PT Steamer Gum Candy Goals Steamer Gum Candy Goals PT Steamer Gum Candy Goals Time Frame: Mar 07, 2018 Transfers (B,C,W/C) (FIM): 6 Sit to Lying (QC): 6 Lying-Sitting on Side/Bed(QC): 6 Sit to Stand (QC): 6 Rollin Chair/Yih-ge-Hwsgk Xfer(QC): 6 Does the Patient Walk: Yes Gait (FIM): 6 Gait distance (FIM): 3=150 ft Distance: 150' Walk 50ft with 2 Turns (QC): 6 Walk 150 ft (QC): 6 Gait Level of Assist: 6 Gait Assistive Device: FWW OT Skilled Nursing Goals Steamer Gum Candy Goals Time Frame: Mar 12, 2018 Eating (FIM): 6 (not met) Eating (QC): 6 (not met) Groomin (not met) Oral Hygiene (QC): 6 (not met) Bathing(FIM): 5 (met) Upper Body Dressing(FIM): 6 (not met) Lower Body Dressing(FIM): 6 (not met) Toileting(FIM): 6 (not met) Toileting Hygiene (QC): 6 (not met) Toilet/Commode Transfer(FIM): 6 (not met) Toilet/Commode Transfer (QC): 6 (not met) Shower Transfer(FIM): 5 (not met) Additional Goals: 1-Demonstrate ADL Tasks, 2-Verbalize Understanding, 3- ImproveStrength/Stefanie 1=Demonstrate adherence to instructed precautions during ADL tasks. 2=Patient will verbalize/demonstrate understanding of assistive devices/ modifications for ADL. 3=Patient will improve strength/tolerance for activity to enable patient to perform ADL's. SORAYA BRAMBILA OT Mar 04, 2018 11:09
--- NOTE | 2018-03-06 18:06 | Discharge Summary ---
Diagnosis/Chief Complaint Date of Admission Feb 26, 2018 at 13:08 Date of Discharge Mar 03, 2018 at 14:35 Discharge Date: Mar 03, 2018 Discharge Diagnosis 1. Right Sided Pneumonia--improved 2. Right Pulmonary Mass--will reassess with CT scan after treatment of pneumonia, patient has not wanted further workup or treatment 3. COPD with acute exacerbation--improved 4. Weakness--imporved 5. Acute Respiratory Failure--improved, back to NC 6. Hypothyroidism--stable 7. Parkinsons--stable 8. Acute on Chronic Anemia--stable Discharge Summary Hospital Course Hospital Course This is a 77 year old female who was initially admitted to acute care with a right sided pneumonia/pulmonary mass, respiratory distress and exacerbation of her COPD. She was given IV antibiotics and had been switched over from IV steroids to oral prednisone but it was felt that she needed longer IV antibiotic therapy as well as pulmonary toilet and PT and OT for strengthening prior to discharge so she was admitted to SWING bed. She was continued on IV antibiotics while on SWING bed and was able to be weaned back to a nasal cannula at her home dose prior to discharge. She was much stronger at discharge after working with PT/OT. Her sputum culture grew out MSSA as well as brenna so she her antibiotics were de-escalated to rocephin and she was placed on oral diflucan. By the time of discharge she felt so well that she refused home health. She will be discharged home on oral cefdinir as well as oral diflucan and a prednisone taper. She will continue her home oxygen and SVNS. I will see her in my office in 1 week. We will discuss repeat CT scan of the chest at that time. Procedures None. Discharge Physical Examination Allergies: Coded Allergies: benazepril (Verified Allergy, Unknown, 01/21/07) codeine (Verified Adverse Reaction, Unknown, NAUSEA/VOMITING, 01/20/07) Vitals & I&Os Vital Signs Date Time Temp Pulse Resp B/P (MAP) Pulse Ox O2 Delivery O2 Flow Rate FiO2 03/03/18 09:34 96 Nasal Cannula 2.00 03/03/18 06:10 99.6 103 22 130/89 (103) 03/01/18 09:27 28 General Appearance: Alert, Oriented X3, Cooperative, No Acute Distress Respiratory: Clear to Auscultation (with decreased aeration) Cardiovascular: Regular Rate Abdominal: Normal Bowel Sounds, Soft, No Tenderness Extremities: No Clubbing, No Cyanosis, No Edema Skin: Other (brusing) Neuro: Other Psych/Mental Status: Mental Status NL, Mood NL Discharge Home Medications Reviewed and agree with Discharge Medication list on patient's Discharge Instruction sheet Instructions to Patient/Family Please see electronic discharge instructions given to patient. Clinical Quality Measures DVT/VTE Risk/Contraindication: Risk Factor Score Per Nursin ELW LEIVA DO Mar 06, 2018 18:06
== END 2018-03-03 14:35 | disposition home or self-care (01) | DRG 178 ==
LOC: 4TH 13:08
PROVIDERS: ADMIT Family Medicine; ATTEND Family Medicine
DX: J15.211 Pneumonia due to Methicillin susceptible Staphylococcus aureus (principal); J44.1 Chronic obstructive pulmonary disease with (acute) exacerbation; J44.0 Chronic obstructive pulmonary disease with (acute) lower respiratory infection; R91.1 Solitary pulmonary nodule; R53.1 Weakness; Z66 Do not resuscitate; E03.9 Hypothyroidism, unspecified; G20 Parkinson's disease; D64.9 Anemia, unspecified
CPT/HCPCS: 36415; 85007; 85027; 94640; 94760

== ENCOUNTER → 2018-03-17 | Outpatient (CLI) | payer MEDICARE ==
[~2018-03-17] MED LIST changes: +ATOR20TA66 PO; +BUPR-168 PO; +CETI10TA17 PO; +CLOP75TA69 PO; +ETD300C PO; +FURO40TA4 PO; +GABA-490 PO; +METF-399 PO; +METO100T12 PO; +PANT40TA3 PO; +PRD10T PO; +SERT100T8 PO; +TAMS0.4C2 PO
[2018-03-17 11:48] LABS: BASOPHILS # (AUTO) 0.1 10^3/uL (0.0-0.1); BASOPHILS % (AUTO) 0 % (0-10); EOSINOPHILS # (AUTO) 0.4 10^3/uL (0.0-0.3); EOSINOPHILS % (AUTO) 3 % (0-10); HEMATOCRIT 36 % (35-52); HEMOGLOBIN 11.4 G/DL (11.5-16.0); LYMPHOCYTES # (AUTO) 1.2 X 10^3 (1.0-4.0); LYMPHOCYTES % (AUTO) 10 % (12-44); MEAN CORPUSCULAR HEMOGLOBIN 29 PG (25-34); MEAN CORPUSCULAR HGB CONC 32 G/DL (32-36); MEAN CORPUSCULAR VOLUME 93 FL (80-99); MEAN PLATELET VOLUME 9.9 FL (7.4-10.4); MONOCYTES % (AUTO) 8 % (0-12); NEUTROPHILS # (AUTO) 8.8 X 10^3 (1.8-7.8); NEUTROPHILS % (AUTO) 77 % (42-75); PLATELET COUNT 337 10^3/uL (130-400); RED BLOOD COUNT 3.88 10^6/uL (4.35-5.85); RED CELL DISTRIBUTION WIDTH 15.3 % (10.0-14.5); WHITE BLOOD COUNT 11.3 10^3/uL (4.3-11.0)
[2018-03-17 12:23] LABS: ALANINE AMINOTRANSFERASE 22 U/L (0-55); ALBUMIN 3.9 GM/DL (3.2-4.5); ALKALINE PHOSPHATASE 68 U/L (40-136); BILIRUBIN,TOTAL 0.3 MG/DL (0.1-1.0); BUN/CREATININE RATIO 22; CARBON DIOXIDE 25 MMOL/L (21-32); CHLORIDE 101 MMOL/L (98-107); CREATININE SERUM 0.74 MG/DL (0.60-1.30); GFR ESTIMATED > 60; GLUCOSE 83 MG/DL (70-105); SODIUM 138 MMOL/L (135-145); TOTAL PROTEIN 6.3 GM/DL (6.4-8.2)
[2018-03-17 12:44] LABS: FREE T4 (FREE THYROXINE) 0.82 NG/DL (0.70-1.48)
== END ==
LOC: LAB 11:20
PROVIDERS: ATTEND Family Medicine
DX: R53.83 Other fatigue (principal); D64.9 Anemia, unspecified; E03.9 Hypothyroidism, unspecified; E87.8 Other disorders of electrolyte and fluid balance, not elsewhere classified
CPT/HCPCS: 36415; 80053; 84439; 84443; 85025

== ENCOUNTER 2018-04-01 13:07 | Inpatient (IN) | payer MEDICARE ==
[~2018-04-01] VITALS: Ht 157.5 cm; Wt 46.5 kg
[2018-04-01] MEDS ORDERED: RT-ALBUTEROL/IPRATROPIUM 3 ML (DUONEB) VIAL INH ONE (13:30)
[2018-04-01 13:38] LABS: BASOPHILS # (AUTO) 0.1 10^3/uL (0.0-0.1); BASOPHILS % (AUTO) 0 % (0-10); EOSINOPHILS % (AUTO) 0 % (0-10); HEMATOCRIT 34 % (35-52); HEMOGLOBIN 10.7 G/DL (11.5-16.0); LYMPHOCYTES # (AUTO) 1.5 X 10^3 (1.0-4.0); LYMPHOCYTES % (AUTO) 7 % (12-44); MEAN CORPUSCULAR HEMOGLOBIN 29 PG (25-34); MEAN CORPUSCULAR HGB CONC 31 G/DL (32-36); MEAN CORPUSCULAR VOLUME 94 FL (80-99); MEAN PLATELET VOLUME 10.5 FL (7.4-10.4); MONOCYTES # (AUTO) 2.1 X 10^3 (0.0-1.0); MONOCYTES % (AUTO) 10 % (0-12); NEUTROPHILS # (AUTO) 17.4 X 10^3 (1.8-7.8); NEUTROPHILS % (AUTO) 82 % (42-75); PLATELET COUNT 240 10^3/uL (130-400); RED BLOOD COUNT 3.67 10^6/uL (4.35-5.85); RED CELL DISTRIBUTION WIDTH 15.2 % (10.0-14.5); WHITE BLOOD COUNT 21.1 10^3/uL (4.3-11.0)
--- NOTE | 2018-04-01 13:47 | ED General ---
General Chief Complaint: Respiratory Problems Stated Complaint: SOA Source of Information: Patient Exam Limitations: No Limitations History of Present Illness Date Seen by Provider: Apr 01, 2018 Time Seen by Provider: 13:10 Initial Comments Here with report of cough and shortness of air that has increased over the last 24 hours. Previously admitted to this facility for pneumonia. I have been a month ago. Denies fevers today. Denies vomiting. Does normally use oxygen at 3 L had have that bumped up to 4-1/2 at home due to difficulties with breathing. EMS did give albuterol nebulizer treatment which did help. She states the pain to the right chest wall is less now. That pain is worse with cough and deep breathing and better with rest. Is coughing up thick mucus that is purulent in color. Timing/Duration: 24 Hours, Getting Worse Severity: Moderate Associated Systoms: Chest Pain, Cough; No Fever/Chills, No Nausea/Vomiting; Shortness of Air, Weakness Allergies and Home Medications Allergies Coded Allergies: benazepril (Verified Allergy, Unknown, 01/21/07) codeine (Verified Adverse Reaction, Unknown, NAUSEA/VOMITING, 01/20/07) Home Medications Acetaminophen 500 Mg Tablet, 1,000 MG PO Q6H PRN for PAIN-MILD, (Reported) Aspirin 81 Mg Tablet.dr, 81 MG PO DAILY, (Reported) Bethanechol Chloride 25 Mg Tablet, 25 MG PO ACHS, (Reported) Budesonide/Formoterol Fumarate 10.2 Gm Hfa.aer.ad, 2 PUFF IH BID, (Reported) Cefdinir 300 Mg Capsule, 300 MG PO BID Prescribed by: LEW LEIVA on 03/03/18 1245 Cholecalciferol (Vitamin D3) 1,000 Unit Capsule, 1,000 UNIT PO DAILY, (Reported) Clopidogrel Bisulfate 75 Mg Tablet, 75 MG PO DAILY, (Reported) Duloxetine HCl 60 Mg Capsule.dr, 60 MG PO HS, (Reported) Ferrous Sulfate 325 Mg Tablet, 325 MG PO DAILY, (Reported) Fluconazole 100 Mg Tablet, 100 MG PO DAILY Prescribed by: LEW LEIVA on 03/03/18 1245 Ipratropium/Albuterol Sulfate 3 Ml Ampul.neb, 3 ML NEB Q6H PRN for SHORTNESS OF BREATH, (Reported) Levothyroxine Sodium 50 Mcg Tablet, 50 MCG PO DAILY, (Reported) Metoprolol Tartrate 25 Mg Tablet, 12.5 MG PO BID, (Reported) TAKES 1/2 (25MG) TABLET Multivitamin 1 Each Tablet, 1 TAB PO DAILY, (Reported) Pantoprazole Sodium 40 Mg Tablet.dr, 40 MG PO DAILY@0700 Prescribed by: LEW LEIVA on 03/03/18 1245 Prednisone 10 Mg Tab, 30 MG PO DAILY@0700 3 tabs daily for 2 days then 2 tabs daily for 2 days then 1 tab daily for 2 days Prescribed by: LEW LEIVA on 03/03/18 1245 Rosuvastatin Calcium 10 Mg Tablet, 10 MG PO HS, (Reported) Patient Home Medication List Home Medication List Reviewed: Yes Review of Systems Review of Systems Constitutional: see HPI; No chills, No fever EENTM: No nose congestion Respiratory: cough, phlegm, short of breath, wheezing Cardiovascular: chest pain (right chest wall); No edema Gastrointestinal: No abdominal pain, No nausea, No vomiting Genitourinary: no symptoms reported Musculoskeletal: no symptoms reported Skin: no symptoms reported Psychiatric/Neurological: No Symptoms Reported All Other Systems Reviewed Negative Unless Noted: Yes Past Wvajufk-Lusxpw-Qhjwrq Hx Past Med/Social Hx: Reviewed Nursing Past Med/Soc Hx Patient Social History Alcohol Use: Denies Use Number of Drinks Today: AA Alcohol Beverage of Choice: Beer Recreational Drug Use: No Smoking Status: Former Smoker Type Used: Cigarettes Former Smoker, Quit: Jan 24, 1990 2nd Hand Smoke Exposure: No Recent Hopitalizations: No Physical Abuse: No Sexual Abuse: No Mistreated: No Fear: No Immunizations Up To Date Tetanus Booster (TDap): Unknown PED Vaccines UTD: No Date of Pneumonia Vaccine: Dec 01, 2015 Date of Influenza Vaccine: Dec 30, 2017 Seasonal Allergies Seasonal Allergies: No Past Medical History Surgeries: Yes (BACK, NECK, MASTECTOMY, THYROID) Breast, Gallbladder, Orthopedic Respiratory: Yes COPD, Emphysema Currently Using CPAP: No Currently Using BIPAP: No Cardiac: Yes Coronary Artery Disease, High Cholesterol, Hypertension Neurological: No Reproductive Disorders: No Genitourinary: No Gastrointestinal: Yes Gastrointestinal Bleed Musculoskeletal: Yes Arthritis Endocrine: Yes Hypothyroidsim HEENT: Yes Cataract Loss of Vision: Denies Hearing Impairment: Denies Cancer: Yes (left breast) Breast, Thyroid Psychosocial: No Anxiety Integumentary: No Recent Skin Changes Blood Disorders: No Adverse Reaction/Blood Tranf: No Family Medical History Reviewed Nursing Family Hx Cancer 03 FATHER, Onset:60 years & older (CANCER OF THE BLADDER) 09 SISTER, Onset:30's - 40 (CANCER OF THE BREAST) Cataract 03 FATHER, Onset:60 years & older 03 MOTHER, Onset:60 years & older Chest pain 03 MOTHER, Onset:60 years & older Dementia 03 FATHER, Onset:60 years & older Family history: Arthritis 03 MOTHER, Onset:60 years & older Family history: Breast disease 09 SISTER, Onset:30's - 40 Family history: Cardiovascular disease 03 MOTHER, Onset:60 years & older Family history: Glaucoma 03 MOTHER, Onset:60 years & older Family history: Hypertension 03 FATHER, Onset:50's - 60 03 MOTHER, Onset:60 years & older Family history: Osteoporosis 03 MOTHER, Onset:60 years & older Hearing loss 03 FATHER, Onset:60 years & older Heart disease 03 MOTHER, Onset:60 years & older Hypercholesterolemia 03 MOTHER, Onset:60 years & older Infertile CHILDREN, Onset:30's - 40 (PATIENT STATES THAT DAUGHTER WAS INFERTILE) Kidney disease 03 FATHER, Onset:60 years & older Myocardial infarction 03 MOTHER, Onset:60 years & older Parkinson's disease 03 FATHER, Onset:60 years & older 09 BROTHER, Onset:60 years & older Stroke 03 FATHER, Onset:60 years & older No Family History of: Abdominal aortic aneurysm [place]'s disease Alcoholism Aphasia Cancer of colon Congenital heart disease Congestive heart failure Cystic fibrosis Dysphagia Family history: Allergy Family history: Alzheimer's disease Family history: Asthma Family history: Coronary thrombosis Family history: Diabetes mellitus Family history: Gastrointestinal disease Family history: Thyroid disorder Headache Hereditary disease History of - anemia History of - disorder History of - respiratory disease History of drug abuse Human immunodeficiency virus (HIV) seropositivity Malignant neoplasm of lung Prostate cancer Psychotic disorder Seizure disorder Tuberculosis Visual impairment Heart Disease, Cancer, Hypertension Physical Exam-Suspected Sepsis Physical Exam Vital Signs Vital Signs - First Documented 04/01/18 04/01/18 13:38 13:40 Temp 98.6 Pulse 68 Resp 20 B/P (MAP) 116/73 (87) Pulse Ox 99 O2 Delivery Nasal Cannula O2 Flow Rate 3.00 Capillary Refill : Height, Weight, BMI Height: 5'2.00" Weight: 107lbs. 0.0oz. [id number]; 19.8 BMI Method:Stated General Appearance: WD/WN, Chronically ill, Thin HEENT: PERRL/EOMI, Pharynx Normal Neck: Non Tender, Supple Respiratory: Crackles, Decreased Breath Sounds, Expiration, Wheezing Cardiovascular: Regular Rate, Rhythm, No Murmur Gastrointestinal: Non Tender, Soft Back: Normal Inspection, No CVA Tenderness, No Vertebral Tenderness Extremity: Normal Range of Motion, Non Tender Neurologic/Psychiatric: Alert, Oriented x3 Skin: normal color, warm/dry Focused Exam Lactate Level 04/01/18 13:28: Lactic Acid Level 1.60 Lactic Acid Level Laboratory Tests Test 04/01/18 13:28 Lactic Acid Level 1.60 MMOL/L (0.50-2.00) Progress/Results/Core Measures Suspected Sepsis SIRS Temperature: Pulse: Respiratory Rate: Laboratory Tests 04/01/18 13:28: White Blood Count 21.1H Blood Pressure / Mean: 04/01/18 13:28: Lactic Acid Level 1.60 Laboratory Tests 04/01/18 13:28: Creatinine 0.61, INR Comment 1.1, Platelet Count 240, Total Bilirubin 0.5 Results/Orders Lab Results Laboratory Tests Test 04/01/18 13:28 04/01/18 15:25 Range/Units White Blood Count 21.1 H 4.3-11.0 10^3/uL Red Blood Count 3.67 L 4.35-5.85 10^6/uL Hemoglobin 10.7 L 11.5-16.0 G/DL Hematocrit 34 L 35-52 % Mean Corpuscular Volume 94 80-99 FL Mean Corpuscular Hemoglobin 29 25-34 PG Mean Corpuscular Hemoglobin Concent 31 L 32-36 G/DL Red Cell Distribution Width 15.2 H 10.0-14.5 % Platelet Count 240 130-400 10^3/uL Mean Platelet Volume 10.5 H 7.4-10.4 FL Neutrophils (%) (Auto) 82 H 42-75 % Lymphocytes (%) (Auto) 7 L 12-44 % Monocytes (%) (Auto) 10 0-12 % Eosinophils (%) (Auto) 0 0-10 % Basophils (%) (Auto) 0 0-10 % Neutrophils # (Auto) 17.4 H 1.8-7.8 X 10^3 Lymphocytes # (Auto) 1.5 1.0-4.0 X 10^3 Monocytes # (Auto) 2.1 H 0.0-1.0 X 10^3 Eosinophils # (Auto) 0.0 0.0-0.3 10^3/uL Basophils # (Auto) 0.1 0.0-0.1 10^3/uL Neutrophils % (Manual) 81 % Lymphocytes % (Manual) 6 % Monocytes % (Manual) 10 % Band Neutrophils 3 % Poikilocytosis SLIGHT Anisocytosis SLIGHT Spherocytes SLIGHT Prothrombin Time 14.1 12.2-14.7 SEC INR Comment 1.1 0.8-1.4 Activated Partial Thromboplast Time 30 24-35 SEC Sodium Level 140 135-145 MMOL/L Potassium Level 3.9 3.6-5.0 MMOL/L Chloride Level 99 98-107 MMOL/L Carbon Dioxide Level 26 21-32 MMOL/L Anion Gap 15 H 5-14 MMOL/L Blood Urea Nitrogen 15 7-18 MG/DL Creatinine 0.61 0.60-1.30 MG/DL Estimat Glomerular Filtration Rate > 60 BUN/Creatinine Ratio 25 Glucose Level 110 H 70-105 MG/DL Lactic Acid Level 1.60 0.50-2.00 MMOL/L Calcium Level 8.5 8.5-10.1 MG/DL Corrected Calcium 8.7 8.5-10.1 MG/DL Total Bilirubin 0.5 0.1-1.0 MG/DL Aspartate Amino Transf (AST/SGOT) 16 5-34 U/L Alanine Aminotransferase (ALT/SGPT) 14 0-55 U/L Alkaline Phosphatase 69 40-136 U/L Total Protein 6.6 6.4-8.2 GM/DL Albumin 3.7 3.2-4.5 GM/DL Urine Color YELLOW Urine Clarity SLIGHTLY CLOUDY Urine pH 7 5-9 Urine Specific [place] 1.010 L 1.016-1.022 Urine Protein 2+ H NEGATIVE Urine Glucose (UA) NEGATIVE NEGATIVE Urine Ketones 2+ H NEGATIVE Urine Nitrite NEGATIVE NEGATIVE Urine Bilirubin 1+ H NEGATIVE Urine Urobilinogen 8 H NORMAL MG/DL Urine Leukocyte Esterase 1+ H NEGATIVE Urine RBC (Auto) 2+ H NEGATIVE Urine RBC 0-2 /HPF Urine WBC 0-2 /HPF Urine Squamous Epithelial Cells 0-2 /HPF Urine Crystals NONE /LPF Urine Bacteria LARGE H /HPF Urine Casts NONE /LPF Urine Mucus NEGATIVE /LPF Urine Culture Indicated YES My Orders Orders - PEPITO VILLA MD Cbc With Automated Diff (04/01/18 13:17) Comprehensive Metabolic Panel (04/01/18 13:17) Blood Culture (04/01/18 13:17) Sputum Culture (04/01/18 13:17) Urinalysis (04/01/18 13:17) Urine Culture (04/01/18 13:17) Protime With Inr (04/01/18 13:17) Partial Thromboplastin Time (04/01/18 13:17) Chest 1 View, Ap/Pa Only (04/01/18 13:17) Vital Signs Adult Sepsis Patie Q15M (04/01/18 13:17) O2 (04/01/18 13:17) Remove Rings In Anticipation O (04/01/18 13:17) Lactic Acid Analyzer (04/01/18 13:17) Albuterol/Ipra Inhalation Soln (Duoneb I (04/01/18 13:30) Svn Small Volume Nebulizer (04/01/18 13:17) Manual Differential (04/01/18 13:28) Ct Chest Wo (04/01/18 14:06) Albuterol Pre-Mix Nebs (Rt) (Proventil (04/01/18 14:34) Svn Small Volume Nebulizer (04/01/18 14:34) Piperacillin Sodium/Tazobactam (Zosyn Vi (04/01/18 15:15) Medications Given in ED Current Medications Medications Dose Ordered Sig/Janelle Route Start Time Stop Time Status Last Admin Dose Admin Albuterol/ Ipratropium 3 ml ONCE ONCE INH 04/01/18 13:30 04/01/18 13:31 DC 04/01/18 13:45 3 ML Vital Signs/I&O 04/01/18 04/01/18 04/01/18 04/01/18 13:38 13:40 13:45 14:58 Temp 98.6 Pulse 68 Resp 20 B/P (MAP) 116/73 (87) Pulse Ox 99 95 100 100 O2 Delivery Nasal Cannula Nasal Cannula Nasal Cannula O2 Flow Rate 3.00 3.00 3.00 04/01/18 15:49 Pulse 90 Resp 20 B/P (MAP) 112/64 (80) Pulse Ox 100 Capillary Refill : Progress Note : Progress Note seen and evaluated. IV by EMS. Labs, blood culture, lactic acid, chest x-ray and DuoNeb ordered. UA ordered. Monitor patient. 1410: Chest x-ray findings as noted below. CT chest ordered due to radiologist recommendation. Monitor patient. 1503: I did discuss the case with Dr. Duffy. Patient does have an for hilar pneumonia with elevated white blood cell count and the setting of chronic lung disease. She accepts patient for admission, inpatient status to the medical floor. Zosyn and vancomycin to be ordered. Zosyn 4.5 g IV ordered. I have consulted Dr. Mcgarry at 1507. He agrees with plan thus far. Patient and family agree with plan. Diagnostic Imaging Diagonstic Imaging: Xray Plain Films/CT/US/NM/MRI: chest Comments NAME: DEVYN MARK [facility] REC#: [id number] PT STATUS: REG ER : 1940 PHYSICIAN: PEPITO VILLA MD ADMIT DATE: 04/01/18/ER Draft Date of Exam:04/01/18 CHEST 1 VIEW, AP/PA ONLY Portable erect AP chest at 1:41. Indication: Cough. The heart size is within normal limits and stable when compared to 02/25/2018. The prior exam did note chronic pulmonary changes including blunting of the left gastric angle and tenting of the right hemidiaphragm. These findings are again evident and no different. The prior study also suggested a spiculated density in the right upper lobe. The CT chest exam performed on 01/25/2017 did suggest a linear air scar formation along the posterior aspect of the right upper lobe. This may correspond to the density in question. However that finding does seem somewhat more conspicuous than on the prior exam. I would recommend repeat CT chest exam be performed for further evaluation. There is no sign of pneumonia or of a pleural effusion. There is no evidence for failure either. The mediastinum is not widened. The osseous structures are intact. The orthopedic hardware overlying the cervical spine seen previously is again visualized. Impression: 1. There is chronic pulmonary disease but there is no evidence for acute cardiopulmonary abnormality. 2. The spiculated density overlying the right upper lung seen previously may be secondary to scar formation alone. The possibility that there is an underlying neoplastic mass in this area should still be considered. Recommendations as above. Dictated on workstation # [id number] Dict: 04/01/18 1352 Trans: 04/01/18 1400 [id number] [id number] Interpreted by: CRISTHIAN SHAIKH MD Electronically signed by: Gonslao Imaging: CT Plain Films/CT/US/NM/MRI: chest Comments [facility] [place] NAME: DEVYN MARK [facility] REC#: [id number] PT STATUS: REG ER : 1940 PHYSICIAN: PEPITO VILLA MD ADMIT DATE: 04/01/18/ER Draft Date of Exam:04/01/18 CT CHEST WO PROCEDURE: CT chest without contrast. TECHNIQUE: Multiple contiguous axial images were obtained through the chest without the use of intravenous contrast. INDICATION: Cough, shortness of breath. FINDINGS: The previous CT chest exam of 11/05/2017 did note an 18 mm area of irregular density along the posterior aspect of the right upper lobe. That finding is again evident on this study and now measures approximately 20 mm. Even though this density does measure slightly larger than on the prior exam, this may well be secondary to scar formation as opposed to neoplasm. If further imaging is desired, then PET CT would be recommended. If the PET/CT exam is not performed, then a short-term (three-month) followup CT chest exam should be obtained. In the interval since the previous exam, a few patchy alveolar/interstitial infiltrates have developed in the right infrahilar region posteriorly. These may represent mild pneumonia/atelectasis. No new abnormality has developed, otherwise. The chronic pulmonary changes involving the lung bases seen previously are again evident and no different. The heart is stable in size. Coronary artery calcifications are again noted. The aorta is not abnormally dilated. There is no mediastinal or hilar adenopathy. The thyroid gland was not well visualized. The sections through the upper abdomen fail to show any sign of an acute abnormality. The bone windows are unremarkable for fracture or for destructive lesion. IMPRESSION: 1. The area of increased density in the right upper lobe seen previously measures slightly larger than on the prior exam. This finding is more likely due to scar formation however than to neoplasm. Recommendations as above. 2. There is a small patchy area of pneumonia/atelectasis in the right infrahilar region. There is no acute cardiopulmonary abnormality noted, otherwise. 3. There are chronic pulmonary changes involving the lungs. Dictated on workstation # [id number] Dict: 04/01/18 1423 Trans: 04/01/18 1438 [id number] Interpreted by: CRISTHIAN SHAIKH MD Electronically signed by: Departure Communication (Admissions) Time/Spoke to Admitting Phy: 15:03 Time/Spoke to Consulting Phy: 15:07 Impression Primary Impression: Pneumonia Qualified Codes: J18.1 - Lobar pneumonia, unspecified organism Disposition: ADMITTED INPATIENT Condition: Stable Admissions Decision to Admit Reason: Admit from ER (General) Decision to Admit/Date: Apr 01, 2018 Time/Decision to Admit Time: 15:03 Departure-Patient Inst. Referrals: LEW LEIVA DO (PCP/Family) Primary Care Physician PEPITO VILLA MD Apr 01, 2018 13:47
[2018-04-01 13:50] LABS: INR 1.1 (0.8-1.4); PROTHROMBIN TIME PATIENT 14.1 SEC (12.2-14.7)
[2018-04-01 13:58] LABS: ALANINE AMINOTRANSFERASE 14 U/L (0-55); ALBUMIN 3.7 GM/DL (3.2-4.5); ALKALINE PHOSPHATASE 69 U/L (40-136); BILIRUBIN,TOTAL 0.5 MG/DL (0.1-1.0); BUN/CREATININE RATIO 25; CALCIUM 8.5 MG/DL (8.5-10.1); CARBON DIOXIDE 26 MMOL/L (21-32); CHLORIDE 99 MMOL/L (98-107); CREATININE SERUM 0.61 MG/DL (0.60-1.30); GFR ESTIMATED > 60; GLUCOSE 110 MG/DL (70-105); POTASSIUM 3.9 MMOL/L (3.6-5.0); SODIUM 140 MMOL/L (135-145); TOTAL PROTEIN 6.6 GM/DL (6.4-8.2)
--- NOTE | 2018-04-01 14:01 | Diagnostic Imaging Report ---
Portable erect AP chest at 1:41. Indication: Cough. The heart size is within normal limits and stable when compared to 02/25/2018. The prior exam did note chronic pulmonary changes including blunting of the left gastric angle and tenting of the right hemidiaphragm. These findings are again evident and no different. The prior study also suggested a spiculated density in the right upper lobe. The CT chest exam performed on 01/25/2017 did suggest a linear air scar formation along the posterior aspect of the right upper lobe. This may correspond to the density in question. However that finding does seem somewhat more conspicuous than on the prior exam. I would recommend repeat CT chest exam be performed for further evaluation. There is no sign of pneumonia or of a pleural effusion. There is no evidence for failure either. The mediastinum is not widened. The osseous structures are intact. The orthopedic hardware overlying the cervical spine seen previously is again visualized. Impression: 1. There is chronic pulmonary disease but there is no evidence for acute cardiopulmonary abnormality. 2. The spiculated density overlying the right upper lung seen previously may be secondary to scar formation alone. The possibility that there is an underlying neoplastic mass in this area should still be considered. Recommendations as above. Dictated by: Dictated on workstation # [id number]
[2018-04-01 14:08] LABS: ANISOCYTOSIS SLIGHT; BAND NEUTROPHILS 3 %; LYMPHOCYTES % (MANUAL) 6 %; MONOCYTES % (MANUAL) 10 %; NEUTROPHILS % (MANUAL) 81 %; POIKILOCYTOSIS SLIGHT; SPHEROCYTES SLIGHT
[2018-04-01] MEDS ORDERED: RT-ALBUTEROL SULF 2.5 MG/3 ML PRE-MIX VIAL INH STA (14:34)
--- NOTE | 2018-04-01 14:38 | Diagnostic Imaging Report ---
PROCEDURE: CT chest without contrast. TECHNIQUE: Multiple contiguous axial images were obtained through the chest without the use of intravenous contrast. INDICATION: Cough, shortness of breath. FINDINGS: The previous CT chest exam of 11/05/2017 did note an 18 mm area of irregular density along the posterior aspect of the right upper lobe. That finding is again evident on this study and now measures approximately 20 mm. Even though this density does measure slightly larger than on the prior exam, this may well be secondary to scar formation as opposed to neoplasm. If further imaging is desired, then PET CT would be recommended. If the PET/CT exam is not performed, then a short-term (three-month) followup CT chest exam should be obtained. In the interval since the previous exam, a few patchy alveolar/interstitial infiltrates have developed in the right infrahilar region posteriorly. These may represent mild pneumonia/atelectasis. No new abnormality has developed, otherwise. The chronic pulmonary changes involving the lung bases seen previously are again evident and no different. The heart is stable in size. Coronary artery calcifications are again noted. The aorta is not abnormally dilated. There is no mediastinal or hilar adenopathy. The thyroid gland was not well visualized. The sections through the upper abdomen fail to show any sign of an acute abnormality. The bone windows are unremarkable for fracture or for destructive lesion. IMPRESSION: 1. The area of increased density in the right upper lobe seen previously measures slightly larger than on the prior exam. This finding is more likely due to scar formation however than to neoplasm. Recommendations as above. 2. There is a small patchy area of pneumonia/atelectasis in the right infrahilar region. There is no acute cardiopulmonary abnormality noted, otherwise. 3. There are chronic pulmonary changes involving the lungs. Dictated by: Dictated on workstation # [id number]
[2018-04-01] MEDS ORDERED: PIPERACILLIN SODIUM/TAZOBACTAM 4.5 GM in NS (IVPB) 100 ML IV ONE (15:15)
[2018-04-01 15:37] LABS: CLARITY,URINE SLIGHTLY CLOUDY; COLOR,URINE YELLOW; GLUCOSE, URINE (UA) NEGATIVE (NEGATIVE); KETONES,URINE 2+ (NEGATIVE); LEUKOCYTE ESTERASE ,URINE 1+ (NEGATIVE); NITRITE,URINE NEGATIVE (NEGATIVE); PH,URINE 7 (5-9); PROTEIN,URINE 2+ (NEGATIVE); UROBILINOGEN,URINE 8 MG/DL (NORMAL)
[2018-04-01 15:51] LABS: BACTERIA,URINE LARGE /HPF; BILIRUBIN,URINE 1+ (NEGATIVE); RBC,URINE 0-2 /HPF; SQUAMOUS EPITHELIAL CELL,UR 0-2 /HPF; WBC,URINE 0-2 /HPF
[2018-04-01 16:25] VITALS: BP 102/63
[2018-04-01] MEDS ORDERED: NS IV 1000 ML 1,000 ML ONE (16:25)
[2018-04-01] MEDS ORDERED: ONDANSETRON 4 MG/2 ML (SDV) Z0FRAN IV PRN (16:45)
[2018-04-01 16:52] VITALS: BP 102/63
[2018-04-01] MEDS ORDERED: RT-ALBUTEROL SULF 2.5 MG/3 ML PRE-MIX VIAL INH PRN (17:00)
[2018-04-01] MEDS: NS IV 1000 ML 1,000 ML IV SCH (17:04)
[2018-04-01] MEDS: VANCOMYCIN 750 MG/NS 250 ML IVPB IV SCH ×2 (17:12)
[2018-04-01] MEDS ORDERED: CALCIUM CARBONATE 500 MG (TUMS) TAB.CHEW PO PRN (18:45)
[2018-04-01] MEDS ORDERED: HYDROcodone/APAP 5 MG/325 MG (LORTAB) TAB PO PRN (18:45)
[2018-04-01] MEDS ORDERED: ACETAMINOPHEN 500 MG TAB (TYLENOL) PO PRN (18:45)
[2018-04-01] MEDS ORDERED: diphenhydrAMINE 25 MG TAB (BENADRYL) PO PRN (18:45)
[2018-04-01] MEDS ORDERED: LOPERAMIDE 2 MG (IMODIUM) CAP PO PRN (18:45)
--- NOTE | 2018-04-01 18:55 | NUR ---
Devyn Burns admitted to room 422-1, with an admitting diagnosis of right sided pneumonia , on 04/01/18 from ED via stretcher, accompanied by staff and family.DEVYN BURNS introduced to surroundings, call light, bed controls, phone, TV, temperature control, lights, meal times, smoking policy, visitor policy, side rail policy, bathrooms and showers. Patient Rights given to patient in the handbook.DEVYN BURNS verbalizes understanding that [facility] is not responsible for the loss or damage to any personal effects or valuables that are kept in the patients posession during their hospitalization. The following Patient Care Plans were discussed with the: Discharge Planning, pain, and risk for sepsis. DEVYN BURNS verbalizes understanding of Interdisciplinary Patient Education. Patient and/or family were informed about the Rapid Response Team and its purpose.
[2018-04-01 19:23] VITALS: BP 95/57
[2018-04-01] MEDS: RT-ALBUTEROL SULF 2.5 MG/3 ML PRE-MIX VIAL INH SCH (19:56)
[2018-04-01] MEDS: BENZONATATE 100 MG (TESSALON) CAPSULE PO SCH (21:12)
[2018-04-01] MEDS: PIPERACILLIN/TAZO 4.5 GM/NS 100 ML IV SCH ×2 (21:12)
[2018-04-01] MEDS: HYDROCODONE/CHLOR 10MG/5 ML (TUSSIONEX SUSP) 5ML UDC PO SCH (21:13)
[2018-04-02 00:08] VITALS: BP 146/73
[2018-04-02] MEDS: RT-ALBUTEROL SULF 2.5 MG/3 ML PRE-MIX VIAL INH SCH ×4 (02:17→19:25)
[2018-04-02 04:02] VITALS: BP 112/55
[2018-04-02] MEDS: PIPERACILLIN/TAZO 4.5 GM/NS 100 ML IV SCH ×6 (05:10→21:42)
[2018-04-02 06:07] LABS: BASOPHILS % (AUTO) 0 % (0-10); EOSINOPHILS # (AUTO) 0.1 10^3/uL (0.0-0.3); EOSINOPHILS % (AUTO) 1 % (0-10); HEMATOCRIT 29 % (35-52); HEMOGLOBIN 9.1 G/DL (11.5-16.0); LYMPHOCYTES # (AUTO) 1.5 X 10^3 (1.0-4.0); LYMPHOCYTES % (AUTO) 13 % (12-44); MEAN CORPUSCULAR HEMOGLOBIN 29 PG (25-34); MEAN CORPUSCULAR HGB CONC 31 G/DL (32-36); MEAN CORPUSCULAR VOLUME 93 FL (80-99); MEAN PLATELET VOLUME 10.6 FL (7.4-10.4); MONOCYTES # (AUTO) 1.4 X 10^3 (0.0-1.0); MONOCYTES % (AUTO) 11 % (0-12); NEUTROPHILS # (AUTO) 9.1 X 10^3 (1.8-7.8); NEUTROPHILS % (AUTO) 75 % (42-75); PLATELET COUNT 218 10^3/uL (130-400); RED BLOOD COUNT 3.14 10^6/uL (4.35-5.85); RED CELL DISTRIBUTION WIDTH 15.6 % (10.0-14.5); WHITE BLOOD COUNT 12.1 10^3/uL (4.3-11.0)
[2018-04-02 06:26] LABS: ALANINE AMINOTRANSFERASE 10 U/L (0-55); ALBUMIN 3.3 GM/DL (3.2-4.5); ALKALINE PHOSPHATASE 54 U/L (40-136); BILIRUBIN,TOTAL 0.5 MG/DL (0.1-1.0); BUN/CREATININE RATIO 22; CALCIUM 8.4 MG/DL (8.5-10.1); CARBON DIOXIDE 24 MMOL/L (21-32); CHLORIDE 104 MMOL/L (98-107); CREATININE SERUM 0.65 MG/DL (0.60-1.30); GFR ESTIMATED > 60; GLUCOSE 93 MG/DL (70-105); POTASSIUM 3.8 MMOL/L (3.6-5.0); SODIUM 141 MMOL/L (135-145); TOTAL PROTEIN 5.7 GM/DL (6.4-8.2)
[2018-04-02 08:00] VITALS: BP 138/80
[2018-04-02] MEDS: HYDROCODONE/CHLOR 10MG/5 ML (TUSSIONEX SUSP) 5ML UDC PO SCH ×2 (08:48→20:31)
[2018-04-02] MEDS: BENZONATATE 100 MG (TESSALON) CAPSULE PO SCH ×3 (08:48→20:31)
--- NOTE | 2018-04-02 08:48 | NUR ---
PATIENT STATES NOTHING HAS CHANGED SINCE HER LAST VISIT EXCEPT FOR THE COMPLETION OF HER ANTIBIOTICS AND STEROID FROM DISCHARGE LAST TIME. I REVIEWED THE [facility] REC IT WAS REPORTED PREVIOUSLY.
--- NOTE | 2018-04-02 10:55 | Pulmonary Consultation ---
History of Present Illness History of Present Illness Date of Consultation 04/02/18 10:50 Time Seen by Provider: 10:50 Date of Admission History of Present Illness 77yo with hx of COPD and home oxygen at 3 liters pt presented to ED secondary to worsening SOB, and cough over the last 24hours. She was recently admitted here secondary to pneumonia. She has turned her home oxygen up to 41/2 liters secondary to SOB. EMS gave Duoneb tx which improved SOB. pleuritic CP worse with coughing is now improved. No fever or vomiting. She has been coughing up thick yellow/green sputum. I am consulted for pulmonary management. Allergies and Home Medications Allergies Coded Allergies: benazepril (Verified Allergy, Unknown, 01/21/07) codeine (Verified Adverse Reaction, Unknown, NAUSEA/VOMITING, 01/20/07) Home Medications Acetaminophen 500 Mg Tablet, 1,000 MG PO Q6H PRN for PAIN-MILD, (Reported) Aspirin 81 Mg Tablet.dr, 81 MG PO DAILY, (Reported) Bethanechol Chloride 25 Mg Tablet, 25 MG PO ACHS, (Reported) Budesonide/Formoterol Fumarate 10.2 Gm Hfa.aer.ad, 2 PUFF IH BID, (Reported) Cholecalciferol (Vitamin D3) 1,000 Unit Capsule, 1,000 UNIT PO DAILY, (Reported) Clopidogrel Bisulfate 75 Mg Tablet, 75 MG PO DAILY, (Reported) Duloxetine HCl 60 Mg Capsule.dr, 60 MG PO HS, (Reported) Ferrous Sulfate 325 Mg Tablet, 325 MG PO DAILY, (Reported) Ipratropium/Albuterol Sulfate 3 Ml Ampul.neb, 3 ML NEB Q6H PRN for SHORTNESS OF BREATH, (Reported) Levothyroxine Sodium 50 Mcg Tablet, 50 MCG PO DAILY, (Reported) Metoprolol Tartrate 25 Mg Tablet, 12.5 MG PO BID, (Reported) TAKES 1/2 (25MG) TABLET Multivitamin 1 Each Tablet, 1 TAB PO DAILY, (Reported) Pantoprazole Sodium 40 Mg Tablet.dr, 40 MG PO DAILY@0700 Prescribed by: LEW LEIVA on 03/03/18 1245 Rosuvastatin Calcium 10 Mg Tablet, 10 MG PO HS, (Reported) Past Kpjiqmx-Vwflpg-Efrlro Hx Past Med/Social Hx: Reviewed Nursing Past Med/Soc Hx Patient Social History Alcohol Use: Denies Use Number of Drinks Today: AA Alcohol Beverage of Choice: Beer Recreational Drug Use: No Smoking Status: Former Smoker Type Used: Cigarettes Former Smoker, Quit: Jan 24, 1990 2nd Hand Smoke Exposure: No Recent Foreign Travel: No Contact w/Someone Who Travel: No Recent Infectious Disease Expo: No Recent Hopitalizations: Yes (Was here end of Jan/beginning of Mar) Physical Abuse: No Sexual Abuse: No Mistreated: No Fear: No Immunizations Up To Date Tetanus Booster (TDap): Unknown PED Vaccines UTD: No Date of Pneumonia Vaccine: Dec 01, 2015 Date of Influenza Vaccine: Dec 30, 2017 Seasonal Allergies Seasonal Allergies: No Past Medical History Surgeries: Yes (BACK, NECK, MASTECTOMY, THYROID) Breast, Gallbladder, Orthopedic Respiratory: Yes COPD, Emphysema Currently Using CPAP: No Currently Using BIPAP: No Cardiac: Yes Coronary Artery Disease, High Cholesterol, Hypertension Neurological: No Reproductive Disorders: No Genitourinary: No Gastrointestinal: Yes Gastrointestinal Bleed Musculoskeletal: Yes Arthritis Endocrine: Yes Hypothyroidsim HEENT: Yes Cataract Loss of Vision: Denies Hearing Impairment: Denies Cancer: Yes (left breast) Breast, Thyroid Psychosocial: No Anxiety Integumentary: No Recent Skin Changes Blood Disorders: No Adverse Reaction/Blood Tranf: No Family Medical History Reviewed Nursing Family Hx Cancer 03 FATHER, Onset:60 years & older (CANCER OF THE BLADDER) 09 SISTER, Onset:30's - 40 (CANCER OF THE BREAST) Cataract 03 FATHER, Onset:60 years & older 03 MOTHER, Onset:60 years & older Chest pain 03 MOTHER, Onset:60 years & older Congenital heart disease CHILDREN Dementia 03 FATHER, Onset:60 years & older Family history: Arthritis 03 MOTHER, Onset:60 years & older Family history: Breast disease 09 SISTER, Onset:30's - 40 Family history: Cardiovascular disease 03 MOTHER, Onset:60 years & older Family history: Glaucoma 03 MOTHER, Onset:60 years & older Family history: Hypertension 03 FATHER, Onset:50's - 60 03 MOTHER, Onset:60 years & older Family history: Osteoporosis 03 MOTHER, Onset:60 years & older Hearing loss 03 FATHER, Onset:60 years & older Heart disease 03 MOTHER, Onset:60 years & older Hypercholesterolemia 03 MOTHER, Onset:60 years & older Infertile CHILDREN, Onset:30's - 40 (PATIENT STATES THAT DAUGHTER WAS INFERTILE) Kidney disease 03 FATHER, Onset:60 years & older Myocardial infarction 03 MOTHER, Onset:60 years & older Parkinson's disease 03 FATHER, Onset:60 years & older 09 BROTHER, Onset:60 years & older Stroke 03 FATHER, Onset:60 years & older No Family History of: Abdominal aortic aneurysm Mcroberts's disease Alcoholism Aphasia Cancer of colon Congenital heart disease Congestive heart failure Cystic fibrosis Dysphagia Family history: Allergy Family history: Alzheimer's disease Family history: Asthma Family history: Coronary thrombosis Family history: Diabetes mellitus Family history: Gastrointestinal disease Family history: Thyroid disorder Headache Hereditary disease History of - anemia History of - disorder History of - respiratory disease History of drug abuse Human immunodeficiency virus (HIV) seropositivity Malignant neoplasm of lung Prostate cancer Psychotic disorder Seizure disorder Tuberculosis Visual impairment Heart Disease, Cancer, Hypertension Review of Systems Time Seen by Provider: 11:04 Constitutional: Sweats, Weakness, Malaise; No: Fever, Chills, Other Eyes: No: Pain, Vision change, Conjunctivae inflammation, Eyelid inflammation, Other, Redness ENT: No: Ear pain, Ear discharge, Nose pain, Nose discharge, Nose congestion, Mouth pain, Mouth swelling, Throat pain, Throat swelling, Other Respiratory: Cough, Shortness of breath, SOB with excertion, Wheezing, Pleuritic Pain, Sputum; No: Hemoptysis Cardiovascular: Chest Pain, Palpitations, Orthopnea, Paroxysmal Noc. Dyspnea Gastrointestinal: No: Nausea, Vomiting, Abdominal Pain, Diarrhea, Constipation , Melena, Hematochezia, Other Genitourinary: No Dysuria, No Frequency, No Incontinence, No Hematuria, No Retention, No Other Musculoskeletal: back pain; No: other, neck pain, shoulder pain, arm pain, hand pain, leg pain, foot pain Sepsis Event Evaluation Height, Weight, BMI Height: 5'2.00" Weight: 102lbs. 7.0oz. 46.719166ms; 18.7 BMI Method:Stated Exam Exam Vital Signs Date Time Temp Pulse Resp B/P (MAP) Pulse Ox O2 Delivery O2 Flow Rate FiO2 04/02/18 09:20 99.0 04/02/18 08:25 95 Nasal Cannula 3.00 04/02/18 08:00 99.0 104 16 138/80 (99) 95 Nasal Cannula 3.00 04/02/18 08:00 Nasal Cannula 3.00 04/02/18 04:02 97.5 99 20 112/55 (74) 95 Nasal Cannula 3.00 04/02/18 02:17 97 Nasal Cannula 2.00 04/02/18 00:08 97.9 85 16 146/73 (97) 99 Nasal Cannula 3.00 04/01/18 20:00 Nasal Cannula 3.00 04/01/18 19:57 99 Nasal Cannula 3.00 04/01/18 19:23 97.9 77 14 95/57 (70) 100 Nasal Cannula 3.00 04/01/18 17:27 100 Nasal Cannula 3.00 04/01/18 16:52 91 100 3 04/01/18 16:25 97.6 91 16 102/63 (76) 100 04/01/18 15:49 90 20 112/64 (80) 100 04/01/18 14:58 100 Nasal Cannula 3.00 04/01/18 13:45 100 Nasal Cannula 3.00 04/01/18 13:40 95 Nasal Cannula 3.00 04/01/18 13:38 98.6 68 20 116/73 (87) 99 I & O 04/02/18 07:00 Intake Total 270 ml Output Total 150 ml Balance 120 ml Height & Weight Height: 5'2.00" Weight: 102lbs. 7.0oz. 46.699932wg; 18.7 BMI Method:Stated General Appearance: WD/WN, Anxious, Chronically ill, Thin HEENT: PERRL/EOMI, Pharynx Normal Neck: Non Tender, Supple Respiratory: Crackles, Decreased Breath Sounds, Expiration, Wheezing Cardiovascular: Regular Rate, Rhythm, No Murmur Capillary Refill: Less Than 3 Seconds Extremity: Normal Range of Motion, Non Tender Neurologic/Psychiatric: Alert, Oriented x3 Skin: Normal Color, Warm/Dry Results Lab Laboratory Tests 04/01/18 13:28 04/02/18 05:25 Assessment/Plan Assessment/Plan Recurrent pneumonia with sepsis s/p bronchoscopy 02/25 -Last bronch grew MSSA and candidiasis -Continue Vanco and Zosyn now and await cultures -Woody cultures -Percepta was intermediate -Check urine strep and legionella Ag -CHeck MRSA nasal swab -IVF Lung mass is now larger Hx of severe COPD -Will need out patient F/U -RICHARD ALONSO DO Apr 02, 2018 10:55
[2018-04-02 12:00] VITALS: BP 116/65
--- NOTE | 2018-04-02 13:41 | NUR ---
Pt is Rastafari. Insurance Verifier provided prayer and Communion.
[2018-04-02 16:00] VITALS: BP 127/85
[2018-04-02] MEDS: NS IV 1000 ML 1,000 ML IV SCH ×2 (17:09→17:11)
[2018-04-02] MEDS: VANCOMYCIN 750 MG/NS 250 ML IVPB IV SCH ×2 (17:12)
--- NOTE | 2018-04-02 18:45 | History & Physicial ---
History of Present Illness History of Present Illness Reason for visit/HPI This is a 77 year old female with known COPD and recent admission for pneumonia who was brought to the emergency room with worsening shortness of air and cough. She was found to have worsening infiltrate in her right lung field with possible sepsis. She was admitted on zosyn and vancomycin. Date of Admission Apr 01, 2018 at 15:07 Date Seen by a Provider: Apr 02, 2018 Time Seen by a Provider: 08:35 I consulted on this patient on 04/02/18 18:38 Attending Physician Neli Foley DO Admitting Physician Neli Foley DO Consult Allergies and Home Medications Allergies Coded Allergies: benazepril (Verified Allergy, Unknown, 01/21/07) codeine (Verified Adverse Reaction, Unknown, NAUSEA/VOMITING, 01/20/07) Home Medications Acetaminophen 500 Mg Tablet, 1,000 MG PO Q6H PRN for PAIN-MILD, (Reported) Aspirin 81 Mg Tablet.dr, 81 MG PO DAILY, (Reported) Bethanechol Chloride 25 Mg Tablet, 25 MG PO ACHS, (Reported) Budesonide/Formoterol Fumarate 10.2 Gm Hfa.aer.ad, 2 PUFF IH BID, (Reported) Cholecalciferol (Vitamin D3) 1,000 Unit Capsule, 1,000 UNIT PO DAILY, (Reported) Clopidogrel Bisulfate 75 Mg Tablet, 75 MG PO DAILY, (Reported) Duloxetine HCl 60 Mg Capsule.dr, 60 MG PO HS, (Reported) Ferrous Sulfate 325 Mg Tablet, 325 MG PO DAILY, (Reported) Ipratropium/Albuterol Sulfate 3 Ml Ampul.neb, 3 ML NEB Q6H PRN for SHORTNESS OF BREATH, (Reported) Levothyroxine Sodium 50 Mcg Tablet, 50 MCG PO DAILY, (Reported) Metoprolol Tartrate 25 Mg Tablet, 12.5 MG PO BID, (Reported) TAKES 1/2 (25MG) TABLET Multivitamin 1 Each Tablet, 1 TAB PO DAILY, (Reported) Pantoprazole Sodium 40 Mg Tablet.dr, 40 MG PO DAILY@0700 Prescribed by: NELI FOLEY on 03/03/18 1245 Rosuvastatin Calcium 10 Mg Tablet, 10 MG PO HS, (Reported) Patient Home Medication List Home Medication List Reviewed: Yes Past Crylvpf-Xueimw-Wdbrql Hx Patient Social History Alcohol Use: Denies Use Number of Drinks Today: AA Alcohol Beverage of Choice: Beer Recreational Drug Use: No Smoking Status: Former Smoker Former Smoker, Quit: Jan 24, 1990 Type Used: Cigarettes 2nd Hand Smoke Exposure: No Physical Abuse Screen: No Sexual Abuse: No Recent Foreign Travel: No Contact w/other who traveled: No Recent Hopitalizations: Yes (Was here end of Jan/beginning of Mar) Recent Infectious Disease Expo: No Immunizations Up To Date Tetanus Booster (TDap): Unknown Pediatric: No Date of Pneumonia Vaccine: Dec 01, 2015 Date of Influenza Vaccine: Dec 30, 2017 Seasonal Allergies Seasonal Allergies: No Surgeries Yes (BACK, NECK, MASTECTOMY, THYROID) Breast, Gallbladder, Orthopedic Respiratory Yes Currently Using CPAP: No Currently Using BIPAP: No Cardiovascular Yes Coronary Artery Disease, High Cholesterol, Hypertension Neurological No Reproductive System Hx Reproductive Disorders: No Genitourinary No Gastrointestinal Yes Gastrointestinal Bleed Musculoskeletal Yes Arthritis Endocrine History of Endocrine Disorders: Yes Endocrine Disorders: Hypothyroidsim HEENT History of HEENT Disorders: Yes HEENT Disorders: Cataract Loss of Vision: Denies Hearing Impairment: Denies Cancer Yes (left breast) Breast, Thyroid Psychosocial History of Psychiatric Problem: No Behavioral Health Disorders: Anxiety Integumentary History of Skin or Integumenta: No Skin/Integumentary Disorders: Recent Skin Changes Blood Transfusions History of Blood Disorders: No Adverse Reaction to a Blood Tr: No Family Medical History Significant Family History: Heart Disease, Cancer, Hypertension Family Hx: Cancer 03 FATHER, Onset:60 years & older (CANCER OF THE BLADDER) 09 SISTER, Onset:30's - 40 (CANCER OF THE BREAST) Cataract 03 FATHER, Onset:60 years & older 03 MOTHER, Onset:60 years & older Chest pain 03 MOTHER, Onset:60 years & older Congenital heart disease CHILDREN Dementia 03 FATHER, Onset:60 years & older Family history: Arthritis 03 MOTHER, Onset:60 years & older Family history: Breast disease 09 SISTER, Onset:30's - 40 Family history: Cardiovascular disease 03 MOTHER, Onset:60 years & older Family history: Glaucoma 03 MOTHER, Onset:60 years & older Family history: Hypertension 03 FATHER, Onset:50's - 60 03 MOTHER, Onset:60 years & older Family history: Osteoporosis 03 MOTHER, Onset:60 years & older Hearing loss 03 FATHER, Onset:60 years & older Heart disease 03 MOTHER, Onset:60 years & older Hypercholesterolemia 03 MOTHER, Onset:60 years & older Infertile CHILDREN, Onset:30's - 40 (PATIENT STATES THAT DAUGHTER WAS INFERTILE) Kidney disease 03 FATHER, Onset:60 years & older Myocardial infarction 03 MOTHER, Onset:60 years & older Parkinson's disease 03 FATHER, Onset:60 years & older 09 BROTHER, Onset:60 years & older Stroke 03 FATHER, Onset:60 years & older No Family History of: Abdominal aortic aneurysm Denis's disease Alcoholism Aphasia Cancer of colon Congenital heart disease Congestive heart failure Cystic fibrosis Dysphagia Family history: Allergy Family history: Alzheimer's disease Family history: Asthma Family history: Coronary thrombosis Family history: Diabetes mellitus Family history: Gastrointestinal disease Family history: Thyroid disorder Headache Hereditary disease History of - anemia History of - disorder History of - respiratory disease History of drug abuse Human immunodeficiency virus (HIV) seropositivity Malignant neoplasm of lung Prostate cancer Psychotic disorder Seizure disorder Tuberculosis Visual impairment Review of Systems Constitutional: weakness Respiratory: cough, dyspnea on exertion, short of breath Cardiovascular: No no symptoms reported, No see HPI, No chest pain, No edema, No Hx of Intervention, No palpitations, No syncope, No vascular heart diseas, No other Gastrointestinal: No RUQ, No LUQ, No RLQ, No LLQ, No no symptoms reported, No see HPI, No abdominal pain, No constipation, No diarrhea, No dysphagia, No hematemesis, No heartburn, No jaundice, No loss of appetite, No melena, No nausea, No vomiting, No other Genitourinary: No no symptoms reported, No see HPI, No decreased output, No discharge, No dysuria, No frequency, No hematuria, No hesitancy, No incontinence , No nocturia, No pain, No other Musculoskeletal: muscle weakness Skin: No no symptoms reported, No see HPI, No change in color, No change in hair/nails, No dryness, No hx of skin cancer, No lesions, No lumps, No pruritus , No rash, No other Psychiatric/Neurological: Anxiety, Tremors, Weakness Physical Exam Vital Signs Vital Signs - First Documented 04/01/18 04/01/18 04/01/18 13:38 13:40 16:52 Temp 98.6 Pulse 68 Resp 20 B/P (MAP) 116/73 (87) Pulse Ox 99 O2 Delivery Nasal Cannula O2 Flow Rate 3.00 FiO2 3 Capillary Refill : Less Than 3 Seconds Height, Weight, BMI Height: 5'2.00" Weight: 102lbs. 7.0oz. 46.503753zy; 18.7 BMI Method:Stated General Appearance: Moderate Distress Neck: Supple Respiratory: Decreased Breath Sounds, Respiratory Distress, Rhonci Cardiovascular: Systolic Murmur, Gallop/S4, Tachycardia Gastrointestinal: Normal Bowel Sounds, Non Tender, Soft Rectal: Deferred Back: No CVA Tenderness Extremity: Non Tender, No Calf Tenderness, No Pedal Edema Neurologic/Psychiatric: Alert, Oriented x3 Skin: Warm/Dry Comments Laboratory Tests 04/02/18 05:25: White Blood Count 12.1H, Red Blood Count 3.14L, Hemoglobin 9.1L, Hematocrit 29L , Mean Corpuscular Volume 93, Mean Corpuscular Hemoglobin 29, Mean Corpuscular Hemoglobin Concent 31L, Red Cell Distribution Width 15.6H, Platelet Count 218, Mean Platelet Volume 10.6H, Neutrophils (%) (Auto) 75, Lymphocytes (%) (Auto) 13 , Monocytes (%) (Auto) 11, Eosinophils (%) (Auto) 1, Basophils (%) (Auto) 0, Neutrophils # (Auto) 9.1H, Lymphocytes # (Auto) 1.5, Monocytes # (Auto) 1.4H, Eosinophils # (Auto) 0.1, Basophils # (Auto) 0.0, Sodium Level 141, Potassium Level 3.8, Chloride Level 104, Carbon Dioxide Level 24, Anion Gap 13, Blood Urea Nitrogen 14, Creatinine 0.65, Estimat Glomerular Filtration Rate > 60, BUN/ Creatinine Ratio 22, Glucose Level 93, Calcium Level 8.4L, Corrected Calcium 9.0 , Total Bilirubin 0.5, Aspartate Amino Transf (AST/SGOT) 17, Alanine Aminotransferase (ALT/SGPT) 10, Alkaline Phosphatase 54, Total Protein 5.7L, Albumin 3.3 Microbiology 04/01/18 Blood Culture - Preliminary, Resulted No growth 04/01/18 Gram Stain - Final, Resulted 04/01/18 Sputum Culture - Preliminary, Resulted Pseudomonas aeruginosa Usual upper respiratory kandis 04/01/18 Urine Culture - Preliminary, Resulted Culture In Progress Assessment/Plan Assessment and Plan 1. Recurrent Pneumonia with Sepsis--on zosyn, vancomycin, await sputum/blood culture results 2. COPD with acute exacerbation--on oxygen, SVNS, add solumedrol Admission Diagnosis Admission Status: Inpatient Order (span 2 midnights) Reason for Inpatient Admission: Will need prolonged IV antibiotics Clinical Quality Measures DVT/VTE Risk/Contraindication: Risk Factor Score Per Nursin RFS Level Per Nursing on Admit: 4+=Very High NELI FOLEY DO Apr 02, 2018 18:45
[2018-04-02] MEDS ORDERED: methylPREDNISolone 40 MG/ML (Solu-MEDROL) VIAL IV NR (19:00)
[2018-04-02] MEDS ORDERED: ACETAMINOPHEN 325 MG TABLET PO PRN (19:00)
[2018-04-02] MEDS: RT-ADVAIR HFA 115/21 MCG PER PUFF IH SCH (19:31)
[2018-04-02 20:00] VITALS: BP 120/55
[2018-04-02] MEDS: BETHANECHOL 25 MG (URECHOLINE) TAB PO SCH (20:30)
[2018-04-02] MEDS: ROSUVASTATIN 10 MG (CRESTOR) TABLET PO SCH (20:30)
[2018-04-02] MEDS: DULoxetine 30 MG (CYMBALTA) CAP PO SCH (20:30)
[2018-04-02] MEDS: meTOprolol TARTRATE 25 MG (LOPRESSOR) TABLET PO SCH (20:31)
[2018-04-02] MEDS ORDERED: NON-FORMULARY MEDICATION 1 EA EA (Duloxetine HCl 60 MG) PO SCH (21:00)
[2018-04-02] MEDS ORDERED: NON-FORMULARY MEDICATION 1 EA EA (Budesonide/Formoterol Fumarate (Symbicort 160-4.5 Mcg In IH SCH (21:00)
[2018-04-03] VITALS: BP 184/77
[2018-04-03] MEDS: methylPREDNISolone 40 MG/ML (Solu-MEDROL) VIAL IV SCH ×5 (00:44→23:44)
[2018-04-03] MEDS: ALPRAZolam 0.25 MG (XANAX) TAB PO PRN ×2 (00:48→21:15)
[2018-04-03] MEDS: RT-ALBUTEROL SULF 2.5 MG/3 ML PRE-MIX VIAL INH SCH ×4 (01:35→20:29)
[2018-04-03 04:00] VITALS: BP 115/81
[2018-04-03] MEDS: BETHANECHOL 25 MG (URECHOLINE) TAB PO SCH ×4 (06:07→21:16)
[2018-04-03] MEDS: PIPERACILLIN/TAZO 4.5 GM/NS 100 ML IV SCH ×6 (06:07→21:15)
[2018-04-03] MEDS: PANTOPRAZOLE 40 MG (PROTONIX) TAB PO SCH (06:07)
[2018-04-03] MEDS: MULTIVIT W/MINERALS TAB (THERAGRAN M) PO SCH (06:08)
[2018-04-03] MEDS: LEVOTHYROXINE 50 MCG (LEVOTHROID) TAB PO SCH (06:08)
[2018-04-03] MEDS: HYDROCODONE/CHLOR 10MG/5 ML (TUSSIONEX SUSP) 5ML UDC PO SCH ×2 (07:51→21:17)
[2018-04-03] MEDS: FERROUS SULF 325 MG (IRON) TAB PO SCH (07:52)
[2018-04-03] MEDS: BENZONATATE 100 MG (TESSALON) CAPSULE PO SCH ×3 (07:52→21:16)
[2018-04-03] MEDS: ASPIRIN E.C. 81 MG (ECOTRIN) TAB PO SCH (07:52)
[2018-04-03] MEDS: VITAMIN D3 1,000 UNITS (CHOLECALCIFEROL) TABLET PO SCH (07:52)
[2018-04-03] MEDS: CLOPIDOGREL 75 MG (PLAVIX) TABLET PO SCH (07:52)
[2018-04-03] MEDS: meTOprolol TARTRATE 25 MG (LOPRESSOR) TABLET PO SCH ×2 (07:52→21:17)
[2018-04-03 08:29] VITALS: BP 174/78
--- NOTE | 2018-04-03 08:35 | Pulmonary Progress Note ---
Subjective Time Seen by a Provider: 07:51 Subjective/Events-last exam PT feels better. Family at bedside. Sepsis Event Evaluation Height, Weight, BMI Height: 5'2.00" Weight: 102lbs. 7.0oz. 46.341805mh; 18.7 BMI Method:Stated Focused Exam Lactate Level 04/01/18 13:28: Lactic Acid Level 1.60 Exam Exam Vital Signs Date Time Temp Pulse Resp B/P (MAP) Pulse Ox O2 Delivery O2 Flow Rate FiO2 04/03/18 08:29 98.1 94 20 174/78 (110) 97 Nasal Cannula 3.00 04/03/18 04:00 97.6 86 18 115/81 (92) 96 Nasal Cannula 3.00 04/03/18 01:35 98 Nasal Cannula 3.00 04/03/18 00:00 98.7 83 22 184/77 (112) 98 Nasal Cannula 3.00 04/02/18 20:00 Nasal Cannula 3.00 04/02/18 20:00 99.1 97 18 120/55 (76) 100 Nasal Cannula 3.00 04/02/18 19:25 90 Nasal Cannula 3.00 04/02/18 16:00 99.3 100 18 127/85 (99) 100 Nasal Cannula 3.00 04/02/18 15:59 100 Nasal Cannula 3.00 04/02/18 12:00 98.1 110 16 116/65 (82) 97 Nasal Cannula 3.00 04/02/18 09:20 99.0 I & O 04/03/18 07:00 Intake Total 2657 ml Output Total 250 ml Balance 2407 ml Height & Weight Height: 5'2.00" Weight: 102lbs. 7.0oz. 46.339966io; 18.7 BMI Method:Stated General Appearance: No Apparent Distress, Anxious HEENT: PERRL/EOMI, Pharynx Normal Neck: Supple Respiratory: Decreased Breath Sounds, Respiratory Distress, Rhonci Cardiovascular: Systolic Murmur, Gallop/S4, Tachycardia Capillary Refill: Less Than 3 Seconds Extremity: Non Tender, No Calf Tenderness, No Pedal Edema Neurologic/Psychiatric: Alert, Oriented x3 Skin: Warm/Dry Results Lab Laboratory Tests 04/01/18 13:28 04/02/18 05:25 Assessment/Plan Assessment/Plan Recurrent pneumonia with sepsis s/p bronchoscopy 02/25 -Last bronch grew MSSA and candidiasis -Continue Vanco and Zosyn now and await cultures -Woody cultures -Percepta was intermediate -Check urine strep and legionella Ag -CHeck MRSA nasal swab -IVF Lung mass is now larger Hx of severe COPD -Will need out patient F/U -RICHARD ALONSO DO Apr 03, 2018 08:34
[2018-04-03] MEDS ORDERED: NON-FORMULARY MEDICATION 1 EA EA (Cholecalciferol (Vitamin D3) (Vitamin D3) 1,000 UNIT) PO SCH (09:00)
--- NOTE | 2018-04-03 09:05 | NUR ---
PRIOR TO A.M. B/P MEDICATIONS PULSE WAS 94BPM, AND B/P WAS 174/78. B/P MEDICATIONS GIVEN BY THIS RN.
[2018-04-03] MEDS: RT-ADVAIR HFA 115/21 MCG PER PUFF IH SCH (10:13)
[2018-04-03 12:00] VITALS: BP 176/70
--- NOTE | 2018-04-03 12:06 | NUR ---
provided prayer and Communion.
--- NOTE | 2018-04-03 14:17 | Physical Therapy Evaluation ---
PT Evaluation-General Medical Diagnosis Admission Date Apr 01, 2018 at 15:07 Medical Diagnosis: pneumonia Onset Date: Apr 01, 2018 Therapy Diagnosis Therapy Diagnosis: decreased functional mobility Height/Weight Height (Feet): 5 Height (Inches): 2.00 Weight (Pounds): 102 Weight (Ounces): 7.0 Precautions Precautions/Isolations: Contact Isolation Referral Physician: Alaina Reason for Referral: Evaluation/Treatment Medical History Pertinent Medical History: Alcoholism, Arthritis, CAD, COPD, GERD, HTN, Hypothroidism, Parkinson's, Smoking Additional Medical History multiple hospital admits due to respiratory issues Current History ED with cough and SOA (O2 dependent prior) Social History Home: Apartment Prior/Core FIM Prior Level of Function Therapy Code Descriptions/Definitions Functional [place] Measure: 0=Not Assessed/NA 4=Minimal Assistance 1=Total Assistance 5=Supervision or Setup 2=Maximal Assistance 6=Modified [place] 3=Moderate Assistance 7=Complete [place] Therapy Quality Codes: 6 Independent with activity with or without an assistive device 5 Patient requires set up or clean up by helper. Patient completes activity by themselves 4 Supervision or touching assist (CGA). [place] provide cues , steadying assist 3 The helper provides less than half the effort to complete the activity 2 The helper provides more than half the effort to complete the activity 1 Dependent. The helper does all the effort to complete an activity 7 Patient refused to complete or attempt activity 9 The patient did not perform the activity before the current illness or injury 88 Not attempted due to Medical conditions or safety concerns Functional Abilities and Goals: Independent: Patient completed the activities by him/herself, with or without an assistive device, with no assistance from a helper. Needed Some Help: Patient needed partial assistance from another person to complete activities. Dependent: A helper completed the activities for the patient. Unknown: Not Applicable: Bed Mobility: 6 Transfers (B,C,W/C) (FIM): 6 Gait: 6 Indoor Mobility (Ambulation): Independent Stairs: Independent Prior Devices Use: Walker PT Evaluation-Current Subjective Patient agrees to PT. Pain Numeric Pain Scale: 0-No Pain Location: No Pain Reported Objective Patient Orientation: Normal For Age Problem Solving: Fair Attachments: Oxygen, IV ROM/Strength ROM Lower Extremities bilateral LE WFL Strength Lower Extremities 3/5 bilaterally grossly Integumentary/Posture Integumentary refer to nursing notes Bowel Incontinence: No Bladder Incontinence: No Posture WFL Neuromuscular (Tone, Coordination, Reflexes) noted tremors bilaterally Sensory Vision: Wears Glasses Hearing: Functional Sensation Right Lower Extremit: Impaired Sensation Left Lower Extremity: Impaired Transfers Therapy Code Descriptions/Definitions Functional [place] Measure: 0=Not Assessed/NA 4=Minimal Assistance 1=Total Assistance 5=Supervision or Setup 2=Maximal Assistance 6=Modified [place] 3=Moderate Assistance 7=Complete [place] Transfers (B, C, W/C) (FIM): 5 Scootin Rollin Supine to/from Sit: 5 Sit to/from Stand: 5 Gait Mode of Locomotion: Walk Anticipated Mode of Locomotion: Walk Gait (FIM): 5 Distance (FIM): 3=150 ft Distance: 175' Gait Level of Assist: 5 Gait Assistive Device: FWW Comments/Gait Description steady gait sequence Balance Sitting Static: Normal Sitting Dynamic: Normal Standing Static: Fair Standing Dynamic: Fair Assessment/Needs 77 y.o. female, will benefit from short term skilled PT to address functional strength and mobility to improve current LOF. Patient reports she plans on leaving on hospice from here. Rehab Potential: Guarded PT [facility] Goals Manager Trade Goals PT [facility]it[facility]iary Goals Time Frame: Apr 19, 2018 Transfers (B,C,W/C) (FIM): 6 Gait (FIM): 6 Gait distance (FIM): 3=150 ft Gait Level of Assist: 6 Gait Assistive Device: FWW PT Plan Problem List Problem List: Activity Tolerance, Functional Strength, Safety, Balance, Gait, Transfer, Bed Mobility Treatment/Plan Treatment Plan: Continue Plan of Care Treatment Plan: Bed Mobility, Education, Functional Activity Stefanie, Functional Strength, Gait, Safety, Therapeutic Exercise, Transfers Treatment Duration: Apr 19, 2018 Frequency: 6 times per week Estimated Hrs Per Day: .25 hour per day Patient and/or Family Agrees t: Yes Time/GCodes Time In: 1350 Time Out: 1406 Total Billed Treatment Time: 16 Total Billed Treatment 1 visit EVModC 16 min G Codes Necessary: HARLEEN Villanueva PT Apr 03, 2018 14:17
[2018-04-03 16:00] VITALS: BP 140/63
[2018-04-03] MEDS: VANCOMYCIN 750 MG/NS 250 ML IVPB IV SCH ×2 (16:13)
[2018-04-03 20:00] VITALS: BP 147/64
[2018-04-03] MEDS: ADVAIR HFA 115/21 MCG INHALER 8 GM IH SCH (20:29)
[2018-04-03] MEDS: ROSUVASTATIN 10 MG (CRESTOR) TABLET PO SCH (21:16)
[2018-04-03] MEDS: guaiFENesin (MUCINEX) 600 MG TAB PO SCH (21:16)
[2018-04-03] MEDS: DULoxetine 30 MG (CYMBALTA) CAP PO SCH (21:16)
[2018-04-03] MEDS: DOCUSATE SODIUM 100 MG (COLACE) CAP PO PRN (21:17)
[2018-04-04] VITALS (7 sets, daily range): BP systolic 126–174; BP diastolic 59–79
[2018-04-04] MEDS: RT-ALBUTEROL SULF 2.5 MG/3 ML PRE-MIX VIAL INH SCH ×4 (02:51→21:59)
[2018-04-04] MEDS: LEVOTHYROXINE 50 MCG (LEVOTHROID) TAB PO SCH (05:54)
[2018-04-04] MEDS: PANTOPRAZOLE 40 MG (PROTONIX) TAB PO SCH (05:54)
[2018-04-04] MEDS: BETHANECHOL 25 MG (URECHOLINE) TAB PO SCH ×4 (05:54→21:06)
[2018-04-04] MEDS: PIPERACILLIN/TAZO 4.5 GM/NS 100 ML IV SCH ×6 (05:54→21:05)
[2018-04-04] MEDS: MULTIVIT W/MINERALS TAB (THERAGRAN M) PO SCH (05:54)
[2018-04-04] MEDS: methylPREDNISolone 40 MG/ML (Solu-MEDROL) VIAL IV SCH ×3 (05:54→18:03)
[2018-04-04] MEDS: ADVAIR HFA 115/21 MCG INHALER 8 GM IH SCH ×2 (07:53→21:07)
--- NOTE | 2018-04-04 07:58 | Pulmonary Progress Note ---
Subjective Time Seen by a Provider: 07:58 Subjective/Events-last exam PT appears to be doing better. Sepsis Event Evaluation Height, Weight, BMI Height: 5'2.00" Weight: 102lbs. 7.0oz. 46.905951eb; 18.7 BMI Method:Stated Focused Exam Lactate Level 04/01/18 13:28: Lactic Acid Level 1.60 Exam Exam Vital Signs Date Time Temp Pulse Resp B/P (MAP) Pulse Ox O2 Delivery O2 Flow Rate FiO2 04/04/18 03:35 97.6 69 20 141/66 (91) 98 Nasal Cannula 2.50 04/04/18 02:51 95 Nasal Cannula 2.50 04/04/18 00:00 98.4 89 18 127/59 (81) 97 Nasal Cannula 3.00 04/03/18 20:34 99 Nasal Cannula 2.50 04/03/18 20:29 97 Nasal Cannula 2.50 04/03/18 20:00 98.1 85 18 147/64 (91) 96 Nasal Cannula 3.00 04/03/18 20:00 Nasal Cannula 3.00 04/03/18 16:00 97.3 84 18 140/63 (88) 95 Nasal Cannula 3.00 04/03/18 15:13 92 Nasal Cannula 3.00 04/03/18 12:00 97.9 88 18 176/70 (105) 98 Nasal Cannula 3.00 04/03/18 10:14 98 Nasal Cannula 3.00 04/03/18 08:29 98.1 94 20 174/78 (110) 97 Nasal Cannula 3.00 04/03/18 08:00 97 Nasal Cannula 3.00 I & O 04/04/18 07:00 Intake Total 1880 ml Output Total 825 ml Balance 1055 ml Height & Weight Height: 5'2.00" Weight: 102lbs. 7.0oz. 46.294077jo; 18.7 BMI Method:Stated General Appearance: No Apparent Distress, Anxious HEENT: PERRL/EOMI, Pharynx Normal Neck: Supple Respiratory: Decreased Breath Sounds, Respiratory Distress, Rhonci Cardiovascular: Systolic Murmur, Gallop/S4, Tachycardia Capillary Refill: Less Than 3 Seconds Extremity: Non Tender, No Calf Tenderness, No Pedal Edema Neurologic/Psychiatric: Alert, Oriented x3 Skin: Warm/Dry Assessment/Plan Assessment/Plan Recurrent pneumonia with sepsis s/p bronchoscopy 02/25 -Last bronch grew MSSA and candidiasis -PT is now growing pseudomonus in sputum and urine and enterococcus in urine -Await C&S -repeat Labs -Continue Vanco and Zosyn now and await cultures -Woody cultures -Percepta was intermediate -Check urine strep and legionella Ag -CHeck MRSA nasal swab -IVF Lung mass is now larger Hx of severe COPD -Will need out patient F/U -RICHARD ALONSO DO Apr 04, 2018 07:58
[2018-04-04 08:46] LABS: BASOPHILS % (AUTO) 0 % (0-10); EOSINOPHILS # (AUTO) 0.1 10^3/uL (0.0-0.3); EOSINOPHILS % (AUTO) 1 % (0-10); HEMATOCRIT 26 % (35-52); LYMPHOCYTES # (AUTO) 0.6 X 10^3 (1.0-4.0); LYMPHOCYTES % (AUTO) 7 % (12-44); MEAN CORPUSCULAR HGB CONC 31 G/DL (32-36); MEAN CORPUSCULAR VOLUME 92 FL (80-99); MEAN PLATELET VOLUME 10.6 FL (7.4-10.4); MONOCYTES # (AUTO) 0.4 X 10^3 (0.0-1.0); MONOCYTES % (AUTO) 5 % (0-12); NEUTROPHILS # (AUTO) 6.8 X 10^3 (1.8-7.8); NEUTROPHILS % (AUTO) 87 % (42-75); PLATELET COUNT 246 10^3/uL (130-400); RED BLOOD COUNT 2.81 10^6/uL (4.35-5.85); RED CELL DISTRIBUTION WIDTH 15.1 % (10.0-14.5); WHITE BLOOD COUNT 7.8 10^3/uL (4.3-11.0)
[2018-04-04 08:47] LABS: MEAN CORPUSCULAR HEMOGLOBIN 28 PG (25-34)
[2018-04-04] MEDS: meTOprolol TARTRATE 25 MG (LOPRESSOR) TABLET PO SCH ×2 (09:01→21:05)
[2018-04-04] MEDS: VITAMIN D3 1,000 UNITS (CHOLECALCIFEROL) TABLET PO SCH (09:02)
[2018-04-04] MEDS: FERROUS SULF 325 MG (IRON) TAB PO SCH (09:02)
[2018-04-04] MEDS: ASPIRIN E.C. 81 MG (ECOTRIN) TAB PO SCH (09:02)
[2018-04-04] MEDS: guaiFENesin (MUCINEX) 600 MG TAB PO SCH ×2 (09:02→21:06)
[2018-04-04] MEDS: CLOPIDOGREL 75 MG (PLAVIX) TABLET PO SCH (09:02)
[2018-04-04] MEDS: HYDROCODONE/CHLOR 10MG/5 ML (TUSSIONEX SUSP) 5ML UDC PO SCH ×2 (09:03→21:05)
[2018-04-04] MEDS: DOCUSATE SODIUM 100 MG (COLACE) CAP PO PRN (09:03)
[2018-04-04] MEDS: BENZONATATE 100 MG (TESSALON) CAPSULE PO SCH ×3 (09:03→21:06)
[2018-04-04 09:04] LABS: BUN/CREATININE RATIO 19; CALCIUM 8.5 MG/DL (8.5-10.1); CARBON DIOXIDE 28 MMOL/L (21-32); CHLORIDE 102 MMOL/L (98-107); CREATININE SERUM 0.62 MG/DL (0.60-1.30); GFR ESTIMATED > 60; GLUCOSE 126 MG/DL (70-105); MAGNESIUM 1.8 MG/DL (1.8-2.4); PHOSPHORUS 3.2 MG/DL (2.3-4.7); POTASSIUM 3.4 MMOL/L (3.6-5.0); SODIUM 142 MMOL/L (135-145)
--- NOTE | 2018-04-04 10:40 | Physical Therapy Daily Note ---
PT Daily Note-Current Subjective Patient agrees to PT. Pain Numeric Pain Scale: 3 Location Body Site: Side Pain Description: Ache Mental Status Patient Orientation: Normal For Age Attachments: Oxygen, IV Transfers Therapy Code Descriptions/Definitions Functional [place] Measure: 0=Not Assessed/NA 4=Minimal Assistance 1=Total Assistance 5=Supervision or Setup 2=Maximal Assistance 6=Modified [place] 3=Moderate Assistance 7=Complete [place] Therapy Quality Codes: 6 Independent with activity with or without an assistive device 5 Patient requires set up or clean up by helper. Patient completes activity by themselves 4 Supervision or touching assist (CGA). [place] provide cues , steadying assist 3 The helper provides less than half the effort to complete the activity 2 The helper provides more than half the effort to complete the activity 1 Dependent. The helper does all the effort to complete an activity 7 Patient refused to complete or attempt activity 9 The patient did not perform the activity before the current illness or injury 88 Not attempted due to Medical conditions or safety concerns Transfers (B, C, W/C) (FIM): 5 Scootin Sit to/from Stand: 5 Gait Training Gait (FIM): 5 Distance (FIM): 3=150 ft Distance: 225' Gait Level of Assist: 5 Gait Assistive Device: FWW steady, functional gait sequence with NBOS Assessment Patient tolerated treatment well and is up in recliner with needs met. Patient does demonstrate increase SOA with activity. PT Contracting Analyst Goals Assisted Goals PT Contracting Analyst Goals Time Frame: Apr 19, 2018 Transfers (B,C,W/C) (FIM): 6 Gait (FIM): 6 Gait distance (FIM): 3=150 ft Gait Level of Assist: 6 Gait Assistive Device: FWW PT Plan Treatment/Plan Treatment Plan: Continue Plan of Care Treatment Plan: Bed Mobility, Education, Functional Activity Stefanie, Functional Strength, Gait, Safety, Therapeutic Exercise, Transfers Treatment Duration: Apr 19, 2018 Frequency: 6 times per week Estimated Hrs Per Day: .25 hour per day Patient and/or Family Agrees t: Yes Time/GCodes Time In: 951 Time Out: 1005 Total Billed Treatment Time: 14 Total Billed Treatment 1 visit FA 14 min HARLEEN BRAVO PT Apr 04, 2018 10:40
--- NOTE | 2018-04-04 11:39 | Progress Note (SOAP) ---
Subjective Date Seen by a Provider: Apr 03, 2018 Time Seen by a Provider: 12:30 Subjective/Events-last exam Fwup pneumonia with sepsis, exacerbation of COPD, right lung mass, weakness. Not as short of air at rest. Very weak and dyspnea on exertion. Focused Exam Lactate Level 04/01/18 13:28: Lactic Acid Level 1.60 Objective Exam Vital Signs Date Time Temp Pulse Resp B/P (MAP) Pulse Ox O2 Delivery O2 Flow Rate FiO2 04/04/18 11:17 97.8 68 18 126/65 (85) 95 Nasal Cannula 2.50 04/04/18 08:48 96 Nasal Cannula 3.00 04/04/18 08:08 98.0 70 18 132/72 (92) 96 Nasal Cannula 2.50 04/04/18 07:56 95 Nasal Cannula 2.50 04/04/18 07:53 95 Nasal Cannula 2.50 04/04/18 03:35 97.6 69 20 141/66 (91) 98 Nasal Cannula 2.50 04/04/18 02:51 95 Nasal Cannula 2.50 04/04/18 00:00 98.4 89 18 127/59 (81) 97 Nasal Cannula 3.00 04/03/18 20:34 99 Nasal Cannula 2.50 04/03/18 20:29 97 Nasal Cannula 2.50 04/03/18 20:00 98.1 85 18 147/64 (91) 96 Nasal Cannula 3.00 04/03/18 20:00 Nasal Cannula 3.00 04/03/18 16:00 97.3 84 18 140/63 (88) 95 Nasal Cannula 3.00 04/03/18 15:13 92 Nasal Cannula 3.00 04/03/18 12:00 97.9 88 18 176/70 (105) 98 Nasal Cannula 3.00 I & O 04/04/18 07:00 Intake Total 1880 ml Output Total 825 ml Balance 1055 ml Capillary Refill : Less Than 3 Seconds General Appearance: No Apparent Distress Neck: Supple Respiratory: Decreased Breath Sounds, Wheezing Cardiovascular: Regular Rate, Rhythm Gastrointestinal: normal bowel sounds, non tender, soft Extremity: Non Tender, No Calf Tenderness, No Pedal Edema Neurologic/Psychiatric: Alert, Oriented x3 Skin: Warm/Dry Results Lab Laboratory Tests 04/04/18 08:40: White Blood Count 7.8, Red Blood Count 2.81L, Hemoglobin 8.0L, Hematocrit 26L, Mean Corpuscular Volume 92, Mean Corpuscular Hemoglobin 28, Mean Corpuscular Hemoglobin Concent 31L, Red Cell Distribution Width 15.1H, Platelet Count 246, Mean Platelet Volume 10.6H, Neutrophils (%) (Auto) 87H, Lymphocytes (%) (Auto) 7L, Monocytes (%) (Auto) 5, Eosinophils (%) (Auto) 1, Basophils (%) (Auto) 0, Neutrophils # (Auto) 6.8, Lymphocytes # (Auto) 0.6L, Monocytes # (Auto) 0.4, Eosinophils # (Auto) 0.1, Basophils # (Auto) 0.0, Sodium Level 142, Potassium Level 3.4L, Chloride Level 102, Carbon Dioxide Level 28, Anion Gap 12, Blood Urea Nitrogen 12, Creatinine 0.62, Estimat Glomerular Filtration Rate > 60, BUN/ Creatinine Ratio 19, Glucose Level 126H, Calcium Level 8.5, Phosphorus Level 3.2 , Magnesium Level 1.8 Microbiology 04/01/18 Blood Culture - Preliminary, Resulted No growth 04/02/18 MRSA Screen - Final, Complete MRSA not isolated 04/01/18 Urine Culture - Preliminary, Resulted Pseudomonas aeruginosa Enterococcus faecium Assessment/Plan Assessment/Plan Assess & Plan/Chief Complaint 1. Pneumonia with Sepsis--continue IV abx 2. Exacerbation of COPD--continue oxygen, SVNS, solumedrol 3. Right lung mass--has opted for no further workup, discussed hospice for discharge so will get palliative care consult 4. Weakness--PT started Clinical Quality Measures Admission Status Admission Dx 1. Recurrent Pneumonia with Sepsis--on zosyn, vancomycin, await sputum/blood culture results 2. COPD with acute exacerbation--on oxygen, SVNS, add solumedrol DVT/VTE Risk/Contraindication: Risk Factor Score Per Nursin RFS Level Per Nursing on Admit: 4+=Very High LEW LEIVA DO Apr 04, 2018 11:39
--- NOTE | 2018-04-04 11:41 | Progress Note (SOAP) ---
Subjective Date Seen by a Provider: Apr 04, 2018 Time Seen by a Provider: 11:39 Subjective/Events-last exam Fwup pneumonia with sepsis, exacerbation of COPD, right lung mass, weakness. Feeling a little better but still weak and short of air with exertion. Focused Exam Lactate Level 04/01/18 13:28: Lactic Acid Level 1.60 Objective Exam Vital Signs Date Time Temp Pulse Resp B/P (MAP) Pulse Ox O2 Delivery O2 Flow Rate FiO2 04/04/18 11:17 97.8 68 18 126/65 (85) 95 Nasal Cannula 2.50 04/04/18 08:48 96 Nasal Cannula 3.00 04/04/18 08:08 98.0 70 18 132/72 (92) 96 Nasal Cannula 2.50 04/04/18 07:56 95 Nasal Cannula 2.50 04/04/18 07:53 95 Nasal Cannula 2.50 04/04/18 03:35 97.6 69 20 141/66 (91) 98 Nasal Cannula 2.50 04/04/18 02:51 95 Nasal Cannula 2.50 04/04/18 00:00 98.4 89 18 127/59 (81) 97 Nasal Cannula 3.00 04/03/18 20:34 99 Nasal Cannula 2.50 04/03/18 20:29 97 Nasal Cannula 2.50 04/03/18 20:00 98.1 85 18 147/64 (91) 96 Nasal Cannula 3.00 04/03/18 20:00 Nasal Cannula 3.00 04/03/18 16:00 97.3 84 18 140/63 (88) 95 Nasal Cannula 3.00 04/03/18 15:13 92 Nasal Cannula 3.00 04/03/18 12:00 97.9 88 18 176/70 (105) 98 Nasal Cannula 3.00 I & O 04/04/18 07:00 Intake Total 1880 ml Output Total 825 ml Balance 1055 ml Capillary Refill : Less Than 3 Seconds General Appearance: No Apparent Distress Neck: Supple Respiratory: Decreased Breath Sounds, Wheezing Gastrointestinal: normal bowel sounds, non tender, soft Extremity: Non Tender, No Calf Tenderness, No Pedal Edema Neurologic/Psychiatric: Alert, Oriented x3 Results Lab Laboratory Tests 04/04/18 08:40: White Blood Count 7.8, Red Blood Count 2.81L, Hemoglobin 8.0L, Hematocrit 26L, Mean Corpuscular Volume 92, Mean Corpuscular Hemoglobin 28, Mean Corpuscular Hemoglobin Concent 31L, Red Cell Distribution Width 15.1H, Platelet Count 246, Mean Platelet Volume 10.6H, Neutrophils (%) (Auto) 87H, Lymphocytes (%) (Auto) 7L, Monocytes (%) (Auto) 5, Eosinophils (%) (Auto) 1, Basophils (%) (Auto) 0, Neutrophils # (Auto) 6.8, Lymphocytes # (Auto) 0.6L, Monocytes # (Auto) 0.4, Eosinophils # (Auto) 0.1, Basophils # (Auto) 0.0, Sodium Level 142, Potassium Level 3.4L, Chloride Level 102, Carbon Dioxide Level 28, Anion Gap 12, Blood Urea Nitrogen 12, Creatinine 0.62, Estimat Glomerular Filtration Rate > 60, BUN/ Creatinine Ratio 19, Glucose Level 126H, Calcium Level 8.5, Phosphorus Level 3.2 , Magnesium Level 1.8 Microbiology 04/01/18 Blood Culture - Preliminary, Resulted No growth 04/02/18 MRSA Screen - Final, Complete MRSA not isolated 04/01/18 Urine Culture - Preliminary, Resulted Pseudomonas aeruginosa Enterococcus faecium Assessment/Plan Assessment/Plan Assess & Plan/Chief Complaint 1. Pneumonia with Sepsis--continue IV abx 2. Exacerbation of COPD--continue oxygen, SVNS, solumedrol 3. Right lung mass--has opted for no further workup, discussed hospice for discharge so will get palliative care consult 4. Weakness--PT started Clinical Quality Measures Admission Status Admission Dx 1. Recurrent Pneumonia with Sepsis--on zosyn, vancomycin, await sputum/blood culture results 2. COPD with acute exacerbation--on oxygen, SVNS, add solumedrol DVT/VTE Risk/Contraindication: Risk Factor Score Per Nursin RFS Level Per Nursing on Admit: 4+=Very High LEW LEIVA DO Apr 04, 2018 11:41
--- NOTE | 2018-04-04 12:19 | NUR ---
provided prayer and Communion.
--- NOTE | 2018-04-04 13:02 | NUR ---
PALLIATIVE CARE RN in to see the patient after receiving a consult for hospice at discharge. Patient is very pleasant and agreeable to a visit. She is visibly SOB and conversation does increase this SOB. She is very shaky. 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 She lives at home alone and has several family members checking on her all the time. Meals are delivered by [facility], which she says are better than M.O.Ws. Hospice brochures are given to the patient. At her request, I contacted [facility] for a Front Office Representative to deliver last rites to the patient. I have also spoken to her daughter, Seda about the above and patient's wishes. She is concerned that here mother will not be able to go home and reports she may go to her brother's home at discharge. She is anticipating speaking to her siblings and her mother about hospice choice an disposition.
[2018-04-04] MEDS: NS IV 1000 ML 1,000 ML IV SCH (16:16)
[2018-04-04] MEDS: LINEZOLID IVPB 300 ML IV SCH (18:03)
[2018-04-04] MEDS: ROSUVASTATIN 10 MG (CRESTOR) TABLET PO SCH (21:06)
[2018-04-04] MEDS: ALPRAZolam 0.25 MG (XANAX) TAB PO PRN (22:10)
[2018-04-05] MEDS: methylPREDNISolone 40 MG/ML (Solu-MEDROL) VIAL IV SCH ×3 (00:04→11:46)
[2018-04-05 00:12] VITALS: BP 146/68
[2018-04-05] MEDS: RT-ALBUTEROL SULF 2.5 MG/3 ML PRE-MIX VIAL INH SCH ×3 (03:25→19:06)
[2018-04-05 04:00] VITALS: BP 153/88
[2018-04-05] MEDS: LINEZOLID IVPB 300 ML IV SCH ×2 (05:05→18:37)
[2018-04-05] MEDS: PANTOPRAZOLE 40 MG (PROTONIX) TAB PO SCH (06:17)
[2018-04-05] MEDS: LEVOTHYROXINE 50 MCG (LEVOTHROID) TAB PO SCH (06:17)
[2018-04-05] MEDS: MULTIVIT W/MINERALS TAB (THERAGRAN M) PO SCH (06:17)
[2018-04-05] MEDS: BETHANECHOL 25 MG (URECHOLINE) TAB PO SCH ×4 (06:17→22:00)
[2018-04-05] MEDS: PIPERACILLIN/TAZO 4.5 GM/NS 100 ML IV SCH ×6 (06:18→21:57)
[2018-04-05] MEDS: ALPRAZolam 0.25 MG (XANAX) TAB PO PRN ×2 (08:13→21:59)
[2018-04-05] MEDS: CLOPIDOGREL 75 MG (PLAVIX) TABLET PO SCH (08:14)
[2018-04-05] MEDS: HYDROCODONE/CHLOR 10MG/5 ML (TUSSIONEX SUSP) 5ML UDC PO SCH ×2 (08:14→22:00)
[2018-04-05] MEDS: BENZONATATE 100 MG (TESSALON) CAPSULE PO SCH ×3 (08:14→22:00)
[2018-04-05] MEDS: VITAMIN D3 1,000 UNITS (CHOLECALCIFEROL) TABLET PO SCH (08:14)
[2018-04-05] MEDS: ASPIRIN E.C. 81 MG (ECOTRIN) TAB PO SCH (08:14)
[2018-04-05] MEDS: guaiFENesin (MUCINEX) 600 MG TAB PO SCH ×2 (08:14→21:59)
[2018-04-05] MEDS: meTOprolol TARTRATE 25 MG (LOPRESSOR) TABLET PO SCH ×2 (08:14→22:00)
[2018-04-05] MEDS: FERROUS SULF 325 MG (IRON) TAB PO SCH (08:14)
[2018-04-05 08:30] VITALS: BP 172/79
[2018-04-05] MEDS: ADVAIR HFA 115/21 MCG INHALER 8 GM IH SCH ×2 (08:40→19:08)
--- NOTE | 2018-04-05 09:48 | Physical Therapy Daily Note ---
PT Daily Note-Current Subjective Pt laying Supine in bed upon arrival. Pt agrees to PT. "I just want to get better and keep moving as long as I can." Mental Status Patient Orientation: Person, Place, Time, Situation Attachments: Oxygen (3L), IV Transfers Therapy Code Descriptions/Definitions Functional [place] Measure: 0=Not Assessed/NA 4=Minimal Assistance 1=Total Assistance 5=Supervision or Setup 2=Maximal Assistance 6=Modified [place] 3=Moderate Assistance 7=Complete [place] Therapy Quality Codes: 6 Independent with activity with or without an assistive device 5 Patient requires set up or clean up by helper. Patient completes activity by themselves 4 Supervision or touching assist (CGA). [place] provide cues , steadying assist 3 The helper provides less than half the effort to complete the activity 2 The helper provides more than half the effort to complete the activity 1 Dependent. The helper does all the effort to complete an activity 7 Patient refused to complete or attempt activity 9 The patient did not perform the activity before the current illness or injury 88 Not attempted due to Medical conditions or safety concerns Scootin Rollin Supine to/from Sit: 4 Sit to/from Stand: 5 Weight Bearing Right Lower Extremity: Right Full Weight Bearing Left Lower Extremity: Left Full Weight Bearing Gait Training Distance (FIM): 1=up to 49 ft Distance: 10' Gait Level of Assist: 5 Gait Persons Needed: 1 Gait Assistive Device: FWW Exercises Supine Ex: Ankle pumps, Quad Set, Glut sets, Heel Slides, Straight leg raise, Hip abd/add Supine Reps: 15 Treatments Pt transfers from Supine to EOB to Standing to use BSC. Pt returns to bed due to SOA and fatigue. Pt completes Supine Ex with short rest break. Pt resting in bed at end of tx with all needs met. Assessment Current Status: Good Progress Pt is very pleasant and motivated but is limited by SOA and fatigue. PT Meter Tester Primary Goals Meter Tester Primary Goals PT Halfway Goals Time Frame: Apr 19, 2018 Transfers (B,C,W/C) (FIM): 6 Gait (FIM): 6 Gait distance (FIM): 3=150 ft Gait Level of Assist: 6 Gait Assistive Device: FWW PT Plan Problem List Problem List: Activity Tolerance Treatment/Plan Treatment Plan: Continue Plan of Care Treatment Plan: Bed Mobility, Education, Functional Activity Stefanie, Functional Strength, Gait, Safety, Therapeutic Exercise, Transfers Treatment Duration: Apr 19, 2018 Frequency: 6 times per week Estimated Hrs Per Day: .25 hour per day Patient and/or Family Agrees t: Yes Safety Risks/Education Patient Education: Transfer Techniques, Correct Positioning, Safety Issues Teaching Recipient: Patient Teaching Methods: Discussion Response to Teaching: Verbalize Understanding Time/GCodes Time In: 800 Time Out: 825 Total Billed Treatment Time: 25 Total Billed Treatment 1, FA (10m) & EX (15m) G Codes Necessary: JOSSELYN Patiño PTA Apr 05, 2018 09:48
--- NOTE | 2018-04-05 11:36 | Progress Note-Hospitalist ---
Subjective HPI/CC On Admission Date Seen by Provider: Apr 05, 2018 Time Seen by Provider: 11:00 Subjective/Events-last exam Patient's sleeping soundly Working on discharge for hospice Overall poor prognosis Appears to be in no distress or pain Objective Exam Vital Signs Vital Signs Date Time Temp Pulse Resp B/P (MAP) Pulse Ox O2 Delivery O2 Flow Rate FiO2 04/05/18 08:38 97 Nasal Cannula 3.00 04/05/18 08:30 97.8 73 18 04/05/18 04:00 153/88 (109) 04/04/18 15:26 3 Capillary Refill : Less Than 3 Seconds General Appearance: No Apparent Distress, WD/WN, Chronically ill, Thin Respiratory: Chest Non Tender, No Accessory Muscle Use, No Respiratory Distress , Crackles, Decreased Breath Sounds Results/Procedures Lab Patient resulted labs reviewed. Assessment/Plan Assessment and Plan Assess & Plan/Chief Complaint Assessment: Right-sided pneumonia Severe COPD Lung mass declines treatment Hospice candidate Plan: Disposition Saturday with hospice Continue current treatment Diagnosis/Problems Diagnosis/Problems (1) Pneumonia Status: Acute Qualifiers: Pneumonia type: due to unspecified organism Laterality: right Lung location: lower lobe of lung Qualified Codes: J18.1 - Lobar pneumonia, unspecified organism (2) COPD with acute exacerbation Status: Acute (3) Lung nodule Status: Chronic Clinical Quality Measures DVT/VTE Risk/Contraindication: Risk Factor Score Per Nursin RFS Level Per Nursing on Admit: 4+=Very High ALAN MEEK DO Apr 05, 2018 11:36
[2018-04-05 12:20] VITALS: BP 162/82
--- NOTE | 2018-04-05 15:25 | Pulmonary Progress Note ---
Subjective Time Seen by a Provider: 15:25 Subjective/Events-last exam No complications noted. Sepsis Event Evaluation Height, Weight, BMI Height: 5'2.00" Weight: 102lbs. 7.0oz. 46.593350bd; 18.7 BMI Method:Stated Exam Exam Vital Signs Date Time Temp Pulse Resp B/P (MAP) Pulse Ox O2 Delivery O2 Flow Rate FiO2 04/05/18 15:02 98 Nasal Cannula 3.00 04/05/18 12:20 97.2 69 18 162/82 (108) 98 Nasal Cannula 2.50 04/05/18 08:38 97 Nasal Cannula 3.00 04/05/18 08:30 97.8 73 18 172/79 (110) 95 Nasal Cannula 3.00 04/05/18 08:25 Nasal Cannula 3.00 04/05/18 04:00 97.4 70 18 153/88 (109) 98 Nasal Cannula 3.00 04/05/18 03:25 96 Nasal Cannula 3.00 04/05/18 00:12 97.5 72 20 146/68 (94) 96 Nasal Cannula 2.50 04/04/18 21:59 97 Nasal Cannula 3.00 04/04/18 20:00 Nasal Cannula 3.00 04/04/18 20:00 98.5 88 18 128/78 (95) 100 Nasal Cannula 2.50 04/04/18 16:00 98.0 78 16 174/79 (110) 96 Nasal Cannula 2.50 04/04/18 15:50 95 Nasal Cannula 2.50 04/04/18 15:26 68 95 3 I & O 04/05/18 06:59 Intake Total 2100 ml Output Total 1750 ml Balance 350 ml Height & Weight Height: 5'2.00" Weight: 102lbs. 7.0oz. 46.374594fa; 18.7 BMI Method:Stated General Appearance: No Apparent Distress, WD/WN, Chronically ill, Thin HEENT: PERRL/EOMI, Pharynx Normal Neck: Supple Respiratory: Chest Non Tender, No Accessory Muscle Use, No Respiratory Distress , Crackles, Decreased Breath Sounds Cardiovascular: Regular Rate, Rhythm Capillary Refill: Less Than 3 Seconds Gastrointestinal: normal bowel sounds, non tender, soft Extremity: Non Tender, No Calf Tenderness, No Pedal Edema Neurologic/Psychiatric: Alert, Oriented x3 Skin: Warm/Dry Results Lab Laboratory Tests 1/4/19 08:40 Assessment/Plan Assessment/Plan Recurrent pneumonia with sepsis s/p bronchoscopy 02/25 -Last bronch grew MSSA and candidiasis -PT is now growing pseudomonus in sputum and urine and enterococcus in urine -Await C&S -repeat Labs -Continue Vanco and Zosyn now and await cultures -Woody cultures -Percepta was intermediate -Check urine strep and legionella Ag -CHeck MRSA nasal swab -IVF Lung mass is now larger Hx of severe COPD -Will need out patient F/U -Decrease SOlumedrol to 40 IV Q12 -SVNS Possible home with hospice on Saturday. RICHARD SANDY DO Apr 05, 2018 15:25
[2018-04-05 15:55] VITALS: BP 137/67
[2018-04-05 19:05] VITALS: BP 178/81
[2018-04-05] MEDS ORDERED: methylPREDNISolone 40 MG/ML (Solu-MEDROL) VIAL IV SCH (21:00)
[2018-04-05] MEDS: ROSUVASTATIN 10 MG (CRESTOR) TABLET PO SCH (21:59)
[2018-04-06] VITALS (7 sets, daily range): BP systolic 126–212; BP diastolic 68–83
[2018-04-06] MEDS: RT-ALBUTEROL SULF 2.5 MG/3 ML PRE-MIX VIAL INH SCH ×4 (02:49→19:54)
[2018-04-06] MEDS: LINEZOLID IVPB 300 ML IV SCH ×2 (05:10→16:25)
[2018-04-06] MEDS: LEVOTHYROXINE 50 MCG (LEVOTHROID) TAB PO SCH (06:41)
[2018-04-06] MEDS: PIPERACILLIN/TAZO 4.5 GM/NS 100 ML IV SCH ×6 (06:41→20:31)
[2018-04-06] MEDS: PANTOPRAZOLE 40 MG (PROTONIX) TAB PO SCH (06:41)
[2018-04-06] MEDS: BETHANECHOL 25 MG (URECHOLINE) TAB PO SCH ×4 (06:41→20:20)
[2018-04-06] MEDS: MULTIVIT W/MINERALS TAB (THERAGRAN M) PO SCH (06:41)
--- NOTE | 2018-04-06 06:50 | Pulmonary Progress Note ---
Subjective Time Seen by a Provider: 06:50 Subjective/Events-last exam PT feels improved SOB. Sepsis Event Evaluation Height, Weight, BMI Height: 5'2.00" Weight: 102lbs. 7.0oz. 46.523190df; 18.7 BMI Method:Stated Exam Exam Vital Signs Date Time Temp Pulse Resp B/P (MAP) Pulse Ox O2 Delivery O2 Flow Rate FiO2 04/06/18 04:00 98.2 76 20 174/81 (112) 97 Nasal Cannula 3.00 04/06/18 02:50 98 Nasal Cannula 3.00 04/06/18 00:00 98.5 88 20 147/68 (94) Nasal Cannula 3.00 04/05/18 20:00 Nasal Cannula 3.00 04/05/18 19:09 98 Nasal Cannula 3.00 04/05/18 19:05 99.2 80 20 178/81 (113) 100 Nasal Cannula 2.50 04/05/18 15:55 98.6 87 24 137/67 (90) 97 Nasal Cannula 2.50 04/05/18 15:02 98 Nasal Cannula 3.00 04/05/18 12:20 97.2 69 18 162/82 (108) 98 Nasal Cannula 2.50 04/05/18 08:38 97 Nasal Cannula 3.00 04/05/18 08:30 97.8 73 18 172/79 (110) 95 Nasal Cannula 3.00 04/05/18 08:25 Nasal Cannula 3.00 I & O 04/06/18 07:00 Intake Total 1370 ml Output Total 600 ml Balance 770 ml Height & Weight Height: 5'2.00" Weight: 102lbs. 7.0oz. 46.972331tr; 18.7 BMI Method:Stated General Appearance: No Apparent Distress, WD/WN, Chronically ill, Thin HEENT: PERRL/EOMI, Pharynx Normal Neck: Supple Respiratory: Chest Non Tender, No Accessory Muscle Use, No Respiratory Distress , Crackles, Decreased Breath Sounds Cardiovascular: Regular Rate, Rhythm Capillary Refill: Less Than 3 Seconds Gastrointestinal: normal bowel sounds, non tender, soft Extremity: Non Tender, No Calf Tenderness, No Pedal Edema Neurologic/Psychiatric: Alert, Oriented x3 Skin: Warm/Dry Results Lab Laboratory Tests 04/04/18 08:40 Assessment/Plan Assessment/Plan Recurrent pneumonia with sepsis s/p bronchoscopy 02/25 -Last bronch grew MSSA and candidiasis -PT is now growing pseudomonas in sputum and urine and enterococcus in urine -Continue Zosyn -Percepta was intermediate Lung mass is now larger Hx of severe COPD -Will need out patient F/U - SOlumedrol - change to prednisone taper. -SVNS Possible home with hospice on Saturday. RICHARD SANDY DO Apr 06, 2018 06:50
[2018-04-06] MEDS: ADVAIR HFA 115/21 MCG INHALER 8 GM IH SCH ×2 (08:25→19:54)
[2018-04-06] MEDS: HYDROCODONE/CHLOR 10MG/5 ML (TUSSIONEX SUSP) 5ML UDC PO SCH ×2 (08:35→20:21)
[2018-04-06] MEDS: FERROUS SULF 325 MG (IRON) TAB PO SCH (08:35)
[2018-04-06] MEDS: guaiFENesin (MUCINEX) 600 MG TAB PO SCH ×2 (08:35→20:21)
[2018-04-06] MEDS: predniSONE 10 MG TAB PO SCH (08:35)
[2018-04-06] MEDS: BENZONATATE 100 MG (TESSALON) CAPSULE PO SCH ×3 (08:36→20:21)
[2018-04-06] MEDS: CLOPIDOGREL 75 MG (PLAVIX) TABLET PO SCH (08:36)
[2018-04-06] MEDS: ASPIRIN E.C. 81 MG (ECOTRIN) TAB PO SCH (08:36)
[2018-04-06] MEDS: VITAMIN D3 1,000 UNITS (CHOLECALCIFEROL) TABLET PO SCH (08:36)
[2018-04-06] MEDS: meTOprolol TARTRATE 25 MG (LOPRESSOR) TABLET PO SCH ×2 (08:36→20:21)
--- NOTE | 2018-04-06 12:36 | Progress Note-Hospitalist ---
Subjective HPI/CC On Admission Date Seen by Provider: Apr 06, 2018 Time Seen by Provider: 11:30 Subjective/Events-last exam Patient doing well All 5 of her children came in to see her yesterday even the one that was from out of state surprise She is okay with the end stage of her life She has very strong spiritism beliefs and that is helping her during this difficult time Does not have any complaints today Breathing pretty well Review of Systems Pulmonary: Dyspnea Objective Exam Vital Signs Vital Signs Date Time Temp Pulse Resp B/P (MAP) Pulse Ox O2 Delivery O2 Flow Rate FiO2 04/06/18 12:00 97.8 89 16 126/82 (97) 97 Nasal Cannula 3.00 04/04/18 15:26 3 Capillary Refill : Less Than 3 Seconds General Appearance: No Apparent Distress, WD/WN, Chronically ill Respiratory: Chest Non Tender, No Accessory Muscle Use, No Respiratory Distress , Crackles, Decreased Breath Sounds, Wheezing Cardiovascular: Regular Rate, Rhythm, No Edema, No Gallop, No JVD, No Murmur, Normal Peripheral Pulses Neurologic/Psychiatric: Alert, Oriented x3, No Motor/Sensory Deficits, Normal Mood/Affect Results/Procedures Lab Patient resulted labs reviewed. Assessment/Plan Assessment and Plan Assess & Plan/Chief Complaint Assessment: Right-sided pneumonia Severe COPD Lung mass declines treatment Hospice candidate Plan: Disposition Saturday with hospice Continue current treatment Diagnosis/Problems Diagnosis/Problems (1) Pneumonia Status: Acute Qualifiers: Pneumonia type: due to unspecified organism Laterality: right Lung location: lower lobe of lung Qualified Codes: J18.1 - Lobar pneumonia, unspecified organism (2) COPD with acute exacerbation Status: Acute (3) Lung nodule Status: Chronic Clinical Quality Measures DVT/VTE Risk/Contraindication: Risk Factor Score Per Nursin RFS Level Per Nursing on Admit: 4+=Very High ALAN MEEK DO Apr 06, 2018 12:36
[2018-04-06] MEDS: ALPRAZolam 0.25 MG (XANAX) TAB PO PRN (20:20)
[2018-04-06] MEDS: ROSUVASTATIN 10 MG (CRESTOR) TABLET PO SCH (20:20)
[2018-04-07 00:39] VITALS: BP 170/83
[2018-04-07] MEDS: RT-ALBUTEROL SULF 2.5 MG/3 ML PRE-MIX VIAL INH SCH ×4 (04:02→21:54)
[2018-04-07] MEDS: ALPRAZolam 0.25 MG (XANAX) TAB PO PRN ×2 (04:27→21:05)
[2018-04-07] MEDS: LINEZOLID IVPB 300 ML IV SCH (05:03)
[2018-04-07] MEDS: BETHANECHOL 25 MG (URECHOLINE) TAB PO SCH ×4 (06:00→21:02)
[2018-04-07] MEDS: LEVOTHYROXINE 50 MCG (LEVOTHROID) TAB PO SCH (06:00)
[2018-04-07] MEDS: PANTOPRAZOLE 40 MG (PROTONIX) TAB PO SCH (06:00)
[2018-04-07] MEDS: MULTIVIT W/MINERALS TAB (THERAGRAN M) PO SCH (06:00)
[2018-04-07] MEDS: PIPERACILLIN/TAZO 4.5 GM/NS 100 ML IV SCH ×6 (06:01→21:03)
[2018-04-07 08:00] VITALS: BP 177/89
[2018-04-07] MEDS: BENZONATATE 100 MG (TESSALON) CAPSULE PO SCH ×3 (08:02→21:02)
[2018-04-07] MEDS: predniSONE 10 MG TAB PO SCH (08:02)
[2018-04-07] MEDS: VITAMIN D3 1,000 UNITS (CHOLECALCIFEROL) TABLET PO SCH (08:03)
[2018-04-07] MEDS: ASPIRIN E.C. 81 MG (ECOTRIN) TAB PO SCH (08:03)
[2018-04-07] MEDS: HYDROCODONE/CHLOR 10MG/5 ML (TUSSIONEX SUSP) 5ML UDC PO SCH ×2 (08:03→21:03)
[2018-04-07] MEDS: FERROUS SULF 325 MG (IRON) TAB PO SCH (08:03)
[2018-04-07] MEDS: CLOPIDOGREL 75 MG (PLAVIX) TABLET PO SCH (08:03)
[2018-04-07] MEDS: meTOprolol TARTRATE 25 MG (LOPRESSOR) TABLET PO SCH ×2 (08:03→21:02)
[2018-04-07] MEDS: LINEZOLID (ZYVOX) 600 MG TAB PO SCH ×2 (08:03→21:02)
[2018-04-07] MEDS: guaiFENesin (MUCINEX) 600 MG TAB PO SCH ×2 (08:03→21:02)
--- NOTE | 2018-04-07 08:15 | Pulmonary Progress Note ---
Subjective Time Seen by a Provider: 08:15 Subjective/Events-last exam NO complications noted. Sepsis Event Evaluation Height, Weight, BMI Height: 5'2.00" Weight: 102lbs. 7.0oz. 46.644963vm; 18.7 BMI Method:Stated Exam Exam Vital Signs Date Time Temp Pulse Resp B/P (MAP) Pulse Ox O2 Delivery O2 Flow Rate FiO2 04/07/18 00:39 96.8 85 20 170/83 (112) 98 Nasal Cannula 3.00 04/06/18 21:48 182/80 (114) 04/06/18 20:00 Nasal Cannula 3.00 04/06/18 19:55 96.2 98 24 212/80 (124) 99 Nasal Cannula 3.00 04/06/18 19:54 98 Nasal Cannula 3.00 04/06/18 15:55 96.9 90 20 149/78 (101) 95 Nasal Cannula 3.00 04/06/18 14:42 98 Nasal Cannula 3.00 04/06/18 12:00 97.8 89 16 126/82 (97) 97 Nasal Cannula 3.00 04/06/18 08:26 99 Nasal Cannula 3.00 I & O 04/07/18 07:00 Intake Total 1630 ml Output Total 800 ml Balance 830 ml Height & Weight Height: 5'2.00" Weight: 102lbs. 7.0oz. 46.163821zd; 18.7 BMI Method:Stated General Appearance: No Apparent Distress, WD/WN, Chronically ill HEENT: PERRL/EOMI, Pharynx Normal Neck: Supple Respiratory: Chest Non Tender, No Accessory Muscle Use, No Respiratory Distress , Crackles, Decreased Breath Sounds, Wheezing Cardiovascular: Regular Rate, Rhythm, No Edema, No Gallop, No JVD, No Murmur, Normal Peripheral Pulses Capillary Refill: Less Than 3 Seconds Gastrointestinal: normal bowel sounds, non tender, soft Extremity: Non Tender, No Calf Tenderness, No Pedal Edema Neurologic/Psychiatric: Alert, Oriented x3, No Motor/Sensory Deficits, Normal Mood/Affect Skin: Warm/Dry Assessment/Plan Assessment/Plan Recurrent pneumonia with sepsis s/p bronchoscopy 02/25 -Last bronch grew MSSA and candidiasis -PT is now growing pseudomonas in sputum and urine and enterococcus in urine - Zosyn -Percepta was intermediate Lung mass is now larger Hx of severe COPD - prednisone taper. -SVNS Possible home with hospice RICHARD SANDY DO Apr 07, 2018 08:15
[2018-04-07] MEDS: ADVAIR HFA 115/21 MCG INHALER 8 GM IH SCH ×2 (09:11→21:54)
--- NOTE | 2018-04-07 11:25 | NUR ---
PALLIATIVE CARE RN in to see the patient. Daughter Anuj, from [place] is in the room, later joined by a brother and another m an unsure if brother or . Patient is a bit anxious and is worrying about hospice and euthanasia. I spoke to this and reassured her that hospice's goal is get her symptom's under control. Took a bit of convincing that they were not going to "do away with her" when she signed on...then I did talk about the fact that she would decline and at some point sleep more but hospice will be with her every step of the way to make sure she is comfortable. Referral sent to [facility] as requested by family. She is medicaid pending and will have a difficult time with OOP expense if denied. Will continue to follow and assist with needs as I am able.
--- NOTE | 2018-04-07 11:50 | NUR ---
DISCHARGE PLANNING: Family called this RN to room and said final decision is for [facility]ie Broussard in [place] with [facility]. They have provided me with a request from Laura Mcgarry at [facility], to send clinical referral . I have done this and also have sent the referral to [facility]. Will await Kathie Ochoa determination.
--- NOTE | 2018-04-07 11:52 | Physical Therapy Daily Note ---
PT Daily Note-Current Subjective Pt agrees to PT. Reports she is ready to walk and sit in her chair. Pain Numeric Pain Scale: 0-No Pain Location: No Pain Reported Mental Status Patient Orientation: Normal For Age Attachments: Oxygen Transfers Therapy Code Descriptions/Definitions Functional [place] Measure: 0=Not Assessed/NA 4=Minimal Assistance 1=Total Assistance 5=Supervision or Setup 2=Maximal Assistance 6=Modified [place] 3=Moderate Assistance 7=Complete [place] Therapy Quality Codes: 6 Independent with activity with or without an assistive device 5 Patient requires set up or clean up by helper. Patient completes activity by themselves 4 Supervision or touching assist (CGA). [place] provide cues , steadying assist 3 The helper provides less than half the effort to complete the activity 2 The helper provides more than half the effort to complete the activity 1 Dependent. The helper does all the effort to complete an activity 7 Patient refused to complete or attempt activity 9 The patient did not perform the activity before the current illness or injury 88 Not attempted due to Medical conditions or safety concerns Transfers (B, C, W/C) (FIM): 4 Scootin Rollin Supine to/from Sit: 4 Sit to/from Stand: 4 Bed to/from Chair: 4 Weight Bearing Right Lower Extremity: Right Full Weight Bearing Left Lower Extremity: Left Full Weight Bearing Gait Training Gait (FIM): 2 Distance (FIM): 1=971-08 ft Distance: 75' Gait Level of Assist: 4 Gait Persons Needed: 1 Gait Assistive Device: FWW Exercises Seated Therapy Exercises: Ankle pumps Assessment Pt was able to amb with CGAx1 FWW 75' due to SOA 5L O2. Pt reported dizziness at end of amb. Pt was able to recall sitting ex of ankle pumps. Pt was positioned in chair and needs met. PT Short Term Goals Short Term Goals Distance (FIM): 1=975-77 ft Gait Assistive Device: FWW PT Electric Powerline Examiner Goals Alf Goals PT Electric Powerline Examiner Goals Time Frame: Apr 19, 2018 Transfers (B,C,W/C) (FIM): 6 Gait (FIM): 6 Gait distance (FIM): 3=150 ft Gait Level of Assist: 6 Gait Assistive Device: FWW PT Plan Problem List Problem List: Activity Tolerance, Functional Strength, Safety, Gait, Transfer, Bed Mobility Treatment/Plan Treatment Plan: Continue Plan of Care Treatment Plan: Bed Mobility, Education, Functional Activity Stefanie, Functional Strength, Gait, Safety, Therapeutic Exercise, Transfers Treatment Duration: Apr 19, 2018 Frequency: 1 time per week Estimated Hrs Per Day: .25 hour per day Patient and/or Family Agrees t: Yes Time/GCodes Time In: 1125 Time Out: 1135 Total Billed Treatment Time: 10 Total Billed Treatment 1 visit FA 10 min HARLEEN BRAVO PT Apr 07, 2018 11:52
--- NOTE | 2018-04-07 12:44 | Progress Note (SOAP) ---
Subjective Date Seen by a Provider: Apr 07, 2018 Time Seen by a Provider: 12:42 Subjective/Events-last exam Fwup pneumonia with sepsis, exacerbation of COPD, right lung mass, weakness. Gurgling cough. Has decided on DC to [place] with Hospice. Objective Exam Vital Signs Date Time Temp Pulse Resp B/P (MAP) Pulse Ox O2 Delivery O2 Flow Rate FiO2 04/07/18 09:10 99 Nasal Cannula 3.00 04/07/18 08:00 96.5 88 20 177/89 (118) 99 Nasal Cannula 3.00 04/07/18 08:00 Nasal Cannula 3.00 04/07/18 00:39 96.8 85 20 170/83 (112) 98 Nasal Cannula 3.00 04/06/18 21:48 182/80 (114) 04/06/18 20:00 Nasal Cannula 3.00 04/06/18 19:55 96.2 98 24 212/80 (124) 99 Nasal Cannula 3.00 04/06/18 19:54 98 Nasal Cannula 3.00 04/06/18 15:55 96.9 90 20 149/78 (101) 95 Nasal Cannula 3.00 04/06/18 14:42 98 Nasal Cannula 3.00 I & O 04/07/18 07:00 Intake Total 1630 ml Output Total 800 ml Balance 830 ml Capillary Refill : Less Than 3 Seconds General Appearance: No Apparent Distress Neck: Supple Respiratory: Decreased Breath Sounds Cardiovascular: Regular Rate, Rhythm Gastrointestinal: normal bowel sounds, non tender, soft Extremity: No Calf Tenderness, No Pedal Edema Neurologic/Psychiatric: Alert, Oriented x3 Results Lab Microbiology 04/01/18 Blood Culture - Final, Complete No growth 04/02/18 MRSA Screen - Final, Complete MRSA not isolated 04/01/18 Urine Culture - Final, Complete Pseudomonas aeruginosa Enterococcus faecium Assessment/Plan Assessment/Plan Assess & Plan/Chief Complaint 1. Pneumonia with Sepsis--continue IV abx 2. Exacerbation of COPD--continue oxygen, SVNS, solumedrol 3. Right lung mass--has opted for no further workup, NH with hospice for DC likely tomorrow 4. Weakness--PT started Clinical Quality Measures Admission Status Admission Dx 1. Recurrent Pneumonia with Sepsis--on zosyn, vancomycin, await sputum/blood culture results 2. COPD with acute exacerbation--on oxygen, SVNS, add solumedrol DVT/VTE Risk/Contraindication: Risk Factor Score Per Nursin RFS Level Per Nursing on Admit: 4+=Very High LEW LEIVA DO Apr 07, 2018 12:44
[2018-04-07 16:00] VITALS: BP 146/92
[2018-04-07] MEDS: ROSUVASTATIN 10 MG (CRESTOR) TABLET PO SCH (21:02)
[2018-04-08] VITALS: BP 190/90
[2018-04-08 02:00] VITALS: BP 180/72
[2018-04-08] MEDS: RT-ALBUTEROL SULF 2.5 MG/3 ML PRE-MIX VIAL INH SCH ×4 (02:23→15:07)
[2018-04-08 03:00] VITALS: BP 162/78
[2018-04-08] MEDS: MULTIVIT W/MINERALS TAB (THERAGRAN M) PO SCH (05:58)
[2018-04-08] MEDS: PANTOPRAZOLE 40 MG (PROTONIX) TAB PO SCH (05:58)
[2018-04-08] MEDS: PIPERACILLIN/TAZO 4.5 GM/NS 100 ML IV SCH ×2 (05:58)
[2018-04-08] MEDS: BETHANECHOL 25 MG (URECHOLINE) TAB PO SCH ×2 (05:59→11:40)
[2018-04-08] MEDS: LEVOTHYROXINE 50 MCG (LEVOTHROID) TAB PO SCH (05:59)
--- NOTE | 2018-04-08 07:06 | Pulmonary Progress Note ---
Subjective Time Seen by a Provider: 07:06 Subjective/Events-last exam No complications noted. Sepsis Event Evaluation Height, Weight, BMI Height: 5'2.00" Weight: 102lbs. 7.0oz. 46.137705pk; 18.7 BMI Method:Stated Exam Exam Vital Signs Date Time Temp Pulse Resp B/P (MAP) Pulse Ox O2 Delivery O2 Flow Rate FiO2 04/08/18 03:00 162/78 (106) 04/08/18 02:23 93 Nasal Cannula 3.00 04/08/18 02:00 180/72 (108) 04/08/18 00:00 96.7 77 16 190/90 (123) 100 Nasal Cannula 3.00 04/07/18 21:54 98 Nasal Cannula 3.00 04/07/18 20:00 Nasal Cannula 3.00 04/07/18 16:00 96.4 98 23 146/92 (110) 99 Nasal Cannula 3.00 04/07/18 15:27 97 Nasal Cannula 3.00 04/07/18 09:10 99 Nasal Cannula 3.00 04/07/18 08:00 96.5 88 20 177/89 (118) 99 Nasal Cannula 3.00 04/07/18 08:00 Nasal Cannula 3.00 I & O 04/08/18 07:00 Intake Total 2260 ml Balance 2260 ml Height & Weight Height: 5'2.00" Weight: 102lbs. 7.0oz. 46.268449jr; 18.7 BMI Method:Stated General Appearance: No Apparent Distress HEENT: PERRL/EOMI, Pharynx Normal Neck: Supple Respiratory: Decreased Breath Sounds Cardiovascular: Regular Rate, Rhythm Capillary Refill: Less Than 3 Seconds Gastrointestinal: normal bowel sounds, non tender, soft Extremity: No Calf Tenderness, No Pedal Edema Neurologic/Psychiatric: Alert, Oriented x3 Skin: Warm/Dry Assessment/Plan Assessment/Plan Recurrent pneumonia with sepsis s/p bronchoscopy 02/25 -Last bronch grew MSSA and candidiasis -PT is now growing pseudomonas in sputum and urine and enterococcus in urine - Zosyn -Percepta was intermediate Lung mass is now larger Hx of severe COPD - prednisone taper. -SVNS plan is discharge with hospice care RICHARD SANDY DO Apr 08, 2018 07:06
[2018-04-08 08:00] VITALS: BP 172/76
[2018-04-08] MEDS: predniSONE 10 MG TAB PO SCH (09:28)
[2018-04-08] MEDS: guaiFENesin (MUCINEX) 600 MG TAB PO SCH (09:28)
[2018-04-08] MEDS: ALPRAZolam 0.25 MG (XANAX) TAB PO PRN (09:28)
[2018-04-08] MEDS: BENZONATATE 100 MG (TESSALON) CAPSULE PO SCH ×2 (09:28→13:27)
[2018-04-08] MEDS: HYDROCODONE/CHLOR 10MG/5 ML (TUSSIONEX SUSP) 5ML UDC PO SCH (09:28)
[2018-04-08] MEDS: LINEZOLID (ZYVOX) 600 MG TAB PO SCH (09:29)
[2018-04-08] MEDS: VITAMIN D3 1,000 UNITS (CHOLECALCIFEROL) TABLET PO SCH (09:29)
[2018-04-08] MEDS: meTOprolol TARTRATE 25 MG (LOPRESSOR) TABLET PO SCH (09:29)
[2018-04-08] MEDS: FERROUS SULF 325 MG (IRON) TAB PO SCH (09:29)
[2018-04-08] MEDS: CLOPIDOGREL 75 MG (PLAVIX) TABLET PO SCH (09:29)
[2018-04-08] MEDS: ASPIRIN E.C. 81 MG (ECOTRIN) TAB PO SCH (09:29)
--- NOTE | 2018-04-08 09:59 | NUR ---
DISCHARGE PLANNING: This RN has been in contact with Kathie Broussard in [place], [place] and they have accepted the patient DANILO p ending for EOL care. Hospice benefit accessed through [facility]. Equipment is delivered already this morning and just waiting now for Dr. Foley and discharge instructions. Family to transport. They will need her travel O2 for transport.
--- NOTE | 2018-04-08 10:16 | NUR ---
prior to a.m. medications pulse was 79 bpm and b/p was 172/76
[2018-04-08] MEDS: ADVAIR HFA 115/21 MCG INHALER 8 GM IH SCH (10:39)
--- NOTE | 2018-04-08 10:42 | Physical Therapy Daily Note ---
PT Daily Note-Current Subjective Pt was up in recliner and agreed to PT. She reports she will be dismissed this afternoon assisted on hospice. Pain Numeric Pain Scale: 0-No Pain Location: No Pain Reported Mental Status Patient Orientation: Normal For Age Attachments: Oxygen Transfers Therapy Code Descriptions/Definitions Functional [place] Measure: 0=Not Assessed/NA 4=Minimal Assistance 1=Total Assistance 5=Supervision or Setup 2=Maximal Assistance 6=Modified [place] 3=Moderate Assistance 7=Complete [place] Therapy Quality Codes: 6 Independent with activity with or without an assistive device 5 Patient requires set up or clean up by helper. Patient completes activity by themselves 4 Supervision or touching assist (CGA). [place] provide cues , steadying assist 3 The helper provides less than half the effort to complete the activity 2 The helper provides more than half the effort to complete the activity 1 Dependent. The helper does all the effort to complete an activity 7 Patient refused to complete or attempt activity 9 The patient did not perform the activity before the current illness or injury 88 Not attempted due to Medical conditions or safety concerns Transfers (B, C, W/C) (FIM): 5 Scootin Rollin Supine to/from Sit: 5 Sit to/from Stand: 5 Bed to/from Chair: 5 Weight Bearing Right Lower Extremity: Right Full Weight Bearing Left Lower Extremity: Left Full Weight Bearing Gait Training Gait (FIM): 2 Distance (FIM): 6=005-20 ft Distance: 125' Gait Level of Assist: 4 Gait Persons Needed: 1 Assessment Current Status: Poor Progress Pt was able to sit-stand SBA. Pt was mod A with bathroom skills and was able to stand with assist of FWW. Pt was able to amb 125' FWW with CGA 5L O2. Pt required one standing restorative break during amb. Pt returned to [facility] with needs met. Pt was able to verabalize ex to perform while sitting or while supine. She reports that she will continue to move as much as she can. PT Short Term Goals Short Term Goals Distance (FIM): 1=348-52 ft Gait Assistive Device: FWW PT Nursing Home Goals Endless Track Vehicle Supervisor Goals PT Nursing Home Goals Time Frame: Apr 19, 2018 Transfers (B,C,W/C) (FIM): 6 Gait (FIM): 6 Gait distance (FIM): 3=150 ft Gait Level of Assist: 6 Gait Assistive Device: FWW PT Plan Problem List Problem List: Activity Tolerance, Functional Strength, Safety, Gait, Transfer, Bed Mobility Treatment/Plan Treatment Plan: Discontinue PT Treatment Plan: Bed Mobility, Education, Functional Activity Stefanie, Functional Strength, Gait, Safety, Therapeutic Exercise, Transfers Treatment Duration: Apr 19, 2018 Frequency: 1 time per week Estimated Hrs Per Day: .25 hour per day Patient and/or Family Agrees t: Yes Discharge Recommendations Equpiment Recommendations-D/C: Front Wheeled Walker, Oxygen, Standard Bedside Commode Time/GCodes Time In: 1020 Time Out: 1033 Total Billed Treatment Time: 13 Total Billed Treatment 1 visit FA 13 min HARLEEN BRAVO PT Apr 08, 2018 10:42
[2018-04-08] MEDS ORDERED: PRD10T PO (12:43)
[2018-04-08] MEDS ORDERED: ALPR0.254 PO (12:43)
[2018-04-08] MEDS ORDERED: BENZ100C18 PO (12:43)
[2018-04-08] MEDS ORDERED: LINE600T5 PO (12:43)
--- NOTE | 2018-04-08 12:46 | Discharge Inst-Simple/Standard ---
Discharge Inst-Standard Discharge Medications New, Converted or Re-Newed RX: RX Given to Pt/Family Patient Instructions/Follow Up Plan of Care/Instructions/FU: Discharge to NH with hospice Activity as Tolerated: Yes Discharge Diet: No Restrictions Other Inst to Patient Oxygen at 2-4L NC to keep oxygen saturation at 90% or greater LEW LEIVA DO Apr 08, 2018 12:46
--- NOTE | 2018-04-08 13:00 | NUR ---
REPORT CALLED TO JADEN BAXTER AT THIS TIME, THIS RN SPOKE WITH YVONNE, NURSE WHO WILL ASSUME CARE OF THIS PATIENT WHEN SHE ARRIVES AT THE FACILITY AFTER D/C FROM [facility]. THIS RN WILL CONT. TO MONITOR THIS PATIENT UNTIL DISCHARGE FROM [facility].
[2018-04-08 15:40] VITALS: BP_SYST 172; BP_SYST 190; BP_DIAS 76; BP_DIAS 91
--- NOTE | 2018-04-08 18:36 | Discharge Summary ---
Diagnosis/Chief Complaint Date of Admission Apr 01, 2018 at 15:07 Date of Discharge Apr 08, 2018 at 15:40 Discharge Date: Apr 08, 2018 Discharge Diagnosis 1. Terminal Illness with need of hospice 2. Pneumonia with sepsis--sputum with pseudomonas aeruginosa 3. UTI with pseudomonas aeruginosa and VRE 4. Right Lung Mass suspicious for cancer with patient deferring any further workup due to her underlying frailty 5. COPD with acute exacerbation 6. Acute on Chronic Anemia 7. Weakness 8. Hypothyroidism 9. Parkinson's 10. Sinus Tachycardia Reason Hospital Visit This is a 77 year old female with known COPD and recent admission for pneumonia who was brought to the emergency room with worsening shortness of air and cough. She was found to have worsening infiltrate in her right lung field with possible sepsis. She was admitted on zosyn and vancomycin. Discharge Summary Hospital Course Hospital Course This is a 77 year old female with known COPD and recent admission for pneumonia who was brought to the emergency room with worsening shortness of air and cough. She was found to have worsening infiltrate in her right lung field with possible sepsis. She was admitted on zosyn and vancomycin. Her sputum culture grew out pseudomonas so she was continued on the zosyn but her urine culture grew out VRE so the Vancomycin was changed to zyvox. She was given IV solumedrol for her COPD exerbation and wheezing and continued with oxygen and SVNS with duoneb. Her right lung mass was once again discussed and she continued to defer further workup as she did not want any treatment due to her underlying frail and ill health. PT was started due to her weakness and a palliative care consult was ordered due to her terminal illness to discuss hospice for discharge. The patient and the family decided on [facility]. She will be discharged to the [place] on hospice services. Procedures None. Discharge Physical Examination Allergies: Coded Allergies: benazepril (Verified Allergy, Unknown, 01/21/07) codeine (Verified Adverse Reaction, Unknown, NAUSEA/VOMITING, 01/20/07) Vitals & I&Os Vital Signs Date Time Temp Pulse Resp B/P (MAP) Pulse Ox O2 Delivery O2 Flow Rate FiO2 04/08/18 15:40 79 20 172/76 99 Nasal Cannula 3.00 04/08/18 15:40 98.9 04/04/18 15:26 3 General Appearance: Alert, Oriented X3 Respiratory: Other (decreased aeration) Cardiovascular: Regular Rate Abdominal: Normal Bowel Sounds, Soft, No Tenderness Skin: Other (ecchymosis of arms) Neuro: Other (weakness) Psych/Mental Status: Mental Status NL Discharge Home Medications Reviewed and agree with Discharge Medication list on patient's Discharge Instruction sheet Instructions to Patient/Family Please see electronic discharge instructions given to patient. Clinical Quality Measures DVT/VTE Risk/Contraindication: Risk Factor Score Per Nursin RFS Level Per Nursing on Admit: 4+=Very High LEW LEIVA DO Apr 08, 2018 18:36
== END 2018-04-08 15:40 | disposition hospice, inpatient (51) | DRG 871 ==
LOC: EDUNIT# 13:07 → ER 13:08 → 4TH 15:07
PROVIDERS: ADMIT Internal Medicine; ATTEND Family Medicine
DX: A41.89 Other specified sepsis (principal); J15.1 Pneumonia due to Pseudomonas; J43.9 Emphysema, unspecified; N39.0 Urinary tract infection, site not specified; R91.8 Other nonspecific abnormal finding of lung field; R07.89 Other chest pain; I25.10 Atherosclerotic heart disease of native coronary artery without angina pectoris; I10 Essential (primary) hypertension; Z66 Do not resuscitate; R53.1 Weakness; D64.9 Anemia, unspecified; G20 Parkinson's disease; E78.00 Pure hypercholesterolemia, unspecified; M19.91 Primary osteoarthritis, unspecified site; F41.9 Anxiety disorder, unspecified; E89.0 Postprocedural hypothyroidism; Z99.81 Dependence on supplemental oxygen; Z87.891 Personal history of nicotine dependence; Z85.3 Personal history of malignant neoplasm of breast; Z90.12 Acquired absence of left breast and nipple; Z16.21 Resistance to vancomycin
CPT/HCPCS: 36415; 71045; 71250; 80048; 80053; 81000; 83605; 83735; 84100; 85007; 85025; 85027; 85610; 85730; 87040; 87070; 87077; 87081; 87088; 87186; 87205; 94640; 94760; 96365